=== PATIENT | female | born 1955 | race African-American/Black ===

== ENCOUNTER 2020-08-02 16:45 | Emergency (ER) | payer OTHER, SELFPAY ==
[2020-08-02 16:53] VITALS: BP 150/70; PULSE 70; RESP 20; TEMP 36.2; O2SAT 100; BMI 77.7
== END 2020-08-02 18:00 | disposition left against medical advice (07) ==
PROVIDERS: Emergency Provider Internal Medicine
DX: R31.9 Hematuria, unspecified (principal)
CPT/HCPCS: 99282; 99283

== ENCOUNTER 2021-06-23 15:42 | Emergency (ER) | payer OTHER, SELFPAY ==
--- NOTE | 2021-06-23 16:23 | ECG_ITS ---
Test Reason : CHEST PAIN Blood Pressure : / mmHG Vent. Rate : 065 BPM Atrial Rate : 065 BPM P-R Int : 158 ms QRS Dur : 078 ms QT Int : 414 ms P-R-T Axes : 048 021 048 degrees QTc Int : 430 ms Normal sinus rhythm Normal ECG When compared with ECG of 18-DEC-2019 16:27, Vent. rate has decreased BY 33 BPM T wave amplitude has increased in Lateral leads Referred By: Generic ED Physician Electronically Signed By:CYNTHIA PAYNE
== END 2021-06-23 17:45 | disposition left against medical advice (07) ==
PROVIDERS: Emergency Provider Emergency Medicine; PCP Nurse Practitioner Adult Health
DX: R07.9 Chest pain, unspecified (principal)
CPT/HCPCS: 93005; 99281; 99283

== ENCOUNTER 2022-01-31 13:58 | Emergency (ER) | payer OTHER, SELFPAY ==
--- NOTE | ~2022-01-31 | CT_ITS ---
EXAMINATION: CT HEAD W/O IV CONTRAST CT CERVICAL SPINE W/O IV CONTRAST CLINICAL INFORMATION: Head injury. Neck pain. COMPARISON: None TECHNIQUE: Head - Contiguous axial imaging of the head was performed from the skull base to the vertex without the administration of intravenous contrast, and axial images are reconstructed at 2 mm and 5 mm slice thickness. Cervical spine - A volumetric, helical CT acquisition of the cervical spine was obtained without contrast; in addition to the standard set of axial images, multiplanar reformatted images were provided in the coronal and sagittal imaging planes. This CT examination was performed using dose optimization techniques as appropriate, variously including the following: *Automated exposure control *Adjustment of mA and/or kV according to patient size (this includes techniques or standardized protocols for targeted exams where dose is matched to indication/reason for exam; i.e. extremities or head) *Use of iterative reconstruction technique DLP: 998 mGy-cm (total) FINDINGS: HEAD: The brain parenchyma has normal attenuation. No evidence of intracranial hemorrhage, major vascular territory infarction, focal mass effect or midline shift. Gambino to white matter differentiation is preserved. The ventricles have normal size and configuration. No extra-axial fluid collections. The calvarium is intact and the visualized paranasal sinuses, mastoid air cells and middle ear cavities are clear. The temporomandibular joints are unremarkable. The orbits and globes are normal. CERVICAL SPINE: The craniocervical junction is normal. The skull base and occipital condyles are intact. No acute fractures within the degenerated spine. There is lack of lordotic curvature of the spine. There is chronic osseous spurring of the anterior arch of C1 and old focus of ossification projects superior to the dens. The atlantodens space is 0.3 cm wide (i.e., slightly widened) and the posterior atlantodental space is 1.7 cm. Normally, the spinal canal is in the range of 1.7 to 2.9 cm at the C1 level. There is severe right-sided facet arthropathy at C2-C3 with 0.2 cm degenerative retrolisthesis of C2 on C3. Moderate degenerative disc disease at C3-C4 where there is loss of disc height, prominent anterior vertebral osteophyte formation and bilateral uncovertebral joint hypertrophy resulting in moderate right and minimal left neural foraminal stenosis. The C4, C5, C6 and C7 vertebra are fused and there is chronic decreased AP dimension of C5 and C6 vertebra. The anterior fusion plate and screws are intact at C4-C5. No osteolysis around the hardware. There is moderate degenerative disc disease, bilateral uncovertebral joint hypertrophy and mild bilateral neural foraminal stenosis at C7-T1. No prevertebral soft tissue swelling. The visualized lung apices are normal. Thyroid gland is normal. CT/CT cervical spine wo con IMPRESSION: * No intracranial hemorrhage or other acute intracranial pathology. * No fractures in the degenerated and surgically fused cervical spine. * The mild atlantodental space widening is very likely chronic. There are no comparison imaging exams of the cervical spine. Findings also include severe right-sided facet arthropathy at C2-C3 and mild anterolisthesis of C2 on C3. Otherwise, cervical vertebra have normal alignment.
[2022-01-31 14:08] VITALS: BP 166/86; BP 191/83; PULSE 60; PULSE 64; RESP 18; TEMP 37.1; O2SAT 100; BMI 26.0
--- NOTE | 2022-01-31 14:26 | ED.GENADULT ---
HPI - General Adult General Chief complaint: General Medical Stated complaint: DIZZINESS S/P OBJECT FELL NO HER WHILE SHOPPING Time Seen by Provider: 01/31/22 14:10 Source: patient and EMS Mode of arrival: EMS Limitations: no limitations History of Present Illness HPI narrative: 67-year-old female with a history of prior cervical fusion, anxiety/depression, HLD, HTN, DM here with complaints of head and neck pain with dizziness after a head injury which occurred at [employer]. Patient tells me that she was removing a drying racks from a high shelf [employer] and 6-7 of the drying racks fell on the top of her head. She fell days but did not lose her consciousness. Since then she reports headache, dizziness, neck pain. Patient does report limited range of motion of her neck at baseline. She does not feel like this is worsened. No nausea, vomiting, vision changes. No anticoagulation or aspirin use Related Data Home Medications Medication Instructions Recorded Confirmed clonidine HCl 0.1 mg tablet PO 08/02/20 diltiazem HCl 360 mg capsule,24 1 cap PO DAILY 08/02/20 08/02/20 hr,extended release ferrous sulfate 325 mg (65 mg 1 tab PO DAILY 08/02/20 08/02/20 iron) tablet insulin aspart U-100 100 unit/mL unit SUBCUT TID 08/02/20 (3 mL) subcutaneous pen (Novolog Flexpen U-100 Insulin aspart) insulin glargine 100 unit/mL (3 SUBCUT 08/02/20 mL) subcutaneous pen (Lantus Solostar U-100 Insulin) lamotrigine 100 mg tablet 1 tab PO DAILY 08/02/20 08/02/20 omeprazole 20 mg capsule,delayed 1 cap PO DAILY 08/02/20 08/02/20 release simvastatin 20 mg tablet 1 tab PO BEDTIME 08/02/20 08/02/20 topiramate 50 mg tablet 1 tab PO BID 08/02/20 08/02/20 Allergies Allergy/AdvReac Type Severity Reaction Status Date / Time bupropion [From WELLBUTRIN] Allergy Severe SEIZURES Verified 01/31/22 14:16 sulfamethoxazole Allergy Severe GIB Verified 01/31/22 14:16 [From BACTRIM] trimethoprim [From BACTRIM] Allergy Severe GIB Verified 01/31/22 14:16 carisoprodol [From SOMA] Allergy Intermediate HALLUCINATI Verified 01/31/22 14:16 ONS gabapentin [From NEURONTIN] Allergy Intermediate HALLUCINATI Verified 01/31/22 14:16 ONS/PARANOI D Sulfa (Sulfonamide Allergy Unknown Unknown Verified 01/31/22 14:16 Antibiotics) aspirin AdvReac Gastrointestinal Verified 01/31/22 14:16 Upset Review of Systems Review of Systems: Yes all other systems are reviewed and are negative Constitutional: Constitutional: Reports no additional constitutional complaints, Denies body ache(s), Denies chills, Denies fever(s), Reports headache(s) and Denies weakness Eyes: Eyes: Reports no additional eye complaints and Denies change in vision ENT: Reports system reviewed and no additional complaints, except as documented, Reports dizziness, Reports headache(s), Denies nasal congestion, Denies nasal discharge and Reports neck pain Cardiovascular: Cardiovascular: Reports no additional cardiovascular complaints, Denies chest pain, Denies leg edema and Denies dyspnea Respiratory: Respiratory: Reports no additional respiratory complaints, Denies cough and Denies dyspnea Gastrointestinal: Gastrointestinal: Reports no additional gastrointestinal complaints, Denies abdominal pain, Denies diarrhea, Denies nausea and Denies vomiting Genitourinary: Genitourinary: Reports no additional female genitourinary complaints and Denies urinary incontinence Musculoskeletal: Musculoskeletal: Reports no additional musculoskeletal complaints, Denies back pain, Denies arthralgias, Denies joint swelling, Reports neck pain, Denies numbness and Denies tingling Integumentary/Breasts: Skin/Breast: Reports system reviewed and no additional complaints, except as docu and Denies rash Neurologic: Reports system reviewed and no additional complaints, except as documented, Reports dizziness, Reports headache(s), Denies numbness, Denies tingling and Denies weakness [facility] Past Medical History Attestation statement: The following information was validated with the patient. Source: old records reviewed and nursing notes reviewed Medical History Anxiety Depression Diabetes mellitus, type 2 Hypercholesteremia Hypertension PTSD (post-traumatic stress disorder) Social History Social History Advance Directives: No Advance Directives Information Provided: No Physical Exam ED Vital Signs: Vital Signs - 24 hr 01/31/22 14:08 Temperature 98.7 F Pulse Rate 64 Respiratory Rate 18 Blood Pressure 191/83 H Pulse Oximetry 100 BMI result Body Mass Index 26.0 Const General: cooperative, healthy appearing, comfortable and no acute distress Orientation/consciousness: patient oriented x3 Limitations: no limitations HENMT Head: Yes normal to inspection Ears: hearing grossly normal bilaterally and TM's normal bilaterally General nose exam: Normal external nose present Face and sinus: Yes normal facial exam Mouth: Normal oral and palatal mucosa present Teeth and gingiva: dentition normal Throat: Yes posterior oropharynx normal, Yes tonsils normal and Yes uvula midline Eyes General: appearance normal, both eyes and all related structures Pupils: Equal, round and reactive pupils present Neck Other: Tenderness over the cervical mid spine with no step-offs or deformities. Limited range of motion at baseline per patient Neck: Yes normal visual inspection Chest Chest palpation & inspection: normal inspection of the chest Resp Effort & Inspection: normal respiratory effort Auscultation: clear to auscultation bilaterally Cardio Rate: regular rate Rhythm: regular rhythm Peripheral pulses: Peripheral pulses 2+ throughout GI Inspection: Yes normal to inspection Palpation (GI): Soft to palpation and nontender General: Yes no CVA tenderness Back/Spine/Pelvis Back: no CVA tenderness Thoracic/Lumbar Spine: thoracic and lumbar spine normal to inspection Skin General skin exam: no rashes or lesions noted Neuro General: patient oriented x3 and moves all extremities Cranial nerves: Yes CN's II-XII intact bilaterally, Yes Equal, round and reactive pupils present, Yes Bilaterally intact EOM present, Yes Nystagmus not present, Yes Normal facial strength present and Yes Midline tongue present Cognition (Neuro): normal cognition Motor exam (neuro): 5/5 motor strength present throughout Sensory Exam: Normal double simultaneous stimulation for sensation Extrem General: Yes normal to inspection, Yes no pedal edema and Yes no calf tenderness Course Course Course Narrative: 67-year-old female here with reports of headache, neck pain and dizziness after a head strike which occurred at [employer] just prior to arrival. Normal neurological exam. Vital signs are stable. Will check CT head and cervical spine and provide analgesia Reevaluation(s) Reevaluation #1: CT head shows no acute finding. CT cervical spine shows *? No fractures in the degenerated and surgically fused cervical spine. *? The mild atlantodental space widening is very likely chronic. There are no comparison imaging exams of the cervical spine.? Findings also include severe right-sided facet arthropathy at C2-C3 and mild anterolisthesis of C2 on C3. Otherwise, cervical vertebra have normal alignment. -the patient was given a copy of her report. She tells me her headache and neck pain is improving with Tylenol. Recommend she follow up outpatient with her primary providers. Reviewed worrisome signs and symptoms of when to return to the emergency department. Comfortable discharge home. Time: 16:15 Medical Decision Making MDM Narrative Medical decision making narrative: Fracture, contusion, strain, ich Medical Records Medical records reviewed: Yes I reviewed the patient's medical records. Lab Data Lab results reviewed: Yes I reviewed the patient's lab results. Labs: Lab Results 01/31/22 Range/Units 15:10 Urine Color YELLOW Urine Appearance CLEAR Urine pH 7.5 (5.0-8.0) Ur Specific Tyler 1.010 (1.005-1.025) Urine Protein NEG (NEG-TRACE) MG/DL Urine Glucose (UA) NEG (NEG) MG/DL Urine Ketones NEG (NEG) MG/DL Urine Blood NEG (NEG) Urine Nitrite NEG (NEG) Ur Leukocyte Esterase NEG (NEG) Imaging Data CT head/cervical spine: Attestation: I personally reviewed and interpreted this imaging study as follows: Radiologist's impression: HEAD: The brain parenchyma has normal attenuation. No evidence of intracranial hemorrhage, major vascular territory infarction, focal mass effect or midline shift. Gambion to white matter differentiation is preserved. The ventricles have normal size and configuration. No extra-axial fluid collections. The calvarium is intact and the visualized paranasal sinuses, mastoid air cells and middle ear cavities are clear. The temporomandibular joints are unremarkable. The orbits and globes are normal. CERVICAL SPINE: The craniocervical junction is normal. The skull base and occipital condyles are intact. No acute fractures within the degenerated spine. There is lack of lordotic curvature of the spine. There is chronic osseous spurring of the anterior arch of C1 and old focus of ossification projects superior to the dens. The atlantodens space is 0.3 cm wide (i.e., slightly widened) and the posterior atlantodental space is 1.7 cm. Normally, the spinal canal is in the range of 1.7 to 2.9 cm at the C1 level. There is severe right-sided facet arthropathy at C2-C3 with 0.2 cm degenerative retrolisthesis of C2 on C3. Moderate degenerative disc disease at C3-C4 where there is loss of disc height, prominent anterior vertebral osteophyte formation and bilateral uncovertebral joint hypertrophy resulting in moderate right and minimal left neural foraminal stenosis. The C4, C5, C6 and C7 vertebra are fused and there is chronic decreased AP dimension of C5 and C6 vertebra. The anterior fusion plate and screws are intact at C4-C5. No osteolysis around the hardware. There is moderate degenerative disc disease, bilateral uncovertebral joint hypertrophy and mild bilateral neural foraminal stenosis at C7-T1. No prevertebral soft tissue swelling. The visualized lung apices are normal. Thyroid gland is normal. CT/CT cervical spine wo con IMPRESSION: *? No intracranial hemorrhage or other acute intracranial pathology. *? No fractures in the degenerated and surgically fused cervical spine. *? The mild atlantodental space widening is very likely chronic. There are no comparison imaging exams of the cervical spine.? Findings also include severe right-sided facet arthropathy at C2-C3 and mild anterolisthesis of C2 on C3. Otherwise, cervical vertebra have normal alignment. ? Discharge Plan Discharge Clinical Impression: Head injury, Cervical muscle strain Patient Disposition: Home, Self-Care Instructions: Cervical Strain (DC), Head Injury (ED) Additional Instructions: You were given a copy of your CT scan resolved Take Tylenol for pain as needed Limit screen time Get plenty of rest Return for severe headache, multiple episodes of vomiting, numbness or weakness in the extremities Prescriptions: No Action clonidine HCl 0.1 mg tablet PO 0RF diltiazem HCl 360 mg capsule,extended release 24 hr 1 cap PO DAILY 0RF simvastatin 20 mg tablet 1 tab PO BEDTIME 0RF ferrous sulfate 325 mg (65 mg iron) tablet 1 tab PO DAILY 0RF omeprazole 20 mg capsule,delayed release(DR/EC) 1 cap PO DAILY 0RF lamotrigine 100 mg tablet 1 tab PO DAILY 0RF insulin aspart U-100 [Novolog Flexpen U-100 Insulin] 100 unit/mL (3 mL) insulin pen subcut TID 0RF topiramate 50 mg tablet 1 tab PO BID 0RF Lantus Solostar U-100 Insulin 100 unit/mL (3 mL) insulin pen subcut 0RF Referrals: Tisah Ac, RELIGIOUS ASSISTANT [Primary Care Provider] - 1 week (For persistent symptoms)
[2022-01-31] MEDS: Acetaminophen 325 MG TABLET 975 MG PO (15:08)
[2022-01-31 15:35] LABS: Appearance Urine CLEAR; Color Urine YELLOW; Glucose Urine UA NEG (NEG); Leukocyte Esterase Urine NEG (NEG); Nitrite Urine NEG (NEG); PH 7.5 (5.0-8.0); Urine Blood NEG (NEG); Urine Ketones NEG (NEG); Urine Protein NEG (NEG-TRACE)
== END 2022-01-31 16:22 | disposition home or self-care (01) ==
PROVIDERS: Nurse Practitioner Family; Emergency Provider Emergency Medicine Emergency Medical Services; PCP Nurse Practitioner Adult Health
DX: S16.1XXA Strain of muscle, fascia and tendon at neck level, initial encounter (principal); S09.90XA Unspecified injury of head, initial encounter; E11.9 Type 2 diabetes mellitus without complications; I10 Essential (primary) hypertension; W20.8XXA Other cause of strike by thrown, projected or falling object, initial encounter; Y93.9 Activity, unspecified; Y92.512 Supermarket, store or market as the place of occurrence of the external cause; Y99.9 Unspecified external cause status
CPT/HCPCS: 70450; 72125; 81003; 99283; 99284

== ENCOUNTER 2022-02-02 14:09 | Emergency (ER) | payer OTHER, SELFPAY ==
[2022-02-02 14:58] VITALS: BP 152/80; PULSE 60; RESP 18; TEMP 36.6; O2SAT 99; BMI 26.0
== END 2022-02-02 16:57 | disposition left against medical advice (07) ==
PROVIDERS: Emergency Provider Emergency Medicine; PCP Nurse Practitioner Adult Health
DX: M54.2 Cervicalgia (principal); M25.519 Pain in unspecified shoulder
CPT/HCPCS: 99281; 99282

== ENCOUNTER 2022-02-14 13:12 | Emergency (ER) | payer OTHER, SELFPAY ==
[2022-02-14 13:51] VITALS: BP 172/72; PULSE 64; RESP 18; TEMP 36.8; O2SAT 99; BMI 26.1
--- NOTE | 2022-02-14 14:25 | ED.HA ---
HPI - Headache General Chief Complaint: Headache Stated Complaint: headaches/neck pain Time Seen by Provider: 02/14/22 13:26 Source: patient Mode of arrival: ambulatory Limitations: no limitations History of Present Illness HPI Narrative: 67 y/o with history of anxiety/depression, HTN, HLD, dm, chronic neck pain status post cervical fusion who presents to the ER for evaluation of ongoing headache and neck pain after she had distress nurse fall on her head while she was shopping at [employer] on January 31. She was seen here for evaluation after the injury at the time, she had CT scan showing no intracranial bleed but chronic right-sided facet arthropathy at C2-C3 and mild anteriolisthesis of C2 on C3. She reports taking Tylenol for the pain with no relief. She reports the pain is in the middle of her neck and to the muscles on both sides. She feels like all the muscles were straight when the distress nurse fell onto her head on the . She is due to see a spinal specialist soon, she has appointment with her PCP on Wednesday. MD elicited complaint: headache and other (neck pain) Pertinent past history: recent trauma Onset (ago): week(s) Onset description: suddenly Location: occipital and neck Severity: severe Quality & Timing: aching Exacerbating factors: sitting/standing and other (Holding her head up) Relieving factors: nothing Context: recent head injury Associated symptoms: none Treatments prior to arrival: acetaminophen Related Data Home Medications Medication Instructions Recorded Confirmed clonidine HCl 0.1 mg tablet PO 08/02/20 diltiazem HCl 360 mg capsule,24 1 cap PO DAILY 08/02/20 08/02/20 hr,extended release ferrous sulfate 325 mg (65 mg 1 tab PO DAILY 08/02/20 08/02/20 iron) tablet insulin aspart U-100 100 unit/mL unit SUBCUT TID 08/02/20 (3 mL) subcutaneous pen (Novolog Flexpen U-100 Insulin aspart) insulin glargine 100 unit/mL (3 SUBCUT 08/02/20 mL) subcutaneous pen (Lantus Solostar U-100 Insulin) lamotrigine 100 mg tablet 1 tab PO DAILY 08/02/20 08/02/20 omeprazole 20 mg capsule,delayed 1 cap PO DAILY 08/02/20 08/02/20 release simvastatin 20 mg tablet 1 tab PO BEDTIME 08/02/20 08/02/20 topiramate 50 mg tablet 1 tab PO BID 08/02/20 08/02/20 Previous Rx's Medication Instructions Recorded cyclobenzaprine 5 mg tablet 5 mg PO TID PRN #14 tab 02/14/22 hydrocodone 5 mg-acetaminophen 325 1 tab PO Q8H PRN #6 tab 02/14/22 mg tablet Allergies Allergy/AdvReac Type Severity Reaction Status Date / Time bupropion [From WELLBUTRIN] Allergy Severe SEIZURES Verified 02/14/22 13:51 sulfamethoxazole Allergy Severe GIB Verified 02/14/22 13:51 [From BACTRIM] trimethoprim [From BACTRIM] Allergy Severe GIB Verified 02/14/22 13:51 carisoprodol [From SOMA] Allergy Intermediate HALLUCINATI Verified 02/14/22 13:51 ONS gabapentin [From NEURONTIN] Allergy Intermediate HALLUCINATI Verified 02/14/22 13:51 ONS/PARANOI D Sulfa (Sulfonamide Allergy Unknown Unknown Unverified 02/14/22 13:51 Antibiotics) aspirin AdvReac Gastrointestinal Verified 02/14/22 13:51 Upset Review of Systems Review of Systems: Constitutional: No Fever, No Chills Eyes: No vision changes Cardiovascular: No Chest Pain, No SOB Respiratory: No Cough, No Sputum Gastrointestinal: No Nausea, No Vomiting, No abdominal Pain Genitourinary: No Dysuria, No Urinary Frequency, No Hematuria Musculoskeletal: + joint pain, + Myalgias Skin: No Skin Lesions, No rash Neuro: No Weakness, No Numbness, No Dizziness, + Headache Psych: +Anxiety/Panic, No Depression Heme/Lymph: No Bruising, No Lymphadenopathy Endocrine: No Polyuria, No Polydipsia PMFSH Past Medical History Medical History Anxiety Depression Diabetes mellitus, type 2 Hypercholesteremia Hypertension PTSD (post-traumatic stress disorder) Social History Social History Advance Directives: No Advance Directives Information Provided: No Physical Exam Vital Signs: Vital Signs: Last Vital Signs Temp 98.3 F 02/14/22 13:51 Pulse 64 02/14/22 13:51 Resp 18 02/14/22 13:51 BP 172/72 H 02/14/22 13:51 Pulse Ox 99 02/14/22 13:51 BMI result Body Mass Index 26.1 Appearance: Alert. Oriented X3. No acute distress. HEENT: normal inspection, atraumatic. Neck: diffuse tenderness of the neck including all of the soft tissues bilaterally with palpable spasm, R>L. slightly limited ROM due to pain. no skin changes, erythema or warmth. no nuchal rigidity. CVS: Normal heart rate and rhythm. Pulses normal. Respiratory: No respiratory distress. Skin: Skin warm and dry. Normal skin color. Normal skin turgor. No rashes. Extremities: normal inspection x4, normal ROM. Neuro: Oriented X 3. No motor deficit. No sensory deficit. Rqual and symmetrical strength throughout. steady gait Course Course Course Narrative: 67-year-old female presents to the ER for evaluation of acute on chronic neck pain. She reports the pain has been persistent since her injury at [employer] on January 31. She had CT scans at that time showing degenerated and surgically fused spine. There was also severe right-sided facet arthropathy in the upper cervical spine and mild anteriolisthesis. She has no numbness or tingling or signs of cervical radiculopathy. She has been taking Tylenol with minimal relief. She has appointment weapons specialist coming up. She reports her head feels heavy to hold up and she would like a collar to help relieve the strain on her neck. She has palpable spasm on exam. Will provide soft collar for comfort as well as low-dose muscle relaxers. Stable for discharge home with outpatient follow-up with her PCP on Wednesday and weapons specialist in the future Discharge Plan Discharge Clinical Impression: Cervical muscle strain, Chronic neck pain Patient Disposition: Home, Self-Care Instructions: Cervical Strain (DC), Chronic Neck Pain (DC) Additional Instructions: Wear the provided collar as needed for comfort and support. Take medications as prescribed to help with pain and discomfort. Follow up with your Primary Care Doctor this week. If your pain worsens, if you develop new numbness, tingling, weakness, loss of function any other concerning symptoms 911 or come back to the ER right away for evaluation. Prescriptions: New cyclobenzaprine 5 mg tablet 5 mg PO TID PRN (Reason: muscle spasm) Qty: 14 0RF hydrocodone-acetaminophen 5-325 mg tablet 1 tab PO Q8H PRN (Reason: severe pain (scale score 7-10)) Qty: 6 0RF No Action clonidine HCl 0.1 mg tablet PO 0RF diltiazem HCl 360 mg capsule,extended release 24 hr 1 cap PO DAILY 0RF simvastatin 20 mg tablet 1 tab PO BEDTIME 0RF ferrous sulfate 325 mg (65 mg iron) tablet 1 tab PO DAILY 0RF omeprazole 20 mg capsule,delayed release(DR/EC) 1 cap PO DAILY 0RF lamotrigine 100 mg tablet 1 tab PO DAILY 0RF insulin aspart U-100 [Novolog Flexpen U-100 Insulin] 100 unit/mL (3 mL) insulin pen subcut TID 0RF topiramate 50 mg tablet 1 tab PO BID 0RF Lantus Solostar U-100 Insulin 100 unit/mL (3 mL) insulin pen subcut 0RF Referrals: Tisha Ac, COMMUNICATIONS TECHNICIAN [Primary Care Provider] - (acute on chronic neck pain s/p injury 01/31.) Interventions: ED Discharge Assessment Last Done: 02/14/22 14:54 Discharge Date/Time: 02/14/22 14:58
== END 2022-02-14 14:58 | disposition home or self-care (01) ==
PROVIDERS: Emergency Provider Emergency Medicine Emergency Medical Services; PCP Nurse Practitioner Adult Health
DX: R51.9 Headache, unspecified (principal); I10 Essential (primary) hypertension; F33.1 Major depressive disorder, recurrent, moderate; M54.2 Cervicalgia; Z79.899 Other long term (current) drug therapy
CPT/HCPCS: 99283

== ENCOUNTER 2022-06-24 00:02 | Emergency (ER) | payer OTHER, SELFPAY ==
--- NOTE | ~2022-06-24 | CT_ITS ---
EXAMINATION: CT HEAD WITHOUT CONTRAST CLINICAL INFORMATION: Ocular migraine. COMPARISON: 01/31/2022 TECHNIQUE: Contiguous axial imaging was performed from the skull base to vertex without intravenous administration of contrast. This CT examination was performed using dose optimization techniques as appropriate, variously including the following: *Automated exposure control *Adjustment of mA and/or kV according to patient size (this includes techniques or standardized protocols for targeted exams where dose is matched to indication/reason for exam; i.e. extremities or head) *Use of iterative reconstruction technique DLP: 644 mGy-cm FINDINGS: There is no evidence of acute intracranial hemorrhage or territorial infarction. No abnormal mass effect or midline shift is seen. [place] to white matter differentiation is well preserved. No extra-axial fluid collections are identified. No hydrocephalus. No significant volume loss. There is no abnormal attenuation within the brain parenchyma. No acute osseous or soft tissue abnormality. The mastoid air cells and visualized portions of the paranasal sinuses are well aerated. CT/CT head/brain wo IV con IMPRESSION: No acute intracranial pathology.
[2022-06-24 00:09] VITALS: BP 187/83; PULSE 99; RESP 21; TEMP 36.3; O2SAT 99; BMI 24.3
[2022-06-24 00:29] LABS: Basophils Percent Auto 0.3 % (0-2); Eosinophils Absolute Auto 0.2 X10*3/uL (0.0-0.4); Eosinophils Percent Auto 2.7 % (0-4); Hematocrit 33.6 % (37.0-47.0); Imm Gran Abs Auto 0.02 X10*3/uL (0.00-0.03); Imm Gran Pct Auto 0.3 % (0.0-0.4); Lymphocytes Absolute Auto 2.1 X10*3/uL (1.2-4.9); Lymphocytes Percent Auto 26.8 % (20-40); MANUAL DIFF FLAG NO; Mean Corpuscular HGB Conc 32.7 g/dl (31.0-35.0); Mean Corpuscular Volume 91.6 fL (80.0-98.0); Mean Platelet Volume 9.9 fL (9.4-12.3); Monocytes Absolute Auto 0.8 X10*3/uL (0.1-1.2); Monocytes Percent Auto 10.6 % (2-11); Neutrophils Absolute Auto 4.7 x10*3/uL (2.0-8.3); Neutrophils Percent Auto 59.3 % (45-73); Platelet Count 298 X10*3/uL (160-400); Red Blood Count 3.67 X10*6/uL (4.20-5.50); Red Cell Distribution Width 12.8 % (11.0-16.0); White Blood Count 7.8 X10*3/uL (4.8-10.8)
--- NOTE | 2022-06-24 01:20 | ED.EYEPROB ---
HPI - Eye Problem General Chief complaint: Eye Problems Stated complaint: Eye pain/No inj Time Seen by Provider: 06/24/22 01:20 Source: patient Mode of arrival: ambulatory Limitations: no limitations History of Present Illness HPI Narrative: Patient with no significant eye problems in the past since yesterday 17:00 noticed pain in the left eye with light sensitivity headache spreading to the left side of the head no nausea no vomiting no visual field deficit no other focal weakness Related Data Home Medications Medication Instructions Recorded Confirmed clonidine HCl 0.1 mg tablet PO 08/02/20 diltiazem HCl 360 mg capsule,24 1 cap PO DAILY 08/02/20 08/02/20 hr,extended release ferrous sulfate 325 mg (65 mg 1 tab PO DAILY 08/02/20 08/02/20 iron) tablet insulin aspart U-100 100 unit/mL unit subcut TID 08/02/20 (3 mL) subcutaneous pen (Novolog Flexpen U-100 Insulin aspart) insulin glargine 100 unit/mL (3 subcut 08/02/20 mL) subcutaneous pen (Lantus Solostar U-100 Insulin) lamotrigine 100 mg tablet 1 tab PO DAILY 08/02/20 08/02/20 omeprazole 20 mg capsule,delayed 1 cap PO DAILY 08/02/20 08/02/20 release simvastatin 20 mg tablet 1 tab PO BEDTIME 08/02/20 08/02/20 topiramate 50 mg tablet 1 tab PO BID 08/02/20 08/02/20 Previous Rx's Medication Instructions Recorded cyclobenzaprine 5 mg tablet 5 mg PO TID PRN muscle spasm #14 02/14/22 tabs hydrocodone 5 mg-acetaminophen 325 1 tab PO Q8H PRN severe pain 02/14/22 mg tablet (scale score 7-10) #6 tabs oidbnaapgj-rrlodqxxsmfvl-agvwnblm 1 cap PO Q6H PRN headache #20 caps 06/24/22 50 mg-300 mg-40 mg capsule (Fioricet) Allergies Allergy/AdvReac Type Severity Reaction Status Date / Time bupropion [From WELLBUTRIN] Allergy Severe SEIZURES Verified 02/14/22 13:51 sulfamethoxazole Allergy Severe GIB Verified 02/14/22 13:51 [From BACTRIM] trimethoprim [From BACTRIM] Allergy Severe GIB Verified 02/14/22 13:51 carisoprodol [From SOMA] Allergy Intermediate HALLUCINATI Verified 02/14/22 13:51 ONS gabapentin [From NEURONTIN] Allergy Intermediate HALLUCINATI Verified 02/14/22 13:51 ONS/PARANOI D Sulfa (Sulfonamide Allergy Unknown Unknown Unverified 02/14/22 13:51 Antibiotics) aspirin AdvReac Gastrointestinal Verified 02/14/22 13:51 Upset Review of Systems Review of Systems: Yes all other systems are reviewed and are negative [facility] Past Medical History Medical History Anxiety Depression Diabetes mellitus, type 2 Hypercholesteremia Hypertension PTSD (post-traumatic stress disorder) Social History Social History Advance Directives: No Advance Directives Information Provided: No Physical Exam Vital Signs: Vital Signs: Last Vital Signs Temp 97.1 F 06/24/22 01:26 Pulse 90 06/24/22 01:26 Resp 17 06/24/22 01:26 BP 151/82 H 06/24/22 01:26 Pulse Ox 97 06/24/22 01:26 O2 Del Method 06/24/22 01:26 BMI result Body Mass Index 24.3 Appearance: Alert. Oriented X3. No acute distress. Eyes: PERRLA, No Nystagmus IOP 9 left eye and 15 right eye photosensitive ENT: Pharynx normal. Oral Mucosa moist no temporal artery tenderness Neck: Normal inspection. Neck supple. CVS: Normal heart rate and rhythm. Pulses normal. Respiratory: No respiratory distress. Equal air entry bilateral, no wheezing/rales/rhonchi Abdomen: Soft and nontender. Bowel sounds are present, Skin: Skin warm and dry. Normal skin color. Normal skin turgor. Extremities: No lower extremity edema. No calf tenderness Neuro: Oriented X 3. No motor deficit. MDM - Eye Problem Lab Data Result diagrams: 06/24/22 00:20 06/24/22 00:54 Labs: Lab Results 06/24/22 06/24/22 Range/Units 00:20 00:54 WBC 7.8 (4.8-10.8) X10*3/uL RBC 3.67 L (4.20-5.50) X10*6/uL Hgb 11.0 L (12.0-16.0) g/dl Hct 33.6 L (37.0-47.0) % MCV 91.6 (80.0-98.0) fL MCH 30.0 (27.0-33.0) pg MCHC 32.7 (31.0-35.0) g/dl RDW 12.8 (11.0-16.0) % Plt Count 298 (160-400) X10*3/uL MPV 9.9 (9.4-12.3) fL Immature Gran % (Auto) 0.3 (0.0-0.4) % Neut % (Auto) 59.3 (45-73) % Lymph % (Auto) 26.8 (20-40) % [place] % (Auto) 10.6 (2-11) % Eos % (Auto) 2.7 (0-4) % Baso % (Auto) 0.3 (0-2) % Lymph # (Auto) 2.1 (1.2-4.9) X10*3/uL [place] # (Auto) 0.8 (0.1-1.2) X10*3/uL Eos # (Auto) 0.2 (0.0-0.4) X10*3/uL Baso # (Auto) 0.0 (0.0-0.2) X10*3/uL Abs Immat Gran (auto) 0.02 (0.00-0.03) X10*3/uL Absolute Neuts (auto) 4.7 (2.0-8.3) x10*3/uL Absolute Nucleated RBC 0.000 (0.0-0.012) X10*3/uL Nucleated RBC % (auto) 0.0 (0.0-0.2) /100WBC Sodium 141 (135-145) mmol/L Potassium 4.1 (3.3-5.1) mmol/L Chloride 110 H (96-108) mmol/L Carbon Dioxide 19 L (22-29) mmol/L Anion Gap 16 (12-20) BUN 32 H (9-16) mg/dL Creatinine 1.76 H (0.5-1.4) mg/dL Estim Creat Clear Calc 25.9 Estimated GFR 29 Random Glucose 115 (60-115) mg/dL Calcium 10.1 (8.4-10.2) mg/dL TSH < 0.01 L (0.32-4.0) uIU/mL Free T4 1.60 (0.71-1.85) ng/dL Discharge Plan Discharge Clinical Impression: Ocular migraine Patient Disposition: Elopement Instructions: Ocular Migraine (ED) Additional Instructions: Take Fioricet tablet every 6-8 hours headache follow with PCP Prescriptions: New xetbgejrya-dqryqbvjdjyha-lott [Fioricet] 50-300-40 mg capsule 1 cap PO Q6H PRN (Reason: headache) Qty: 20 0RF No Action clonidine HCl 0.1 mg tablet PO diltiazem HCl 360 mg capsule,extended release 24 hr 1 cap PO DAILY simvastatin 20 mg tablet 1 tab PO BEDTIME ferrous sulfate 325 mg (65 mg iron) tablet 1 tab PO DAILY omeprazole 20 mg capsule,delayed release(DR/EC) 1 cap PO DAILY lamotrigine 100 mg tablet 1 tab PO DAILY insulin aspart U-100 [Novolog Flexpen U-100 Insulin] 100 unit/mL (3 mL) insulin pen subcut TID topiramate 50 mg tablet 1 tab PO BID Lantus Solostar U-100 Insulin 100 unit/mL (3 mL) insulin pen subcut cyclobenzaprine 5 mg tablet 5 mg PO TID PRN (Reason: muscle spasm) Qty: 14 0RF hydrocodone-acetaminophen 5-325 mg tablet 1 tab PO Q8H PRN (Reason: severe pain (scale score 7-10)) Qty: 6 0RF
[2022-06-24 01:26] VITALS: BP 151/82; PULSE 90; RESP 17; TEMP 36.2; O2SAT 97
[2022-06-24 01:33] LABS: Anion Gap 16 (12-20); Blood Urea Nitrogen 32 mg/dL (9-16); Calcium 10.1 mg/dL (8.4-10.2); Carbon Dioxide 19 mmol/L (22-29); Chloride 110 mmol/L (96-108); Creatinine Clr Calc Pharmacy 25.9; Estimated Glomerular Filt Rate 29; Glucose Random 115 mg/dL (60-115); Potassium 4.1 mmol/L (3.3-5.1); Sodium 141 mmol/L (135-145)
--- NOTE | 2022-06-24 03:56 | PC.NURSE ---
pt not in room upon discharge. Notified [facility]
[2022-06-24 14:34] LABS: TSH reflex Free T4 < 0.01 uIU/mL (0.32-4.0)
== END 2022-06-24 03:50 | disposition left against medical advice (07) ==
PROVIDERS: Emergency Provider Internal Medicine; PCP Nurse Practitioner Adult Health
DX: G43.809 Other migraine, not intractable, without status migrainosus (principal); H57.12 Ocular pain, left eye; E11.9 Type 2 diabetes mellitus without complications; I10 Essential (primary) hypertension; E78.00 Pure hypercholesterolemia, unspecified; Z79.4 Long term (current) use of insulin; Z79.02 Long term (current) use of antithrombotics/antiplatelets; Z79.899 Other long term (current) drug therapy
CPT/HCPCS: 36415; 70450; 80048; 84439; 84443; 85025; 99282; 99284

== ENCOUNTER 2024-01-11 16:55 | Emergency (ER) | payer OTHER, SELFPAY ==
--- NOTE | ~2024-01-11 | CT_ITS ---
EXAMINATION: CT HEAD WITHOUT CONTRAST CLINICAL INFORMATION: Headache COMPARISON: Portions of a previous head CT 06/24/22 TECHNIQUE: Multidetector CT examination of the head is performed without contrast. This CT examination was performed using dose optimization techniques as appropriate, variously including the following: *Automated exposure control *Adjustment of mA and/or kV according to patient size (this includes techniques or standardized protocols for targeted exams where dose is matched to indication/reason for exam; i.e. extremities or head) *Use of iterative reconstruction technique DLP: 638 mGy-cm FINDINGS: Cervical instrumentation partially included on the lateral interlocking pavement installer. There is no evidence of a recent intracranial hemorrhage or extra-axial collection. The midline structures are nondisplaced. The ventricles, cisterns, and sulci are within normal limits. There is no evidence of an intra-axial mass. There are no suspicious focal areas of abnormal brain attenuation. The serrano-white interface is within normal limits. There is no evidence of acute territorial infarct. The paranasal sinuses and mastoids are within normal limits. CT/CT head/brain wo IV con IMPRESSION: 1. There is no evidence of a recent intracranial hemorrhage. 2. No acute infarct. 3. No suspicious interval change
[2024-01-11 17:06] VITALS: BP 160/79; PULSE 69; RESP 20; TEMP 37.4; O2SAT 100; BMI 28.1
--- NOTE | 2024-01-11 17:10 | ECG_ITS ---
Test Reason : PAIN Blood Pressure : / mmHG Vent. Rate : 067 BPM Atrial Rate : 067 BPM P-R Int : 246 ms QRS Dur : 078 ms QT Int : 380 ms P-R-T Axes : 041 013 047 degrees QTc Int : 401 ms Sinus rhythm with sinus arrhythmia with 1st degree A-V block Cannot rule out Anterior infarct , age undetermined Abnormal ECG When compared with ECG of 23-JUN-2021 16:35, NV interval has increased Referred By: Anthony Mejia Electronically Signed By:LAURITA LI
--- NOTE | 2024-01-11 17:10 | ED.GENADULT ---
HPI - General Adult General Chief complaint: Headache Stated complaint: mini stroke? Time Seen by Provider: 01/11/24 23:45 Source: patient Mode of arrival: ambulatory Limitations: no limitations History of Present Illness HPI narrative: Patient history of bipolar disorder on Lamictal, Topamax and Seroquel had history of grandmal seizure in 2009 when she was taking Wellbutrin which was stopped and she never had a seizure after that. Two months ago patient had episode of confusion patient was alone at that time which lasted for 5 minutes with no injury patient was in the bed. Again 2 days ago while patient using iPad notice everything got blurred and patient was confused for about 5 minutes woke up in the morning with soreness in the forehead no tongue bite no incontinence patient was alone again at this time no focal deficit patient ambulatory Related Data Home Medications ?Medication ?Instructions ?Recorded ?Confirmed clonidine HCl 0.1 mg tablet PO 08/02/20 diltiazem HCl 360 mg capsule,24 1 cap PO DAILY 08/02/20 08/02/20 hr,extended release ferrous sulfate 325 mg (65 mg 1 tab PO DAILY 08/02/20 08/02/20 iron) tablet insulin aspart U-100 100 unit/mL unit subcut TID 08/02/20 (3 mL) subcutaneous pen (Novolog FlexPen U-100 Insulin aspart) insulin glargine 100 unit/mL (3 subcut 08/02/20 mL) subcutaneous pen (Lantus Solostar U-100 Insulin) lamotrigine 100 mg tablet 1 tab PO DAILY 08/02/20 08/02/20 omeprazole 20 mg capsule,delayed 1 cap PO DAILY 08/02/20 08/02/20 release simvastatin 20 mg tablet 1 tab PO BEDTIME 08/02/20 08/02/20 topiramate 50 mg tablet 1 tab PO BID 08/02/20 08/02/20 Previous Rx's ?Medication ?Instructions ?Recorded cyclobenzaprine 5 mg tablet 5 mg PO TID PRN muscle spasm #14 02/14/22 tabs hydrocodone 5 mg-acetaminophen 325 1 tab PO Q8H PRN severe pain 02/14/22 mg tablet (scale score 7-10) #6 tabs zgzkdnirxq-arjpzniszzyll-ntfswqrd 1 cap PO Q6H PRN headache #20 caps 06/24/22 50 mg-300 mg-40 mg capsule (Fioricet) levetiracetam 500 mg tablet 500 mg PO BID #60 tabs 01/12/24 (Keppra) Allergies Allergy/AdvReac Type Severity Reaction Status Date / Time bupropion [From WELLBUTRIN] Allergy Severe SEIZURES Verified 01/11/24 17:12 sulfamethoxazole Allergy Severe GIB Verified 01/11/24 17:12 [From BACTRIM] trimethoprim [From BACTRIM] Allergy Severe GIB Verified 01/11/24 17:12 carisoprodol [From SOMA] Allergy Intermediate HALLUCINATI Verified 01/11/24 17:12 ONS gabapentin [From NEURONTIN] Allergy Intermediate HALLUCINATI Verified 01/11/24 17:12 ONS/PARANOI D Sulfa (Sulfonamide Allergy Unknown Unknown Verified 01/11/24 17:12 Antibiotics) aspirin AdvReac Gastrointestinal Verified 01/11/24 17:12 Upset Review of Systems Review of Systems: Yes all other systems are reviewed and are negative PMFSH Past Medical History Medical History PTSD (post-traumatic stress disorder) Depression Anxiety Diabetes mellitus, type 2 Hypercholesteremia Hypertension Social History Social History Advance Directives: No Advance Directives Information Provided: No Physical Exam ED Vital Signs: Vital Signs - 24 hr 01/11/24 17:06 01/12/24 00:13 Temperature 99.3 F 97.9 F Pulse Rate 69 128 H Respiratory Rate 20 16 Blood Pressure 160/79 H 159/71 H Pulse Oximetry 100 100 Oxygen Delivery Method Room Air Room Air BMI result Body Mass Index 28.1 Appearance: Alert. Oriented X3. No acute distress. Eyes: PERRLA, No Nystagmus ENT: Pharynx normal. Oral Mucosa moist no tongue bite Neck: Normal inspection. Neck supple. CVS: Normal heart rate and rhythm. Pulses normal. Respiratory: No respiratory distress. Equal air entry bilateral, no wheezing/rales/rhonchi Abdomen: Soft and nontender. Bowel sounds are present, no mass palpable, no CVA tenderness Skin: Skin warm and dry. Normal skin color. Normal skin turgor. Extremities: No lower extremity edema. No calf tenderness Neuro: Oriented X 3. No motor deficit. No sensory deficit.No cerebellar signs , cranial nerves II-XII intact Course Course Course Narrative: RME- patient reports a period of confusion 2 days ago. She reports that she felt like she was ?not there but awake. She reports that she woke up with a headache and ?a bump on my. ? Plan for syncope workup, CT scan of the brain. The patient is neurologically intact Medical Decision Making Medical Decision Making [facility] Narrative: Patient with history of seizure in 2009 secondary to Wellbutrin use likely have epilepsy disorder started again having episodes of confusion ago happened again 2 days ago likely having seizure will start patient on Keppra advised to follow up with Neurology Differential Diagnosis Differential Diagnoses: The differential diagnosis associated with the presentation includes CVA/TIA/brain tumor/metabolic encephalopathy Lab Data [facility] Lab Attestation statement: I reviewed the patient's lab results. 01/11/24 17:42 01/11/24 17:42 Labs: Lab Results 01/11/24 Range/Units 17:42 WBC 4.8 (4.8-10.8) X10*3/uL RBC 3.34 L (4.20-5.50) X10*6/uL Hgb 11.0 L (12.0-16.0) g/dl Hct 33.4 L (37.0-47.0) % MCV 100.0 H (80.0-98.0) fL MCH 32.9 (27.0-33.0) pg MCHC 32.9 (31.0-35.0) g/dl RDW 13.4 (11.0-16.0) % Plt Count 197 D (160-400) X10*3/uL MPV 10.9 (9.4-12.3) fL Immature Gran % (Auto) 0.4 (0.0-0.4) % Neut % (Auto) 53.1 (45-73) % Lymph % (Auto) 34.1 (20-40) % [place] % (Auto) 9.7 (2-11) % Eos % (Auto) 2.3 (0-4) % Baso % (Auto) 0.4 (0-2) % Lymph # (Auto) 1.6 (1.2-4.9) X10*3/uL [place] # (Auto) 0.5 (0.1-1.2) X10*3/uL Eos # (Auto) 0.1 (0.0-0.4) X10*3/uL Baso # (Auto) 0.0 (0.0-0.2) X10*3/uL Abs Immat Gran (auto) 0.02 (0.00-0.03) X10*3/uL Absolute Neuts (auto) 2.5 (2.0-8.3) x10*3/uL Absolute Nucleated RBC 0.000 (0.0-0.012) X10*3/uL Nucleated RBC % (auto) 0.0 (0.0-0.2) /100WBC PT 11.3 (11.1-13.3) SEC INR 0.9 (0.9-1.1) Sodium 142 (135-145) mmol/L Potassium 4.9 (3.3-5.1) mmol/L Chloride 112 H (96-108) mmol/L Carbon Dioxide 23 (22-29) mmol/L Anion Gap 12 (12-20) BUN 38 H (9-16) mg/dL Creatinine 1.74 H (0.5-1.4) mg/dL Estim Creat Clear Calc 29.8 Estimated GFR 29 Random Glucose 63 (60-115) mg/dL Calcium 9.8 (8.4-10.2) mg/dL Total Bilirubin 0.2 (0.0-1.0) mg/dL AST 22 (5-31) U/L ALT 15 (0-31) U/L Alkaline Phosphatase 65 (39-117) U/L Troponin I High Sens < 2.7 (<3.5-17.0) ng/L Total Protein 7.2 (6.5-8.0) g/dL Albumin 4.3 (3.5-5.0) g/dL Lipase 47 (8-78) U/L Independent Interpretation I performed an independent interpretation of an: EKG and CT Scan Interpretation: Sinus rhythm with heart rate of 67 beats per minute no acute ST T wave changes no acute ischemia Radiology Impression Discussion of test interpretation with radiology: I have reviewed the radiologist's reading. Discharge Plan Discharge Clinical Impression: Seizure disorder Patient Disposition: Home, Self-Care Instructions: New-Onset Seizure in Adults (ED) Additional Instructions: Likely you have seizure disorder Start taking Keppra 500 mg twice daily follow up with neurologist for further evaluation Prescriptions: New levetiracetam [Keppra] 500 mg tablet 500 mg PO BID Qty: 60 1RF No Action clonidine HCl 0.1 mg tablet PO diltiazem HCl 360 mg capsule,extended release 24 hr 1 cap PO DAILY simvastatin 20 mg tablet 1 tab PO BEDTIME ferrous sulfate 325 mg (65 mg iron) tablet 1 tab PO DAILY omeprazole 20 mg capsule,delayed release(DR/EC) 1 cap PO DAILY lamotrigine 100 mg tablet 1 tab PO DAILY insulin aspart U-100 [Novolog FlexPen U-100 Insulin] 100 unit/mL (3 mL) insulin pen subcut TID topiramate 50 mg tablet 1 tab PO BID Lantus Solostar U-100 Insulin 100 unit/mL (3 mL) insulin pen subcut tfoadiwhkz-adxospqqujyvp-zpqe [Fioricet] 50-300-40 mg capsule 1 cap PO Q6H PRN (Reason: headache) Qty: 20 0RF cyclobenzaprine 5 mg tablet 5 mg PO TID PRN (Reason: muscle spasm) Qty: 14 0RF hydrocodone-acetaminophen 5-325 mg tablet 1 tab PO Q8H PRN (Reason: severe pain (scale score 7-10)) Qty: 6 0RF Referrals: Lucy Santoyo MD [Physician] - 1 week Print Language: [place]i
[2024-01-11 17:51] LABS: MANUAL DIFF FLAG NO
[2024-01-11 18:07] LABS: Alanine Aminotransferase 15 U/L (0-31); Albumin Level 4.3 g/dL (3.5-5.0); Alkaline Phosphatase 65 U/L (39-117); Anion Gap 12 (12-20); Aspartate Amino Transferase 22 U/L (5-31); Bilirubin Total 0.2 mg/dL (0.0-1.0); Blood Urea Nitrogen 38 mg/dL (9-16); Calcium 9.8 mg/dL (8.4-10.2); Carbon Dioxide 23 mmol/L (22-29); Chloride 112 mmol/L (96-108); Creatinine Clr Calc Pharmacy 29.8; Estimated Glomerular Filt Rate 29; Glucose Random 63 mg/dL (60-115); Lipase 47 U/L (8-78); Potassium 4.9 mmol/L (3.3-5.1); Sodium 142 mmol/L (135-145); Total Protein 7.2 g/dL (6.5-8.0)
[2024-01-11 18:09] LABS: INTERNATIONAL NORM RATIO 0.9 (0.9-1.1); Prothrombin Time 11.3 SEC (11.1-13.3)
[2024-01-11 18:16] LABS: Troponin-I High Sensitivity < 2.7 ng/L (<3.5-17.0)
[2024-01-11 18:18] LABS: Basophils Percent Auto 0.4 % (0-2); Eosinophils Absolute Auto 0.1 X10*3/uL (0.0-0.4); Eosinophils Percent Auto 2.3 % (0-4); Hematocrit 33.4 % (37.0-47.0); Imm Gran Abs Auto 0.02 X10*3/uL (0.00-0.03); Imm Gran Pct Auto 0.4 % (0.0-0.4); Lymphocytes Absolute Auto 1.6 X10*3/uL (1.2-4.9); Lymphocytes Percent Auto 34.1 % (20-40); Mean Corpuscular HGB Conc 32.9 g/dl (31.0-35.0); Mean Corpuscular Hemoglobin 32.9 pg (27.0-33.0); Mean Platelet Volume 10.9 fL (9.4-12.3); Monocytes Absolute Auto 0.5 X10*3/uL (0.1-1.2); Monocytes Percent Auto 9.7 % (2-11); Neutrophils Absolute Auto 2.5 x10*3/uL (2.0-8.3); Neutrophils Percent Auto 53.1 % (45-73); Platelet Count 197 X10*3/uL (160-400); Red Blood Count 3.34 X10*6/uL (4.20-5.50); Red Cell Distribution Width 13.4 % (11.0-16.0); White Blood Count 4.8 X10*3/uL (4.8-10.8)
[2024-01-12 00:13] VITALS: BP 159/71; PULSE 128; RESP 16; TEMP 36.6; O2SAT 100
[2024-01-12] MEDS: levETIRAcetam 500 MG TABLET PO (00:36)
[2024-01-12 00:38] VITALS: BP 159/71; PULSE 128; RESP 16; TEMP 36.6; O2SAT 100
== END 2024-01-12 00:40 | disposition home or self-care (01) ==
PROVIDERS: Physician Assistant; Emergency Provider Internal Medicine; PCP Nurse Practitioner Adult Health
DX: G40.909 Epilepsy, unspecified, not intractable, without status epilepticus (principal); I10 Essential (primary) hypertension; E11.9 Type 2 diabetes mellitus without complications; F31.9 Bipolar disorder, unspecified; Z79.899 Other long term (current) drug therapy
CPT/HCPCS: 36415; 70450; 80053; 83690; 84484; 85025; 85610; 93005; 99283; 99284

== ENCOUNTER → 2024-01-11 17:10 | Outpatient (BNV) | payer OTHER, SELFPAY | PROVIDERS: Emergency Provider Internal Medicine; PCP Nurse Practitioner Adult Health; Visit Provider Internal Medicine | DX: I44.0 Atrioventricular block, first degree (principal) | CPT/HCPCS: 93010 ==

== ENCOUNTER 2024-02-23 15:38 | Emergency (ER) | payer OTHER, SELFPAY ==
--- NOTE | ~2024-02-23 | CT_ITS ---
EXAMINATION: CT CERVICAL SPINE WITHOUT CONTRAST CLINICAL INFORMATION: Fall. Pain. COMPARISON: Cervical spine CT January 2022 TECHNIQUE: Axial images through the cervical spine without IV contrast. Sagittal and coronal reconstructions on the technologist workstation were performed. This CT examination was performed using dose optimization techniques as appropriate, variously including the following: *Automated exposure control *Adjustment of mA and/or kV according to patient size (this includes techniques or standardized protocols for targeted exams where dose is matched to indication/reason for exam; i.e. extremities or head) *Use of iterative reconstruction technique DLP: 302 mGy-cm FINDINGS: There is straightening of the cervical spine. No acute fracture or dislocation. Well-corticated ossification at the tip of the dens similar to 2021 exam questionable for changes from old trauma. The atlantoaxial space is slightly widened measuring 4 mm. This is similar to previous exam. Degenerative changes at the C1-C2 articulation. There is anterior fusion hardware at C4-C5 which appears intact and unchanged. There is ankylosis at the C4-C5 disc space. There is ankylosis at the C5-C6 and C6-C7 disc spaces. There is degenerative spondylosis and degenerative disc disease at C2-C3 C3-C4 and C7-T1. There is bilateral multilevel facet arthritis. Prevertebral soft tissues are normal. Visualized lung apices are clear. CT/CT cervical spine wo IV con IMPRESSION: No acute fracture or dislocation. Stable postsurgical changes and degenerative changes from prior exam from 2021. Question old trauma at the C1 dens articulation similar to previous exam. Fleischner guidelines were followed.
--- NOTE | ~2024-02-23 | XR_ITS ---
EXAMINATION: XR SHOULDER, RIGHT CLINICAL INFORMATION: Pain after injury COMPARISON: None available. TECHNIQUE: Four views of the right shoulder. FINDINGS: Degenerative changes are present at the AC joint. There is a fracture through the distal clavicle which is age indeterminate. The edges appear somewhat indistinct but point tenderness clavicle is recommended for correlation with physical exam to placing judge acuity. No other fractures are seen. No dislocation Glenohumeral and acromioclavicular alignment is anatomic. No abnormal soft tissue calcifications. XR/XR shoulder RT min 2V IMPRESSION: Age-indeterminate distal clavicular fracture. Correlate with physical exam.
--- NOTE | ~2024-02-23 | CT_ITS ---
EXAMINATION: CT HEAD WITHOUT CONTRAST CLINICAL INFORMATION: Fall. Pain. COMPARISON: Previous head CT most recent December 2023 TECHNIQUE: Contiguous axial imaging was performed from the skull base to vertex without intravenous administration of contrast. This CT examination was performed using dose optimization techniques as appropriate, variously including the following: *Automated exposure control *Adjustment of mA and/or kV according to patient size (this includes techniques or standardized protocols for targeted exams where dose is matched to indication/reason for exam; i.e. extremities or head) *Use of iterative reconstruction technique DLP: 607 mGy-cm FINDINGS: There is no evidence for an extra-axial collection. There is no evidence for intra-or extra-axial hemorrhage. The ventricles and extra-axial CSF spaces are appropriate. Gambino-white matter differentiation is normal. No mass, mass effect or infarct is seen. Review of bone windows is normal. No skull fracture. Visualized paranasal sinuses, mastoid air cells and middle ears are clear. CT/CT head/brain wo IV con IMPRESSION: Normal nonenhanced head CT
[2024-02-23 15:57] VITALS: BP 125/66; PULSE 72; RESP 16; TEMP 37; O2SAT 100; BMI 28.3
--- NOTE | 2024-02-23 15:57 | ED_ITS ---
HPI - General Adult General Chief complaint: Extremity Injury, Upper Stated complaint: fell and hurt shoulder Time Seen by Provider: 02/23/24 16:19 Source: patient Mode of arrival: ambulatory Limitations: no limitations History of Present Illness ED Provider: Lupis Alonzo PA-C HPI narrative: Patient is a 69 year old assigned female at with a history of HTN, DM, anxiety, depression, and PTSD presenting to the emergency department today with right shoulder pain after a trip and fall. Patient states that she was getting something out of her car when she lost her balance and landed on her right shoulder. Patient denies any loss of consciousness, head strike, dizziness, lightheadedness, abdominal pain, nausea, vomiting, fever, chills, blurry vision, double vision, loss of vision, chest pain, difficulty breathing, shortness of breath, back pain, night sweats, pain with urination, increased urinary frequency, increased urinary urgency, blood in her urine or stool, syncope or a near syncopal episode, bowel incontinence, bladder incontinence, bowel retention, bladder retention, or any other complaints at this time. Location: right and upper extremity Severity: mild Severity scale (1-10): 3 Quality: aching and dull Pain Consistency: constant Relieving factors: none Exacerbating factors: movement Associated symptoms: denies other symptoms Treatments prior to arrival: none Related Data Home Medications ?Medication ?Instructions ?Recorded ?Confirmed clonidine HCl 0.1 mg tablet PO 08/02/20 diltiazem HCl 360 mg capsule,24 1 cap PO DAILY 08/02/20 08/02/20 hr,extended release ferrous sulfate 325 mg (65 mg 1 tab PO DAILY 08/02/20 08/02/20 iron) tablet insulin aspart U-100 100 unit/mL unit subcut TID 08/02/20 (3 mL) subcutaneous pen (Novolog FlexPen U-100 Insulin aspart) insulin glargine 100 unit/mL (3 subcut 08/02/20 mL) subcutaneous pen (Lantus Solostar U-100 Insulin) lamotrigine 100 mg tablet 1 tab PO DAILY 08/02/20 08/02/20 omeprazole 20 mg capsule,delayed 1 cap PO DAILY 08/02/20 08/02/20 release simvastatin 20 mg tablet 1 tab PO BEDTIME 08/02/20 08/02/20 topiramate 50 mg tablet 1 tab PO BID 08/02/20 08/02/20 Previous Rx's ?Medication ?Instructions ?Recorded cyclobenzaprine 5 mg tablet 5 mg PO TID PRN muscle spasm #14 02/14/22 tabs hydrocodone 5 mg-acetaminophen 325 1 tab PO Q8H PRN severe pain 02/14/22 mg tablet (scale score 7-10) #6 tabs vaakpdaagq-ufjlyxnmxyity-mtotqapu 1 cap PO Q6H PRN headache #20 caps 06/24/22 50 mg-300 mg-40 mg capsule (Fioricet) levetiracetam 500 mg tablet 500 mg PO BID #60 tabs 01/12/24 (Keppra) Allergies Allergy/AdvReac Type Severity Reaction Status Date / Time bupropion [From WELLBUTRIN] Allergy Severe SEIZURES Verified 02/23/24 16:00 sulfamethoxazole Allergy Severe GIB Verified 02/23/24 16:00 [From BACTRIM] trimethoprim [From BACTRIM] Allergy Severe GIB Verified 02/23/24 16:00 carisoprodol [From SOMA] Allergy Intermediate HALLUCINATI Verified 02/23/24 16:00 ONS gabapentin [From NEURONTIN] Allergy Intermediate HALLUCINATI Verified 02/23/24 16:00 ONS/PARANOI D Sulfa (Sulfonamide Allergy Unknown Unknown Verified 02/23/24 16:00 Antibiotics) aspirin AdvReac Gastrointestinal Verified 02/23/24 16:00 Upset Review of Systems Constitutional: Constitutional: Reports no additional constitutional complaints, Denies chills, Denies fever(s) and Denies night sweats Eyes: Eyes: Reports no additional eye complaints, Denies blurry vision, Denies change in vision, Denies diplopia, Denies eye discharge, Denies loss of vision and Denies eye pain ENT: Denies dizziness Cardiovascular: Cardiovascular: Reports no additional cardiovascular complaints, Denies chest pain, Denies lightheadedness, Denies Loss of Consciousness and Denies dyspnea Respiratory: Respiratory: Reports no additional respiratory complaints and Denies dyspnea Gastrointestinal: Gastrointestinal: Reports no additional gastrointestinal complaints, Denies abdominal pain, Denies melena, Denies hematochezia, Denies change in bowel habits and Denies change in stool character Genitourinary: Genitourinary: Denies hematuria, Denies urinary frequency, Denies dysuria, Denies urinary incontinence, Denies urinary hesitancy and Denies urinary urgency Musculoskeletal: Musculoskeletal: Reports no additional musculoskeletal complaints, Denies numbness and Denies tingling Comments: right shoulder pain Neurologic: Denies dizziness, Denies loss of vision, Denies numbness and Denies tingling Psychiatric: Psychiatric: Reports no additional psychiatric complaints Endocrine: Endocrine: Reports no additional endocrine complaints Hematologic/Lymphatic: Hematologic/Lymphatic: Reports no additional hematol ogic/lymphatic complaints Allergic/Immunologic: Allergic/Immunologic: Reports no additional allergic/immunologic complaints PMFSH Past Medical History Attestation statement: The following information was validated with the patient. Source: old records reviewed and nursing notes reviewed Medical History (Updated 02/23/24 @ 17:26 by AMANDA Schaefer) PTSD (post-traumatic stress disorder) Depression Anxiety Diabetes mellitus, type 2 Hypercholesteremia Hypertension Social History Social History Advance Directives: No Advance Directives Information Provided: No Physical Exam ED Vital Signs: Vital Signs - 24 hr 02/23/24 15:57 02/23/24 17:20 Temperature 98.6 F 98.6 F Pulse Rate 72 65 Respiratory Rate 16 16 Blood Pressure 125/66 143/75 H Pulse Oximetry 100 97 Oxygen Delivery Method Room Air Room Air BMI result Body Mass Index 28.3 Const General: cooperative, no acute distress, alert and awake Nutritional Appearance: well nourished Orientation/consciousness: patient oriented x3 Limitations: no limitations HENMT Head: Yes normal to inspection and Yes atraumatic Ears: hearing grossly normal bilaterally and external ears normal General nose exam: Normal external nose present, no nasal discharge noted and no epistaxis Face and sinus: Yes normal facial exam, No abrasion and No laceration Mouth: Normal oral and palatal mucosa present, no drooling and no muffled voice Eyes General: appearance normal, both eyes and all related structures Periorbital: periorbital findings normal Eyelids: Yes eyelids normal Conjunctivae: conjunctivae normal Pupils: Equal, round and reactive pupils present EOM: EOMs intact bilaterally Neck Neck: Yes normal visual inspection, Yes full ROM and Yes no lymphadenopathy Chest Chest palpation & inspection: normal inspection of the chest Resp Effort & Inspection: normal respiratory effort and able to speak in complete sentences GI Inspection: Yes normal to inspection Neuro General: patient oriented x3 and moves all extremities Cranial nerves: Yes Equal, round and reactive pupils present Cognition (Neuro): normal cognition Motor exam (neuro): 5/5 motor strength present throughout Sensory Exam: Normal double simultaneous stimulation for sensation Coordination: [id number]-[id number]-gemv test normal Extrem General: Yes normal to inspection, Yes full ROM and Yes capillary refill normal Psych Appearance: grossly normal Mental Status: mental status grossly normal Affect: normal affect Attitude: cooperative Thought process: Normal thought process present Thought content: Normal thought content present Insight: Good insight present (Psych) Course Course Course Narrative: This is an RME done by AMANDA Patel: Additional HPI, ROS, PE not included below will be deferred to primary provider. 69 year old female presents with complaint of pain after a trip and fall onto the right shoulder. Rates the pain a 9/10. No head strike or loss of consciousness. No chest pain, SOB, weakness, numbness, or tingling. Appearance: Alert.? Oriented X3.? No acute cardiopulmonary distress distress.? Head: Normocephalic, atraumatic, no step-offs or deformities CVS: Pulses normal.? Respiratory: No respiratory distress.? Abdomen: Soft and nontender.? Skin: ? Normal skin color. Extremities: Limited ROM of right upper extremity secondary to pain. Back: No midline tenderness, no C-spine tenderness, full range of motion, No CVA tenderness bilaterally Neuro: Oriented X 3.? No motor deficit.? No sensory deficit. Medications Administered Discontinued Medications Generic Name Dose Route Start Last Admin Trade Name Freq PRN Reason Stop Dose Admin Oxycodone HCl 5 mg 02/23/24 16:30 02/23/24 16:41 Oxycodone Hcl Immed Release 5 Mg Tablet PO 02/23/24 16:31 5 mg ONCE ONE Administration Procedures Orthopedic Splinting/Casting Injury #1: Side: right Upper Extremity Injury Location: clavicle Upper Extremity Immobilizer: sling/shoulder immobilizer Medical Decision Making Medical Decision Making MDM Narrative: Patient is a 69 year old assigned female at with a history of HTN, DM, anxiety, depression, and PTSD presenting to the emergency department today with right shoulder pain after a fall. Patient's physical exam was unremarkable. Patient's right shoulder x-ray showed a broken clavicle. Patient's head and c- spine CTs showed no acute process. 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 I explained my physical exam findings as well as all test results to the patient. I answered all questions asked by the patient. Patient's right arm was placed in a sling, without incident. Patient's PMS was intact prior to and after sling placement. I stressed the importance of the patient taking her medication as prescribed. I stressed the importance of the patient following up with her primary care provider and an orthopedic provider. I stressed the importance of the patient returning to the emergency department immediately if her symptoms were to worsen or if she were to develop any dizziness, shortness of breath, difficulty breathing, chest pain, blurry vision, loss of vision, nausea, vomiting, abdominal pain, fever, chills, back pain, or any other complaints. Patient verbalized agreement and understanding with this treatment plan and discharge. Differential Diagnosis Differential Diagnoses: The differential diagnosis associated with the presentation includes Clavicle fracture Fall Admission/Observation Consideration of admission/observation: Escalation of care including admission/observation considered Patient would have been admitted to the hospital had her work up had any findings where hospital admission was appropriate and her clinical presentation warranted hospital admission. Independent Interpretation I performed an independent interpretation of an: Plain X-Ray and CT Scan Interpretation: My interpretation is in agreement with the radiologist's impression of these imaging studies. EXAMINATION: XR SHOULDER, RIGHT CLINICAL INFORMATION: Pain after injury COMPARISON: None available. TECHNIQUE: Four views of the right shoulder. FINDINGS: Degenerative changes are present at the AC joint. There is a fracture through the distal clavicle which is age indeterminate. The edges appear somewhat indistinct but point tenderness clavicle is recommended for correlation with physical exam to justice court judge acuity. No other fractures are seen. No dislocation Glenohumeral and acromioclavicular alignment is anatomic. No abnormal soft tissue calcifications. XR/XR shoulder RT min 2V IMPRESSION: Age-indeterminate distal clavicular fracture. Correlate with physical exam. Dictated By: Cyrus Lam MD Signed By: Electronically signed by Cyrus Lam MD 02/23/24 1743 EXAMINATION: CT CERVICAL SPINE WITHOUT CONTRAST CLINICAL INFORMATION: Fall. Pain. COMPARISON: Cervical spine CT January 2022 TECHNIQUE: Axial images through the cervical spine without IV contrast. Sagittal and coronal reconstructions on the technologist workstation were performed. This CT examination was performed using dose optimization techniques as appropriate, variously including the following: *Automated exposure control *Adjustment of mA and/or kV according to patient size (this includes techniques or standardized protocols for targeted exams where dose is matched to indication/reason for exam; i.e. extremities or head) *Use of iterative reconstruction technique DLP: 302 mGy-cm FINDINGS: There is straightening of the cervical spine. No acute fracture or dislocation. Well-corticated ossification at the tip of the dens similar to 2021 exam questionable for changes from old trauma. The atlantoaxial space is slightly widened measuring 4 mm. This is similar to previous exam. Degenerative changes at the C1-C2 articulation. There is anterior fusion hardware at C4-C5 which appears intact and unchanged. There is ankylosis at the C4-C5 disc space. There is ankylosis at the C5-C6 and C6-C7 disc spaces. There is degenerative spondylosis and degenerative disc disease at C2-C3 C3-C4 and C7-T1. There is bilateral multilevel facet arthritis. Prevertebral soft tissues are normal. Visualized lung apices are clear. CT/CT cervical spine wo IV con IMPRESSION: No acute fracture or dislocation. Stable postsurgical changes and degenerative changes from prior exam from 2021. Question old trauma at the C1 dens articulation similar to previous exam. Fleischner guidelines were followed. Dictated By: Rochelle Suazo MD Signed By: Electronically signed by Rochelle Suazo MD 02/23/24 1815 EXAMINATION: CT HEAD WITHOUT CONTRAST CLINICAL INFORMATION: Fall. Pain. COMPARISON: Previous head CT most recent December 2023 TECHNIQUE: Contiguous axial imaging was performed from the skull base to vertex without intravenous administration of contrast. This CT examination was performed using dose optimization techniques as appropriate, variously including the following: *Automated exposure control *Adjustment of mA and/or kV according to patient size (this includes techniques or standardized protocols for targeted exams where dose is matched to indication/reason for exam; i.e. extremities or head) *Use of iterative reconstruction technique DLP: 607 mGy-cm FINDINGS: There is no evidence for an extra-axial collection. There is no evidence for intra-or extra-axial hemorrhage. The ventricles and extra-axial CSF spaces are appropriate. Gambino-white matter differentiation is normal. No mass, mass effect or infarct is seen. Review of bone windows is normal. No skull fracture. Visualized paranasal sinuses, mastoid air cells and middle ears are clear. CT/CT head/brain wo IV con IMPRESSION: Normal nonenhanced head CT Dictated By: Rochelle Suazo MD Signed By: Electronically signed by Rochelle Suazo MD 02/23/24 1820 Radiology Impression Discussion of test interpretation with radiology: I have reviewed the radiologist's reading. Critical Care Time Critical Care Time Critical Care Time: Yes Total Critical Care Time: 42 Attestation: I spent 42 minutes of Critical Care Time with this patient. This does not include time spent on separately reported billable procedures. Discharge Plan Discharge Clinical Impression: Broken clavicle Patient Disposition: Home, Self-Care Instructions: Clavicle Fracture (ED) Additional Instructions: Follow up with your primary care provider and an orthopedic provider. Every hour remove your sling and extend your elbow. Return to the emergency department immediately if your symptoms worsen or if you develop any dizziness, shortness of breath, difficulty breathing, chest pain, blurry vision, loss of vision, nausea, vomiting, abdominal pain, fever, chills, back pain, or any other complaints. Prescriptions: No Action clonidine HCl 0.1 mg tablet PO diltiazem HCl 360 mg capsule,extended release 24 hr 1 cap PO DAILY simvastatin 20 mg tablet 1 tab PO BEDTIME ferrous sulfate 325 mg (65 mg iron) tablet 1 tab PO DAILY omeprazole 20 mg capsule,delayed release(DR/EC) 1 cap PO DAILY lamotrigine 100 mg tablet 1 tab PO DAILY insulin aspart U-100 [Novolog FlexPen U-100 Insulin] 100 unit/mL (3 mL) insulin pen subcut TID topiramate 50 mg tablet 1 tab PO BID Lantus Solostar U-100 Insulin 100 unit/mL (3 mL) insulin pen subcut dueyifeycy-wcgcwbgmfkcnl-ibgh [Fioricet] 50-300-40 mg capsule 1 cap PO Q6H PRN (Reason: headache) Qty: 20 0RF cyclobenzaprine 5 mg tablet 5 mg PO TID PRN (Reason: muscle spasm) Qty: 14 0RF hydrocodone-acetaminophen 5-325 mg tablet 1 tab PO Q8H PRN (Reason: severe pain (scale score 7-10)) Qty: 6 0RF levetiracetam [Keppra] 500 mg tablet 500 mg PO BID Qty: 60 1RF Referrals: [facility] [place] [facility] [Provider Group] (Call to establish and follow up with an orthopedic provider. ) Tisha Ac NP [Primary Care Provider] - Print Language: Colombian
--- OUTSIDE RECORDS SUMMARY | 2024-02-23 16:16 | XMS_ITS | Continuity of Care Document ---
Author Organization [facility] ter Address [address] [place] [id number]- Care Team Providers Care Human Services Care Specialist Name Role Phone Stacy JACOBSEN, Jeevan Smith Primary Care Physician [phone] [place] [facility] [place]): [place] 09/30/[address] [address] Attending Physician: Osorio RALPH, Tisha Asencio Admitting Physician: Osorio RALPH, Tisha Asencio Referring Physician: Osorio RALPH, Tisha Asencio Allergies, Adverse Reactions, Alerts Substance Reaction Severity Status Soma too strong for me Active Neurontin schizophenic affect Active Wellbutrin seizure Active Bactrim GI bleed Active Immunizations Given and Recorded Vaccine Date Status Refusal Reason influenza virus vaccine, inactivated 1 06/18/23 Gi jony influenza virus vaccine, inactivated 09/27/16 Give n SARS-CoV-2 (COVID-19) mRNA-1273 vaccine 01/17/22 R ecorded SARS-CoV-2 (COVID-19) mRNA-1273 vaccine 07/08/21 R ecorded SARS-CoV-2 (COVID-19) mRNA-1273 vaccine 12/17/20 R ecorded SARS-CoV-2 (COVID-19) mRNA-1273 vaccine 11/19/20 R ecorded Influenza Virus Vaccine (oldterm) 2 05/28/21 Recor ded Influenza Virus Vaccine (oldterm) 07/06/20 Recorde d zoster vaccine, inactivated 05/14/20 Recorded zoster vaccine, inactivated 11/01/19 Recorded tetanus/diphtheria/pertussis, acel(Tdap) 12/28/17 Recorded tetanus/diphtheria/pertussis, acel(Tdap) 08/01/07 Recorded pneumococcal 23-valent vaccine 09/27/16 Given pneumococcal 23-valent vaccine 08/27/10 Recorded pneumococcal 23-valent vaccine 06/21/09 Recorded 1Result Comment: [facility]: 13564-141-74 2Result Comment: Pt not sure the exact date. Medications acetaminophen 325 mg oral tablet 1 TO 2 TABLETS, By Mouth, Daily at bedtime, # 60 tablet, Refills 5, Maintenance, 06/09/23 11:30:00 EDT, Route to Pharmacy Electronically, [facility], 160.5, cm, 04/21/23 13:26:00 EDT, Height, 66, kg, 08/19/22 14:08:00 EST, Dry Weight Start Date: 06/09/23 Status: Ordered Actos 15 mg oral tablet 1 tablet = 15 mg, By Mouth, Daily, # 30 tablet, 6 Refills, Maintenance, 06/18/23 14:28:00 EDT, Tablet, [facility]-, Partial fill upon patient request if the prescription is for a schedule II opioid drug., 160.5, cm, 06/18/23 14:02:... Start Date: 06/18/23 Status: Ordered ARIPiprazole 2 mg oral tablet 2 mg, 1, tablet, By Mouth, Daily, Refills 0, Maintenance, 06/29/22 13:00:00 EDT, Partial fill upon patient request if the prescription is for a schedule II opioid drug. Start Date: 06/29/22 Status: Ordered biotin 1000 mcg oral tablet 1 tablet = 1,000 mcg, By Mouth, Daily, # 90 tablet, 1 Refills, Maintenance, 06/18/23 14:28:00 EDT, Tablet, [facility]-, Partial fill upon patient request if the prescription is for a schedule II opioid drug., 160.5, cm, 06/18/23 14... Start Date: 06/18/23 Status: Ordered cloNIDine 0.1 mg oral tablet 0.1 mg, 1, tablet, By Mouth, Daily, hs, Refills 0, Maintenance, 08/18/21 14:23:00 EST, Partial fillupon patient request if the prescription is for a schedule II opioid drug. Start Date: 11/22/21 Status: Ordered Colace sodium 100 mg oral capsule 100 mg, 1, capsule, By Mouth, 2 times a day, PRN, # 60 capsule, Refills 1, Tot. Refills 1, Maintenance, for constipation, 06/18/23 14:28:00 EDT, Route to Pharmacy Electronically, [facility], Partial fill upon patient request if th... Start Date: 06/18/23 Status: Ordered Crestor 5 mg oral tablet 1 tablet = 5 mg, By Mouth, Daily, REPLACES SIMVASTATIN, # 30 tablet, 6 Refills, Maintenance, 06/18/23 14:28:00 EDT, Tablet, [facility], Partial fill upon patient request if the prescription is for a schedule II opioid drug., 160.5... Start Date: 06/18/23 Status: Ordered diclofenac 1% topical gel See Instructions, APPLY TO AFFECTED AREA(S) TWICE A DAY NEEDED PAIN, # 100 Gm, 0 Refills, Maintenance, 07/30/22 13:16:00 EDT, [facility], 14, APPLY TO AFFECTED AREA(S) TWICE A DAY NEEDED PAIN, 160, cm, 06/29/22 12:54:00 EDT, Height,... Start Date: 07/30/22 Status: Ordered dilTIAZem 360 mg/24 hours oral capsule, extended release 1 capsule = 360 mg, By Mouth, Daily, # 30 capsule, 6 Refills, Maintenance, 06/18/23 14:28:00 EDT, CR Capsule, [facility], Partial fill upon patient request if the prescription isfor a schedule II opioid drug., 160.5, cm, 06/18/23... Start Date: 06/18/23 Status: Ordered ferrous sulfate 325 mg oral tablet 1 tablet, By Mouth, Daily, # 30 tablet, 11 Refills, Maintenance, 06/18/23 14:28:00 EDT, [facility], 160.5, cm, 06/18/23 14:02:00 EDT, Height, 66, kg, 08/19/22 14:08:00 EST, Dry Weight Start Date: 06/18/23 Status: Ordered Freestyle Lancets See Instructions, # 600 each, Refills 2, Tot. Refills 2, Maintenance, use as directed for Type 2 Diabetes Mellitus, 12/22/21 14:51:00 EDT, Supply, 163.5, cm, 08/18/21 14:06:00 EST, Height Start Date: 12/22/21 Stop Date: 09/18/22 Status: Ordered Freestyle Lite Monitor See Instructions, # 1 each, Refills 0, Tot. Refills 0, Maintenance, to test blood sugar BID E11.9 ADOLFO- lifetime use as directed for Type 2 Diabetes Mellitus, 11/25/22 9:03:00 EST, Supply, 160.5, cm, 08/27/22 14:26:00 EST, Height, 66, kg, 08/19/22... Start Date: 11/25/22 Stop Date: 12/25/22 Status: Ordered Freestyle Test Strips See Instructions, # 600 each, Refills 1, Tot. Refills 1, Maintenance, check blood sugars twice a day. ICD10 (E11.9), 03/09/22 14:44:00 EDT, Supply, 163.5, cm, 02/16/22 14:40:00 EDT, Height Start Date: 03/09/22 Status: Ordered LaMICtal 100 mg oral tablet 100 mg, 1, tablet, By Mouth, Daily, # 30 tablet, Refills 0, Tot. Refills 0, Maintenance, 11/08/20 16:42:00 EST, Do Not Route, Partial fill upon patient request if the prescription is for a schedule II opioid drug. Start Date: 11/08/20 Status: Ordered Lantus Solostar Pen 100 units/mL subcutaneous solution = 16 units, Subcutaneous Injection, Daily, # 15 mL, 5 Refills, Maintenance, 06/18/23 14:28:00 EDT, Solution, [id number], Partial fill upon patient request if the prescription is for a schedule II opioid drug., 160.5, cm, 06/18/23... Start Date: 06/18/23 Status: Ordered lidocaine 4% topical film 1 patch, Topically, 4 times a day, # 6 each, 0 Refills, Acute 05/17/24 9:27:00 EDT, 05/17/23 9:27:00 EDT, Film, Partial fill upon patient request if the prescription is for a schedule II opioid drug. Start Date: 05/17/23 Stop Date: 05/17/24 Status: Ordered Multivitamin Daily, 0 Refills, Maintenance, 11/08/20 16:45:00 EST, Partial fill upon patient request if the prescription is for a schedule II opioid drug. Start Date: 11/08/20 Status: Ordered nicotine 4 mg oral transmucosal gum See Instructions, CHEW & PARK. 1 PIECE BY MOUTH EVERY 2 HOURS NEEDED FOR SMOKING CESSATION, # 220 each, 6 Refills, Maintenance, 08/03/23 14:18:00 EST, [facility]-, 160.5, cm, 06/18/23 14:02:00 EDT, Height, 66, kg, 08/19/22 14:08... Start Date: 08/03/23 Status: Ordered Nutrafol (Hair Growth Supplement) Nutrafol (Hair Growth Supplement), See Instructions, Refills 0, Maintenance, 06/29/22 13:08:00 EDT,Supply Start Date: 06/29/22 Status: Ordered omeprazole 20 mg oral enteric coated capsule 1 capsule = 20 mg, By Mouth, Daily, # 30 capsule, 6 Refills, Maintenance, 06/18/23 14:28:00 EDT, ECCapsule, [facility]-, Partial fill upon patient request if the prescription is for a schedule II opioid drug., 160.5, cm, 06/18/23... Start Date: 06/18/23 Status: Ordered Propranolol 20 mg, Refills 0, Maintenance, 08/18/21 14:23:00 EST, Partial fill upon patient request if the prescription is for a schedule II opioid drug. Start Date: 08/18/21 Status: Ordered tiZANidine 2 mg oral capsule 1 capsule = 2 mg, By Mouth, Every 8 hours, PRN as needed for muscle spasm, # 30 capsule, 0 Refills,Maintenance, 06/25/23 10:03:00 EDT, Capsule, [facility]-, Partial fill upon patient request if the prescription is for a schedule I... Start Date: 06/25/23 Stop Date: 07/05/23 Status: Ordered topiramate 50 mg oral tablet 1 tablet = 50 mg, By Mouth, Daily, # 30 tablet, 6 Refills, Maintenance, 06/18/23 14:28:00 EDT, [facility]-, Partial fill upon patient request if the prescription is for a scheduleII opioid drug., 160.5, cm, 06/18/23 14:02:00 EDT,... Start Date: 06/18/23 Status: Ordered Problem List Condition Confirmation Course Effective Dates Status Health Status Informant Ankle pain, right Confirmed Active Anxiety Confirmed Active Bipolar disorder Confirmed Active CKD (chronic kidney disease) Confirmed Active Constipation Confirmed Active GERD (gastroesophageal reflux disease) Confirmed Active Dorsal Column Stimulator 1 Confirmed Active History of colitis Confirmed Active History of alcohol abuse Confirmed Active History of ankle surgery 2 Confirmed Active History of cocaine abuse Confirmed Active History of COVID-19 Confirmed Active Hypercholesterolemia Confirmed Active HTN (hypertension) Confirmed Active Hyperthyroidism Confirmed Active Insomnia Confirmed Active Lumbar disc disease Confirmed Active Current use of insulin Confirmed Active Hair loss Confirmed Active Neck pain Confirmed Active Lumbar radiculitis Confirmed Active Ocular migraine Confirmed Active Osteopenia Confirmed Active PTSD (post-traumatic stress disorder) Confirmed Active Posttraumatic stress disorder 3 Confirmed 10/05/16 Active Recurrent major depressive episodes, moderate Confirmed Active Recurrent major depressive episodes, moderate Confirmed 08/22/13 Active History of tobacco use Confirmed Active Diabetes mellitus type 2 in obese Confirmed Active 1Dr. York 2017 [id number] 3Outside Source Comment: Overview: Per BS Social History Social History Type Response Smoking Status Former smoker, quit more than 30 days ago entered on: 11/08/20 Sex Patient Care team information Care Team Personnel Name: Praveena Jordan RN Position: [facility] AMB Nurse Member Role: Primary Care Nurse Name: Smita Cantrell RN Position: [facility] SN RN Member Role: Primary Care Nurse Name: Zain Ramos RN Position: [facility] ED RN W/OE and Tasks Member Role: Primary Care Nurse Name: Gerard Erickson RN Position: [facility] RN Member Role: Primary Care Nurse Name: Jeevan Kumar MD Position: [facility] Physician - Primary Care Member Role: PCP Address: Address: [address] [place] [id number]- Name: Amy Campos NP Position: [facility] Associate Professional Member Role: Primary Care Nurse Address: Address: [address] [place] [address] Trauma [place] [address]- [place] Name: Jone ERNST, Gita Position: [facility] RN Member Role: Primary Care Nurse Name: Selena Dias RN Position: [facility] AMB Nurse Member Role: Primary Care Nurse Name: Ryan Romero RN Position: [facility] SN RN Member Role: Primary Care Nurse Name: Florentino Torres RN Position: [facility] RN Member Role: Primary Care Nurse Name: Pretty Rosen RN Position: [facility] RN Member Role: Primary Care Nurse Name: Basilio Chase MD Position: [facility] Physician - Behavioral Health Member Role: Lifetime Consulting Physician Address: Address: [address] [place] [address]- Care Team Related Persons Name: EMEKA MACK Address: home [address] [place] [address] Name: CARMEN COELLO Address: [place] [address] Name: TRACY PALMER Address: home [address] [place] [address]
--- OUTSIDE RECORDS SUMMARY | 2024-02-23 16:16 | XMS_ITS | Continuity of Care Document ---
Author Organization [facility] Address [address] [place] [address]- Care Team Providers Care Strategic Sourcing Specialist Name Role Phone Stacy JACOBSEN, Jeevan Smith Primary Care Physician [phone] [place] [facility] [place] 10/28/23 - 11/27/23 [facility] [address] [place] [address]- Attending Physician: Admashleigh, Meño8 Admitting Physician: Admtr, Aaron Referring Physician: Admtr, Ar8 Allergies, Adverse Reactions, Alerts Substance Reaction Severity Status Soma too strong for me Active Wellbutrin seizure Active Neurontin schizophenic affect Active Bactrim GI bleed Active Immunizations Given [...] pneumococcal 23-valent vaccine 06/21/09 Recorded 1Result Comment: [facility]: [id number] 2Result Comment: Pt not sure the exact date. Medications acetaminophen 325 mg oral tablet 1 TO 2 TABLETS, By Mouth, Daily at bedtime, # 60 tablet, Refills 5, Maintenance, 11/21/23 10:19:00 EST, Route to Pharmacy Electronically, [facility]-, 160.5, cm, 10/28/23 10:10:00 EST, Height, 66, kg, 08/19/22 14:08:00 EST, Dry Weight Start Date: 11/21/23 Status: Ordered Actos 15 mg oral tablet 1 tablet = 15 mg, By Mouth, Daily, # 30 tablet, 6 Refills, Maintenance, 06/18/23 14:28:00 EDT, Tablet, [facility], Partial fill upon patient request if the prescription is for a schedule II opioid drug., 160.5, cm, 06/18/23 14:02:... Start Date: 06/18/23 Status: Ordered Aricept 5 mg oral tablet 5 mg, 1, tablet, By Mouth, Daily at bedtime, # 30 tablet, Refills 1, Tot. Refills 1, Maintenance, 10/28/23 10:28:00 EST, Route to Pharmacy Electronically, [facility]-, Partial fill upon patient request if the prescription is for a... Start Date: 10/28/23 Status: Ordered ARIPiprazole 2 mg oral tablet 2 mg, 1, tablet, By Mouth, Daily, Refills 0, Maintenance, 06/29/22 13:00:00 EDT, Partial fill upon patient request if the prescription is for a schedule II opioid drug. Start Date: 06/29/22 Status: Ordered biotin 1000 mcg oral tablet 1 tablet = 1,000 mcg, By Mouth, Daily, # 90 tablet, 1 Refills, Maintenance, 06/18/23 14:28:00 EDT, Tablet, [facility], Partial fill upon patient request if the prescription is for a schedule II opioid drug., 160.5, cm, 06/18/23 14... Start Date: 06/18/23 Status: Ordered cloNIDine 0.1 mg oral tablet 0.1 mg, 1, tablet, By Mouth, Daily, hs, Refills 0, Maintenance, 08/18/21 14:23:00 EST, Partial fillupon patient request if the prescription is for a schedule II opioid drug. Start Date: 08/18/21 Status: Ordered Colace sodium 100 mg oral capsule 100 mg, 1, capsule, By Mouth, 2 times a day, PRN, # 60 capsule, Refills 6, Tot. Refills 6, Maintenance, for constipation, 10/12/23 13:00:00 EST, Route to Pharmacy Electronically, [facility]-, Partial fill upon patient request if th... Start Date: 10/12/23 Status: Ordered Crestor 5 mg oral tablet 1 tablet = 5 mg, By Mouth, Daily, REPLACES SIMVASTATIN, # 30 tablet, 6 Refills, Maintenance, 06/18/23 14:28:00 EDT, Tablet, [facility]-, Partial fill upon patient request if the prescription is for a schedule II opioid drug., 160.5... Start Date: 06/18/23 Status: Ordered diclofenac 1% topical gel See Instructions, APPLY TO AFFECTED AREA(S) TWICE A DAY NEEDED PAIN, # 100 Gm, 0 Refills, Maintenance, 07/30/22 13:16:00 EDT, [facility]-, 14, APPLY TO AFFECTED AREA(S) TWICE A DAY NEEDED PAIN, 160, cm, 06/29/22 12:54:00 EDT, Height,... Start Date: 07/30/22 Status: Ordered dilTIAZem 360 mg/24 hours oral capsule, extended release 1 capsule = 360 mg, By Mouth, Daily, # 30 capsule, 6 Refills, Maintenance, 06/18/23 14:28:00 EDT, CR Capsule, [facility], Partial fill upon patient request if the prescription isfor a schedule II opioid drug., 160.5, cm, 06/18/23... Start Date: 06/18/23 Status: Ordered ferrous sulfate 325 mg oral tablet 1 tablet, By Mouth, Daily, # 30 tablet, 11 Refills, Maintenance, 06/18/23 14:28:00 EDT, [id number], 160.5, cm, 06/18/23 14:02:00 EDT, Height, 66, [...] EDT, Height Start Date: 03/09/22 Status: Ordered Home Blood Presure Monitor Home Blood Presure Monitor, See Instructions, # 1 each, Refills 0, Tot. Refills 0, Maintenance, Dx:Hypertension (I10) Use to check blood pressure at home., 10/05/23 11:57:00 EST, Supply Start Date: 10/05/23 Status: Ordered LaMICtal 100 mg oral tablet [...] 5 Refills, Maintenance, 06/18/23 14:28:00 EDT, Solution, [facility], Partial fill upon patient request if the [...] each, 6 Refills, Maintenance, 08/03/23 14:18:00 EST, [facility], 160.5, cm, 06/18/23 14:02:00 EDT, Height, 66, kg, 08/19/22 14:08... Start Date: 08/03/23 Status: Ordered Nutrafol (Hair Growth Supplement) Nutrafol (Hair Growth Supplement), See Instructions, Refills 0, Maintenance, 06/29/22 13:08:00 EDT,Supply Start Date: 06/29/22 Status: Ordered omeprazole 20 mg oral enteric coated capsule 1 capsule = 20 mg, By Mouth, Daily, # 30 capsule, 6 Refills, Maintenance, 06/18/23 14:28:00 EDT, ECCapsule, [facility], Partial fill upon patient request if the [...] capsule, 0 Refills,Maintenance, 06/25/23 10:03:00 EDT, Capsule, [facility]-, Partial fill upon patient request if the prescription is for a schedule I... Start Date: 06/25/23 Stop Date: 07/05/23 Status: Ordered topiramate 50 mg oral tablet 1 tablet = 50 mg, By Mouth, Daily, # 30 tablet, 6 Refills, Maintenance, 06/18/23 14:28:00 EDT, [facility]-, Partial fill upon patient request if the [...] HTN (hypertension) Confirmed Active Hyperthyroidism Confirmed Active Mild cognitive impairment 3 Confirmed Active Insomnia Confirmed Active Lumbar disc disease Confirmed Active Current use of insulin Confirmed Active Hair loss Confirmed Active Neck pain Confirmed Active Lumbar radiculitis Confirmed Active Ocular migraine Confirmed Active Osteopenia Confirmed Active PTSD (post-traumatic stress disorder) Confirmed Active Posttraumatic stress disorder 4 Confirmed 10/05/16 Active Recurrent major depressive episodes, moderate Confirmed Active Recurrent major depressive episodes, moderate Confirmed 08/22/13 Active History of tobacco use Confirmed Active Diabetes mellitus type 2 in obese Confirmed Active 1Dr. Chela 2017 [id number] [facility] 2022 4Outside Source Comment: Overview: Per BS Social History Social History Type Response Smoking Status Former smoker, quit more than 30 days ago entered on: 11/08/20 Sex Patient Care team information Care Team Personnel Name: Praveena Jordan RN Position: [facility] AMB Nurse Member Role: Primary Care Nurse Name: Smita Cantrell RN Position: [facility] SN RN Member Role: Primary Care Nurse Name: Zain Ramos RN Position: [facility] ED RN W/OE and Tasks Member Role: Primary Care Nurse Name: Gerard Erickson RN Position: [facility] RN Member Role: Primary Care Nurse Name: Jeevan Kumar MD Position: [facility] Physician - Primary Care Member Role: PCP Address: Address: [address] [place] [id number]- [place] Name: Amy Campos NP Position: [facility] Associate Professional Member Role: Primary Care Nurse Address: Address: [address] [place] [address] Trauma [place] [address]- [place] Name: Gita Becerril RN Position: [facility] RN Member Role: Primary Care Nurse Name: Selena Dias RN Position: [facility] AMB Nurse Member Role: Primary Care Nurse Name: Ryan Romero RN Position: [facility] SN RN Member Role: Primary Care Nurse Name: Florentino Torres RN Position: [facility] RN Member Role: Primary Care Nurse Name: Pretty Rosen RN Position: [facility] RN Member Role: Primary Care Nurse Name: Basilio Chase MD Position: [facility] Physician - Behavioral Health Member Role: [employer]etime Consulting Physician Address: Address: [address] [place] [address]- Care Team Related Persons Name: EMEKA MACK Address: home [address] [place] [address] Name: CARMEN COELLO Address: [place] [address] Name: TRACY PALMER Address: home [address] [place] [id number]
--- OUTSIDE RECORDS SUMMARY | 2024-02-23 16:16 | XMS_ITS | Continuity of Care Document ---
Author Organization [facility] Address [address] [place] [id number]- Care Team Providers Care Forensic Sergeant Name Role Phone Gudelia RALPH, Nirmal Primary Care Physician Encounter [facility] Date(s): 09/05/19 - 01/03/[address] [address]- [facility] Attending Physician: Ze Kathleen MD Allergies, Adverse Reactions, Alerts Substance Reaction Severity Status Soma too strong for me Active Neurontin schizophenic affect Active Wellbutrin seizure Active Bactrim GI bleed Active Immunizations Given and Recorded Vaccine Date Status Refusal Reason pneumococcal 23-valent vaccine 09/27/16 Given influenza virus vaccine, inactivated 09/27/16 Give n Medications Actos 15 mg oral tablet 1 tablet = 15 mg, By Mouth, Daily at bedtime, 0 Refills, Maintenance, 05/04/18 10:59:24 EDT Start Date: 05/04/18 Status: Ordered aspirin 162.5 mg oral capsule, extended release = 325 mg, By Mouth, Daily, 0 Refills, Maintenance, 01/30/19 9:13:54 EDT, ER Capsule Start Date: 01/30/19 Status: Ordered Cardizem CD 240 mg/24 hours oral capsule, extended release 240 mg, 1, capsule, By Mouth, Daily at bedtime, # 30 capsule, Refills 0, Maintenance, 02/04/18 18:49:33 EDT Start Date: 02/04/18 Status: Ordered Colace sodium 100 mg oral capsule 100 mg, 1, capsule, By Mouth, 2 times a day, Refills 0, Maintenance, 01/30/19 9:12:06 EDT Start Date: 01/30/19 Status: Ordered Colace sodium 100 mg oral capsule 100 mg, 1, capsule, By Mouth, 2 times a day, PRN, # 20 capsule, Refills 0, Tot. Refills 0, Maintenance, for constipation, 12/13/19 18:54:00 EDT, Route to Pharmacy Electronically, [facility]#[id number], 163.5, cm, 01/31/19 15:33:00 EDT, Height, 8... Start Date: 12/13/19 Status: Ordered Dilaudid 4 mg oral tablet = 4 mg, By Mouth, Every 3 hours, PRN Pain , Moderate, 0 Refills, Maintenance, 01/30/19 9:11:34 EDT,Tablet Start Date: 01/30/19 Status: Ordered Flonase 50 mcg/inh nasal spray Nares, Both, PRN Congestion, 0 Refills, Maintenance, 01/19/19 14:28:22 EDT Start Date: 01/19/19 Status: Ordered hydrOXYzine hydrochloride 50 mg oral tablet = 100 mg, By Mouth, 2 times a day, 0 Refills, Maintenance, 06/28/17 14:35:32 EDT Start Date: 06/28/17 Status: Ordered Insulin Lispro 4-16 units, Subcutaneous Injection, 3 times a day before meals, See Order Comments for Sliding Scale Comments., 0 Refills, Maintenance, 01/30/19 9:12:12 EDT, Injection Start Date: 01/30/19 Status: Ordered LaMICtal 100 mg oral tablet 100 mg, 1, tablet, By Mouth, Daily, Refills 0, Maintenance, 01/19/19 14:27:01 EDT Start Date: 01/19/19 Status: Ordered Lantus 100 u/ml subcutaneous solution = 40 units, Subcutaneous Infusion, Daily at bedtime, 0 Refills, Maintenance, 01/19/19 14:21:54 EDT Start Date: 01/19/19 Status: Ordered lidocaine 5% topical film 1 patch, Topically, Daily, # 30 patch, 0 Refills, Maintenance, 10/28/19 18:54:00 EST, [facility] #[id number], 1 patch Topically Daily,x7 days, 163.5, cm, 01/31/19 15:33:00 EDT, Height, 84, kg, 01/27/19 13:41:00 EDT, Dry Weight Start Date: 10/28/19 Stop Date: 11/04/19 Status: Ordered Milk of Magnesia Liquid 30 mL, By Mouth, Daily, PRN Constipation, 0 Refills, Maintenance, 01/30/19 9:12:20 EDT, Suspension Start Date: 01/30/19 Status: Ordered Mirtazapine = 45 mg, By Mouth, Daily at bedtime, 0 Refills, Maintenance, 01/19/19 14:29:04 EDT Start Date: 01/19/19 Status: Ordered Nicotine Gum 2 mg, Chew, Every hour, PRN, Nicotine Cravings, Refills 0, Maintenance, Other, 01/30/19 9:12:16 EDT Start Date: 01/30/19 Status: Ordered NovoLOG 100 units/mL injectable solution Subcutaneous Infusion, 3 times a day before meals, SLIDING SCALE, 0 Refills, Maintenance, 01/19/19 14:22:26 EDT Start Date: 01/19/19 Status: Ordered Omeprazole = 20 mg, By Mouth, PRN Indigestion, 0 Refills, Maintenance, 01/19/19 14:26:15 EDT Start Date: 01/19/19 Status: Ordered Senna 8.6 mg oral tablet 17.2 mg, 2, tablet, By Mouth, Daily at bedtime, PRN, # 100 tablet, Refills 0, Maintenance, for constipation, 01/19/19 14:27:57 EDT, Tablet Start Date: 01/19/19 Status: Ordered simvastatin 20 mg oral tablet 20 mg, 1, tablet, By Mouth, Daily at bedtime, # 30 tablet, Refills 0, Maintenance, 05/04/18 11:00:02 EDT Start Date: 05/04/18 Status: Ordered Tylenol 325 mg oral tablet 975 mg, By Mouth, Every 8 hours, Refills 0, Maintenance, 01/30/19 9:12:03 EDT Start Date: 01/30/19 Status: Ordered Vitamin B1 100 mg oral tablet 100 mg, 1, tablet, By Mouth, Daily at bedtime, Refills 0, Maintenance, 12/31/16 15:54:47 EDT Start Date: 12/31/16 Status: Ordered Problem List Condition Effective Dates Status Health Status Inform ant Alcohol abuse(Confirmed) Active Cocaine abuse(Confirmed) Active Lumbar disc disease(Confirmed) Active Lumbar radiculitis(Confirmed) Active Noninfectious colitis(Confirmed) Active Recurrent major depressive e pisodes, moderate(Confirmed) Active Social History Social History Type Response Smoking Status Current every day demond brown entered on: 05/18/16 Sex
--- OUTSIDE RECORDS SUMMARY | 2024-02-23 16:16 | XMS_ITS | Continuity of Care Document ---
Author Organization [facility] Address [address] [place] [address]- Care Team Providers Care Milk Sampler Name Role Phone Stacy JACOBSEN, Jeevan Smith Primary Care Physician [phone] Encounter [facility] Date(s): 10/19/22 - 11/18/22 [facility] [address] [place] [id number]- Allergies, Adverse Reactions, Alerts Substance Reaction Severity Status Soma too strong for me Active Neurontin schizophenic affect Active Wellbutrin seizure Active Bactrim GI bleed Active Immunizations Given and Recorded Vaccine Date Status Refusal Reason SARS-CoV-2 (COVID-19) mRNA-1273 vaccine 01/17/22 R ecorded SARS-CoV-2 (COVID-19) mRNA-1273 vaccine 07/08/21 R ecorded SARS-CoV-2 (COVID-19) mRNA-1273 vaccine 12/17/20 R ecorded SARS-CoV-2 (COVID-19) mRNA-1273 vaccine 11/19/20 R ecorded Influenza Virus Vaccine (oldterm) 1 05/28/21 Recor ded Influenza Virus Vaccine (oldterm) 07/06/20 Recorde d zoster vaccine, inactivated 05/14/20 Recorded zoster vaccine, inactivated 11/01/19 Recorded tetanus/diphtheria/pertussis, acel(Tdap) 12/28/17 Recorded tetanus/diphtheria/pertussis, acel(Tdap) 08/01/07 Recorded pneumococcal 23-valent vaccine 09/27/16 Given pneumococcal 23-valent vaccine 08/27/10 Recorded pneumococcal 23-valent vaccine 06/21/09 Recorded influenza virus vaccine, inactivated 09/27/16 Give n 1Result Comment: Pt not sure the exact date. Medications acetaminophen 325 mg oral tablet 1 TO 2 TABLETS, By Mouth, Daily at bedtime, # 60 tablet, Refills 5, Tot. Refills 5, Maintenance, 08/17/22 15:29:00 EST, Route to Pharmacy Electronically, [facility]-, 160, cm, 08/17/22 15:09:00 EST, Height, 68.5, kg, 03/16/22 6:52:... Start Date: 08/17/22 Status: Ordered Actos 15 mg oral tablet 1 tablet = 15 mg, By Mouth, Daily, # 30 tablet, 6 Refills, Maintenance, 08/17/22 15:29:00 EST, Tablet, [facility], Partial fill upon patient request if the prescription is for a schedule II opioid drug., 160, cm, 08/17/22 15:09:00... Start Date: 08/17/22 Status: Ordered ARIPiprazole 2 mg oral tablet 2 mg, 1, tablet, By Mouth, Daily, Refills 0, Maintenance, 06/29/22 13:00:00 EDT, Partial fill upon patient request if the prescription is for a schedule II opioid drug. Start Date: 06/29/22 Status: Ordered biotin 1000 mcg oral tablet 1 tablet = 1,000 mcg, By Mouth, Daily, # 90 tablet, 1 Refills, Maintenance, 10/31/22 17:38:00 EST, Tablet, [facility], Partial fill upon patient request if the prescription is for a schedule II opioid drug., 160.5, cm, 08/27/22 14... Start Date: 10/31/22 Status: Ordered cloNIDine 0.1 mg oral tablet [...] 1, Tot. Refills 1, Maintenance, for constipation, 08/17/22 15:29:00 EST, Route to Pharmacy Electronically, [facility], Partial fill upon patient request if th... Start Date: 08/17/22 Status: Ordered Crestor 5 mg oral tablet 1 tablet = 5 mg, By Mouth, Daily, REPLACES SIMVASTATIN, # 30 tablet, 6 Refills, Maintenance, 08/17/22 15:29:00 EST, Tablet, [facility], Partial fill upon patient request if the prescription is for a schedule II opioid drug., 160,... Start Date: 08/17/22 Status: Ordered diclofenac 1% topical gel See Instructions, APPLY TO AFFECTED AREA(S) TWICE A DAY NEEDED PAIN, # 100 Gm, 0 Refills, Maintenance, 07/30/22 13:16:00 EDT, [facility], 14, APPLY TO AFFECTED AREA(S) TWICE A DAY NEEDED PAIN, 160, cm, 06/29/22 12:54:00 EDT, Height,... Start Date: 07/30/22 Status: Ordered dilTIAZem 360 mg/24 hours oral capsule, extended release 1 capsule = 360 mg, By Mouth, Daily, # 30 capsule, 6 Refills, Maintenance, 08/17/22 15:29:00 EST, CR Capsule, [facility], Partial fill upon patient request if the prescription isfor a schedule II opioid drug., 160, cm, 08/17/22 1... Start Date: 08/17/22 Status: Ordered Estrace Vaginal Cream 0.1 mg/g = 1 Gm, Vaginally, Every Wednesday and Wednesday, # 42.5 Gm, 6 Refills, Maintenance, 08/19/22 14:20:00 EST, [facility], Partial fill upon patient request if the prescription is for a schedule II opioid drug., 160.5, cm, 08/19/22 14:08:... Start Date: 08/19/22 Status: Ordered ferrous sulfate 325 mg oral tablet 1 tablet, By Mouth, Daily, # 30 tablet, 11 Refills, Maintenance, 10/29/22 11:37:00 EST, [facility], 160.5, cm, 08/27/22 14:26:00 EST, Height, 66, kg, 08/19/22 14:08:00 EST, Dry Weight Start Date: 10/29/22 Status: Ordered Freestyle Lancets See Instructions, # 600 each, Refills 2, Tot. Refills 2, Maintenance, use as directed for Type 2 Diabetes Mellitus, 12/22/21 14:51:00 EDT, Supply, 163.5, cm, 08/18/21 14:06:00 EST, Height Start Date: 12/22/21 Stop Date: 09/18/22 Status: Ordered Freestyle Test Strips See Instructions, [...] Daily, # 15 mL, 5 Refills, Maintenance, 08/17/22 15:29:00 EST, Solution, [facility]-, Partial fill upon patient request if the prescription is for a schedule II opioid drug., 160, cm, 08/17/22 15... Start Date: 08/17/22 Status: Ordered methimazole 10 mg oral tablet 10 mg, 1, tablet, By Mouth, Daily, # 90 tablet, Refills 3, Tot. Refills 3, Maintenance, 08/18/22 8:29:00 EST, Route to Pharmacy Electronically, [facility]-, Partial fill upon patient request if the prescription is for a schedule II... Start Date: 08/18/22 Status: Ordered Multivitamin Daily, 0 Refills, Maintenance, 11/08/20 16:45:00 EST, Partial fill upon patient request if the prescription is for a schedule II opioid drug. Start Date: 11/08/20 Status: Ordered nicotine 4 mg oral transmucosal gum See Instructions, CHEW & PARK. 1 PIECE BY MOUTH EVERY 2 HOURS NEEDED FOR SMOKING CESSATION, # 220 each, 0 Refills, Maintenance, 10/21/22 13:37:00 EST, [facility]-, 160.5, cm, 08/27/22 14:26:00 EST, Height, 66, kg, 08/19/22 14:08... Start Date: 10/21/22 Status: Ordered Nutrafol (Hair Growth Supplement) Nutrafol (Hair Growth Supplement), See Instructions, Refills 0, Maintenance, 06/29/22 13:08:00 EDT,Supply Start Date: 06/29/22 Status: Ordered omeprazole 20 mg oral enteric coated capsule 1 capsule = 20 mg, By Mouth, Daily, # 30 capsule, 6 Refills, Maintenance, 08/17/22 15:29:00 EST, ECCapsule, [facility], Partial fill upon patient request if the prescription is for a schedule II opioid drug., 160, cm, 08/17/22 15... Start Date: 08/17/22 Status: Ordered Propranolol 20 mg, Refills 0, Maintenance, 08/18/21 14:23:00 EST, Partial fill upon patient request if the prescription is for a schedule II opioid drug. Start Date: 08/18/21 Status: Ordered topiramate 50 mg oral tablet 1 tablet = 50 mg, By Mouth, Daily, # 30 tablet, 6 Refills, Maintenance, 08/17/22 15:29:00 EST, [facility], Partial fill upon patient request if the prescription is for a scheduleII opioid drug., 160, cm, 08/17/22 15:09:00 EST, He... Start Date: 08/17/22 Status: Ordered Problem List Condition Confirmation Course Effective Dates Status Health Status Informant Ankle pain, right Confirmed Active Anxiety Confirmed Active Bipolar disorder Confirmed Active CKD (chronic kidney disease) Confirmed Active Constipation Confirmed Active History of colitis Confirmed Active History of alcohol abuse Confirmed Active History of ankle surgery 1 Confirmed Active History of cocaine abuse Confirmed Active Hypercholesterolemia Confirmed Active HTN (hypertension) Confirmed Active Hyperthyroidism Confirmed Active Insomnia Confirmed Active Lumbar disc disease Confirmed Active Current use of insulin Confirmed Active Hair loss Confirmed Active Neck pain Confirmed Active Lumbar radiculitis Confirmed Active Ocular migraine Confirmed Active Osteopenia Confirmed Active PTSD (post-traumatic stress disorder) Confirmed Active Recurrent major depressive episodes, moderate Confirmed Active History of tobacco use Confirmed Active Diabetes mellitus type 2 in obese Confirmed Active 20189 Social History Social History Type Response Smoking Status Former smoker, quit more than 30 days ago entered on: 11/08/20 Sex Patient Care team information Care Team Personnel Name: Praveena Jordan RN Position: [facility] PCO RN Member Role: Primary Care Nurse Name: Smita Cantrell RN Position: [facility] SN RN Member Role: Primary Care Nurse Name: Zain Ramos RN Position: [facility] ED RN W/OE and Tasks Member Role: Primary Care Nurse Name: Gerard Erickson RN Position: [facility] RN Member Role: Primary Care Nurse Name: Jeevan Kumar MD Position: [facility] Primary Care Physician Member Role: PCP Address: Address: [address] [place] [id number]- [place] Name: Amy Campos NP Position: [facility] Associate Professional Member Role: Primary Care Nurse Address: Address: [address] [place] [address] Trauma and [place] [address]- [place] Name: Gita Becerril RN Position: [facility] RN Member Role: Primary Care Nurse Name: Selena Dias RN Position: [facility] PCO RN Member Role: Primary Care Nurse Name: Ryan Romero RN Position: [facility] SN RN Member Role: Primary Care Nurse Name: Pretty Rosen RN Position: [facility] RN Member Role: Primary Care Nurse Name: Basilio Chase MD Position: [facility] Psychiatry MD Member Role: [employer] Consulting Physician Address: Address: [address] [place] [id number]- [place] Care Team Related Persons Name: EMEKA MACK Address: home [address] [place] [address] Name: CARMEN COELLO Address: [place] [address] Name: TRACY PALMER Address: home [address] [place] [address]
--- OUTSIDE RECORDS SUMMARY | 2024-02-23 16:16 | XMS_ITS | Continuity of Care Document ---
Author Organization [facility] Address [address] [place] [address]- Care Team Providers Care Brush Sander Name Role Phone Jeevan Kumar MD Primary Care Physician Encounter [facility] Date(s): 05/01/22 - 06/21/22 [facility] Adult [address] [place] [address]- Attending Physician: Tisha Ac NP Referring Physician: Jeevan Kumar MD Allergies, Adverse Reactions, Alerts Substance Reaction [...] tablet, Refills 5, Tot. Refills 5, Maintenance, 02/16/22 15:13:00 EDT, Route to Pharmacy Electronically, [facility]-, 163.5, cm, 02/16/22 14:40:00 EDT, Height Start Date: 02/16/22 Status: Ordered Actos 15 mg oral tablet 1 tablet = 15 mg, By Mouth, Daily, # 30 tablet, 6 Refills, Maintenance, 02/16/22 15:13:00 EDT, Tablet, [facility], Partial fill upon patient request if the prescription is for a schedule II opioid drug., 163.5, cm, 02/16/22 14:40:... Start Date: 02/16/22 Status: Ordered biotin 1000 mcg oral tablet 1 tablet = 1,000 mcg, By Mouth, Daily, # 90 tablet, 1 Refills, Maintenance, 06/04/22 15:16:00 EDT, Tablet, [facility], Partial fill upon patient request if the prescription is for a schedule II opioid drug., 160, cm, 06/04/22 15:0... Start Date: 06/04/22 Status: Ordered biotin 5000 mcg oral capsule = 600 mg, 2 tabs by mouth daily, 0 Refills, Maintenance, 03/12/22 10:15:00 EDT, Partial fill upon patient request if the prescription is for a schedule II opioid drug. Start Date: 03/12/22 Status: Ordered cloNIDine 0.1 mg oral tablet 0.1 mg, 1, tablet, By Mouth, Daily, hs, Refills 0, Maintenance, 08/18/21 14:23:00 EST, Partial fillupon patient request if the prescription is for a schedule II opioid drug. Start Date: 08/18/21 Status: Ordered dilTIAZem 360 mg/24 hours oral capsule, extended release 1 capsule = 360 mg, By Mouth, Daily, # 30 capsule, 6 Refills, Maintenance, 02/16/22 15:13:00 EDT, CR Capsule, [facility], Partial fill upon patient request if the prescription isfor a schedule II opioid drug., 163.5, cm, 02/16/22... Start Date: 02/16/22 Status: Ordered Freestyle Lancets See Instructions, # [...] EDT, Height Start Date: 03/09/22 Status: Ordered Hailey-joe 8.6 mg oral tablet 2 tablet, By Mouth, Daily at bedtime, PRN NEEDED FOR CONSTIPATION, # 30 tablet, 0 [facility]ills[facility], cm, 05/05/22 11:37:00 EDT, Height, 68.5, kg, 03/16/22 6:52:00 EDT, Dry Weight Start Date: 05/11/22 Status: Ordered LaMICtal 100 mg oral tablet [...] Daily, # 15 mL, 5 Refills, Maintenance, 02/16/22 15:13:00 EDT, Solution, [facility]-, Partial fill upon patient request if the prescription is for a schedule II opioid drug., 163.5, cm, 02/16/22... Start Date: 02/16/22 Status: Ordered methimazole 10 mg oral tablet 30 mg, 3, tablet, By Mouth, 2 times a day, # 540 tablet, Refills 3, Tot. Refills 3, Maintenance, 05/22/22 16:17:00 EDT, Route to Pharmacy Electronically, [facility], Partial fillupon patient request if the prescription is for a s... Start Date: 05/22/22 Status: Ordered MiraLax oral powder for reconstitution = 17 Gm, By Mouth, Daily, dissolve in water before taking, # 527 Gm, 1 Refills, Maintenance, 06/04/22 15:15:00 EDT, REC Powder, [facility]-, Partial fill upon patient request if the prescription is for a schedule II opioid drug., 1... Start Date: 06/04/22 Status: Ordered Multivitamin Daily, 0 Refills, Maintenance, 11/08/20 16:45:00 EST, Partial fill upon patient request if the prescription is for a schedule II opioid drug. Start Date: 11/08/20 Status: Ordered nicotine 4 mg oral transmucosal gum See Instructions, CHEW 1 PIECE EVERY 2 HOURS NEEDED FOR SMOKING CESSATION, # 40 each, 0 Refills,Maintenance, 05/26/22 11:16:00 EDT, [facility], 160, cm, 05/19/22 13:49:00 EDT, Height,68.5, kg, 03/16/22 6:52:00 EDT, Dry Weight Start Date: 05/26/22 Status: Ordered omeprazole 20 mg oral enteric coated capsule 1 capsule = 20 mg, By Mouth, Daily, # 30 capsule, 6 Refills, Maintenance, 02/16/22 15:13:00 EDT, ECCapsule, [facility], Partial fill upon patient request if the prescription is for a schedule II opioid drug., 163.5, cm, 02/16/22... Start Date: 02/16/22 Status: Ordered Propranolol 20 mg, Refills 0, Maintenance, 08/18/21 14:23:00 EST, Partial fill upon patient request if the prescription is for a schedule II opioid drug. Start Date: 08/18/21 Status: Ordered simvastatin 20 mg oral tablet 20 mg, 1, tablet, By Mouth, Daily at bedtime, # 30 tablet, Refills 6, Tot. Refills 6, Maintenance, 02/16/22 15:13:00 EDT, Route to Pharmacy Electronically, [facility], Partial fill upon patient request if the prescription is for a... Start Date: 02/16/22 Status: Ordered topiramate 50 mg oral tablet 1 tablet = 50 mg, By Mouth, Daily, # 30 tablet, 6 Refills, Maintenance, 08/18/21 14:36:00 EST, [facility], Partial fill upon patient request if the prescription is for a scheduleII opioid drug., 163.5, cm, 08/18/21 14:06:00 EST,... Start Date: 08/18/21 Status: Ordered Problem List Condition Effective Dates Status Health Status Inform ant Anxiety(Confirmed) Active Bipolar disorder(Confirmed) Active CKD (chronic kidney disease)(Confirmed) Active Constipation(Confirmed) Active History of colitis(Confirmed) Active History of alcohol abuse(Confirmed) Active History of ankle surgery(Confirmed) 1 Active History of cocaine abuse(Confirmed) Active Hypercholesterolemia(Confirmed) Active HTN (hypertension)(Confirmed) Active Hyperthyroidism(Confirmed) Active Insomnia(Confirmed) Active Lumbar disc disease(Confirmed) Active Current use of insulin(Confirmed) Active Hair loss(Confirmed) Active Neck pain(Confirmed) Active Lumbar radiculitis(Confirmed) Active Osteopenia(Confirmed) Active PTSD (post-traumatic stress disorder)(Confirmed) Active Recurrent major depressive e pisodes, moderate(Confirmed) Active History of tobacco use(Confirmed) Active Diabetes mellitus type 2 in obese(Confirmed) Active [address] Social History Social History Type Response Smoking Status Former smoker, quit more than 30 days ago entered on: 11/08/20 Sex Care Team Personnel Name: Jeevan Kumar MD Address: [address] [place] [address] [place] [address]
--- OUTSIDE RECORDS SUMMARY | 2024-02-23 16:16 | XMS_ITS | Continuity of Care Document ---
Author Organization [facility] Address [address] [place] [address]- Care Team Providers Care Dental Ceramist Assistant Name Role Phone Stacy JACOBSEN, Jeevan Smith Primary Care Physician [phone] Encounter [facility] Date(s): 06/22/22 - 07/22/22 [facility] [address] [place] [address]- Allergies, Adverse Reactions, Alerts Substance Reaction Severity [...] 02/16/22 15:13:00 EDT, Route to Pharmacy Electronically, [facility]-, 163.5, cm, 02/16/22 14:40:00 EDT, Height Start Date: 02/16/22 Status: Ordered Actos 15 mg oral tablet 1 tablet = 15 mg, By Mouth, Daily, # 30 tablet, 6 Refills, Maintenance, 02/16/22 15:13:00 EDT, Tablet, [facility]-, Partial fill upon patient request if the prescription is for a schedule II opioid drug., 163.5, cm, 02/16/22 14:40:... Start Date: 02/16/22 Status: Ordered ARIPiprazole 2 mg oral tablet 2 mg, 1, tablet, By Mouth, Daily, Refills 0, Maintenance, 06/29/22 13:00:00 EDT, Partial fill upon patient request if the prescription is for a schedule II opioid drug. Start Date: 06/29/22 Status: Ordered biotin 1000 mcg oral tablet 1 tablet = 1,000 mcg, By Mouth, Daily, # 90 tablet, 1 Refills, Maintenance, 06/04/22 15:16:00 EDT, Tablet, [facility]-, Partial fill upon patient request if [...] 1, Tot. Refills 1, Maintenance, for constipation, 06/29/22 13:14:00 EDT, Route to Pharmacy Electronically, [facility], Partial fill upon patient request if th... Start Date: 06/29/22 Status: Ordered Crestor 5 mg oral tablet 1 tablet = 5 mg, By Mouth, Daily, REPLACES SIMVASTATIN, # 30 tablet, 6 Refills, Maintenance, 07/03/22 11:36:00 EDT, Tablet, [facility], Partial fill upon patient request if the prescription is for a schedule II opioid drug., 160,... Start Date: 07/03/22 Status: Ordered dilTIAZem 360 mg/24 hours oral capsule, extended release 1 capsule = 360 mg, By Mouth, Daily, # 30 capsule, 6 Refills, Maintenance, 02/16/22 15:13:00 EDT, CR Capsule, [facility], Partial fill upon patient request if [...] FOR CONSTIPATION, # 30 tablet, 0 Refills, [facility], 160, cm, 05/05/22 11:37:00 EDT, Height, 68.5, [...] 5 Refills, Maintenance, 02/16/22 15:13:00 EDT, Solution, [facility]-, Partial fill upon patient request if the prescription is for a schedule II opioid drug., 163.5, cm, 02/16/22... Start Date: 02/16/22 Status: Ordered methimazole 10 mg oral tablet 30 mg, 3, tablet, By Mouth, 2 times a day, # 540 tablet, Refills 3, Tot. Refills 3, Maintenance, 05/22/22 16:17:00 EDT, Route to Pharmacy Electronically, [facility]-, Partial fillupon patient request if the prescription is for a s... Start Date: 05/22/22 Status: Ordered Multivitamin Daily, 0 Refills, Maintenance, 11/08/20 16:45:00 EST, Partial fill upon patient request if the prescription is for a schedule II opioid drug. Start Date: 11/08/20 Status: Ordered nicotine 4 mg oral transmucosal gum See Instructions, CHEW 1 PIECE EVERY 2 HOURS NEEDED FOR SMOKING CESSATION, # 220 each, 0 Refills, Maintenance, 06/25/22 11:32:00 EDT, [facility], 160, cm, 06/04/22 15:02:00 EDT, Height, 68.5, kg, 03/16/22 6:52:00 EDT, Dry Weight Start Date: 06/25/22 Status: Ordered Nutrafol (Hair Growth Supplement) Nutrafol (Hair Growth Supplement), See Instructions, Refills 0, Maintenance, 06/29/22 13:08:00 EDT,Supply Start Date: 06/29/22 Status: Ordered omeprazole 20 mg oral enteric coated capsule 1 capsule = 20 mg, By Mouth, Daily, # 30 capsule, 6 Refills, Maintenance, 02/16/22 15:13:00 EDT, ECCapsule, [facility]-, Partial fill upon patient request if [...] tablet, 6 Refills, Maintenance, 08/18/21 14:36:00 EST, [facility], Partial fill upon patient request if the prescription is for a scheduleII opioid drug., 163.5, cm, 08/18/21 14:06:00 EST,... Start Date: 08/18/21 Status: Ordered Problem List Condition Confirmation Course Effective Dates Status Health Status Informant Anxiety Confirmed Active Bipolar disorder Confirmed Active [...] mellitus type 2 in obese Confirmed Active 79437 Social History Social History Type Response Smoking Status Former smoker, quit more than 30 days ago entered on: 11/08/20 Sex Patient Care team information Personnel Name: Jeevan Kumar MD Address: Address: [address] [place] [id number]
--- OUTSIDE RECORDS SUMMARY | 2024-02-23 16:17 | XMS_ITS | Continuity of Care Document ---
Author Organization [facility] [place] Saad Address [address] [place] [address]- Care Team Providers Care Manager Flight Operations Name Role Phone Jeevan Kumar MD Primary Care Physician En[place] [facility] [place](s): 02/06/21 - 02/13/21 [facility] [place] Adult [address] [place] [address]- Attending Physician: Tisha Ac NP Referring Physician: Jeevan Kumar MD Allergies, Adverse Reactions, Alerts Substance Reaction Severity Status Soma too strong for me Active Neurontin schizophenic affect Active Wellbutrin seizure Active Bactrim GI bleed Active Immunizations Given and Recorded Vaccine Date Status Refusal Reason Influenza Virus Vaccine (oldterm) 07/06/20 Recorde d pneumococcal 23-valent vaccine 09/27/16 Given influenza virus vaccine, inactivated 09/27/16 Give n Medications Actos 15 mg oral tablet 1 tablet = 15 mg, By Mouth, Daily, # 30 tablet, 6 Refills, Maintenance, 02/06/21 13:47:00 EDT, Tablet, [facility]-, Partial fill upon patient request if the prescription is for a schedule II opioid drug., 163.5, cm, 02/06/21 13:17:... Start Date: 02/06/21 Status: Ordered dilTIAZem 360 mg/24 hours oral capsule, extended release 1 capsule = 360 mg, By Mouth, Daily, # 30 capsule, 6 Refills, Maintenance, 02/06/21 13:47:00 EDT, CR Capsule, [facility]-, Partial fill upon patient request if the prescription isfor a schedule II opioid drug., 163.5, cm, 02/06/21... Start Date: 02/06/21 Status: Ordered ferrous sulfate 325 mg oral enteric coated tablet 325 mg, 1, tablet, By Mouth, Daily, # 30 tablet, Refills 6, Tot. Refills 6, Maintenance, 02/06/21 13:47:00 EDT, Route to Pharmacy Electronically, [facility], Partial fill upon patient request if the prescription is for a schedule... Start Date: 02/06/21 Status: Ordered Flonase 50 mcg/inh nasal spray 1 sprays, Nares, Both, Daily, PRN Congestion, # 16 Gm, 6 Refills, Maintenance, 02/06/21 13:48:00 EDT, Nasal [place], [facility], Partial fill upon patient request if the prescription is for a schedule II opioid drug., 1 sprays Nares... Start Date: 02/06/21 Status: Ordered Freestyle Lancets See Instructions, # 600 each, Refills 2, Tot. Refills 2, Maintenance, use as directed for Type 2 Diabetes Mellitus, 02/06/21 13:50:00 EDT, Supply, 163.5, cm, 02/06/21 13:17:00 EDT, Height, 89.9, kg, 12/13/19 18:25:00 EDT, Dry Weight Start Date: 02/06/21 Stop Date: 11/03/21 Status: Ordered LaMICtal 100 mg oral tablet 100 mg, 1, tablet, By Mouth, Daily, # 30 tablet, Refills 0, Tot. Refills 0, Maintenance, 11/08/20 16:42:00 EST, Do Not Route, Partial fill upon patient request if the prescription is for a schedule II opioid drug. Start Date: 11/08/20 Status: Ordered Lantus Solostar Pen 100 units/mL subcutaneous solution = 20 units, Subcutaneous Injection, Daily, # 15 mL, 5 Refills, Maintenance, 02/06/21 13:47:00 EDT, Solution, [facility], Partial fill upon patient request if the prescription is for a schedule II opioid drug., 163.5, cm, 02/06/21... Start Date: 02/06/21 Status: Ordered Multivitamin Daily, 0 Refills, Maintenance, 11/08/20 16:45:00 EST, Partial fill upon patient request if the prescription is for a schedule II opioid drug. Start Date: 11/08/20 Status: Ordered nicotine 4 mg oral transmucosal gum 1 each = 4 mg, Chew, Every 2 hours, PRN as needed for smoking cessation, # 160 each, 1 Refills, Acute 02/06/22 0:00:00 EDT, 02/06/21 13:49:00 EDT, Gum, [facility], Partial fill upon patient request if the prescription is for a ramses... Start Date: 02/06/21 Stop Date: 02/06/22 Status: Ordered omeprazole 20 mg oral enteric coated capsule 1 capsule = 20 mg, By Mouth, Daily, # 30 capsule, 6 Refills, Maintenance, 02/06/21 13:47:00 EDT, ECCapsule, [facility], Partial fill upon patient request if the prescription is for a schedule II opioid drug., 163.5, cm, 02/06/21... Start Date: 02/06/21 Status: Ordered Senna 8.6 mg oral tablet 17.2 mg, 2, tablet, By Mouth, Daily at bedtime, PRN, # 100 tablet, Refills 1, Tot. Refills 1, Maintenance, for constipation, 02/06/21 13:47:00 EDT, Route to Pharmacy Electronically, [facility]-[id number] Tablet, Partial fill upon patient req... Start Date: 02/06/21 Status: Ordered simvastatin 20 mg oral tablet 20 mg, 1, tablet, By Mouth, Daily at bedtime, # 30 tablet, Refills 6, Tot. Refills 6, Maintenance, 02/06/21 13:47:00 EDT, Route to Pharmacy Electronically, [facility], Partial fill upon patient request if the prescription is for a... Start Date: 02/06/21 Status: Ordered tiZANidine 4 mg oral capsule 1 capsule = 4 mg, By Mouth, 3 times a day, # 42 capsule, 0 Refills, Maintenance, 02/06/21 13:47:00 EDT, [facility]-[id number], Partial fill upon patient request if the prescription is for aschedule II opioid drug., 163.5, cm, 02/06/21 13:17... Start Date: 02/06/21 Stop Date: 02/20/21 Status: Ordered topiramate 50 mg oral tablet 1 tablet = 50 mg, By Mouth, Daily, # 30 tablet, 6 Refills, Maintenance, 02/06/21 13:47:00 EDT, [facility]-, Partial fill upon patient request if the prescription is for a scheduleII opioid drug., 163.5, cm, 02/06/21 13:17:00 EDT,... Start Date: 02/06/21 Status: Ordered Problem List Condition Effective Dates Status Health Status Inform ant Anxiety(Confirmed) Active Bipolar disorder(Confirmed) Active BMI 27.0-27.9,adult(Confirmed) Active CKD (chronic kidney disease)(Confirmed) Active History of colitis(Confirmed) Active History of alcohol abuse(Confirmed) Active History of ankle surgery(Confirmed) 1 Active History of cocaine abuse(Confirmed) Active Hypercholesterolemia(Confirmed) Active HTN (hypertension)(Confirmed) Active Insomnia(Confirmed) Active Lumbar disc disease(Confirmed) Active Current use of insulin(Confirmed) Active Lumbar radiculitis(Confirmed) Active PTSD (post-traumatic stress disorder)(Confirmed) Active Recurrent major depressive e pisodes, moderate(Confirmed) Active History of tobacco use(Confirmed) Active Diabetes mellitus type 2 in obese(Confirmed) Active 50345 Vital Signs Most recent to oldest [Reference Range]: 1 2 3 Height 163.5 cm (02/06/21 2:10 PM) 163.5 cm (02/06/21 2:05 PM) 163.5 cm (02/06/21 1:17 PM) Weight 73.4 kg (02/06/21 1:17 PM) Oxygen Saturation [94-100 %] 98 % (02/06/21 1:17 PM) Pulse Rate [55-90 bpm] 74 bpm (02/06/21 1:17 PM) Body Mass Index [18.5-24.99] 27.46 *H* (02/06/21 1:17 PM) Blood Pressure [90-138/55-84 mm Hg] 130/80mm Hg (02/06/21 2:10 PM) 141/80mm Hg *H* (02/06/21 2:05 PM) 144/82mm Hg *H* (02/06/21 1:17 PM) Blood pressure sites Arm, left (02/06/21 1:17 PM) Social History Social History Type Response Smoking Status Former smoker, quit more than 30 days ago entered on: 11/08/20 Sex
--- OUTSIDE RECORDS SUMMARY | 2024-02-23 16:17 | XMS_ITS | Continuity of Care Document ---
Author Organization [facility] Address [address] [place] [address]- Care Team Providers Care Technical Inspector Name Role Phone Osorio SENIOR TEST ANALYST, Tisha Asencio Primary Care Physician [phone] Encounter [facility] Date(s): 02/19/22 - 03/21/22 [facility] [address] [place] [address]- Allergies, Adverse Reactions, Alerts Substance Reaction Severity [...] 02/16/22 15:13:00 EDT, Route to Pharmacy Electronically, [facility]-, 163.5, cm, 02/16/22 14:40:00 EDT, Height Start Date: 02/16/22 Status: Ordered acetaminophen 500 mg oral tablet 2 tablet = 1,000 mg, By Mouth, 3 times a day, PRN for pain, for 30 days, # 180 tablet, 0 Refills, Acute 04/15/22 5:59:00 EDT, 03/16/22 5:59:00 EDT, Tablet, [facility], Partial fill upon patient request if the prescription is for a ramses... Start Date: 03/16/22 Stop Date: 04/15/22 Status: Ordered Actos 15 mg oral tablet 1 tablet = 15 mg, By Mouth, Daily, # 30 tablet, 6 Refills, Maintenance, 02/16/22 15:13:00 EDT, Tablet, [facility]-, Partial fill upon patient request if the prescription is for a schedule II opioid drug., 163.5, cm, 02/16/22 14:40:... Start Date: 02/16/22 Status: Ordered aspirin 325 mg oral delayed release tablet 325 mg, 1, tablet, By Mouth, Daily, # 30 tablet, Refills 0, Tot. Refills 0, Maintenance, 03/16/22 6:00:00 EDT, Route to Pharmacy Electronically, [facility], Partial fill upon patientrequest if the prescription is for a schedule II op... Start Date: 03/16/22 Stop Date: 04/15/22 Status: Ordered biotin 5000 mcg oral capsule [...] Refills, Maintenance, 02/16/22 15:13:00 EDT, CR Capsule, [facility]-, Partial fill upon patient request if [...] tablet, By Mouth, Daily at bedtime, PRN NEEDED, CONSTPATION., # 30 tablet, 0 Refills, Maintenance, 02/16/22 15:13:00 EDT, [facility], 163.5, cm, 02/16/22 14:40:00 EDT, Height Start Date: 02/16/22 Status: Ordered LaMICtal 100 mg oral tablet [...] 5 Refills, Maintenance, 02/16/22 15:13:00 EDT, Solution, [facility]-, Partial fill upon patient request if the prescription is for a schedule II opioid drug., 163.5, cm, 02/16/22... Start Date: 02/16/22 Status: Ordered Multivitamin Daily, 0 Refills, Maintenance, 11/08/20 16:45:00 EST, Partial fill upon patient request if the prescription is for a schedule II opioid drug. Start Date: 11/08/20 Status: Ordered omeprazole 20 mg oral enteric coated capsule 1 capsule = 20 mg, By Mouth, Daily, # 30 capsule, 6 Refills, Maintenance, 02/16/22 15:13:00 EDT, ECCapsule, [facility], Partial fill upon patient request if the prescription is for a schedule II opioid drug., 163.5, cm, 02/16/22... Start Date: 02/16/22 Status: Ordered ondansetron 4 mg oral tablet 1 tablet = 4 mg, By Mouth, Every 12 hours, for 6 days, # 12 tablet, 0 Refills, Acute 03/22/22 6:00:00 EDT, 03/16/22 6:00:00 EDT, Tablet, [facility] [address], Partial fill upon patient requestif the prescription is for a schedule II opioid adeline... Start Date: 03/16/22 Stop Date: 03/22/22 Status: Ordered Propranolol 20 mg, Refills 0, Maintenance, 08/18/21 14:23:00 EST, Partial fill upon patient request if the prescription is for a schedule II opioid drug. Start Date: 08/18/21 Status: Ordered simvastatin 20 mg oral tablet 20 mg, 1, tablet, By Mouth, Daily at bedtime, # 30 tablet, Refills 6, Tot. Refills 6, Maintenance, 02/16/22 15:13:00 EDT, Route to Pharmacy Electronically, [facility], Partial fill upon patient request if the prescription is for a... Start Date: 02/16/22 Status: Ordered topiramate 50 mg oral tablet 1 tablet = 50 mg, By Mouth, Daily, # 30 tablet, 6 Refills, Maintenance, 08/18/21 14:36:00 EST, [facility]-, Partial fill upon patient request if [...] disease(Confirmed) Active Current use of insulin(Confirmed) Active Neck pain(Confirmed) Active Lumbar radiculitis(Confirmed) Active Osteopenia(Confirmed) Active PTSD (post-traumatic stress disorder)(Confirmed) Active Recurrent major depressive e pisodes, moderate(Confirmed) Active History of tobacco use(Confirmed) Active Diabetes mellitus type 2 in obese(Confirmed) Active 88773 Social History Social History Type Response Smoking Status Former smoker, quit more than 30 days ago entered on: 11/08/20 Sex
--- OUTSIDE RECORDS SUMMARY | 2024-02-23 16:17 | XMS_ITS | Continuity of Care Document ---
Author Organization [facility] Saad lt Address [address] [place] [address]- Care Team Providers Care Health Promotion Manager Name Role Phone Stacy JACOBSEN, Jeevan Smith Primary Care Physician [phone] Encounter [facility] Date(s): 01/16/21 - 02/15/21 [facility] Adult [address] [place] [address]- Allergies, Adverse Reactions, Alerts Substance Reaction Severity [...] 6 Refills, Maintenance, 02/06/21 13:47:00 EDT, Tablet, [facility]-, Partial fill upon patient request if the prescription is for a schedule II opioid drug., 163.5, cm, 02/06/21 13:17:... Start Date: 02/06/21 Status: Ordered dilTIAZem 360 mg/24 hours oral capsule, extended release 1 capsule = 360 mg, By Mouth, Daily, # 30 capsule, 6 Refills, Maintenance, 02/06/21 13:47:00 EDT, CR Capsule, [facility]-, Partial fill upon patient request if the prescription isfor a schedule II opioid drug., 163.5, cm, 02/06/21... Start Date: 02/06/21 Status: Ordered ferrous sulfate 325 mg oral enteric coated tablet 325 mg, 1, tablet, By Mouth, Daily, # 30 tablet, Refills 6, Tot. Refills 6, Maintenance, 02/06/21 13:47:00 EDT, Route to Pharmacy Electronically, [facility], Partial fill upon patient request if the prescription is for a schedule... Start Date: 02/06/21 Status: Ordered Flonase 50 mcg/inh nasal spray 1 sprays, Nares, Both, Daily, PRN Congestion, # 16 Gm, 6 Refills, Maintenance, 02/06/21 13:48:00 EDT, Nasal [place], [facility], Partial fill upon patient request if [...] 5 Refills, Maintenance, 02/06/21 13:47:00 EDT, Solution, [facility], Partial fill upon patient request if [...] 02/06/22 0:00:00 EDT, 02/06/21 13:49:00 EDT, Gum, [facility]-, Partial fill upon patient request if the prescription is for a ramses... Start Date: 02/06/21 Stop Date: 02/06/22 Status: Ordered omeprazole 20 mg oral enteric coated capsule 1 capsule = 20 mg, By Mouth, Daily, # 30 capsule, 6 Refills, Maintenance, 02/06/21 13:47:00 EDT, ECCapsule, [facility], Partial fill upon patient request if the prescription is for a schedule II opioid drug., 163.5, cm, 02/06/21... Start Date: 02/06/21 Status: Ordered Senna 8.6 mg oral tablet 17.2 mg, 2, tablet, By Mouth, Daily at bedtime, PRN, # 100 tablet, Refills 1, Tot. Refills 1, Maintenance, for constipation, 02/06/21 13:47:00 EDT, Route to Pharmacy Electronically, [facility]-[id number] Tablet, Partial fill upon patient req... Start Date: 02/06/21 Status: Ordered simvastatin 20 mg oral tablet 20 mg, 1, tablet, By Mouth, Daily at bedtime, # 30 tablet, Refills 6, Tot. Refills 6, Maintenance, 02/06/21 13:47:00 EDT, Route to Pharmacy Electronically, [facility], Partial fill upon patient request if the prescription is for a... Start Date: 02/06/21 Status: Ordered tiZANidine 4 mg oral capsule 1 capsule = 4 mg, By Mouth, 3 times a day, # 42 capsule, 0 Refills, Maintenance, 02/06/21 13:47:00 EDT, [facility], Partial fill upon patient request if the prescription is for aschedule II opioid drug., 163.5, cm, 02/06/21 13:17... Start Date: 02/06/21 Stop Date: 02/20/21 Status: Ordered topiramate 50 mg oral tablet 1 tablet = 50 mg, By Mouth, Daily, # 30 tablet, 6 Refills, Maintenance, 02/06/21 13:47:00 EDT, [facility]-, Partial fill upon patient request if [...] Diabetes mellitus type 2 in obese(Confirmed) Active 98752 Social History Social History Type Response Smoking Status Former smoker, quit more than 30 days ago entered on: 11/08/20 Sex
--- OUTSIDE RECORDS SUMMARY | 2024-02-23 16:17 | XMS_ITS | Continuity of Care Document ---
Author Organization [facility] Ty Saad lt Address [address] [place] [address]- Care Team Providers Care Games Dealer Name Role Phone Stacy JACOBSEN, Jeevan Smith Primary Care Physician [phone] Encounter [facility] Date(s): 02/02/22 - 03/04/22 [facility] Adult [address] [place] [address]- Allergies, Adverse Reactions, Alerts Substance Reaction Severity [...] 02/16/22 15:13:00 EDT, Route to Pharmacy Electronically, [facility]-, 163.5, cm, 02/16/22 14:40:00 EDT, Height Start Date: 02/16/22 Status: Ordered Actos 15 mg oral tablet 1 tablet = 15 mg, By Mouth, Daily, # 30 tablet, 6 Refills, Maintenance, 02/16/22 15:13:00 EDT, Tablet, [facility], Partial fill upon patient request if the prescription is for a schedule II opioid drug., 163.5, cm, 02/16/22 14:40:... Start Date: 02/16/22 Status: Ordered cloNIDine 0.1 mg oral tablet 0.1 mg, 1, tablet, By Mouth, 2 times a day, Refills 0, Maintenance, 08/18/21 14:23:00 EST, Partial fill upon patient request if the prescription is for a schedule II opioid drug. Start Date: 08/18/21 Status: Ordered diclofenac 3% topical gel 1 application, Topically, 2 times a day, # 100 Gm, 0 Refills, Maintenance, 02/19/22 14:33:00 EDT, Gel, [facility], Partial fill upon patient request if the prescription is for a schedule II opioid drug., 1 application Topically 2... Start Date: 02/19/22 Status: Ordered dilTIAZem 360 mg/24 hours oral capsule, extended release 1 capsule = 360 mg, By Mouth, Daily, # 30 capsule, 6 Refills, Maintenance, 02/16/22 15:13:00 EDT, CR Capsule, [facility], Partial fill upon patient request if the prescription isfor a schedule II opioid drug., 163.5, cm, 02/16/22... Start Date: 02/16/22 Status: Ordered ferrous sulfate 325 mg oral enteric coated tablet 325 mg, 1, tablet, By Mouth, Daily, # 30 tablet, Refills 6, Tot. Refills 6, Maintenance, 02/16/22 15:13:00 EDT, Route to Pharmacy Electronically, [facility], Partial fill upon patient request if the prescription is for a schedule... Start Date: 02/16/22 Status: Ordered Flonase 50 mcg/inh nasal spray 1 sprays, Nares, Both, Daily, PRN Congestion, # 16 Gm, 6 Refills, Maintenance, 08/18/21 14:36:00 EST, Nasal [place], [facility], Partial fill upon patient request if the prescription is for a schedule II opioid drug., 1 sprays Nares... Start Date: 08/18/21 Status: Ordered Freestyle Lancets See Instructions, # 600 each, Refills 2, Tot. Refills 2, Maintenance, use as directed for Type 2 Diabetes Mellitus, 12/22/21 14:51:00 EDT, Supply, 163.5, cm, 08/18/21 14:06:00 EST, Height Start Date: 12/22/21 Stop Date: 09/18/22 Status: Ordered Hailey-joe 8.6 mg oral tablet 2 tablet, By Mouth, Daily at bedtime, PRN NEEDED, CONSTPATION., # 30 tablet, 0 Refills, Maintenance, 02/16/22 15:13:00 EDT, [facility], 163.5, cm, 02/16/22 14:40:00 EDT, Height Start [...] 5 Refills, Maintenance, 02/16/22 15:13:00 EDT, Solution, [facility], Partial fill upon patient request if the prescription is for a schedule II opioid drug., 163.5, cm, 02/16/22... Start Date: 02/16/22 Status: Ordered Multivitamin Daily, 0 Refills, Maintenance, 11/08/20 16:45:00 EST, Partial fill upon patient request if the prescription is for a schedule II opioid drug. Start Date: 11/08/20 Status: Ordered nicotine 4 mg oral transmucosal gum See Instructions, CHEW AND .PARK 1 PIECE DIRECTED EVERY 2 HOURS NEEDED FOR CRAVINGS, # 200 each, 0 Refills, Maintenance, 02/16/22 15:13:00 EDT, [facility]-, 163.5, cm, 02/16/22 14:40:00 EDT, Height Start Date: 02/16/22 Status: Ordered omeprazole 20 mg oral enteric coated capsule 1 capsule = 20 mg, By Mouth, Daily, # 30 capsule, 6 Refills, Maintenance, 02/16/22 15:13:00 EDT, ECCapsule, [facility]-, Partial fill upon patient request if the prescription is for a schedule II opioid drug., 163.5, cm, 02/16/22... Start Date: 02/16/22 Status: Ordered Propranolol Refills 0, Maintenance, 08/18/21 14:23:00 EST, Partial fill upon patient request if the prescription is for a schedule II opioid drug. Start Date: 08/18/21 Status: Ordered simvastatin 20 mg oral tablet 20 mg, 1, tablet, By Mouth, Daily at bedtime, # 30 tablet, Refills 6, Tot. Refills 6, Maintenance, 02/16/22 15:13:00 EDT, Route to Pharmacy Electronically, [facility], Partial fill upon patient request if the prescription is for a... Start Date: 02/16/22 Status: Ordered tiZANidine 4 mg oral capsule 1 capsule = 4 mg, By Mouth, 3 times a day, # 42 capsule, 0 Refills, Maintenance, 02/06/21 13:47:00 EDT, [facility], Partial fill upon patient request if the prescription is for aschedule II opioid drug., 163.5, cm, 02/06/21 13:17... Start Date: 02/06/21 Stop Date: 02/20/21 Status: Ordered topiramate 50 mg oral tablet 1 tablet = 50 mg, By Mouth, Daily, # 30 tablet, 6 Refills, Maintenance, 08/18/21 14:36:00 EST, [facility]-, Partial fill upon patient request [...] Diabetes mellitus type 2 in obese(Confirmed) Active 32475 Social History Social History Type Response Smoking Status Former smoker, quit more than 30 days ago entered on: 11/08/20 Sex
--- OUTSIDE RECORDS SUMMARY | 2024-02-23 16:17 | XMS_ITS | Continuity of Care Document ---
Author Organization [facility] Roscoe Crawford Saad lt Address [address] [place] [address]- Care Team Providers Care Health And Wellness Manager Name Role Phone Jeevan Kumar MD Primary Care Physician [facility]counter [facility] Date(s): 06/08/23 - 07/08/23 [facility] Roscoe Crawford Adult [address] [place] [address]- Allergies, Adverse Reactions, Alerts Substance Reaction Severity [...] pneumococcal 23-valent vaccine 06/21/09 Recorded 1Result Comment: [facility]: [id number] 2Result Comment: Pt not sure the exact date. Medications acetaminophen 325 mg oral tablet 1 TO 2 TABLETS, By Mouth, Daily at bedtime, # 60 tablet, Refills 5, Maintenance, 06/09/23 11:30:00 EDT, Route to Pharmacy Electronically, [facility]-, 160.5, cm, 04/21/23 13:26:00 EDT, Height, 66, kg, 08/19/22 14:08:00 EST, Dry Weight Start Date: 06/09/23 Status: Ordered Actos 15 mg oral tablet 1 tablet = 15 mg, By Mouth, Daily, # 30 tablet, 6 Refills, Maintenance, 06/18/23 14:28:00 EDT, Tablet, [facility]-, Partial fill upon patient request if [...] 1 Refills, Maintenance, 06/18/23 14:28:00 EDT, Tablet, [facility]-, Partial fill upon patient request if [...] 06/18/23 14:28:00 EDT, Route to Pharmacy Electronically, [facility], Partial fill upon patient request if th... Start Date: 06/18/23 Status: Ordered Crestor 5 mg oral tablet 1 tablet = 5 mg, By Mouth, Daily, REPLACES SIMVASTATIN, # 30 tablet, 6 Refills, Maintenance, 06/18/23 14:28:00 EDT, Tablet, [facility], Partial fill upon patient request if the prescription is for a schedule II opioid drug., 160.5... Start Date: 06/18/23 Status: Ordered diclofenac 1% topical gel See Instructions, APPLY TO AFFECTED AREA(S) TWICE A DAY NEEDED PAIN, # 100 Gm, 0 Refills, Maintenance, 07/30/22 13:16:00 EDT, [facility] [place], 14, APPLY TO AFFECTED AREA(S) TWICE A DAY NEEDED PAIN, 160, cm, 06/29/22 12:54:00 EDT, Height,... Start Date: 07/30/22 Status: Ordered dilTIAZem 360 mg/24 hours oral capsule, extended release 1 capsule = 360 mg, By Mouth, Daily, # 30 capsule, 6 Refills, Maintenance, 06/18/23 14:28:00 EDT, CR Capsule, [facility], Partial fill upon patient request if the prescription isfor a schedule II opioid drug., 160.5, cm, 06/18/23... Start Date: 06/18/23 Status: Ordered ferrous sulfate 325 mg oral tablet 1 tablet, By Mouth, Daily, # 30 tablet, 11 Refills, Maintenance, 06/18/23 14:28:00 EDT, [facility], 160.5, cm, 06/18/23 14:02:00 EDT, Height, 66, [...] 5 Refills, Maintenance, 06/18/23 14:28:00 EDT, Solution, [facility]-, Partial fill upon patient request if [...] CESSATION, # 220 each, 0 Refills, Maintenance, 06/08/23 17:18:00 EDT, [facility]-, 160.5, cm, 04/21/23 13:26:00 EDT, Height, 66, kg, 08/19/22 14:08... Start Date: 06/08/23 Status: Ordered Nutrafol (Hair Growth Supplement) Nutrafol (Hair Growth Supplement), See Instructions, Refills 0, Maintenance, 06/29/22 13:08:00 EDT,Supply Start Date: 06/29/22 Status: Ordered omeprazole 20 mg oral enteric coated capsule 1 capsule = 20 mg, By Mouth, Daily, # 30 capsule, 6 Refills, Maintenance, 06/18/23 14:28:00 EDT, [place], [facility], Partial fill upon patient request if [...] capsule, 0 Refills,Maintenance, 06/25/23 10:03:00 EDT, Capsule, [facility], Partial fill upon patient request if the prescription is for a schedule I... Start Date: 06/25/23 Stop Date: 07/05/23 Status: Ordered topiramate 50 mg oral tablet 1 tablet = 50 mg, By Mouth, Daily, # 30 tablet, 6 Refills, Maintenance, 06/18/23 14:28:00 EDT, [facility], Partial fill upon patient request if the prescription is for a scheduleII opioid drug., 160.5, cm, 06/18/23 14:02:00 EDT,... Start Date: 06/18/23 Status: Ordered Problem List Condition Confirmation Course Effective Dates Status Health Status Informant Ankle pain, right Confirmed Active Anxiety Confirmed Active Bipolar disorder Confirmed Active CKD (chronic kidney disease) Confirmed Active Constipation Confirmed Active GERD (gastroesophageal reflux disease) Confirmed Active History of colitis Confirmed Active [...] mellitus type 2 in obese Confirmed Active 13225 Social History Social History Type Response Smoking Status Former smoker, quit more than 30 days ago entered on: 11/08/20 Sex Patient Care team information Care Team Personnel Name: Praveena Jordan RN Position: [facility] AMB Nurse Member Role: Primary Care Nurse Name: Smita Cantrell RN Position: [facility] SN RN Member Role: Primary Care Nurse Name: Zain Ramos RN Position: [facility] ED RN W/OE and Tasks Member Role: Primary Care Nurse Name: Gerard Erickson RN Position: [facility] RN Member Role: Primary Care Nurse Name: Jeevan Kumar MD Position: [facility] Physician - Primary Care Member Role: PCP Address: Address: [address] [place] [id number]- Name: Amy Campos NP Position: [facility] Associate Professional Member Role: Primary Care Nurse Address: Address: [address] [place] [address] Trauma [place] [address]- Name: Gita Becerril RN Position: [facility] RN Member Role: Primary Care Nurse Name: Selena Dias RN Position: [facility] AMB Nurse Member Role: Primary Care Nurse Name: Ryan Romero RN Position: [facility] SN RN Member Role: Primary Care Nurse Name: Florentino Torres RN Position: [facility] RN Member Role: Primary Care Nurse Name: Pretty Rosen RN Position: [facility] RN Member Role: Primary Care Nurse Name: Basilio Chase MD Position: [facility] Physician - Behavioral Health Member Role: Lifetime Consulting Physician Address: Address: [address] [place] [id number]- Care Team Related Persons Name: EMEKA MACK Address: home [address] [place] [address] Name: CARMEN COELLO Address: [place] [address] Name: TRACY PALMER Address: home [address] [place] [address]
--- OUTSIDE RECORDS SUMMARY | 2024-02-23 16:17 | XMS_ITS | Continuity of Care Document ---
Author Organization [facility] Saad Address [address] [place] [address]- Care Team Providers Care Professor Of Mathematics Name Role Phone Stacy JACOBSEN, Jeevan Smith Primary Care Physician [phone] Encounter [facility] Date(s): 08/27/22 - 09/26/[address] [facility] Adult [address] [place] [address]- Allergies, Adverse Reactions, Alerts Substance Reaction Severity [...] 08/17/22 15:29:00 EST, Route to Pharmacy Electronically, [facility]-, 160, cm, 08/17/22 15:09:00 EST, Height, 68.5, kg, 03/16/22 6:52:... Start Date: 08/17/22 Status: Ordered Actos 15 mg oral tablet 1 tablet = 15 mg, By Mouth, Daily, # 30 tablet, 6 Refills, Maintenance, 08/17/22 15:29:00 EST, Tablet, [facility]-, Partial fill upon patient request [...] Daily, # 90 tablet, 1 Refills, Maintenance, 08/17/22 15:29:00 EST, Tablet, [facility]-, Partial fill upon patient request if the prescription is for a schedule II opioid drug., 160, cm, 08/17/22 15:0... Start Date: 08/17/22 Status: Ordered biotin 5000 mcg oral capsule [...] 08/17/22 15:29:00 EST, Route to Pharmacy Electronically, [facility], Partial fill upon patient request if th... Start Date: 08/17/22 Status: Ordered Crestor 5 mg oral tablet 1 tablet = 5 mg, By Mouth, Daily, REPLACES SIMVASTATIN, # 30 tablet, 6 Refills, Maintenance, 08/17/22 15:29:00 EST, Tablet, [facility], Partial fill upon patient request if the prescription is for a schedule II opioid drug., 160,... Start Date: 08/17/22 Status: Ordered diclofenac 1% topical gel See Instructions, APPLY TO AFFECTED AREA(S) TWICE A DAY NEEDED PAIN, # 100 Gm, 0 Refills, Maintenance, 07/30/22 13:16:00 EDT, [facility], 14, APPLY TO AFFECTED AREA(S) TWICE A DAY NEEDED PAIN, 160, cm, 06/29/22 12:54:00 EDT, Height,... Start Date: 07/30/22 Status: Ordered dilTIAZem 360 mg/24 hours oral capsule, extended release 1 capsule = 360 mg, By Mouth, Daily, # 30 capsule, 6 Refills, Maintenance, 08/17/22 15:29:00 EST, CR Capsule, [facility], Partial fill upon patient request if the prescription isfor a schedule II opioid drug., 160, cm, 08/17/22 1... Start Date: 08/17/22 Status: Ordered Estrace Vaginal Cream 0.1 mg/g = 1 Gm, Vaginally, Every Wednesday and Wednesday, # 42.5 Gm, 6 Refills, Maintenance, 08/19/22 14:20:00 EST, [facility], Partial fill upon patient request if the prescription is for a schedule II opioid drug., 160.5, cm, 08/19/22 14:08:... Start Date: 08/19/22 Status: Ordered Freestyle Lancets See Instructions, # [...] 5 Refills, Maintenance, 08/17/22 15:29:00 EST, Solution, [facility]-, Partial fill upon patient request if the prescription is for a schedule II opioid drug., 160, cm, 08/17/22 15... Start Date: 08/17/22 Status: Ordered methimazole 10 mg oral tablet 10 mg, 1, tablet, By Mouth, Daily, # 90 tablet, Refills 3, Tot. Refills 3, Maintenance, 08/18/22 8:29:00 EST, Route to Pharmacy Electronically, [facility]-, Partial fill upon patient request [...] CESSATION, # 220 each, 0 Refills, Maintenance, 09/23/22 9:50:00 EST, [facility]-, 160.5, cm, 08/27/22 14:26:00 EST, Height, 66, kg, 08/19/22 14:08:... Start Date: 09/23/22 Status: Ordered Nutrafol (Hair Growth Supplement) Nutrafol (Hair Growth Supplement), See Instructions, Refills 0, Maintenance, 06/29/22 13:08:00 EDT,Supply Start Date: 06/29/22 Status: Ordered omeprazole 20 mg oral enteric coated capsule 1 capsule = 20 mg, By Mouth, Daily, # 30 capsule, 6 Refills, Maintenance, 08/17/22 15:29:00 EST, ECCabdifatahule, [facility], Partial fill upon patient request [...] tablet, 6 Refills, Maintenance, 08/17/22 15:29:00 EST, [facility], Partial fill upon patient request [...] mellitus type 2 in obese Confirmed Active 82652 Social History Social History Type Response Smoking Status Former smoker, quit more than 30 days ago entered on: 11/08/20 Sex Patient Care team information Care Team Personnel Name: Praveena Jordan RN Position: [facility] PCO RN Member Role: Primary Care Nurse Name: Smita Cantrell RN Position: [facility] SN RN Member Role: Primary Care Nurse Name: Zain Ramos RN Position: [facility] ED RN W/OE and Tasks Member Role: Primary Care Nurse Name: Gerard Erickson RN Position: [facility] RN Member Role: Primary Care Nurse Name: Jeevan Kumar MD Position: [facility] Primary Care Physician Member Role: PCP Address: Address: [address] [place] [id number]- [place] Name: Amy Campos NP Position: [facility] Associate Professional Member Role: Primary Care Nurse Address: Address: [address] [place] [address] Trauma [place] [address]- [place] Name: Gita Becerril RN Position: [facility] RN Member Role: Primary Care Nurse Name: Selena Dias RN Position: [facility] PCO RN Member Role: Primary Care Nurse Name: Ryan Romero RN Position: [facility] RN Member Role: Primary Care Nurse Name: Florentino Torres RN Position: [facility] RN Member Role: Primary Care Nurse Name: Pretty Rosen RN Position: [facility] RN Member Role: Primary Care Nurse Name: Basilio Chase MD Position: [facility] Psychiatry MD Member Role: Lifetime Consulting Physician Address: Address: [address] [place] [id number]- Care Team Related Persons Name: EMEKA MACK Address: [address] [place] [address] Name: CARMEN COELLO Address: [place] [address] Name: TRACY PALMER Address: home [address] [place] [address]
--- OUTSIDE RECORDS SUMMARY | 2024-02-23 16:17 | XMS_ITS | Continuity of Care Document ---
Author Organization [facility] Address [address] [place] [address]- Care Team Providers Care Deposition Operator Name Role Phone Jeevan Kumar MD Primary Care Physician [facility]counter [facility] Date(s): 05/22/22 - 06/21/22 [facility] [address] [place] [address]- Allergies, Adverse Reactions, Alerts Substance Reaction Severity [...] 15:13:00 EDT, Route to Pharmacy Electronically, [facility]-, 163.5, cm, 02/16/22 14:40:00 EDT, Height Start Date: 02/16/22 Status: Ordered Actos 15 mg oral tablet 1 tablet = 15 mg, By Mouth, Daily, # 30 tablet, 6 Refills, Maintenance, 02/16/22 15:13:00 EDT, Tablet, [facility], Partial fill upon patient request if the prescription is for a schedule II opioid drug., 163.5, cm, 02/16/22 14:40:... Start Date: 02/16/22 Status: Ordered biotin 1000 mcg oral tablet 1 tablet = 1,000 mcg, By Mouth, Daily, # 90 tablet, 1 Refills, Maintenance, 06/04/22 15:16:00 EDT, Tablet, [facility], Partial fill upon patient request if the [...] Maintenance, 02/16/22 15:13:00 EDT, CR Capsule, [facility], Partial fill upon patient request if the [...] FOR CONSTIPATION, # 30 tablet, 0 Refills, [facility]-, 160, cm, 05/05/22 11:37:00 EDT, Height, 68.5, [...] 5 Refills, Maintenance, 02/16/22 15:13:00 EDT, Solution, [facility]-, Partial fill upon patient request if the prescription is for a schedule II opioid drug., 163.5, cm, 02/16/22... Start Date: 02/16/22 Status: Ordered methimazole 10 mg oral tablet 30 mg, 3, tablet, By Mouth, 2 times a day, # 540 tablet, Refills 3, Tot. Refills 3, Maintenance, 05/22/22 16:17:00 EDT, Route to Pharmacy Electronically, [facility], Partial fillupon patient request if the prescription is for a s... Start Date: 05/22/22 Status: Ordered MiraLax oral powder for reconstitution = 17 Gm, By Mouth, Daily, dissolve in water before taking, # 527 Gm, 1 Refills, Maintenance, 06/04/22 15:15:00 EDT, REC Powder, [facility], Partial fill upon patient request if the [...] 40 each, 0 Refills,Maintenance, 05/26/22 11:16:00 EDT, [facility], 160, cm, 05/19/22 13:49:00 EDT, Height,68.5, kg, 03/16/22 6:52:00 EDT, Dry Weight Start Date: 05/26/22 Status: Ordered omeprazole 20 mg oral enteric coated capsule 1 capsule = 20 mg, By Mouth, Daily, # 30 capsule, 6 Refills, Maintenance, 02/16/22 15:13:00 EDT, ECCapsule, [facility], Partial fill upon patient request if the [...] 15:13:00 EDT, Route to Pharmacy Electronically, [facility]-, Partial fill upon patient request if the prescription is for a... Start Date: 02/16/22 Status: Ordered topiramate 50 mg oral tablet 1 tablet = 50 mg, By Mouth, Daily, # 30 tablet, 6 Refills, Maintenance, 08/18/21 14:36:00 EST, [facility]-, Partial fill upon patient request if the [...] Diabetes mellitus type 2 in obese(Confirmed) Active 78411 Social History Social History Type Response Smoking Status Former smoker, quit more than 30 days ago entered on: 11/08/20 Sex Care Team Personnel Name: Jeevan Kumar MD Address: [address] [place] [id number]
--- OUTSIDE RECORDS SUMMARY | 2024-02-23 16:17 | XMS_ITS | Continuity of Care Document ---
Author Organization [facility] Address [address] [place] [id number]- Care Team Providers Care Atv Mechanic Name Role Phone Jeevan Kumar MD Primary Care Physician [place] [facility] [place]03[place]22 - 05/13/[address] [address]- Discharge Disposition: A-D/C Home Attending Physician: Jeevan Kumar MD Admitting Physician: Jeevan Kumar MD Referring Physician: Padilla Bill Allergies, Adverse Reactions, Alerts Substance Reaction Severity [...] 02/16/22 15:13:00 EDT, Route to Pharmacy Electronically, [facility]-, 163.5, cm, 02/16/22 14:40:00 EDT, Height Start Date: 02/16/22 Status: Ordered Actos 15 mg oral tablet 1 tablet = 15 mg, By Mouth, Daily, # 30 tablet, 6 Refills, Maintenance, 02/16/22 15:13:00 EDT, Tablet, [facility], Partial fill upon patient request if the prescription is for a schedule II opioid drug., 163.5, cm, 02/16/22 14:40:... Start Date: 02/16/22 Status: Ordered biotin 5000 mcg oral capsule [...] Refills, Maintenance, 02/16/22 15:13:00 EDT, CR Capsule, [facility], Partial fill upon patient request [...] FOR CONSTIPATION, # 30 tablet, 0 Refills, [facility]-, 160, cm, 05/05/22 11:37:00 EDT, Height, [...] 5 Refills, Maintenance, 02/16/22 15:13:00 EDT, Solution, [facility]-, Partial fill upon patient request if the prescription is for a schedule II opioid drug., 163.5, cm, 02/16/22... Start Date: 02/16/22 Status: Ordered methimazole 10 mg oral tablet 20 mg, 2, tablet, By Mouth, 2 times a day, # 60 tablet, Refills 0, Tot. Refills 0, Maintenance, 05/07/22 16:22:00 EDT, Do Not Route, Partial fill upon patient request if the prescription is for a schedule II opioid drug. Start Date: 05/07/22 Status: Ordered Multivitamin Daily, 0 Refills, Maintenance, 11/08/20 16:45:00 EST, Partial fill upon patient request if the prescription is for a schedule II opioid drug. Start Date: 11/08/20 Status: Ordered nicotine 4 mg oral transmucosal gum See Instructions, CHEW 1 PIECE EVERY 2 HOURS NEEDED FOR SMOKING CESSATION, # 40 each, 0 Refills,[facility]-, 160, cm, 03/16/22 6:52:00 EDT, Height, 68.5, kg, 03/16/22 6:52:00 EDT, Dry Weight Start Date: 04/27/22 Status: Ordered omeprazole 20 mg oral enteric coated capsule 1 capsule = 20 mg, By Mouth, Daily, # 30 capsule, 6 Refills, Maintenance, 02/16/22 15:13:00 EDT, ECCapsule, [facility], Partial fill upon patient request [...] 02/16/22 15:13:00 EDT, Route to Pharmacy Electronically, [facility], Partial fill upon patient request if the prescription is for a... Start Date: 02/16/22 Status: Ordered topiramate 50 mg oral tablet 1 tablet = 50 mg, By Mouth, Daily, # 30 tablet, 6 Refills, Maintenance, 08/18/21 14:36:00 EST, [facility], Partial fill upon patient request [...] Diabetes mellitus type 2 in obese(Confirmed) Active 54315 Social History Social History Type Response Smoking Status Former smoker, quit more than 30 days ago entered on: 11/08/20 Sex
--- OUTSIDE RECORDS SUMMARY | 2024-02-23 16:17 | XMS_ITS | Continuity of Care Document ---
Author Organization [facility] Ty Saad lt Address [address] [place] [address]- Care Team Providers Care Canteen Operator Name Role Phone Stacy JACOBSEN, Jeevan Smith Primary Care Physician En[place] [facility] [place] Date(s): 04/21/23 - 04/28/23 [facility] Adult [address] [place] [address]- Encounter Diagnosis Thigh pain, musculoskeletal(Discharge Diagnosis) - 04/21/23 Attending Physician: Teofilo Llamas Eusebio Allergies, Adverse Reactions, Alerts Substance Reaction Severity [...] tablet, Refills 5, Tot. Refills 5, Maintenance, 12/14/22 14:45:00 EDT, Route to Pharmacy Electronically, [facility]-, 160.5, cm, 12/14/22 14:21:00 EDT, Height, 66, kg, 08/19/22 14:08... Start Date: 12/14/22 Status: Ordered Actos 15 mg oral tablet 1 tablet = 15 mg, By Mouth, Daily, # 30 tablet, 6 Refills, Maintenance, 12/14/22 14:45:00 EDT, Tablet, [facility], Partial fill upon patient request if the prescription is for a schedule II opioid drug., 160.5, cm, 12/14/22 14:21:... Start Date: 12/14/22 Status: Ordered ARIPiprazole 2 mg oral tablet 2 mg, 1, tablet, By Mouth, Daily, Refills 0, Maintenance, 06/29/22 13:00:00 EDT, Partial fill upon patient request if the prescription is for a schedule II opioid drug. Start Date: 06/29/22 Status: Ordered biotin 1000 mcg oral tablet 1 tablet = 1,000 mcg, By Mouth, Daily, # 90 tablet, 1 Refills, Maintenance, 10/31/22 17:38:00 EST, Tablet, [facility], Partial fill upon patient request if the prescription is for a schedule II opioid drug., 160.5, cm, 08/27/22 14... Start Date: 10/31/22 Status: Ordered Biotin 1000MCG TABS Biotin 1000MCG TABS, 1, tablet, By Mouth, Daily, # 90 tablet, 0 Refills, Maintenance, 03/10/23 7:43:00 EDT, 160.5, cm, 12/14/22 14:21:00 EDT, Height, 66, kg, 08/19/22 14:08:00 EST, Dry Weight Start Date: 03/10/23 Status: Ordered cloNIDine 0.1 mg oral tablet [...] 1, Tot. Refills 1, Maintenance, for constipation, 12/14/22 14:45:00 EDT, Route to Pharmacy Electronically, [facility], Partial fill upon patient request if th... Start Date: 12/14/22 Status: Ordered Crestor 5 mg oral tablet 1 tablet = 5 mg, By Mouth, Daily, REPLACES SIMVASTATIN, # 30 tablet, 6 Refills, Maintenance, 12/14/22 14:45:00 EDT, Tablet, [facility], Partial fill upon patient request if the prescription is for a schedule II opioid drug., 160.5... Start Date: 12/14/22 Status: Ordered diclofenac 1% topical gel See Instructions, APPLY TO AFFECTED AREA(S) TWICE A DAY NEEDED PAIN, # 100 Gm, 0 Refills, Maintenance, 07/30/22 13:16:00 EDT, [facility], 14, APPLY TO AFFECTED AREA(S) TWICE A DAY NEEDED PAIN, 160, cm, 06/29/22 12:54:00 EDT, Height,... Start Date: 07/30/22 Status: Ordered dilTIAZem 360 mg/24 hours oral capsule, extended release 1 capsule = 360 mg, By Mouth, Daily, # 30 capsule, 6 Refills, Maintenance, 12/14/22 14:45:00 EDT, CR Capsule, [facility], Partial fill upon patient request if the prescription isfor a schedule II opioid drug., 160.5, cm, 12/14/22... Start Date: 12/14/22 Status: Ordered Estrace Vaginal Cream 0.1 mg/g = 1 Gm, Vaginally, Every Wednesday and Wednesday, # 42.5 Gm, 6 Refills, Maintenance, 08/19/22 14:20:00 EST, [facility]-, Partial fill upon patient request if the prescription is for a schedule II opioid drug., 160.5, cm, 08/19/22 14:08:... Start Date: 08/19/22 Status: Ordered ferrous sulfate 325 mg oral tablet 1 tablet, By Mouth, Daily, # 30 tablet, 11 Refills, Maintenance, 12/14/22 14:45:00 EDT, [facility]-, 160.5, cm, 12/14/22 14:21:00 EDT, Height, 66, kg, 08/19/22 14:08:00 EST, Dry Weight Start Date: 12/14/22 Status: Ordered Freestyle Lancets See Instructions, # [...] Daily, # 15 mL, 5 Refills, Maintenance, 12/14/22 14:45:00 EDT, Solution, [facility], Partial fill upon patient request if the prescription is for a schedule II opioid drug., 160.5, cm, 12/14/22... Start Date: 12/14/22 Status: Ordered lidocaine 4% topical film 1 patch, Topically, 4 times a day, # 6 each, 0 Refills, Acute 05/22/23 13:57:00 EDT, 04/21/23 13:57:00 EDT, Film, [facility], Partial fill upon patient request if the prescription is for a schedule II opioid drug., 1 patch Topical... Start Date: 04/21/23 Stop Date: 05/22/23 Status: Ordered Multivitamin Daily, 0 Refills, Maintenance, 11/08/20 16:45:00 EST, Partial fill upon patient request if the prescription is for a schedule II opioid drug. Start Date: 11/08/20 Status: Ordered nicotine 4 mg oral transmucosal gum See Instructions, CHEW & PARK. 1 PIECE BY MOUTH EVERY 2 HOURS NEEDED FOR SMOKING CESSATION, # 220 each, 0 Refills, Maintenance, 03/31/23 12:48:00 EDT, [facility], 160.5, cm, 12/14/22 14:21:00 EDT, Height, 66, kg, 08/19/22 14:08:00 EST,... Start Date: 03/31/23 Status: Ordered Nutrafol (Hair Growth Supplement) Nutrafol (Hair Growth Supplement), See Instructions, Refills 0, Maintenance, 06/29/22 13:08:00 EDT,Supply Start Date: 06/29/22 Status: Ordered omeprazole 20 mg oral enteric coated capsule 1 capsule = 20 mg, By Mouth, Daily, # 30 capsule, 6 Refills, Maintenance, 12/14/22 14:45:00 EDT, ECCapsule, [facility], Partial fill upon patient request if the prescription is for a schedule II opioid drug., 160.5, cm, 12/14/22... Start Date: 12/14/22 Status: Ordered Propranolol 20 mg, Refills 0, Maintenance, 08/18/21 14:23:00 EST, Partial fill upon patient request if the prescription is for a schedule II opioid drug. Start Date: 08/18/21 Status: Ordered Stool Softener 100MG CAPS Stool Softener 100MG CAPS, 1, capsule, By Mouth, 2 times a day, PRN, # 60 capsule, 0 Refills, Maintenance, 04/14/23 14:49:00 EDT, 160.5, cm, 12/14/22 14:21:00 EDT, Height, 66, kg, 08/19/22 14:08:00 EST, Dry Weight Start Date: 04/14/23 Status: Ordered topiramate 50 mg oral tablet 1 tablet = 50 mg, By Mouth, Daily, # 30 tablet, 6 Refills, Maintenance, 12/14/22 14:45:00 EDT, [facility]-, Partial fill upon patient request if the prescription is for a scheduleII opioid drug., 160.5, cm, 12/14/22 14:21:00 EDT,... Start Date: 12/14/22 Status: Ordered Problem List Condition Confirmation Course [...] mellitus type 2 in obese Confirmed Active 18476 Diagnosis Diagnosis Type Effective Dates Health Status Clinical Service Informant Thigh pain, musculoskeletal Discharge Diagnosis 04/21/23 Vital Signs Most recent to oldest [Reference Range]: 1 Height 160.5 cm (04/21/23 1:26 PM) Weight 66 kg (04/21/23 1:26 PM) Oxygen Saturation [94-100 %] 100 % (04/21/23 1:26 PM) Pulse Rate [55-90 bpm] 55 bpm (04/21/23 1:26 PM) Body Mass Index [18.5-24.99 kg/m2] 25.62 kg/m2 *H* (04/21/23 1:26 PM) Blood Pressure [90-138/55-84 mm Hg] 132/ 76mm Hg (04/21/23 1:26 PM) Temperature [96.8-100.4 DegF] 97.4 DegF (04/21/23 1:26 PM) Mode of Delivery (Oxygen) Room air (04/21/23 1:26 PM) Blood pressure sites Arm, right (04/21/23 1:26 PM) Temperature Route Temporal (04/21/23 1: PM) Weight Obtained Via Standing scale (04/21/23 1:26 PM) Social History Social History Type Response Smoking Status Former smoker, quit more than 30 days ago entered on: 11/08/20 Sex Patient Care team information Care Team Personnel Name: Praveena Jordan RN Position: [facility] AMB Nurse Member Role: Primary Care Nurse Name: Smita Cantrell RN Position: [facility] SN RN Member Role: Primary Care Nurse Name: Zain Ramos RN Position: [facility] ED RN W/OE and Tasks Member Role: Primary Care Nurse Name: Gerard Erickson RN Position: [facility] RN Member Role: Primary Care Nurse Name: Jeevan Kumar MD Position: [facility] Physician - Primary Care Member Role: PCP Address: Address: [address] [place] [id number]- Name: Amy Campos NP Position: [facility] Associate Professional Member Role: Primary Care Nurse Address: Address: [address] [place] [address] Trauma and [place] [address]- [place] Name: Gita Becerril RN Position: [facility] RN Member Role: Primary Care Nurse Name: Selena Dias RN Position: [facility] AMB Nurse Member Role: Primary Care Nurse Name: Ryan Romero RN Position: [facility] SN RN Member Role: Primary Care Nurse Name: Florentino Torres RN Position: [facility] RN Member Role: Primary Care Nurse Name: Pretty Rosen RN Position: [facility] RN Member Role: Primary Care Nurse Name: Basilio Chase MD Position: [facility] Physician - Behavioral Health Member Role: Lifetime Consulting Physician Address: Address: [address] [place] [phone]- Care Team Related Persons Name: EMEKA MACK Address: [address] [place] [address] Name: CARMEN CO[place]LLO Address: [place] [address] Name: TRACY PALMER Address: home [address] [place] [address]
--- OUTSIDE RECORDS SUMMARY | 2024-02-23 16:17 | XMS_ITS | Continuity of Care Document ---
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 Medications acetaminophen 325 mg oral tablet 1 TO 2 TABLETS, By Mouth, Daily at bedtime, # 60 tablet, Refills 5, Tot. Refills 5, Maintenance, 01/24/24 14:34:00 EDT, Route to Pharmacy Electronically, [facility]-, 160.5, cm, 01/24/24 14:15:00 EDT, Height, 66, kg, 08/19/22 14:08... Start Date: 01/24/24 Status: Ordered biotin 1000 mcg oral tablet 1 tablet = 1,000 mcg, By Mouth, Daily, # 90 tablet, 1 Refills, Maintenance, 01/24/24 14:34:00 EDT, Tablet, [facility]-, Partial fill upon patient request if the prescription is for a schedule II opioid drug., 160.5, cm, 01/24/24 14... Start Date: 01/24/24 Status: Ordered cloNIDine 0.1 mg oral tablet [...] 6, Tot. Refills 6, Maintenance, for constipation, 01/24/24 14:36:00 EDT, Route to Pharmacy Electronically, [facility], Partial fill upon patient request if th... Start Date: 01/24/24 Status: Ordered Crestor 5 mg oral tablet 1 tablet = 5 mg, By Mouth, Daily, REPLACES SIMVASTATIN, # 30 tablet, 6 Refills, Maintenance, 01/24/24 14:36:00 EDT, Tablet, [facility], Partial fill upon patient request if the prescription is for a schedule II opioid drug., 160.5... Start Date: 01/24/24 Status: Ordered dilTIAZem 360 mg/24 hours oral capsule, extended release 1 capsule = 360 mg, By Mouth, Daily, # 30 capsule, 6 Refills, Maintenance, 01/24/24 14:34:00 EDT, CR Capsule, [facility], Partial fill upon patient request if the prescription isfor a schedule II opioid drug., 160.5, cm, 01/24/24... Start Date: 01/24/24 Status: Ordered donepezil 5 mg oral tablet 1, tablet, By Mouth, Daily at bedtime, # 30 tablet, Refills 5, Tot. Refills 5, Maintenance, 01/24/24 14:34:00 EDT, Route to Pharmacy Electronically, [facility], 160.5, cm, 01/24/24 14:15:00 EDT, Height, 66, kg, 08/19/22 14:08:00 E... Start Date: 01/24/24 Status: Ordered ferrous sulfate 325 mg oral tablet 1 tablet, By Mouth, Daily, # 30 tablet, 11 Refills, Maintenance, 01/24/24 14:34:00 EDT, [facility], 160.5, cm, 01/24/24 14:15:00 EDT, Height, 66, kg, 08/19/22 14:08:00 EST, Dry Weight Start Date: 01/24/24 Status: Ordered Freestyle Lancets See Instructions, # [...] EDT, Height Start Date: 03/09/22 Status: Ordered Golytely - oral powder for reconstitution 240 mL, By Mouth, Every 10 minutes, until 4 liters are consumed or the rectal effluent is clear, # 4,000 mL, 0 Refills, Maintenance, 02/15/24 12:20:00 EDT, REC Powder, [facility]-, Partial fill upon patient request if the prescript... Start Date: 02/15/24 Status: Ordered Home Blood Presure Monitor Home [...] Daily, # 15 mL, 5 Refills, Maintenance, 01/24/24 14:34:00 EDT, Solution, [facility], Partial fill upon patient request if the prescription is for a schedule II opioid drug., 160.5, cm, 01/24/24... Start Date: 01/24/24 Status: Ordered levETIRAcetam 500 mg oral tablet 1 tablet = 500 mg, By Mouth, 2 times a day, 0 Refills, Maintenance, 01/19/24 9:57:00 EDT, Partial fill upon patient request if the prescription is for a schedule II opioid drug. Start Date: 01/19/24 Status: Ordered Multivitamin Daily, 0 Refills, Maintenance, 11/08/20 16:45:00 EST, Partial fill upon patient request if the prescription is for a schedule II opioid drug. Start Date: 11/08/20 Status: Ordered nicotine 4 mg oral transmucosal gum See Instructions, CHEW & PARK. 1 PIECE BY MOUTH EVERY 2 HOURS NEEDED FOR SMOKING CESSATION, # 220 each, 6 Refills, Maintenance, 01/24/24 14:36:00 EDT, [facility]-, 160.5, cm, 01/24/24 14:15:00 EDT, Height, 66, kg, 08/19/22 14:08... Start Date: 01/24/24 Status: Ordered Nutrafol (Hair Growth Supplement) Nutrafol (Hair Growth Supplement), See Instructions, Refills 0, Maintenance, 06/29/22 13:08:00 EDT,Supply Start Date: 06/29/22 Status: Ordered omeprazole 20 mg oral enteric coated capsule 1 capsule = 20 mg, By Mouth, Daily, # 30 capsule, 5 Refills, Maintenance, 01/24/24 14:36:00 EDT, ECCapsule, [facility], Partial fill upon patient request if the prescription is for a schedule II opioid drug., 160.5, cm, 01/24/24... Start Date: 01/24/24 Status: Ordered pioglitazone 15 mg oral tablet 1 tablet, By Mouth, Daily, # 30 tablet, 2 Refills, Maintenance, 01/24/24 14:36:00 EDT, [facility], 160.5, cm, 01/24/24 14:15:00 EDT, Height, 66, kg, 08/19/22 14:08:00 EST, Dry Weight Start Date: 01/24/24 Status: Ordered Propranolol 20 mg, Refills 0, Maintenance, 08/18/21 14:23:00 EST, Partial fill upon patient request if the prescription is for a schedule II opioid drug. Start Date: 08/18/21 Status: Ordered SEROquel 25 mg oral tablet 25 mg, 1, tablet, By Mouth, 3 times a day, Refills 0, Maintenance, 01/19/24 9:58:00 EDT, Partial fill upon patient request if the prescription is for a schedule II opioid drug. Start Date: 01/19/24 Status: Ordered topiramate 50 mg oral tablet 1 tablet = 50 mg, By Mouth, Daily, # 30 tablet, 6 Refills, Maintenance, 06/18/23 14:28:00 EDT, [facility], Partial fill upon patient request if [...] Ocular migraine Confirmed Active Osteopenia Confirmed Active Left shoulder pain Confirmed Active PTSD (post-traumatic stress disorder) Confirmed Active Posttraumatic stress disorder 4 Confirmed 10/05/16 Active Recurrent major depressive episodes, moderate Confirmed 08/22/13 Active Seizure disorder Confirmed Active History of tobacco use Confirmed Active Diabetes mellitus type 2 in obese Confirmed Active 1Dr. Chela 2017 [id number] [facility] 2022 4Outside Source Comment: Overview: Per BS Vital Signs Most recent to oldest [Reference Range]: 1 2 3 Height 160 cm (02/22/24 2:05 PM) Weight 73 kg (02/22/24 2:05 PM) Oxygen Saturation [94-100 %] 97 % (02/22/24 4:10 PM) 99 % (02/22/24 4:07 PM) 100 % (02/22/24 4:03 PM) Pulse Rate [55-90 bpm] 61 bpm (02/22/24 4:03 PM) 54 bpm *L* (02/22/24 2:05 PM) Body Mass Index [18.5-24.99 kg/m2] 28.52 kg/m2 *H* (02/22/24 2:05 PM) Blood Pressure [90-138/55-84 mm Hg] 130/61mm Hg (02/22/24 4:10 PM) 139/66mm Hg *H* (02/22/24 4:07 PM) 119/71mm Hg (02/22/24 4:03 PM) Respiratory Rate [16-30 br/min] 20 br/min (02/22/24 4:10 PM) 18 br/min (02/22/24 4:07 PM) 18 br/min (02/22/24 4:03 PM) Temperature [96.8-100.4 DegF] 96.8 DegF (02/22/24 2:05 PM) Mode of Delivery (Oxygen) Room air (02/22/24 4:10 PM) Room air (02/22/24 4:07 PM) Room air (02/22/24 4:03 PM) Blood pressure sites Arm, right (02/22/24 2:05 PM) Temperature Route Temporal (02/22/24 2:05 PM) Dry Weight 73 kg (02/22/24 2:05 PM) Social History Social History Type Response Smoking Status Former smoker, quit more than 30 days ago entered on: 11/08/20 Sex Note * Kaleb Lozano RN: PERFORM Event Display: Discharge/Transfer Note Hospital Authored Date: [id number] Nursing Discharge Note Entered On: 02/22/2024 15:59 EDT Performed On: 02/22/2024 15:59 EDT by Kaleb Lozano RN Nursing Discharge Note 2 Discharge Time : 02/22/2024 16:30 EDT Kaleb Lozano RN - 02/22/2024 16:42 EDT Discharge Level of Care at Discharge : Home/Nursing Home/Foster Care Patient Left Unit Via : Wheelchair Patient Accompanied Off Unit with : Significant other DC Instructions Provided & Signed by Pt : Yes Patient Understands D/C Instructions : Yes Patient Instructions Discharge Signed : Yes Did Pt have Specialty Bed or Wound Vac : No Kaleb Lozano RN - 02/22/2024 15:59 EDT * Kaleb Lozano RN: PERFORM Event Display: Patient Education/Instruction Authored Date: Surgery Adult Discharge Instructions [address] [address] Name: MINOR RUSH : 1955?? Visit: 02/22/2024 13:09?? Current Date: 02/22/2024 15:59 ?? Account: [id number]?? Surgery Discharge Instructions We would like to thank you for allowing us to assist you with your healthcare needs. The following includes patient education materials and information regarding your injury/illness. Our entire staffstrives to provide an excellent experience for our patients and their families. PLEASE ENSURE YOU FOLLOW-UP PER THE INSTRUCTIONS BELOW! ?? YOUR OPINION IS IMPORTANT TO US! Please complete the survey you may receive by mail or email. Your feedback will be used to make improvements to the healthcare experiences of our patients and their families. Surveys are administered by [employer] ?? If further treatment with your primary care physician or another doctor is recommended, it is important for you to keep the appointment. Call your primary care physician or return to the Emergency Department immediately if your condition worsens, fails to improve, or new symptoms develop. If you need to find a doctor, you can call [facility] for a referral at [phone] or toll free at [phone] or log in to [email or web address].. ?? [facility], in keeping with [facility] guidance, no longer requires face masks for staff, patientsor visitors in most situations. Similiar to time spent indoors at other locations, there is the chance that you were exposed to repiratory viruses during your time with us (such as flu or COVID-19). If you develop symptoms concerning for a viral respiratory infection, please seek testing (and treatment if indicated) from your medical provider or home test kit. ?? You can view and manage your care through the patient portal or by using a health care richie of your choosing. [employer] is a website that allows you to securely view your medical information including your hospital discharge summary, office visit summaries, medications and follow-up visits. You can also request appointments, renew medications, and request access to your medical information using a health care richie of your choosing, or just ask a question. You are entitled to know the individuals who participated in your treatment. This information is available within your medical record and will be provided upon your request. You can enroll at [email or web address] or register d uring your next office visit. You have been discharged from [facility], Patient Care Unit: ENDO??. If you have any questions regarding these instructions after you leave, please call us and we will be happy to assist you. [facility] Your Care Team Attending Physician Scott Lugo MD?? Discharging Providers Scott Lugo MD Reason for Admission COLON SCREEN Primary Care Provider Jeevan Kumar MD? Advance Directive Health Care Proxy on File Yes - Health Care Proxy What to do next Instructions From Your Doctor We completed your colonoscopy today We noted the following findings:_?? We will let you know the results??_?Follow up with your primary care physician. ?? It is very important that you follow these instructions: ???You may have a mild sore throat or hoarseness after the procedure. This is because of the tube and the anesthetic.?You may feel nauseated today. This sometimes happens because of the medications that are used. This should get better within a few hours. If your nausea continues for more than 24 hours contact your doctor's office. .?Do not drive any motor vehicle or operate dangerous equipment. Weakness and lack of coordinationare the result of the medications that were administered during the procedure.?Do not conduct important business or sign any legal documents on the day of the procedure, sinceyou may feel drowsy from the medications that were administered today.?If you have redness or swelling at sites where medications were given, place a warm wet washcloth over the affected area for twenty minutes. If the symptoms persist for over two days please contact your doctor's office.?Call your doctor's office if you develop fever greater than 101 degrees or chills during the next 48 hours.?Please call for any issues or questions that may arise. Our office phone number is [phone] ?? Orders?? Daystay Protocol, ??02/22/24 13:14:00 EDT?? Scheduled Follow-Up Appointments Wednesday 12:45 PM EDT ?? With: Samuel Adkins MD Where: [place] [address]- Status: Pending You Need to Schedule the Following Appointments Follow Up with??Follow up with your PCP Follow Up with??Jeevan Kumar When:??In 0 days Discharge Medications MINOR RUSH :1955 Visit Date:02/22/2024 Medications: Please continue your medications until treatment is completed or stopped by your provider. You may resume your daily prescription medications. Discuss any questions related to medications with your provider. What How Much When Instructions Next Dose Unchanged Acetaminophen (acetaminophen 325 mg oral tablet) 1 TO 2 TABLETS Oral Daily at Bedtime Unchanged Biotin (biotin 1000 mcg oral tablet) 1 tab(s) Oral Daily Unchanged Clonidine (cloNIDine 0.1 mg oral tablet) 1 tab(s) Oral Daily hs ?? Unchanged Diltiazem (dilTIAZem 360 mg/ 24 hours oral capsule, extended release) 1 capsule Oral Daily Unchanged Docusate (Colace sodium 100 mg oral capsule) 1 capsule Oral Twice a day as needed for for constipation Unchanged Donepezil (donepezil 5 mg oral tablet) 1 tab(s) Oral Daily at Bedtime Unchanged Durable Medical Equipment (Freestyle Lancets) See instructions Duration: 90 Days use as directed for Type 2 Diabetes Mellitus ?? Unchanged Durable Medical Equipment (Freestyle Lite Monitor) See instructions Duration: 30 Days to test blood sugar BID E11.9 ADOLFO- lifetime ?? use as directed for Type 2 Diabetes Mellitus ?? Unchanged Durable Medical Equipment (Freestyle Test Strips) See instructions check blood sugars twice a day. ICD10 (E11.9) ?? Unchanged Durable Medical Equipment (Home Blood Presure Monitor) See instructions Dx: Hypertension (I10) Use to check blood pressure at home. ?? Unchanged Ferrous Sulfate (ferrous sulfate 325 mg oral tablet) 1 tab(s) Oral Daily Unchanged Insulin Glargine (Lantus Solostar Pen 100 units/ mL subcutaneous solution) 16 unit(s) Subcutaneous Injection Daily Unchanged Lamotrigine (LaMICtal 100 mg oral tablet) 1 tab(s) Oral Daily Unchanged levETIRAcetam (levETIRAcetam 500 mg oral tablet) 1 tab(s) Oral Twice a day Unchanged Miscellaneous Rx (Nutrafol (Hair Growth Supplement)) See instructions Unchanged Multivitamin Daily Unchanged Nicotine (nicotine 4 mg oral transmucosal gum) See instructions CHEW & PARK. 1 PIECE BY MOUTH EVERY 2 HOURS NEEDED FOR SMOKING CESSATION ?? Unchanged Omeprazole (omeprazole 20 mg oral enteric coated capsule) 1 capsule Oral Daily Unchanged PEG Electrolyte Solution (Golytely - oral powder for reconstitution) 240 Milliliter Oral Every 10 minutes until 4 liters are consumed or the rectal effluent is clear ?? Unchanged Pioglitazone (pioglitazone 15 mg oral tablet) 1 tab(s) Oral Daily Unchanged Propranolol 20 Milligram Unchanged Quetiapine (SEROquel 25 mg oral tablet) 1 tab(s) Oral 3 times a day Unchanged Rosuvastatin (Crestor 5 mg oral tablet) 1 tab(s) Oral Daily REPLACES SIMVASTATIN ?? Unchanged Topiramate (topiramate 50 mg oral tablet) 1 tab(s) Oral Daily Allergies (NKA means No Known Allergies) Bactrim??(GI bleed) Neurontin??(schizophenic affect) Soma??(too strong for me) Wellbutrin??(seizure) Education Materials Below is the list of Educational Leaflet Providered with your Discharge Instructions. [employer] Patient Education - Surgery Medical Daystay Surgical Overnight Discharge Instructions?? [employer] Patient Education - Diverticulosis Discharge Instructions?? [employer] Patient Education - Colon Polypectomy Discharge Instructions?? Valuables and Belongings I fully understand and agree that [facility] accepts no responsibility for all my personal property including clothing, toilet articles, radios, jewelry, dentures, hearing aids, rings, money, or any other property that is in my possession or is brought to me after admission. I understand certain valuables may be placed in a hospital safe for a short period of time. I understand that the hospital is not liable for loss or damage due to accident, fire, or other natural occurrence while said property is in the safe. I accept full responsibility for any personal property that I keep with me, and will not hold the hospital responsible in case of loss or disappearance. I acknowledge that i have been encouraged to send valuables and belongings home. ?? Date for Pt to Sign Valuables/Belongings: 02/22/24 14:05:00 ?? Other Discharge Information ? Case Management Discharge Plan?? Discharge Plan?? Discharge Level of Care at Discharge: Home/Nursing Home/Foster Care ?? Pulmonary Rehab Status?? Pulmonary Rehab Discharge Status?? Respiratory Rate: 19 br/min ? Common Emergency Awareness Tips IS IT A STROKE? Act FAST and Check for these signs: FACE Does the face look uneven? ARM Does one arm drift down? SPEECH Does their speech sound strange? TIME Call at any sign of stroke ?? Heart Attack Signs Chest discomfort: Most heart attacks involve discomfort in the center of the chest and lasts more than a few minutes, or goes away and comes back. It can feel like uncomfortable pressure, squeezing, fullness or pain. Discomfort in upper body: Symptoms can include pain or discomfort in one or both arms, back, neck, jaw or stomach. Shortness of breath: With or without discomfort. Other signs: Breaking out in a cold sweat, nausea, or lightheaded. Remember, MINUTES DO MATTER. If you experience any of these heart attack warning signs, call to get immediate medical attention! ?? Smoking can increase your chances of developing chronic health problems and can cause harmful effects to other family members in your house. If you smoke, you are strongly encouraged to quit. Please call [facility] at [phone] or [phone]) or log in to [email or web address] for referrals to smoking cessation programs. ?? The National Suicide Prevention Hotline is available 19/04 if you or someone you know needs to find a reason to keep living. By calling 1-770-839-[place] (0984) you'll be connected to a skilled, trained counselor at a crisis center in your area. SURGERY DISCHARGE INSTRUCTIONS SIGNATURE PAGE [place] Location:[facility] Registration Date and Time:02/22/2024 13:09 EDT Primary Care Physician: Jeevan Kumar MD, Attending Physician: Brittney JACOBSEN, Scott Perez, MINOR ZIMMER, have received the above patient education materials/instructions and have verbalized understanding. If ambulance or transport services are being used I further acknowledge being given a choice of service. ?? If you need to contact me, please call me at this number: . Patient/Senior Staff Consultant Name: Patient/Senior Staff Consultant Signature: Relationship to Patient: Witness Name/Signature: Date: * Kaleb Lozano RN: PERFORM, SIGN, VERIFY Event Display: Patient Education Handout Authored Date: * Kaleb Lozano RN: PERFORM Event Display: Patient Education Leaflets Authored Date: [id number] Surgery Medical Daystay Surgical Overnight Discharge Instructions ?? 295 Medical Daystay/Surgical Overnight Discharge Instructions ? Since your coordination and judgment may be altered by medication and/or anesthesia, a responsible adult must drive you home from the hospital. ? If you have received medication for pain or sedation while under our care, you should not drive, operate machinery, drink alcohol, or sign any legal documents for 24 hours.?? You should have someone with you at home tonight. ? Remain at home the day of discharge.?? You may be up and about unless otherwise instructed by your physician. ? You may resume your daily prescription medication schedule.?? Any depressant medication should be avoided for 24 hours unless otherwise instructed by your surgeon or anesthesiologist. ? Call your physician for a follow-up appointment.? If you experience unusual or severe pain not relied by your pain medication, excessive bleedingor drainage, persistent nausea and vomiting, excessive swelling or redness, foul odor from incisionsite or fever over 100.6F, you need to call your physician. ? A follow-up phone call by a nurse will be made the day after your procedure.?? If you have stayed with us over night, you will not be receiving a follow-up phone call. ? Nausea and vomiting are a common side effect of prescription pain medication.?? We recommend that pills are not taken on an empty stomach.?? While taking any prescription pain medication you should not drive or drink alcohol. ? * Blake ERNST, Kaleb Wolf: PERFORM Event Display: Patient Education Leaflets Authored Date: [id number] Diverticulosis Discharge Instructions ?? 680 Diverticulosis Discharge Instructions ??You must carefully read the Consumer Information Use and Disclaimer below in order to understand and correctly use this information?About this topicDiverticulosis is a problem of the large bowel or colon. The wall of the bowel becomes weak and pushes outward. They form balloon-like pouches called diverticula or tics. When you have hard stool, you strain to have a bowel movement. This raises the pressure in the bowel and causes pouches or bulges to form. Most often, they do not cause a problem. If they become infected, you have diverticulitis. If you have both bleeding and infection, it is diverticular disease.??What care is needed at home? Ask your doctor what you need to do when you go home. Make sure??you ask questions if you do not understand what the doctor says. ??? Eat more whole grains, vegetables, and fruits. ??? Do not wait to have a bowel movement. Go as soon as you have the??urge. ??? Drink 8 to 10 glasses of water each day. Talk to your doctor if you are??drinking less fluids due to a health problem. ??? Be active. Walk,garden, or do something active for 30 minutes or more on most days of the week. ??What follow-up care is needed?Your doctor may ask you to make visits to the office to check on your progress. Be sure to keep these visits.??What drugs may be needed?Most often with diverticulosis you will not need to take any drugs.??Will physical activity be limited?When you are in pain, you may need to rest in bed. To ease the pain, use a heat compress on your belly. This should last only for a few days.??What changes to diet are needed?Talk to your doctor about any changes you need to make to your diet.? You do not need to avoid seeds, nuts, corn, or other similar foods. ??? You will need to eat food rich in fiber and drink more water. o Eat 5 or more servings of fresh fruits and vegetables every day. o Eat 6 or more servings of whole-wheat grain breads and??cereals. ??? Try toget 25 to 30 grams of fiber every day. Read the labels to??learn how much fiber is in foods. ??? Donot drink coffee, tea, or beer, wine, and mixed drinks (alcohol). ??What problems could happen?You may develop diverticulitis, which may cause:? Pockets or pouches in your bowel may be infected or filled with pus. ??? Hole or tear in your bowel ??? Part of your bowel to become narrow ??? You to need surgery ??What can be done to prevent this health problem?The best way to keep from having diverticulosis is to keep your bowel movements soft and normal. To keep more pouches from forming:? Talk with your doctor about adding an [id number] (OTC) fiber??product to keep your stools soft. ??? Limithow much pain drugs you take. Overuse of some pain drugs can??cause hard stools; talk with your doctor. ??? When do I need to call the doctor? Signs of infection. These include a fever of 100.4??F (38??C) or higher,??chills. ??? Mild pain or cramping in the lower part of the belly ??? A feelingof bloating in the belly ??? Belly pain that gets worse ??? Blood in your stool ??? Upset stomach or throwing up ??? Stools get too loose or too hard ??? Long-term hard stools ??Teach Back: Helping You UnderstandThe Teach Back Method helps you understand the information we are giving you. After you talk with the staff, tell them in your own words what you learned. This helps to make sure the staff has described each thing clearly. It also helps to explain things that mayhave been confusing. Before going home, make sure you are able to do these:? I can tell you abo ut my condition. ??? I can tell you what changes I need to make with my diet or drugs. ??? I can tell you what I will do if I have pain or cramping in my lower belly??or I have more belly pain. ??Where can I learn more???FamilyDoctor.orghttp://familydoctor.org/familydoctor/en/diseases-conditio ns/div erticular-disease.htmlNHShttps://www.nhs.uk/conditions/ziuasygrxniz-vlzvttc-tew- diverticulitis/LastReviewed Bisw1321-98-25Cpceuedx Information Use and Disclaimer:This generalized information is a limited summary of diagnosis, treatment, and/or medication information. It is not meant to be comprehensive and should be used as a tool to help the user understand and/or assess potential diagnostic and treatment options. It does NOT include all information about conditions, treatments, medications, side effects, or risks that may apply to a specific patient. It is not intended to be medical adviceor a substitute for the medical advice, diagnosis, or treatment of a health care provider based on the health care provider's examination and assessment of a patient???s specific and unique circumstances. Patients must speak with a health care provider for complete information about their health, medical questions, and treatment options, including any risks or benefits regarding use of medications. This information does not endorse any treatments or medications as safe, effective, or approved for treating a specific patient. [employer]. and its affiliates disclaim any warranty or liabilityrelating to this information or the use thereof. The use of this information is governed by the Terms of Use, available at??https://www.FiPath.com/en/know/qqmwlldv-uwoqmwxuwsywj-vqvatDohv Updat ed 11/19/21? * Blake ERNST, Kaleb Wolf: PERFORM Event Display: Patient Education Leaflets Authored Date: [id number] Colon Polypectomy Discharge Instructions ? Colon Polypectomy Discharge Instructions ??You must carefully read the Consumer Information Use and Disclaimer below in order to understand and correctly use this information??About this topicThe colon is also called the large intestine. It is a long, hollow tube at the end of your digestive tract. It absorbs water from solid waste and changes it from liquid to a solid bowel movement.??A colon polyp is a growth of extra tissue that is not normally in your colon. Colon polyps do not often cause any signs. Most colon polyps are not cancer, but some polyps may turn into cancer. The doctor takes the polyps out during a procedure called a colonoscopy and sends them to the lab for a check to make sure there is no cancer.??You may have a colon polyp or multiple polyps removed. The doctor will send them to the lab to see what type they are. If a polyp is very large, it may need to be removed by surgery.??What care is needed at home? Ask your doctor what you need to do when you go home. Make sure??you ask questions if you do not understand what the doctor says. ??? Do not drive for 24 hours after a colonoscopy. ??? Take your drugs as ordered by your doctor. ??? Go back to your normaldiet unless your doctor has told you to make? some changes in your diet. ??? Rest ??What follow-up care is needed? Your doctor may ask you to make visits to the office to check on your??progress. Be sure to keep these visits. ??? Your doctor may suggest you get tested regularly. People with colon??polyps need to have a colonoscopy regularly to check for the growth??of new polyps. ??? Some polyps may not be removed, and more surgery may be needed. ??? The results of the polyp testing will be given to you at one of these??visits. ??What drugs may be needed?The doctor may order drugs to: ??? Prevent hard stools ??? Help with pain ??? Reduce your risk of colon polyps or colon cancer ??Will physical activity be limited?You may feel sleepy after the colonoscopy. Try to get some rest.??What can be done to prevent this health problem? Have regular colonoscopies.? Eat foods high in fiber. ??? Eat foods low in fat. ??? Limit your intake of beer, wine, and mixed drinks (alcohol). ??? Ask your doctor or dietitian for a diet that is right for you. Include??calcium in your diet. Good sources of calcium include milk, cheese,??and yogurt. ??When do I need to call the doctor? Signs of infection. These include a fever of 100.4??F (38??C) or higher,??chills, and anal itching or pain. ??? Bleeding from rectum that gets worse? Belly becomes swollen and sore ??? Upset stomach and throwing up continues after you return home ??? Not being able to move your bowels ??? Weight loss without trying ??? Blood in your stool ??Teach Back: Helping You UnderstandThe Teach Back Method helps you understand the information we are giving you. After you talk with the staff, tell them in your own words what you learned. This helps to make sure the staff has described each thing clearly. It also helps to explain things that mayhave been confusing. Before going home, make sure you can do these:? I can tell you about my co ndition. ??? I can tell you what changes I need to make with my diet. ??? I can tell you what I will do if my stomach is swollen, I have belly pain,??or there is blood in my stool. ??Where can I learn more?BetterHealthhttps://www.betterhealth.luis.gov.au/health/ConditionsAndTreatme nts/colonoscopyNHSh ttps://www.nhs.uk/conditions/bowel-polyps/UpToDatehttps://www.[employer]Streams/derick nts/bdbwd-upchpl-cfgudt-the-basics??Last Reviewed Qlfu5018-24-94Wpeopujs Information Use and Disclaimer:This generalized information is a limited summary of diagnosis, treatment, and/or medication information. It is notmeant to be comprehensive and should be used as a tool to help the user understand and/or assess potential diagnostic and treatment options. It does NOT include all information about conditions, treatments, medications, side effects, or risks that may apply to a specific patient. It is not intendedto be medical advice or a substitute for the medical advice, diagnosis, or treatment of a health care provider based on the health care provider's examination and assessment of a patient???s specificand unique circumstances. Patients must speak with a health care provider for complete information about their health, medical questions, and treatment options, including any risks or benefits regarding use of medications. This information does not endorse any treatments or medications as safe, effective, or approved for treating a specific patient. [employer]. and its affiliates disclaim any warranty or liability relating to this information or the use thereof. The use of this information is governed by the Terms of Use, available at??https://www.FiPath.NetStreams/en/know/clinical-effectiveness- termsLast Updated 11/19/21? Patient Care team information Care Team Personnel Name: Praveena Jordan RN Position: [facility] AMB Nurse Member Role: Primary Care Nurse Name: Smita Cantrell RN Position: [facility] SN RN Member Role: Primary Care Nurse Name: Zain Ramos RN Position: [facility] ED RN W/OE and Tasks Member Role: Primary Care Nurse Name: Gerard Erickson RN Position: [facility] RN Member Role: Primary Care Nurse Name: Jeevan Kumar MD Position: [facility] Physician - Primary Care Member Role: PCP Address: Address: [address] [place] [id number]- Name: Amy Campos NP Position: [facility] Associate Professional Member Role: Primary Care Nurse Address: Address: [address] [place] [address] Trauma and [place] [address]- [place] Name: Gita Becerril RN Position: [facility] RN Member Role: Primary Care Nurse Name: Selena Dias RN Position: [facility] AMB Nurse Member Role: Primary Care Nurse Name: Ryan Romero RN Position: [facility] SN RN Member Role: Primary Care Nurse Name: Florentino Torres RN Position: [facility] RN Member Role: Primary Care Nurse Name: Pretty Rosen RN Position: [facility] RN Member Role: Primary Care Nurse Name: Basilio Chase MD Position: [facility] Physician - Behavioral Health Member Role: Lifetime Consulting Physician Address: Address: [address] [place] [address]- Care Team Related Persons Name: EMEKA MACK Address: home [address] [place] [address] Name: CARMEN COELLO Address: [place] [address] Name: TRACY PALMRE Address: home [address] [place] [id number]
--- OUTSIDE RECORDS SUMMARY | 2024-02-23 16:17 | XMS_ITS | Continuity of Care Document ---
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 Start Date: 08/17/22 Status: Ordered Actos 15 mg oral tablet 1 tablet = 15 mg, By Mouth, Daily, # 30 tablet, 6 Refills, Maintenance, 08/17/22 15:29:00 EST, Tablet, [facility], Partial fill upon patient request if the [...] 1 Refills, Maintenance, 10/31/22 17:38:00 EST, Tablet, [facility], Partial fill upon patient request if the [...] 08/17/22 15:29:00 EST, Route to Pharmacy Electronically, [facility], Partial fill upon patient request if th... Start Date: 08/17/22 Status: Ordered Crestor 5 mg oral tablet 1 tablet = 5 mg, By Mouth, Daily, REPLACES SIMVASTATIN, # 30 tablet, 6 Refills, Maintenance, 08/17/22 15:29:00 EST, Tablet, [facility], Partial fill upon patient request if the prescription is for a schedule II opioid drug., 160,... Start Date: 08/17/22 Status: Ordered diclofenac 1% topical gel See Instructions, APPLY TO AFFECTED AREA(S) TWICE A DAY NEEDED PAIN, # 100 Gm, 0 Refills, Maintenance, 07/30/22 13:16:00 EDT, [facility], 14, APPLY TO AFFECTED AREA(S) TWICE A DAY NEEDED PAIN, 160, cm, 06/29/22 12:54:00 EDT, Height,... Start Date: 07/30/22 Status: Ordered dilTIAZem 360 mg/24 hours oral capsule, extended release 1 capsule = 360 mg, By Mouth, Daily, # 30 capsule, 6 Refills, Maintenance, 08/17/22 15:29:00 EST, CR Capsule, [facility], Partial fill upon patient request if the prescription isfor a schedule II opioid drug., 160, cm, 08/17/22 1... Start Date: 08/17/22 Status: Ordered Estrace Vaginal Cream 0.1 mg/g = 1 Gm, Vaginally, Every Wednesday and Wednesday, # 42.5 Gm, 6 Refills, Maintenance, 08/19/22 14:20:00 EST, [facility], Partial fill upon patient request if the prescription is for a schedule II opioid drug., 160.5, cm, 08/19/22 14:08:... Start Date: 08/19/22 Status: Ordered ferrous sulfate 325 mg oral tablet 1 tablet, By Mouth, Daily, # 30 tablet, 11 Refills, Maintenance, 10/29/22 11:37:00 EST, [facility]-, 160.5, cm, 08/27/22 14:26:00 EST, Height, 66, [...] 5 Refills, Maintenance, 08/17/22 15:29:00 EST, Solution, [facility], Partial fill upon patient request if the prescription is for a schedule II opioid drug., 160, cm, 08/17/22 15... Start Date: 08/17/22 Status: Ordered methimazole 10 mg oral tablet 10 mg, 1, tablet, By Mouth, Daily, # 90 tablet, Refills 3, Tot. Refills 3, Maintenance, 08/18/22 8:29:00 EST, Route to Pharmacy Electronically, [facility], Partial fill upon patient request if the [...] each, 0 Refills, Maintenance, 10/21/22 13:37:00 EST, [facility], 160.5, cm, 08/27/22 14:26:00 EST, Height, 66, kg, 08/19/22 14:08... Start Date: 10/21/22 Status: Ordered Nutrafol (Hair Growth Supplement) Nutrafol (Hair Growth Supplement), See Instructions, Refills 0, Maintenance, 06/29/22 13:08:00 EDT,Supply Start Date: 06/29/22 Status: Ordered omeprazole 20 mg oral enteric coated capsule 1 capsule = 20 mg, By Mouth, Daily, # 30 capsule, 6 Refills, Maintenance, 08/17/22 15:29:00 EST, Omega, [facility], Partial fill upon patient request if the [...] tablet, 6 Refills, Maintenance, 08/17/22 15:29:00 EST, [facility], Partial fill upon patient request if the [...] mellitus type 2 in obese Confirmed Active 07509 Social History Social History Type Response Smoking Status Former smoker, quit more than 30 days ago entered on: 11/08/20 Sex Patient Care team information Care Team Personnel Name: Praveena Jordan RN Position: [facility] PCO RN Member Role: Primary Care Nurse Name: Smita Cantrell RN Position: [facility] SN RN Member Role: Primary Care Nurse Name: Zain Ramos RN Position: [facility] ED RN W/OE and Tasks Member Role: Primary Care Nurse Name: Gerard Erickson RN Position: [facility] RN Member Role: Primary Care Nurse Name: Jeevan Kumar MD Position: [facility] Primary Care Physician Member Role: PCP Address: Address: [address] [place] [phone]- [place] Name: Amy Campos NP Position: [facility] Associate Professional Member Role: Primary Care Nurse Address: Address: [address] [place] [address] Trauma [place] [address]- [place] Name: Gita Becerril RN Position: [facility] RN Member Role: Primary Care Nurse Name: Selena Dias RN Position: [facility] PCO RN Member Role: Primary Care Nurse Name: Ryan Romero RN Position: [facility] SN RN Member Role: Primary Care Nurse Name: Florentino Torres RN Position: [facility] RN Member Role: Primary Care Nurse Name: Pretty Rosen RN Position: [facility] RN Member Role: Primary Care Nurse Name: Basilio Chase MD Position: [facility] Psychiatry MD Member Role: [employer] Consulting Physician Address: Address: [address] [place] [address]- [place] Care Team Related Persons Name: EMEKA MACK Address: home [address] [place] [address] Name: CARMEN COELLO Address: [place] [address] Name: TRACY PALMER Address: home [address] [place] [address]
--- OUTSIDE RECORDS SUMMARY | 2024-02-23 16:17 | XMS_ITS | Continuity of Care Document ---
Author Organization [facility] Saad lt Address [address] [place] [address]- Care Team Providers Care Sales Representative Consultant Name Role Phone Stacy JACOBSEN, Jeevan Smith Primary Care Physician [phone] Encounter [facility] Date(s): 06/24/22 - 07/24/22 [facility] Adult [address] [place] [address]- Allergies, Adverse Reactions, Alerts Substance Reaction Severity [...] 02/16/22 15:13:00 EDT, Route to Pharmacy Electronically, [facility]-, 163.5, cm, 02/16/22 14:40:00 EDT, Height Start Date: 02/16/22 Status: Ordered Actos 15 mg oral tablet 1 tablet = 15 mg, By Mouth, Daily, # 30 tablet, 6 Refills, Maintenance, 02/16/22 15:13:00 EDT, Tablet, [facility]-, Partial fill upon patient request if [...] 1 Refills, Maintenance, 06/04/22 15:16:00 EDT, Tablet, [facility]-, Partial fill upon patient request if [...] 06/29/22 13:14:00 EDT, Route to Pharmacy Electronically, [facility]-, Partial fill upon patient request if th... Start Date: 06/29/22 Status: Ordered Crestor 5 mg oral tablet 1 tablet = 5 mg, By Mouth, Daily, REPLACES SIMVASTATIN, # 30 tablet, 6 Refills, Maintenance, 07/03/22 11:36:00 EDT, Tablet, [facility]-, Partial fill upon patient request if the prescription is for a schedule II opioid drug., 160,... Start Date: 07/03/22 Status: Ordered dilTIAZem 360 mg/24 hours oral capsule, extended release 1 capsule = 360 mg, By Mouth, Daily, # 30 capsule, 6 Refills, Maintenance, 02/16/22 15:13:00 EDT, CR Capsule, [facility], Partial fill upon patient request if [...] FOR CONSTIPATION, # 30 tablet, 0 Refills, [facility], 160, cm, 05/05/22 11:37:00 EDT, Height, 68.5, [...] 5 Refills, Maintenance, 02/16/22 15:13:00 EDT, Solution, [facility]-, Partial fill upon patient request if the prescription is for a schedule II opioid drug., 163.5, cm, 02/16/22... Start Date: 02/16/22 Status: Ordered methimazole 10 mg oral tablet 30 mg, 3, tablet, By Mouth, 2 times a day, # 540 tablet, Refills 3, Tot. Refills 3, Maintenance, 05/22/22 16:17:00 EDT, Route to Pharmacy Electronically, [facility]-, Partial fillupon patient request if the [...] each, 0 Refills, Maintenance, 06/25/22 11:32:00 EDT, [facility] [place], 160, cm, 06/04/22 15:02:00 EDT, Height, 68.5, [...] 6 Refills, Maintenance, 02/16/22 15:13:00 EDT, ECCapsule, [facility]-, Partial fill upon patient request if [...] tablet, 6 Refills, Maintenance, 08/18/21 14:36:00 EST, [facility], Partial fill upon patient request if [...] mellitus type 2 in obese Confirmed Active 31741 Social History Social History Type Response Smoking Status Former smoker, quit more than 30 days ago entered on: 11/08/20 Sex Patient Care team information Personnel Name: Jeevan Kumar MD Address: Address: [address] [place] [id number]
--- OUTSIDE RECORDS SUMMARY | 2024-02-23 16:17 | XMS_ITS | Continuity of Care Document ---
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 Start Date: 02/06/21 Status: Ordered dilTIAZem 360 mg/24 hours oral capsule, extended release 1 capsule = 360 mg, By Mouth, Daily, # 30 capsule, 6 Refills, Maintenance, 02/06/21 13:47:00 EDT, CR Capsule, [facility]-, Partial fill upon patient request if the prescription isfor a schedule II opioid drug., 163.5, cm, 02/06/21... Start Date: 02/06/21 Status: Ordered ferrous sulfate 325 mg oral enteric coated tablet 325 mg, 1, tablet, By Mouth, Daily, # 30 tablet, Refills 6, Tot. Refills 6, Maintenance, 02/06/21 13:47:00 EDT, Route to Pharmacy Electronically, [facility], Partial fill upon patient request if the prescription is for a schedule... Start Date: 02/06/21 Status: Ordered Flonase 50 mcg/inh nasal spray 1 sprays, Nares, Both, Daily, PRN Congestion, # 16 Gm, 6 Refills, Maintenance, 02/06/21 13:48:00 EDT, Nasal [place], [facility], Partial fill upon patient request [...] 5 Refills, Maintenance, 02/06/21 13:47:00 EDT, Solution, [facility], Partial fill upon patient request [...] BY MOUTH EVERY 2 HOURS NEEDED FOR WITHDRAWAL SYMPTOMS. MAX 12/ DAY., # 220 each, 0 Refills, [facility] , 163.5, cm, 02/07/21 8:19:00 EDT, Height, 89.9, kg, 12/13/19 18:25:00 EDT, Dry Weight Start Date: 06/09/21 Status: Ordered omeprazole 20 mg oral enteric coated capsule 1 capsule = 20 mg, By Mouth, Daily, # 30 capsule, 6 Refills, Maintenance, 02/06/21 13:47:00 EDT, ECCapsule, [facility], Partial fill upon patient request if the prescription is for a schedule II opioid drug., 163.5, cm, 02/06/21... Start Date: 02/06/21 Status: Ordered Senna 8.6 mg oral tablet 2, tablet, By Mouth, Daily at bedtime, PRN, CONSTPATION., # 60 tablet, Refills 2, Tot. Refills 0, Acute, NEEDED, 05/08/21 11:35:00 EDT, Route to Pharmacy Electronically, [facility], 163.5, cm, 02/07/21 8:19:00 EDT, Height, 89.9, kg, ... Start Date: 05/08/21 Status: Ordered simvastatin 20 mg oral tablet 20 mg, 1, tablet, By Mouth, Daily at bedtime, # 30 tablet, Refills 6, Tot. Refills 6, Maintenance, 02/06/21 13:47:00 EDT, Route to Pharmacy Electronically, [facility], Partial fill upon patient request if the prescription is for a... Start Date: 02/06/21 Status: Ordered tiZANidine 4 mg oral capsule 1 capsule = 4 mg, By Mouth, 3 times a day, # 42 capsule, 0 Refills, Maintenance, 02/06/21 13:47:00 EDT, [facility]-, Partial fill upon patient request if the prescription is for aschedule II opioid drug., 163.5, cm, 02/06/21 13:17... Start Date: 02/06/21 Stop Date: 02/20/21 Status: Ordered topiramate 50 mg oral tablet 1 tablet = 50 mg, By Mouth, Daily, # 30 tablet, 6 Refills, Maintenance, 02/06/21 13:47:00 EDT, [facility], Partial fill upon patient request if the prescription is for a scheduleII opioid drug., 163.5, cm, 02/06/21 13:17:00 EDT,... Start Date: 02/06/21 Status: Ordered Tylenol 325 mg oral capsule See Instructions, 1-2 capsule By Mouth qhs, # 100 each, 1 Refills, Maintenance, 07/23/21 12:19:00 EDT, [facility], Partial fill upon patient request if the prescription is for a schedule II opioid drug., 163.5, cm, 02/07/21 8:19:... Start Date: 07/23/21 Status: Ordered Problem List Condition Effective Dates [...] use of insulin(Confirmed) Active Lumbar radiculitis(Confirmed) Active Osteopenia(Confirmed) Active PTSD (post-traumatic stress disorder)(Confirmed) Active Recurrent major depressive e pisodes, moderate(Confirmed) Active History of tobacco use(Confirmed) Active Diabetes mellitus type 2 in obese(Confirmed) Active 49930 Social History Social History Type Response Smoking Status Former smoker, quit more than 30 days ago entered on: 11/08/20 Sex
--- OUTSIDE RECORDS SUMMARY | 2024-02-23 16:17 | XMS_ITS | Continuity of Care Document ---
Author Organization [facility] n's [facility] Address [address], 4t [place] [address]- Care Team Providers Care Ab Initio Etl Developer Name Role Phone Stacy JACOBSEN, Jeevan Smith Primary Care Physician En[place] [facility] [place](s): 06/30/22 - 08/21/22 [facility] [address], 4th [place] [address]- Attending Physician: Aclira Sharma MD Admitting Physician: Alcira Sharma MD Referring Physician: Jeevan Kumar MD Allergies, Adverse [...] 08/17/22 15:29:00 EST, Route to Pharmacy Electronically, [facility]-, 160, cm, 08/17/22 15:09:00 EST, Height, 68.5, kg, 03/16/22 6:52:... Start Date: 08/17/22 Status: Ordered Actos 15 mg oral tablet 1 tablet = 15 mg, By Mouth, Daily, # 30 tablet, 6 Refills, Maintenance, 08/17/22 15:29:00 EST, Tablet, [facility], Partial fill upon [...] 1 Refills, Maintenance, 08/17/22 15:29:00 EST, Tablet, [facility], Partial fill upon [...] 08/17/22 15:29:00 EST, Route to Pharmacy Electronically, [facility], Partial fill upon patient request if th... Start Date: 08/17/22 Status: Ordered Crestor 5 mg oral tablet 1 tablet = 5 mg, By Mouth, Daily, REPLACES SIMVASTATIN, # 30 tablet, 6 Refills, Maintenance, 08/17/22 15:29:00 EST, Tablet, [facility], Partial fill upon patient request if the prescription is for a schedule II opioid drug., 160,... Start Date: 08/17/22 Status: Ordered diclofenac 1% topical gel See Instructions, APPLY TO AFFECTED AREA(S) TWICE A DAY NEEDED PAIN, # 100 Gm, 0 Refills, Maintenance, 07/30/22 13:16:00 EDT, [facility], 14, APPLY TO AFFECTED AREA(S) TWICE A DAY NEEDED PAIN, 160, cm, 06/29/22 12:54:00 EDT, Height,... Start Date: 07/30/22 Status: Ordered dilTIAZem 360 mg/24 hours oral capsule, extended release 1 capsule = 360 mg, By Mouth, Daily, # 30 capsule, 6 Refills, Maintenance, 08/17/22 15:29:00 EST, CR Capsule, [facility], Partial fill upon patient request if the prescription isfor a schedule II opioid drug., 160, cm, 08/17/22 1... Start Date: 08/17/22 Status: Ordered Estrace Vaginal Cream 0.1 mg/g = 1 Gm, Vaginally, Every Wednesday and Wednesday, # 42.5 Gm, 6 Refills, Maintenance, 08/19/22 14:20:00 EST, [facility], Partial fill upon [...] 5 Refills, Maintenance, 08/17/22 15:29:00 EST, Solution, [facility]-, Partial fill upon patient request if the prescription is for a schedule II opioid drug., 160, cm, 08/17/22 15... Start Date: 08/17/22 Status: Ordered methimazole 10 mg oral tablet 10 mg, 1, tablet, By Mouth, Daily, # 90 tablet, Refills 3, Tot. Refills 3, Maintenance, 08/18/22 8:29:00 EST, Route to Pharmacy Electronically, [facility]-, Partial fill upon [...] CESSATION, # 220 each, 0 Refills, Maintenance, 07/30/22 13:17:00 EDT, [facility], 160, cm, 06/29/2212:54:00 EDT, Height, 68.5, kg, 03/16/22 6:52:00 EDT, D... Start Date: 07/30/22 Status: Ordered Nutrafol (Hair Growth Supplement) Nutrafol (Hair Growth Supplement), See Instructions, Refills 0, Maintenance, 06/29/22 13:08:00 EDT,Supply Start Date: 06/29/22 Status: Ordered omeprazole 20 mg oral enteric coated capsule 1 capsule = 20 mg, By Mouth, Daily, # 30 capsule, 6 Refills, Maintenance, 08/17/22 15:29:00 ESTOmega, [facility]-, Partial fill upon [...] tablet, 6 Refills, Maintenance, 08/17/22 15:29:00 EST, [facility]-, Partial fill upon [...] mellitus type 2 in obese Confirmed Active 89993 Social History Social History Type Response Smoking Status Former smoker, quit more than 30 days ago entered on: 11/08/20 Sex Patient Care team information Care Team Personnel Name: Praveena Jordan RN Position: [facility] PCO RN Member Role: Primary Care Nurse Name: Smita Cantrell RN Position: [facility] RN Member Role: Primary Care Nurse Name: Zain Ramos RN Position: [facility] ED RN W/OE and Tasks Member Role: Primary Care Nurse Name: Gerard Erickson RN Position: [facility] RN Member Role: Primary Care Nurse Name: Jeevan Kumar MD Position: [facility] Primary Care Physician Member Role: PCP Address: Address: [address] [place] [id number]- [place] Name: Pallavi Watkins RN Position: [facility] RN Member Role: Primary Care Nurse Name: Amy Campos NP Position: [facility] Associate Professional Member Role: Primary Care Nurse Address: Address: [address] [place] [address] Trauma and [place] [address]- [place] Name: Gita Becerril RN Position: [facility] RN Member Role: Primary Care Nurse Name: Selena Dias RN Position: [facility] PCO RN Member Role: Primary Care Nurse Name: Ryan Romero RN Position: [facility] SN RN Member Role: Primary Care Nurse Name: Florentino Torres RN Position: [facility] RN Member Role: Primary Care Nurse Name: Pretty Rosen RN Position: [facility] RN Member Role: Primary Care Nurse Name: Basilio Chase MD Position: [facility] Psychiatry MD Member Role: Lifetime Consulting Physician Address: Address: [address] [place] [id number]- [place] Care Team Related Persons Name: EMEKA MACK Address: home [address] [place] [address] Name: CARMEN COELLO Address: [place] [address] Name: TRACY PALMER Address: home [address] [place] [address]"
--- OUTSIDE RECORDS SUMMARY | 2024-02-23 16:17 | XMS_ITS | Continuity of Care Document ---
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 [place] Date(s): 02/15/24 - 02/22/24 [facility] [address] [place] [address]- Attending Physician: Miguel A JACOBSEN, Carlos Alberto Bailey Allergies, Adverse Reactions, Alerts Substance Reaction Severity [...] pneumococcal 23-valent vaccine 06/21/09 Recorded 1Result Comment: [facility]: [id number] 2Result Comment: Pt not sure the exact date. Medications acetaminophen 325 mg oral tablet 1 TO 2 TABLETS, By Mouth, Daily at bedtime, # 60 tablet, Refills 5, Tot. Refills 5, Maintenance, 01/24/24 14:34:00 EDT, Route to Pharmacy Electronically, [facility], 160.5, cm, 01/24/24 14:15:00 EDT, Height, 66, kg, 08/19/22 14:08... Start Date: 01/24/24 Status: Ordered biotin 1000 mcg oral tablet 1 tablet = 1,000 mcg, By Mouth, Daily, # 90 tablet, 1 Refills, Maintenance, 01/24/24 14:34:00 EDT, Tablet, [facility], Partial fill [...] 01/24/24 14:36:00 EDT, Route to Pharmacy Electronically, [facility], Partial fill upon patient request if th... Start Date: 01/24/24 Status: Ordered Crestor 5 mg oral tablet 1 tablet = 5 mg, By Mouth, Daily, REPLACES SIMVASTATIN, # 30 tablet, 6 Refills, Maintenance, 01/24/24 14:36:00 EDT, Tablet, [facility], Partial fill upon patient request if the prescription is for a schedule II opioid drug., 160.5... Start Date: 01/24/24 Status: Ordered dilTIAZem 360 mg/24 hours oral capsule, extended release 1 capsule = 360 mg, By Mouth, Daily, # 30 capsule, 6 Refills, Maintenance, 01/24/24 14:34:00 EDT, CR Capsule, [facility]-, Partial fill upon patient request if the prescription isfor a schedule II opioid drug., 160.5, cm, 01/24/24... Start Date: 01/24/24 Status: Ordered donepezil 5 mg oral tablet 1, tablet, By Mouth, Daily at bedtime, # 30 tablet, Refills 5, Tot. Refills 5, Maintenance, 01/24/24 14:34:00 EDT, Route to Pharmacy Electronically, [facility], 160.5, cm, 01/24/24 14:15:00 EDT, Height, 66, kg, 08/19/22 14:08:00 E... Start Date: 01/24/24 Status: Ordered ferrous sulfate 325 mg oral tablet 1 tablet, By Mouth, Daily, # 30 tablet, 11 Refills, Maintenance, 01/24/24 14:34:00 EDT, [facility], 160.5, cm, 01/24/24 14:15:00 EDT, Height, 66, [...] Refills, Maintenance, 02/15/24 12:20:00 EDT, REC Powder, [facility]-, Partial fill upon [...] 5 Refills, Maintenance, 01/24/24 14:34:00 EDT, Solution, [facility]-, Partial fill [...] each, 6 Refills, Maintenance, 01/24/24 14:36:00 EDT, [facility]-, 160.5, cm, 01/24/24 14:15:00 EDT, Height, 66, kg, 08/19/22 14:08... Start Date: 01/24/24 Status: Ordered Nutrafol (Hair Growth Supplement) Nutrafol (Hair Growth Supplement), See Instructions, Refills 0, Maintenance, 06/29/22 13:08:00 EDT,Supply Start Date: 06/29/22 Status: Ordered omeprazole 20 mg oral enteric coated capsule 1 capsule = 20 mg, By Mouth, Daily, # 30 capsule, 5 Refills, Maintenance, 01/24/24 14:36:00 EDT, ECCapsule, [facility], Partial fill upon patient request if the prescription is for a schedule II opioid drug., 160.5, cm, 01/24/24... Start Date: 01/24/24 Status: Ordered pioglitazone 15 mg oral tablet 1 tablet, By Mouth, Daily, # 30 tablet, 2 Refills, Maintenance, 01/24/24 14:36:00 EDT, [facility], 160.5, cm, 01/24/24 14:15:00 EDT, Height, 66, [...] tablet, 6 Refills, Maintenance, 06/18/23 14:28:00 EDT, [facility], Partial fill upon patient request [...] mellitus type 2 in obese Confirmed Active [facility] [place] 2017 [address] [facility] 2022 [employer] Source Comment: Overview: Per BS Vital Signs Most recent to oldest [Reference Range]: 1 Height 160.5 cm (02/15/24 12:06 PM) Weight 78.1 kg (02/15/24 12:06 PM) Oxygen Saturation [94-100 %] 98 % (02/15/24 12:06 PM) Pulse Rate [55-90 bpm] 70 bpm (02/15/24 12:06 PM) Body Mass Index [18.5-24.99 kg/m2] 30.32 kg/m2 *>HHI* (02/15/24 12:06 PM) Blood Pressure [90-138/55-84 mm Hg] 118/ 60mm Hg (02/15/24 12:06 PM) Respiratory Rate [16-30 br/min] 18 br/mi n (02/15/24 12:06 PM) Mode of Delivery (Oxygen) Room air (02/15/24 12:06 PM) Blood pressure sites Arm, left (02/15/24 12:06 PM) Weight Obtained Via Standing scale (02/15/24 12:06 PM) Social History Social History Type Response Smoking Status Former smoker, quit more than 30 days ago entered on: 11/08/20 Sex Patient Care team information Care Team Personnel Name: Praveena Jordan RN Position: [facility] AMB Nurse Member Role: Primary Care Nurse Name: Smita Cantrell RN Position: [facility] SN RN Member Role: Primary Care Nurse Name: Zain Ramos RN Position: [facility] ED RN W/OE and Tasks Member Role: Primary Care Nurse Name: Gerard Erickson RN Position: [facility] RN Member Role: Primary Care Nurse Name: Jeevan Kumar MD Position: [facility] Physician - Primary Care Member Role: PCP Address: Address: [address] [place] [address]- Name: Amy Campos NP Position: [facility] Associate Professional Member Role: Primary Care Nurse Address: Address: [address] [place] [address] Trauma and [place] [address]- Name: Gita Becerril RN Position: [facility] RN Member Role: Primary Care Nurse Name: Selena Dias RN Position: [facility] AMB Nurse Member Role: Primary Care Nurse Name: Ryan Romero RN Position: [facility] SN RN Member Role: Primary Care Nurse Name: Florentino Torres RN Position: [facility] RN Member Role: Primary Care Nurse Name: Pretty Rosen RN Position: [facility] RN Member Role: Primary Care Nurse Name: Basilio Chase MD Position: [facility] Physician - Behavioral Health Member Role: Lifetime Consulting Physician Address: Address: [address] [place] [address]- Care Team Related Persons Name: EMEKA MACK Address: home [address] [place] [address] Name: CARMEN COELLO Address: [place] [address] Name: TRACY PALMER Address: home [address] [place] [address]
--- OUTSIDE RECORDS SUMMARY | 2024-02-23 16:17 | XMS_ITS | Continuity of Care Document ---
Author Organization [facility] Address [address] [place] [address]- Care Team Providers Care Butt Welder Name Role Phone Jeevan Kumar MD Primary Care Physician [phone] Encounter [facility] Date(s): 02/12/21 - 03/14/[address] [address] Attending Physician: Admtr, Aaron Admitting Physician: Admtr, [id number] Referring Physician: Admtr, [id number] Allergies, Adverse Reactions, [...] 6 Refills, Maintenance, 02/06/21 13:47:00 EDT, Tablet, [facility]-, Partial fill upon patient request if the prescription is for a schedule II opioid drug., 163.5, cm, 02/06/21 13:17:... Start Date: 02/06/21 Status: Ordered dilTIAZem 360 mg/24 hours oral capsule, extended release 1 capsule = 360 mg, By Mouth, Daily, # 30 capsule, 6 Refills, Maintenance, 02/06/21 13:47:00 EDT, [facility] fill upon patient request if the prescription isfor a schedule II opioid drug., 163.5, cm, 02/06/21... Start Date: 02/06/21 Status: Ordered ferrous sulfate 325 mg oral enteric coated tablet 325 mg, 1, tablet, By Mouth, Daily, # 30 tablet, Refills 6, Tot. Refills 6, Maintenance, 02/06/21 13:47:00 EDT, Route to Pharmacy Electronically, [facility], Partial fill upon patient request if the prescription is for a schedule... Start Date: 02/06/21 Status: Ordered Flonase 50 mcg/inh nasal spray 1 sprays, Nares, Both, Daily, PRN Congestion, # 16 Gm, 6 Refills, Maintenance, 02/06/21 13:48:00 EDT, Nasal [place], [facility], Partial fill upon patient request [...] 5 Refills, Maintenance, 02/06/21 13:47:00 EDT, Solution, [facility], Partial fill upon patient request [...] 02/06/22 0:00:00 EDT, 02/06/21 13:49:00 EDT, Gum, [facility], Partial fill upon patient request if the prescription is for a ramses... Start Date: 02/06/21 Stop Date: 02/06/22 Status: Ordered omeprazole 20 mg oral enteric coated capsule 1 capsule = 20 mg, By Mouth, Daily, # 30 capsule, 6 Refills, Maintenance, 02/06/21 13:47:00 EDT, ECCapsule, [facility], Partial fill upon patient request if the prescription is for a schedule II opioid drug., 163.5, cm, 02/06/21... Start Date: 02/06/21 Status: Ordered Senna 8.6 mg oral tablet 17.2 mg, 2, tablet, By Mouth, Daily at bedtime, PRN, # 100 tablet, Refills 1, Tot. Refills 1, Maintenance, for constipation, 02/06/21 13:47:00 EDT, Route to Pharmacy Electronically, [id number] Tablet, Partial fill upon patient req... Start Date: 02/06/21 Status: Ordered simvastatin 20 mg oral tablet 20 mg, 1, tablet, By Mouth, Daily at bedtime, # 30 tablet, Refills 6, Tot. Refills 6, Maintenance, 02/06/21 13:47:00 EDT, Route to Pharmacy Electronically, [facility], Partial fill upon patient request if the prescription is for a... Start Date: 02/06/21 Status: Ordered tiZANidine 4 mg oral capsule 1 capsule = 4 mg, By Mouth, 3 times a day, # 42 capsule, 0 Refills, Maintenance, 02/06/21 13:47:00 EDT, [facility], Partial fill upon patient request if the prescription is for aschedule II opioid drug., 163.5, cm, 02/06/21 13:17... Start Date: 02/06/21 Stop Date: 02/20/21 Status: Ordered topiramate 50 mg oral tablet 1 tablet = 50 mg, By Mouth, Daily, # 30 tablet, 6 Refills, Maintenance, 02/06/21 13:47:00 EDT, [facility], Partial fill upon patient request if [...] Diabetes mellitus type 2 in obese(Confirmed) Active 38230 Social History Social History Type Response Smoking Status Former smoker, quit more than 30 days ago entered on: 11/08/20 Sex
--- OUTSIDE RECORDS SUMMARY | 2024-02-23 16:17 | XMS_ITS | Continuity of Care Document ---
Author Organization [facility] Address [address] [place] [address]- Care Team Providers Care Division Chair Name Role Phone Stacy JACOBSEN, Jeevan Smith Primary Care Physician [phone] Encounter [facility] Date(s): 10/21/22 - 11/20/22 [facility] Matthewsley Adult [address] [place] [address]- Allergies, Adverse Reactions, Alerts Substance Reaction Severity [...] 08/17/22 15:29:00 EST, Route to Pharmacy Electronically, [facility]-, 160, cm, 08/17/22 15:09:00 EST, Height, 68.5, kg, 03/16/22 6:52:... Start Date: 08/17/22 Status: Ordered Actos 15 mg oral tablet 1 tablet = 15 mg, By Mouth, Daily, # 30 tablet, 6 Refills, Maintenance, 08/17/22 15:29:00 EST, Tablet, [facility]-, Partial fill upon patient [...] 1 Refills, Maintenance, 10/31/22 17:38:00 EST, Tablet, [facility]-, Partial fill upon patient [...] 08/17/22 15:29:00 EST, Route to Pharmacy Electronically, [facility], Partial fill upon patient request if th... Start Date: 08/17/22 Status: Ordered Crestor 5 mg oral tablet 1 tablet = 5 mg, By Mouth, Daily, REPLACES SIMVASTATIN, # 30 tablet, 6 Refills, Maintenance, 08/17/22 15:29:00 EST, Tablet, [facility], Partial fill upon patient request if the prescription is for a schedule II opioid drug., 160,... Start Date: 08/17/22 Status: Ordered diclofenac 1% topical gel See Instructions, APPLY TO AFFECTED AREA(S) TWICE A DAY NEEDED PAIN, # 100 Gm, 0 Refills, Maintenance, 07/30/22 13:16:00 EDT, [facility], 14, APPLY TO AFFECTED AREA(S) TWICE A DAY NEEDED PAIN, 160, cm, 06/29/22 12:54:00 EDT, Height,... Start Date: 07/30/22 Status: Ordered dilTIAZem 360 mg/24 hours oral capsule, extended release 1 capsule = 360 mg, By Mouth, Daily, # 30 capsule, 6 Refills, Maintenance, 08/17/22 15:29:00 EST, CR Capsule, [facility], Partial fill upon patient request if the prescription isfor a schedule II opioid drug., 160, cm, 08/17/22 1... Start Date: 08/17/22 Status: Ordered Estrace Vaginal Cream 0.1 mg/g = 1 Gm, Vaginally, Every Wednesday and Wednesday, # 42.5 Gm, 6 Refills, Maintenance, 08/19/22 14:20:00 EST, [facility], Partial fill upon patient request if the prescription is for a schedule II opioid drug., 160.5, cm, 08/19/22 14:08:... Start Date: 08/19/22 Status: Ordered ferrous sulfate 325 mg oral tablet 1 tablet, By Mouth, Daily, # 30 tablet, 11 Refills, Maintenance, 10/29/22 11:37:00 EST, [facility], 160.5, cm, 08/27/22 14:26:00 EST, Height, 66, [...] 5 Refills, Maintenance, 08/17/22 15:29:00 EST, Solution, [facility]-, Partial fill upon patient request if the prescription is for a schedule II opioid drug., 160, cm, 08/17/22 15... Start Date: 08/17/22 Status: Ordered methimazole 10 mg oral tablet 10 mg, 1, tablet, By Mouth, Daily, # 90 tablet, Refills 3, Tot. Refills 3, Maintenance, 08/18/22 8:29:00 EST, Route to Pharmacy Electronically, [facility]-, Partial fill upon patient [...] each, 0 Refills, Maintenance, 10/21/22 13:37:00 EST, [facility]-, 160.5, cm, 08/27/22 14:26:00 EST, Height, 66, kg, 08/19/22 14:08... Start Date: 10/21/22 Status: Ordered Nutrafol (Hair Growth Supplement) Nutrafol (Hair Growth Supplement), See Instructions, Refills 0, Maintenance, 06/29/22 13:08:00 EDT,Supply Start Date: 06/29/22 Status: Ordered omeprazole 20 mg oral enteric coated capsule 1 capsule = 20 mg, By Mouth, Daily, # 30 capsule, 6 Refills, Maintenance, 08/17/22 15:29:00 EST, ECCapsule, [facility], Partial fill upon patient [...] tablet, 6 Refills, Maintenance, 08/17/22 15:29:00 EST, [facility], Partial fill upon patient [...] mellitus type 2 in obese Confirmed Active 93287 Social History Social History Type Response Smoking Status Former smoker, quit more than 30 days ago entered on: 11/08/20 Sex Patient Care team information Care Team Personnel Name: Praveena Jordan RN Position: [facility] PCO RN Member Role: Primary Care Nurse Name: Smita Cantrell RN Position: [facility] SN RN Member Role: Primary Care Nurse Name: Zain Ramos RN Position: [facility] ED RN W/OE and Tasks Member Role: Primary Care Nurse Name: Gerard Erickson RN Position: [facility] RN Member Role: Primary Care Nurse Name: Jeevan Kumar MD Position: [facility] Primary Care Physician Member Role: PCP Address: Address: [address] [place] [id number]- [place] Name: Amy Campos NP Position: [facility] Associate Professional Member Role: Primary Care Nurse Address: Address: [address] [place] [address] Trauma [place] [address]- [place] Name: Gita Becerril RN Position: [facility] RN Member Role: Primary Care Nurse Name: Selena Dias RN Position: [facility] PCO RN Member Role: Primary Care Nurse Name: Ryan Romero RN Position: [facility] SN RN Member Role: Primary Care Nurse Name: Pretty Rosen RN Position: [facility] RN Member Role: Primary Care Nurse Name: Basilio Chase MD Position: [facility] Psychiatry MD Member Role: Lifetime Consulting Physician Address: Address: [address] [place] [phone]- [place] Care Team Related Persons Name: EMEKA MACK Address: [address] [place] [address] Name: CARMEN CO[place]LLO Address: [place] [address] Name: TRACY PALMER Address: home [address] [place] [address]
--- OUTSIDE RECORDS SUMMARY | 2024-02-23 16:17 | XMS_ITS | Continuity of Care Document ---
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 Role Phone Jeevan Kumar MD Primary Care Physician Encounter [facility] Date(s): 02/11/22 - 02/18/22 [facility] Adult [address] [place] [address]- Encounter Diagnosis HTN (hypertension)(Discharge Diagnosis) - 02/11/22 Attending Physician: Jeevan Kumar MD Referring Physician: Blossom San MD Allergies, Adverse Reactions, Alerts Substance Reaction [...] 02/16/22 15:13:00 EDT, Route to Pharmacy Electronically, [facility]-, 163.5, cm, 02/16/22 14:40:00 EDT, Height Start Date: 02/16/22 Status: Ordered Actos 15 mg oral tablet 1 tablet = 15 mg, By Mouth, Daily, # 30 tablet, 6 Refills, Maintenance, 02/16/22 15:13:00 EDT, Tablet, [facility], Partial fill upon patient [...] Refills, Maintenance, 02/16/22 15:13:00 EDT, CR Capsule, [facility], Partial fill upon patient request if the prescription isfor a schedule II opioid drug., 163.5, cm, 02/16/22... Start Date: 02/16/22 Status: Ordered ferrous sulfate 325 mg oral enteric coated tablet 325 mg, 1, tablet, By Mouth, Daily, # 30 tablet, Refills 6, Tot. Refills 6, Maintenance, 02/16/22 15:13:00 EDT, Route to Pharmacy Electronically, [facility], Partial fill upon patient request if the prescription is for a schedule... Start Date: 02/16/22 Status: Ordered Flonase 50 mcg/inh nasal spray 1 sprays, Nares, Both, Daily, PRN Congestion, # 16 Gm, 6 Refills, Maintenance, 08/18/21 14:36:00 EST, Nasal [place], [facility]-, Partial fill upon patient request if the [...] tablet, 0 Refills, Maintenance, 02/16/22 15:13:00 EDT, [facility], 163.5, cm, 02/16/22 14:40:00 EDT, Height Start [...] 5 Refills, Maintenance, 02/16/22 15:13:00 EDT, Solution, [facility], Partial fill upon patient request if the prescription is for a schedule II opioid drug., 163.5, cm, 02/16/22... Start Date: 02/16/22 Status: Ordered lidocaine 4% topical film 1 patch, Topically, 2 times a day, PRN Pain , Moderate, # 6 patch, 1 Refills, Acute 03/02/22 0:00:00 EDT, 02/16/22 15:24:00 EDT, Film, [facility]-, Partial fill upon patient request if the prescription is for a schedule II opioid d... Start Date: 02/16/22 Stop Date: 03/02/22 Status: Ordered Multivitamin Daily, 0 Refills, Maintenance, 11/08/20 16:45:00 EST, Partial fill upon patient request if the prescription is for a schedule II opioid drug. Start Date: 11/08/20 Status: Ordered nicotine 4 mg oral transmucosal gum See Instructions, CHEW AND .PARK 1 PIECE DIRECTED EVERY 2 HOURS NEEDED FOR CRAVINGS, # 200 each, 0 Refills, Maintenance, 02/16/22 15:13:00 EDT, [facility], 163.5, cm, 02/16/22 14:40:00 EDT, Height Start Date: 02/16/22 Status: Ordered omeprazole 20 mg oral enteric coated capsule 1 capsule = 20 mg, By Mouth, Daily, # 30 capsule, 6 Refills, Maintenance, 02/16/22 15:13:00 EDT, ECCapsule, [facility], Partial fill upon patient [...] 02/16/22 15:13:00 EDT, Route to Pharmacy Electronically, [facility], Partial fill upon patient request if the prescription is for a... Start Date: 02/16/22 Status: Ordered tiZANidine 4 mg oral capsule 1 capsule = 4 mg, By Mouth, 3 times a day, # 42 capsule, 0 Refills, Maintenance, 02/06/21 13:47:00 EDT, [facility], Partial fill upon patient request if the prescription is for aschedule II opioid drug., 163.5, cm, 02/06/21 13:17... Start Date: 02/06/21 Stop Date: 02/20/21 Status: Ordered topiramate 50 mg oral tablet 1 tablet = 50 mg, By Mouth, Daily, # 30 tablet, 6 Refills, Maintenance[facility] [...] Diabetes mellitus type 2 in obese(Confirmed) Active 64028 Diagnosis Diagnosis Type Effective Dates Health Status Cl inical Service Informant HTN (hypertension) Discharge Diagnosis 02/11/22 Vital Signs Most recent to oldest [Reference Range]: 1 Height 163.5 cm (02/11/22 2:46 PM) Weight 67.8 kg (02/11/22 2:46 PM) Oxygen Saturation [94-100 %] 99 % (02/11/22 2:46 PM) Pulse Rate [55-90 bpm] 60 bpm (02/11/22 2:46 PM) Body Mass Index [18.5-24.99] 25.36 *H* (02/11/22 2:46 PM) Blood Pressure [90-138/55-84 mm Hg] 160/ 71mm Hg *H* (02/11/22 2:46 PM) Mode of Delivery (Oxygen) Room air (02/11/22 2:46 PM) Blood pressure sites Arm, left (02/11/22 2:46 PM) Weight Obtained Via Standing scale (02/11/22 2:46 PM) Social History Social History Type Response Smoking Status Former smoker, quit more than 30 days ago entered on: 11/08/20 Sex
--- OUTSIDE RECORDS SUMMARY | 2024-02-23 16:17 | XMS_ITS | Continuity of Care Document ---
Author Organization [facility] Ty Saad lt Address [address] [place] [address]- Care Team Providers Care Weighter Name Role Phone Stacy JACOBSEN, Jeevan Smith Primary Care Physician Encounter [facility] Date(s): 01/14/24 - 02/13/24 [facility] Adult [address] [place] [address]- Allergies, Adverse Reactions, Alerts Substance Reaction Severity [...] 06/21/09 Recorded 1Result Comment: [facility]: [id number] 2Result Comment: Pt not sure the exact date. Medications acetaminophen 325 mg oral tablet 1 TO 2 TABLETS, By Mouth, Daily at bedtime, # 60 tablet, Refills 5, Tot. Refills 5, Maintenance, 01/24/24 14:34:00 EDT, Route to Pharmacy Electronically, [facility]-, 160.5, cm, 01/24/24 14:15:00 EDT, Height, 66, kg, 08/19/22 14:08... Start Date: 01/24/24 Status: Ordered biotin 1000 mcg oral tablet 1 tablet = 1,000 mcg, By Mouth, Daily, # 90 tablet, 1 Refills, Maintenance, 01/24/24 14:34:00 EDT, Tablet, [facility], Partial fill upon patient request if [...] 01/24/24 14:36:00 EDT, Route to Pharmacy Electronically, [facility], Partial fill upon patient request if th... Start Date: 01/24/24 Status: Ordered Crestor 5 mg oral tablet 1 tablet = 5 mg, By Mouth, Daily, REPLACES SIMVASTATIN, # 30 tablet, 6 Refills, Maintenance, 01/24/24 14:36:00 EDT, Tablet, [facility], Partial fill upon patient request if the prescription is for a schedule II opioid drug., 160.5... Start Date: 01/24/24 Status: Ordered dilTIAZem 360 mg/24 hours oral capsule, extended release 1 capsule = 360 mg, By Mouth, Daily, # 30 capsule, 6 Refills, Maintenance, 01/24/24 14:34:00 EDT, CR Capsule, [facility]-, Partial fill upon patient request if the prescription isfor a schedule II opioid drug., 160.5, cm, 01/24/24... Start Date: 01/24/24 Status: Ordered donepezil 5 mg oral tablet 1, tablet, By Mouth, Daily at bedtime, # 30 tablet, Refills 5, Tot. Refills 5, Maintenance, 01/24/24 14:34:00 EDT, Route to Pharmacy Electronically, [facility]-, 160.5, cm, 01/24/24 14:15:00 EDT, Height, 66, kg, 08/19/22 14:08:00 E... Start Date: 01/24/24 Status: Ordered ferrous sulfate 325 mg oral tablet 1 tablet, By Mouth, Daily, # 30 tablet, 11 Refills, Maintenance, 01/24/24 14:34:00 EDT, [facility], 160.5, cm, 01/24/24 14:15:00 EDT, Height, [...] 5 Refills, Maintenance, 01/24/24 14:34:00 EDT, Solution, [facility]-, Partial fill upon patient request if [...] each, 6 Refills, Maintenance, 01/24/24 14:36:00 EDT, [facility], 160.5, cm, 01/24/24 14:15:00 EDT, Height, 66, kg, 08/19/22 14:08... Start Date: 01/24/24 Status: Ordered Nutrafol (Hair Growth Supplement) Nutrafol (Hair Growth Supplement), See Instructions, Refills 0, Maintenance, 06/29/22 13:08:00 EDT,Supply Start Date: 06/29/22 Status: Ordered omeprazole 20 mg oral enteric coated capsule 1 capsule = 20 mg, By Mouth, Daily, # 30 capsule, 5 Refills, Maintenance, 01/24/24 14:36:00 EDT, ECCapsule, [facility], Partial fill upon patient request if the prescription is for a schedule II opioid drug., 160.5, cm, 01/24/24... Start Date: 01/24/24 Status: Ordered pioglitazone 15 mg oral tablet 1 tablet, By Mouth, Daily, # 30 tablet, 2 Refills, Maintenance, 01/24/24 14:36:00 EDT, [facility], 160.5, cm, 01/24/24 14:15:00 EDT, Height, [...] tablet, 6 Refills, Maintenance, 06/18/23 14:28:00 EDT, [facility], Partial fill upon patient request if [...] in obese Confirmed Active 1Dr. York 2017 18855 [facility] 2022 4Outside Source Comment: Overview: Per BS Social History Social History Type Response Smoking Status Former smoker, quit more than 30 days ago entered on: 11/08/20 Sex Patient Care team information Care Team Personnel Name: Praveena Jordan RN Position: [facility] AMB Nurse Member Role: Primary Care Nurse Name: Smita Cantrell RN Position: [facility] SN RN Member Role: Primary Care Nurse Name: Zain Ramos RN Position: [facility] ED RN W/OE and Tasks Member Role: Primary Care Nurse Name: Gerard Erickson RN Position: [facility] RN Member Role: Primary Care Nurse Name: Jeevan Kumar MD Position: [facility] Physician - Primary Care Member Role: PCP Address: Address: [address] [place] [address]- [place] Name: Amy Campos NP Position: [facility] Associate Professional Member Role: Primary Care Nurse Address: Address: [address] [place] [address] Trauma and [place] [address]- Name: Gita Becerril RN Position: [facility] RN Member Role: Primary Care Nurse Name: Selena Dias RN Position: [facility] AMB Nurse Member Role: Primary Care Nurse Name: Ryan Romero RN Position: [facility] SN RN Member Role: Primary Care Nurse Name: Florentino Torres RN Position: [facility] RN Member Role: Primary Care Nurse Name: Pretty Rosen RN Position: [facility] RN Member Role: Primary Care Nurse Name: Basilio Chase MD Position: [facility] Physician - Behavioral Health Member Role: Lifetime Consulting Physician Address: Address: [address] [place] [address]- Care Team Related Persons Name: EMEKA MACK Address: home [address] [place] [id number] Name: CARMEN CO[place]LLO Address: [place] [address] Name: TRACY PALMER Address: home [address] [place] [address]
--- OUTSIDE RECORDS SUMMARY | 2024-02-23 16:17 | XMS_ITS | Continuity of Care Document ---
Author Organization [facility] Ty Saad lt Address [address] [place] [address]- Care Team Providers Care Validation Software Facilitator Name Role Phone Stacy JACOBSEN, Jeevan Smith Primary Care Physician Encounter [facility] Date(s): 11/21/23 - 12/21/23 [facility] Adult [address] [place] [address]- Allergies, Adverse Reactions, Alerts Substance Reaction Severity [...] pneumococcal 23-valent vaccine 06/21/09 Recorded 1Result Comment: [facility]: [id number] 2Result Comment: Pt not sure the exact date. Medications acetaminophen 325 mg oral tablet 1 TO 2 TABLETS, By Mouth, Daily at bedtime, # 60 tablet, Refills 5, Maintenance, 11/21/23 10:19:00 EST, Route to Pharmacy Electronically, [facility], 160.5, cm, 10/28/23 10:10:00 EST, Height, 66, kg, 08/19/22 14:08:00 EST, Dry Weight Start Date: 11/21/23 Status: Ordered Actos 15 mg oral tablet 1 tablet = 15 mg, By Mouth, Daily, # 30 tablet, 6 Refills, Maintenance, 06/18/23 14:28:00 EDT, Tablet, [facility], Partial fill upon patient request [...] Maintenance, 06/18/23 14:28:00 EDT, Tablet, [facility], Partial fill upon patient request if the prescription is for a schedule II opioid drug., 160.5, cm, 06/18/23 14... Start Date: 06/18/23 Status: Ordered Biotin 1000MCG TABS Biotin 1000MCG TABS, 1, tablet, By Mouth, Daily, # 90 tablet, 0 Refills, Maintenance, 12/13/23 7:40:00 EDT, 160.5, cm, 10/28/23 10:10:00 EST, Height, 66, kg, 08/19/22 14:08:00 EST, Dry Weight Start Date: 12/13/23 Status: Ordered cloNIDine 0.1 mg oral tablet [...] 10/12/23 13:00:00 EST, Route to Pharmacy Electronically, [facility]-, Partial fill upon patient request if th... Start Date: 10/12/23 Status: Ordered Crestor 5 mg oral tablet 1 tablet = 5 mg, By Mouth, Daily, REPLACES SIMVASTATIN, # 30 tablet, 6 Refills, Maintenance, 06/18/23 14:28:00 EDT, Tablet, [facility], Partial fill upon patient request if the prescription is for a schedule II opioid drug., 160.5... Start Date: 06/18/23 Status: Ordered diclofenac 1% topical gel See Instructions, APPLY TO AFFECTED AREA(S) TWICE A DAY NEEDED PAIN, # 100 Gm, 0 Refills, Maintenance, 07/30/22 13:16:00 EDT, [facility], 14, APPLY TO AFFECTED AREA(S) TWICE A DAY NEEDED PAIN, 160, cm, 06/29/22 12:54:00 EDT, Height,... Start Date: 07/30/22 Status: Ordered dilTIAZem 360 mg/24 hours oral capsule, extended release 1 capsule = 360 mg, By Mouth, Daily, # 30 capsule, 6 Refills, Maintenance, 06/18/23 14:28:00 EDT, CR Capsule, [facility], Partial fill upon patient request if the prescription isfor a schedule II opioid drug., 160.5, cm, 06/18/23... Start Date: 06/18/23 Status: Ordered donepezil 5 mg oral tablet 1, tablet, By Mouth, Daily at bedtime, # 30 tablet, Refills 5, Maintenance, 12/20/23 16:41:00 EDT, Route to Pharmacy Electronically, [facility]-, 160.5, cm, 10/28/23 10:10:00 EST, Height, 66, kg, 08/19/22 14:08:00 EST, Dry Weight Start Date: 12/20/23 Status: Ordered ferrous sulfate 325 mg oral tablet 1 tablet, By Mouth, Daily, # 30 tablet, 11 Refills, Maintenance, 06/18/23 14:28:00 EDT, [facility]-, 160.5, cm, 06/18/23 14:02:00 EDT, Height, 66, [...] Maintenance, 06/18/23 14:28:00 EDT, Solution, [facility]-, Partial fill upon patient request [...] Refills, Maintenance, 08/03/23 14:18:00 EST, [facility]-, 160.5, cm, 06/18/23 14:02:00 EDT, Height, 66, kg, 08/19/22 14:08... Start Date: 08/03/23 Status: Ordered Nutrafol (Hair Growth Supplement) Nutrafol (Hair Growth Supplement), See Instructions, Refills 0, Maintenance, 06/29/22 13:08:00 EDT,Supply Start Date: 06/29/22 Status: Ordered omeprazole 20 mg oral enteric coated capsule 1 capsule = 20 mg, By Mouth, Daily, # 30 capsule, 6 Refills, Maintenance, 06/18/23 14:28:00 EDT, ECCapsule, [facility]-, Partial fill upon patient request [...] Refills,Maintenance, 06/25/23 10:03:00 EDT, Capsule, [facility]-, Partial fill upon patient request if the prescription is for a schedule I... Start Date: 06/25/23 Stop Date: 07/05/23 Status: Ordered topiramate 50 mg oral tablet 1 tablet = 50 mg, By Mouth, Daily, # 30 tablet, 6 Refills, Maintenance, 06/18/23 14:28:00 EDT, [facility]-, Partial fill upon patient request [...] in obese Confirmed Active 1Dr. Chela 2017 [id number] [facility] 2022 4Outside Source Comment: Overview: Per BS Social History Social History Type Response Smoking Status Former smoker, quit more than 30 days ago entered on: 11/08/20 Sex Patient Care team information Care Team Personnel Name: Praveena Jordan RN Position: [facility] AMB Nurse Member Role: Primary Care Nurse Name: Smita Cantrell RN Position: [facility] SN RN Member Role: Primary Care Nurse Name: Zain Ramos RN Position: [facility] ED RN W/OE and Tasks Member Role: Primary Care Nurse Name: Gerard Erickson RN Position: [facility] RN Member Role: Primary Care Nurse Name: Jeevan Kumar MD Position: [facility] Physician - Primary Care Member Role: PCP Address: Address: [address] [place] [phone]- [place] Name: Amy Campos NP Position: [facility] Associate Professional Member Role: Primary Care Nurse Address: Address: [address] [place] [address] Trauma [place] [address]- [place] Name: Gita Becerril RN Position: [facility] RN Member Role: Primary Care Nurse Name: Selena Dias RN Position: [facility] AMB Nurse Member Role: Primary Care Nurse Name: Ryan Romero RN Position: [facility] SN RN Member Role: Primary Care Nurse Name: Florentino Torres RN Position: [facility] RN Member Role: Primary Care Nurse Name: Pretty Rosen RN Position: [facility] RN Member Role: Primary Care Nurse Name: Basilio Chase MD Position: [facility] Physician - Behavioral Health Member Role: Lifetime Consulting Physician Address: Address: [address] [place] [address] [place] [address]- [place] Care Team Related Persons Name: EMEKA MACK Address: home [address] [place] [address] Name: CARMEN COELLO Address: [place] [address] Name: TRACY PALMER Address: home [address] [place] [address]
--- OUTSIDE RECORDS SUMMARY | 2024-02-23 16:17 | XMS_ITS | Continuity of Care Document ---
Author Organization [facility] Address [address], [address] [place] [address]- Care Team Providers Care Senior Benefits Analyst Name Role Phone Stacy JACOBSEN, Jeevan Smith Primary Care Physician [place] [facility] [place]s): 08/19/22 - 11/01/22 [facility] [address], [address] [place] [address]- Attending Physician: Alcira Sharma MD Referring Physician: Jeevan [...] tetanus/diphtheria/pertussis, acel(Tdap) 08/01/07 Recorded pneumococcal 23-valent vaccine 1/1/17 Given pneumococcal 23-valent vaccine 08/27/10 Recorded pneumococcal 23-valent vaccine 06/21/09 Recorded influenza virus vaccine, inactivated 09/27/16 Give n 1Result Comment: Pt not sure the exact date. Medications acetaminophen 325 mg oral tablet 1 TO 2 TABLETS, By Mouth, Daily at bedtime, # 60 tablet, Refills 5, Tot. Refills 5, Maintenance, 08/17/22 15:29:00 EST, Route to Pharmacy Electronically, [facility]-, 160, cm, 08/17/22 15:09:00 EST, Height, 68.5, kg, 03/16/22 6:52:... Start Date: 08/17/22 Status: Ordered Actos 15 mg oral tablet 1 tablet = 15 mg, By Mouth, Daily, # 30 tablet, 6 Refills, Maintenance, 08/17/22 15:29:00 EST, Tablet, [facility]-, Partial fill upon patient request if [...] 1 Refills, Maintenance, 10/31/22 17:38:00 EST, Tablet, [facility], Partial fill upon patient request if [...] 08/17/22 15:29:00 EST, Route to Pharmacy Electronically, [facility], Partial fill upon patient request if th... Start Date: 08/17/22 Status: Ordered Crestor 5 mg oral tablet 1 tablet = 5 mg, By Mouth, Daily, REPLACES SIMVASTATIN, # 30 tablet, 6 Refills, Maintenance, 08/17/22 15:29:00 EST, Tablet, [facility], Partial fill upon patient request if the prescription is for a schedule II opioid drug., 160,... Start Date: 08/17/22 Status: Ordered diclofenac 1% topical gel See Instructions, APPLY TO AFFECTED AREA(S) TWICE A DAY NEEDED PAIN, # 100 Gm, 0 Refills, Maintenance, 07/30/22 13:16:00 EDT, [facility], 14, APPLY TO AFFECTED AREA(S) TWICE A DAY NEEDED PAIN, 160, cm, 06/29/22 12:54:00 EDT, Height,... Start Date: 07/30/22 Status: Ordered dilTIAZem 360 mg/24 hours oral capsule, extended release 1 capsule = 360 mg, By Mouth, Daily, # 30 capsule, 6 Refills, Maintenance, 08/17/22 15:29:00 EST, CR Capsule, [facility], Partial fill upon patient request if the prescription isfor a schedule II opioid drug., 160, cm, 08/17/22 1... Start Date: 08/17/22 Status: Ordered Estrace Vaginal Cream 0.1 mg/g = 1 Gm, Vaginally, Every Wednesday and Wednesday, # 42.5 Gm, 6 Refills, Maintenance, 08/19/22 14:20:00 EST, [facility], Partial fill upon patient request if the prescription is for a schedule II opioid drug., 160.5, cm, 08/19/22 14:08:... Start Date: 08/19/22 Status: Ordered ferrous sulfate 325 mg oral tablet 1 tablet, By Mouth, Daily, # 30 tablet, 11 Refills, Maintenance, 10/29/22 11:37:00 EST, [facility]-, 160.5, cm, 08/27/22 14:26:00 EST, Height, 66, [...] 5 Refills, Maintenance, 08/17/22 15:29:00 EST, Solution, [facility], Partial fill upon patient request if the prescription is for a schedule II opioid drug., 160, cm, 08/17/22 15... Start Date: 08/17/22 Status: Ordered methimazole 10 mg oral tablet 10 mg, 1, tablet, By Mouth, Daily, # 90 tablet, Refills 3, Tot. Refills 3, Maintenance, 08/18/22 8:29:00 EST, Route to Pharmacy Electronically, [facility], Partial fill upon patient request if [...] each, 0 Refills, Maintenance, 10/21/22 13:37:00 EST, [facility]-, 160.5, cm, 08/27/22 14:26:00 EST, Height, 66, kg, 08/19/22 14:08... 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 18245 Social History Social History Type Response Smoking Status Former smoker, quit more than 30 days ago entered on: 11/08/20 Sex Patient Care team information Care Team Personnel Name: Praveena Jordan RN Position: [facility] PCO RN Member Role: Primary Care Nurse Name: Smita Cantrell RN Position: [facility] SN RN Member Role: Primary Care Nurse Name: Zain Ramos RN Position: [facility] ED RN W/OE and Tasks Member Role: Primary Care Nurse Name: Gerard Erickson RN Position: [facility] RN Member Role: Primary Care Nurse Name: Jeevan Kumar MD Position: [facility] Primary Care Physician Member Role: PCP Address: Address: [address] [place] [phone]- [place] Name: Amy Campos NP Position: [facility] Associate Professional Member Role: Primary Care Nurse Address: Address: [address] [place] [address] Trauma [place] [address]- [place] Name: Gita Becerril RN Position: [facility] RN Member Role: Primary Care Nurse Name: Selena Dias RN Position: [facility] PCO RN Member Role: Primary Care Nurse Name: Ryan Romero RN Position: [facility] SN RN Member Role: Primary Care Nurse Name: Florentino Torres RN Position: [facility] RN Member Role: Primary Care Nurse Name: Pretty Rosen RN Position: [facility] RN Member Role: Primary Care Nurse Name: Basilio Chase MD Position: [facility] Psychiatry MD Member Role: Lifetime Consulting Physician Address: Address: [address] [place] [phone]- [place] Care Team Related Persons Name: EMEKA MACK Address: home [address] [place] [phone] Name: CARMEN COELLO Address: [place] [address] Name: ESTELA TRACY Address: home [address] [place] [address]
--- OUTSIDE RECORDS SUMMARY | 2024-02-23 16:18 | XMS_ITS | Continuity of Care Document ---
Author Organization [facility] Ty Saad lt Address [address] [place] [address]- Care Team Providers Care Etl Developer Name Role Phone Stacy JACOBSEN, Jeevan Smith Primary Care Physician [facility] Date(s): 05/19/23 - 06/18/23 [facility] Adult [address] [place] [address]- Allergies, Adverse Reactions, Alerts Substance Reaction Severity [...] pneumococcal 23-valent vaccine 06/21/09 Recorded 1Result Comment: [facility]: [id number] 2Result Comment: Pt not sure the exact date. Medications acetaminophen 325 mg oral tablet 1 TO 2 TABLETS, By Mouth, Daily at bedtime, # 60 tablet, Refills 5, Maintenance, 06/09/23 11:30:00 EDT, Route to Pharmacy Electronically, [facility] [place], 160.5, cm, 04/21/23 13:26:00 EDT, Height, 66, kg, 08/19/22 14:08:00 EST, Dry Weight Start Date: 06/09/23 Status: Ordered Actos 15 mg oral tablet 1 tablet = 15 mg, By Mouth, Daily, # 30 tablet, 6 Refills, Maintenance, 06/18/23 14:28:00 EDT, Tablet, [facility]-, Partial fill upon patient request [...] 1 Refills, Maintenance, 06/18/23 14:28:00 EDT, Tablet, [facility]-, Partial fill upon patient request [...] 06/18/23 14:28:00 EDT, Route to Pharmacy Electronically, [facility], Partial fill upon patient request if th... Start Date: 06/18/23 Status: Ordered Crestor 5 mg oral tablet 1 tablet = 5 mg, By Mouth, Daily, REPLACES SIMVASTATIN, # 30 tablet, 6 Refills, Maintenance, 06/18/23 14:28:00 EDT, Tablet, [facility], Partial fill upon patient request [...] Refills, Maintenance, 06/18/23 14:28:00 EDT, CR Capsule, [facility], Partial fill upon patient request if the prescription isfor a schedule II opioid drug., 160.5, cm, 06/18/23... Start Date: 06/18/23 Status: Ordered ferrous sulfate 325 mg oral tablet 1 tablet, By Mouth, Daily, # 30 tablet, 11 Refills, Maintenance, 06/18/23 14:28:00 EDT, [facility], 160.5, cm, 06/18/23 14:02:00 EDT, [...] 5 Refills, Maintenance, 06/18/23 14:28:00 EDT, Solution, [id number], Partial fill upon patient request if the [...] each, 0 Refills, Maintenance, 06/08/23 17:18:00 EDT, [facility]-, 160.5, cm, 04/21/23 13:26:00 EDT, Height, 66, kg, 08/19/22 14:08... Start Date: 06/08/23 Status: Ordered Nutrafol (Hair Growth Supplement) Nutrafol (Hair Growth Supplement), See Instructions, Refills 0, Maintenance, 06/29/22 13:08:00 EDT,Supply Start Date: 06/29/22 Status: Ordered omeprazole 20 mg oral enteric coated capsule 1 capsule = 20 mg, By Mouth, Daily, # 30 capsule, 6 Refills, Maintenance, 06/18/23 14:28:00 EDT, ECCapsule, [facility], Partial fill upon patient request [...] tablet, 6 Refills, Maintenance, 06/18/23 14:28:00 EDT, [facility], Partial fill upon patient request [...] mellitus type 2 in obese Confirmed Active [id number] Social History Social History Type Response Smoking Status Former smoker, quit more than 30 days ago entered on: 11/08/20 Sex Patient Care team information Care Team Personnel Name: Praveena Jordan RN Position: [facility] AMB Nurse Member Role: Primary Care Nurse Name: Smita Cantrell RN Position: [facility] SN RN Member Role: Primary Care Nurse Name: Zain Ramos RN Position: [facility] ED RN W/OE and Tasks Member Role: Primary Care Nurse Name: Gerard Erickson RN Position: [facility] RN Member Role: Primary Care Nurse Name: Jeevan Kumar MD Position: [facility] Physician - Primary Care Member Role: PCP Address: Address: [address] [place] [id number]- [place] Name: Amy Campos NP Position: [facility] Associate Professional Member Role: Primary Care Nurse Address: Address: [address] [place] [address] Trauma [place] [address]- [place] Name: Gita Becerril RN Position: [facility] RN Member Role: Primary Care Nurse Name: Selena Dias RN Position: [facility] AMB Nurse Member Role: Primary Care Nurse Name: Ryan Romero RN Position: [facility] SN RN Member Role: Primary Care Nurse Name: Florentino Torres RN Position: [facility] RN Member Role: Primary Care Nurse Name: Pretty Rosen RN Position: [facility] RN Member Role: Primary Care Nurse Name: Basilio Chase MD Position: [facility] Physician - Behavioral Health Member Role: Lifetime Consulting Physician Address: Address: [address] [place] [address]- [place] Care Team Related Persons Name: EMEKA MACK Address: home [address] [place] [id number] Name: CARMEN COELLO Address: [place] [address] Name: TRACY PALMER Address: home [address] [place] [address]
--- OUTSIDE RECORDS SUMMARY | 2024-02-23 16:18 | XMS_ITS | Continuity of Care Document ---
Author Organization [facility] Address [address] [place] [address]- Care Team Providers Care Whiskey Filterer Name Role Phone Nirmal Galeas NP Primary Care Physician [phone] Encounter [facility] Date(s): 09/05/19 - 01/03/[address] [address]- [facility] Attending Physician: Ze Kathleen MD Referring Physician: Ze Kathleen MD Allergies, Adverse Reactions, [...] 12/13/19 18:54:00 EDT, Route to Pharmacy Electronically, [facility][id number], 163.5, cm, 01/31/19 15:33:00 EDT, Height, 8... [...] patch, 0 Refills, Maintenance, 10/28/19 18:54:00 EST, [facility] #[id number], 1 patch Topically Daily,x7 days, 163.5, cm, [...]
--- OUTSIDE RECORDS SUMMARY | 2024-02-23 16:18 | XMS_ITS | Continuity of Care Document ---
Author Organization [facility] Roscoe Crawford Saad lt Address [address] [place] [address]- Care Team Providers Care Barn Manager Name Role Phone Jeevan Kumar MD Primary Care Physician [phone] Encounter [facility] Date(s): 06/25/23 - 07/25/23 [facility] Adult [address] [place] [address]- Allergies, Adverse Reactions, Alerts Substance Reaction Severity [...] pneumococcal 23-valent vaccine 06/21/09 Recorded 1Result Comment: [facility]: [id number] 2Result Comment: Pt not sure the exact date. Medications acetaminophen 325 mg oral tablet 1 TO 2 TABLETS, By Mouth, Daily at bedtime, # 60 tablet, Refills 5, Maintenance, 06/09/23 11:30:00 EDT, Route to Pharmacy Electronically, [facility]-, 160.5, cm, 04/21/23 13:26:00 EDT, Height, 66, kg, 08/19/22 14:08:00 EST, Dry Weight Start Date: 06/09/23 Status: Ordered Actos 15 mg oral tablet 1 tablet = 15 mg, By Mouth, Daily, # 30 tablet, 6 Refills, Maintenance, 06/18/23 14:28:00 EDT, Tablet, [facility]-, Partial fill upon patient request if [...] 1 Refills, Maintenance, 06/18/23 14:28:00 EDT, Tablet, [facility]-, Partial fill upon patient request if [...] 06/18/23 14:28:00 EDT, Route to Pharmacy Electronically, [facility], Partial fill upon patient request if th... Start Date: 06/18/23 Status: Ordered Crestor 5 mg oral tablet 1 tablet = 5 mg, By Mouth, Daily, REPLACES SIMVASTATIN, # 30 tablet, 6 Refills, Maintenance, 06/18/23 14:28:00 EDT, Tablet, [facility], Partial fill upon patient request if [...] Refills, Maintenance, 06/18/23 14:28:00 EDT, CR Capsule, [facility], Partial fill upon patient request if the prescription isfor a schedule II opioid drug., 160.5, cm, 06/18/23... Start Date: 06/18/23 Status: Ordered ferrous sulfate 325 mg oral tablet 1 tablet, By Mouth, Daily, # 30 tablet, 11 Refills, Maintenance, 06/18/23 14:28:00 EDT, [facility], 160.5, cm, 06/18/23 14:02:00 EDT, Height, [...] 5 Refills, Maintenance, 06/18/23 14:28:00 EDT, Solution, [facility]-, Partial fill upon patient request if [...] CESSATION, # 220 each, 0 Refills, Maintenance, 07/14/23 12:55:00 EDT, [facility], 160.5, cm, 06/18/23 14:02:00 EDT, Height, 66, kg, 08/19/22 14:08:00 EST,... Start Date: 07/14/23 Status: Ordered Nutrafol (Hair Growth Supplement) Nutrafol (Hair Growth Supplement), See Instructions, Refills 0, Maintenance, 06/29/22 13:08:00 EDT,Supply Start Date: 06/29/22 Status: Ordered omeprazole 20 mg oral enteric coated capsule 1 capsule = 20 mg, By Mouth, Daily, # 30 capsule, 6 Refills, Maintenance, 06/18/23 14:28:00 EDT, ECCapsule, [facility], Partial fill upon patient request if [...] capsule, 0 Refills,Maintenance, 06/25/23 10:03:00 EDT, Capsule, [facility], Partial fill upon patient request if the prescription is for a schedule I... Start Date: 06/25/23 Stop Date: 07/05/23 Status: Ordered topiramate 50 mg oral tablet 1 tablet = 50 mg, By Mouth, Daily, # 30 tablet, 6 Refills, Maintenance, 06/18/23 14:28:00 EDT, [facility], Partial fill upon patient request if [...] mellitus type 2 in obese Confirmed Active [id number] Social History Social History Type Response Smoking Status Former smoker, quit more than 30 days ago entered on: 11/08/20 Sex Patient Care team information Care Team Personnel Name: Praveena Jordan RN Position: [facility] AMB Nurse Member Role: Primary Care Nurse Name: Smita Cantrell RN Position: [facility] SN RN Member Role: Primary Care Nurse Name: Zain Ramos RN Position: [facility] ED RN W/OE and Tasks Member Role: Primary Care Nurse Name: Gerard Erickson RN Position: [facility] RN Member Role: Primary Care Nurse Name: Jeevan Kumar MD Position: [facility] Physician - Primary Care Member Role: PCP Address: Address: [address] [place] [address]- Name: Amy Campos NP Position: [facility] Associate Professional Member Role: Primary Care Nurse Address: Address: [address] [place] [address] Trauma and [place] [address]- Name: Gita Becerril RN Position: [facility] RN Member Role: Primary Care Nurse Name: Selena Dias RN Position: [facility] AMB Nurse Member Role: Primary Care Nurse Name: Ryan Romero RN Position: [facility] SN RN Member Role: Primary Care Nurse Name: Florentino Torres RN Position: [facility] RN Member Role: Primary Care Nurse Name: Pretty Rosen RN Position: [facility] RN Member Role: Primary Care Nurse Name: Basilio Chase MD Position: [facility] Physician - Behavioral Health Member Role: Lifetime Consulting Physician Address: Address: [address] [place] [address]- Care Team Related Persons Name: EMEKA MACK Address: home [address] [place] [address] Name: CARMEN COELLO Address: [place] [address] Name: TRACY PALMER Address: home [address] [place] [address]
--- OUTSIDE RECORDS SUMMARY | 2024-02-23 16:18 | XMS_ITS | Continuity of Care Document ---
Author Organization [facility] ter Address [address] [place] [address]- Care Team Providers Care Sustainability Manager Name Role Phone Vidhi Lindsay Primary Care Physician [phone] Encounter [facility] Date(s): 09/07/19 - 09/07/[address] [address]- [facility] Attending Physician: Ze Kathleen MD Allergies, Adverse [...] 9:12:06 EDT Start Date: 01/30/19 Status: Ordered Dilaudid 4 mg oral tablet [...] 14:21:54 EDT Start Date: 01/19/19 Status: Ordered Milk of Magnesia Liquid 30 [...]
--- OUTSIDE RECORDS SUMMARY | 2024-02-23 16:18 | XMS_ITS | Continuity of Care Document ---
Author Organization [facility] Address [address] [place] [address]- Care Team Providers Care Convenience Store Clerk Name Role Phone Stacy JACOBSEN, Jeevan Smith Primary Care Physician Encounter [facility] [place] Date(s): 09/23/22 - 10/23/22 [facility] [address] [place] [address]- Allergies, Adverse Reactions, Alerts Substance Reaction Severity [...] 08/17/22 15:29:00 EST, Route to Pharmacy Electronically, [facility]-, 160, cm, 08/17/22 15:09:00 EST, Height, 68.5, kg, 03/16/22 6:52:... Start Date: 08/17/22 Status: Ordered Actos 15 mg oral tablet 1 tablet = 15 mg, By Mouth, Daily, # 30 tablet, 6 Refills, Maintenance, 08/17/22 15:29:00 EST, Tablet, [facility], Partial fill upon patient [...] 1 Refills, Maintenance, 08/17/22 15:29:00 EST, Tablet, [facility], Partial fill upon patient [...] 08/17/22 15:29:00 EST, Route to Pharmacy Electronically, [facility], Partial fill upon patient request if th... Start Date: 08/17/22 Status: Ordered Crestor 5 mg oral tablet 1 tablet = 5 mg, By Mouth, Daily, REPLACES SIMVASTATIN, # 30 tablet, 6 Refills, Maintenance, 08/17/22 15:29:00 EST, Tablet, [facility], Partial fill upon patient request if the prescription is for a schedule II opioid drug., 160,... Start Date: 08/17/22 Status: Ordered diclofenac 1% topical gel See Instructions, APPLY TO AFFECTED AREA(S) TWICE A DAY NEEDED PAIN, # 100 Gm, 0 Refills, Maintenance, 07/30/22 13:16:00 EDT, [facility], 14, APPLY TO AFFECTED AREA(S) TWICE A DAY NEEDED PAIN, 160, cm, 06/29/22 12:54:00 EDT, Height,... Start Date: 07/30/22 Status: Ordered dilTIAZem 360 mg/24 hours oral capsule, extended release 1 capsule = 360 mg, By Mouth, Daily, # 30 capsule, 6 Refills, Maintenance, 08/17/22 15:29:00 EST, CR Capsule, [facility], Partial fill upon patient request if the prescription isfor a schedule II opioid drug., 160, cm, 08/17/22 1... Start Date: 08/17/22 Status: Ordered Estrace Vaginal Cream 0.1 mg/g = 1 Gm, Vaginally, Every Wednesday and Wednesday, # 42.5 Gm, 6 Refills, Maintenance, 08/19/22 14:20:00 EST, [facility], Partial fill upon patient request if the prescription is for a schedule II opioid drug., 160.5, cm, 08/19/22 14:08:... Start Date: 08/19/22 Status: Ordered ferrous sulfate 325 mg oral tablet 1 tablet, By Mouth, Daily, # 30 tablet, 0 Refills, Maintenance, 09/30/22 11:52:00 EST, [facility]-, 160.5, cm, 08/27/22 14:26:00 EST, Height, 66, kg, 08/19/22 14:08:00 EST, Dry Weight Start Date: 09/30/22 Status: Ordered Freestyle Lancets See Instructions, # [...] 5 Refills, Maintenance, 08/17/22 15:29:00 EST, Solution, [facility]-, Partial fill upon patient request if the prescription is for a schedule II opioid drug., 160, cm, 08/17/22 15... Start Date: 08/17/22 Status: Ordered methimazole 10 mg oral tablet 10 mg, 1, tablet, By Mouth, Daily, # 90 tablet, Refills 3, Tot. Refills 3, Maintenance, 08/18/22 8:29:00 EST, Route to Pharmacy Electronically, [facility], Partial fill upon patient [...] each, 0 Refills, Maintenance, 10/21/22 13:37:00 EST, [facility], 160.5, cm, 08/27/22 14:26:00 EST, Height, 66, kg, 08/19/22 14:08... Start Date: 10/21/22 Status: Ordered Nutrafol (Hair Growth Supplement) Nutrafol (Hair Growth Supplement), See Instructions, Refills 0, Maintenance, 06/29/22 13:08:00 EDT,Supply Start Date: 06/29/22 Status: Ordered omeprazole 20 mg oral enteric coated capsule 1 capsule = 20 mg, By Mouth, Daily, # 30 capsule, 6 Refills, Maintenance, 08/17/22 15:29:00 EST, Omega, [facility], Partial fill upon patient [...] tablet, 6 Refills, Maintenance, 08/17/22 15:29:00 EST, [facility], Partial fill upon patient [...] mellitus type 2 in obese Confirmed Active [id number] Social History Social History Type Response Smoking Status Former smoker, quit more than 30 days ago entered on: 11/08/20 Sex Patient Care team information Care Team Personnel Name: Praveena Jordan RN Position: [facility] PCO RN Member Role: Primary Care Nurse Name: Smita Cantrell RN Position: [facility] SN RN Member Role: Primary Care Nurse Name: Zain Ramos RN Position: [facility] ED RN W/OE and Tasks Member Role: Primary Care Nurse Name: Gerard Erickson RN Position: [facility] RN Member Role: Primary Care Nurse Name: Jeevan Kumar MD Position: [facility] Primary Care Physician Member Role: PCP Address: Address: [address] [place] [address]- Name: Amy Campos NP Position: [facility] Associate Professional Member Role: Primary Care Nurse Address: Address: [address] [place] [address] Trauma [place] [address]- Name: Gita Becerril RN Position: [facility] RN Member Role: Primary Care Nurse Name: Selena Dias RN Position: [facility] PCO RN Member Role: Primary Care Nurse Name: Ryan Romero RN Position: [facility] SN RN Member Role: Primary Care Nurse Name: Florentino Torres RN Position: [facility] RN Member Role: Primary Care Nurse Name: Pretty Rosen RN Position: [facility] RN Member Role: Primary Care Nurse Name: Basilio Chase MD Position: [facility] Psychiatry MD Member Role: Lifetime Consulting Physician Address: Address: [address] [place] [address]- Care Team Related Persons Name: EMEKA MACK Address: [address] [place] [address] Name: CARMEN COELLO Address: [place] [address] Name: TRACY PALMER Address: home [address] [place] [address]
--- OUTSIDE RECORDS SUMMARY | 2024-02-23 16:18 | XMS_ITS | Continuity of Care Document ---
Author Organization [facility] Saad lt Address [address] [place] [address]- Care Team Providers Care Cotton Chopper Name Role Phone Jeevan Kumar MD Primary Care Physician Encounter [facility] Date(s): 12/14/22 - 12/21/22 [facility] Adult [address] [place] [address]- Attending Physician: Tisha Ac NP Referring Physician: [...] 12/14/22 14:45:00 EDT, Route to Pharmacy Electronically, [facility]-, 160.5, cm, 12/14/22 14:21:00 EDT, Height, 66, kg, 08/19/22 14:08... Start Date: 12/14/22 Status: Ordered Actos 15 mg oral tablet 1 tablet = 15 mg, By Mouth, Daily, # 30 tablet, 6 Refills, Maintenance, 12/14/22 14:45:00 EDT, Tablet, [facility], Partial fill upon patient [...] 1 Refills, Maintenance, 10/31/22 17:38:00 EST, Tablet, [facility], Partial fill upon patient [...] 12/14/22 14:45:00 EDT, Route to Pharmacy Electronically, [facility], Partial fill upon patient request if th... Start Date: 12/14/22 Status: Ordered Crestor 5 mg oral tablet 1 tablet = 5 mg, By Mouth, Daily, REPLACES SIMVASTATIN, # 30 tablet, 6 Refills, Maintenance, 12/14/22 14:45:00 EDT, Tablet, [facility], Partial fill upon patient [...] Refills, Maintenance, 12/14/22 14:45:00 EDT, CR Capsule, [facility], Partial fill upon patient request if the prescription isfor a schedule II opioid drug., 160.5, cm, 12/14/22... Start Date: 12/14/22 Status: Ordered Estrace Vaginal Cream 0.1 mg/g = 1 Gm, Vaginally, Every Wednesday and Wednesday, # 42.5 Gm, 6 Refills, Maintenance, 08/19/22 14:20:00 EST, [facility], Partial fill upon patient request if the prescription is for a schedule II opioid drug., 160.5, cm, 08/19/22 14:08:... Start Date: 08/19/22 Status: Ordered ferrous sulfate 325 mg oral tablet 1 tablet, By Mouth, Daily, # 30 tablet, 11 Refills, Maintenance, 12/14/22 14:45:00 EDT, [facility]-, 160.5, cm, 12/14/22 14:21:00 EDT, [...] 5 Refills, Maintenance, 12/14/22 14:45:00 EDT, Solution, [facility], Partial fill upon patient request if the prescription is for a schedule II opioid drug., 160.5, cm, 12/14/22... Start Date: 12/14/22 Status: Ordered Multivitamin Daily, 0 Refills, Maintenance, 11/08/20 16:45:00 EST, Partial fill upon patient request if the prescription is for a schedule II opioid drug. Start Date: 11/08/20 Status: Ordered nicotine 4 mg oral transmucosal gum See Instructions, CHEW & PARK. 1 PIECE BY MOUTH EVERY 2 HOURS NEEDED FOR SMOKING CESSATION, # 220 each, 0 Refills, Maintenance, 12/14/22 14:45:00 EDT, [facility]-, 160.5, cm, 12/14/22 14:21:00 EDT, Height, 66, kg, 08/19/22 14:08... Start Date: 12/14/22 Status: Ordered Nutrafol (Hair Growth Supplement) Nutrafol (Hair Growth Supplement), See Instructions, Refills 0, Maintenance, 06/29/22 13:08:00 EDT,Supply Start Date: 06/29/22 Status: Ordered omeprazole 20 mg oral enteric coated capsule 1 capsule = 20 mg, By Mouth, Daily, # 30 capsule, 6 Refills, Maintenance, 12/14/22 14:45:00 EDT, Omega, [facility], Partial fill upon patient [...] tablet, 6 Refills, Maintenance, 12/14/22 14:45:00 EDT, [facility], Partial fill upon patient [...] mellitus type 2 in obese Confirmed Active 35395 Vital Signs Most recent to oldest [Reference Range]: 1 Height 160.5 cm (12/14/22 2:21 PM) Weight 67.8 kg (12/14/22 2:21 PM) Oxygen Saturation [94-100 %] 98 % (12/14/22 2:21 PM) Pulse Rate [55-90 bpm] 52 bpm *L* (12/14/22 2:21 PM) Body Mass Index [18.5-24.99 kg/m2] 26.32 kg/m2 *H* (12/14/22 2:21 PM) Blood Pressure [90-138/55-84 mm Hg] 124/ 66mm Hg (12/14/22 2:21 PM) Respiratory Rate [16-30 br/min] 16 br/mi n (12/14/22 2:21 PM) Mode of Delivery (Oxygen) Room air (12/14/22 2:21 PM) Blood pressure sites Arm, left (12/14/22 2:21 PM) Weight Obtained Via Standing scale (12/14/22 2:21 PM) Social History Social History Type Response Smoking Status Former smoker, quit more than 30 days ago entered on: 11/08/20 Sex Note * Cyndy Davis: SIGN, VERIFY, PERFORM Event Display: Patient Education/Instruction Authored Date: [facility] *MITA Mendoza Clinical Summary Name MINOR RUSH Age 67 Years 1955 PCP Stacy JACOBSEN, Jeevan Smith PCP Visit Date 12/14/2022 14:18:00 Additional Instructions: Scheduled Appointments?? Future Appointments ?*[facility] ?[address]??[place],??[place],??[address] ?Phone:??--?Fax:??-- ?Appt. Date:??02/24/2023?4:30 PM ?Scheduled Provider:??Hany JACOBSEN, Bisi Follow-Up Instructions ?? 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 Discuss any questions related to medications with your provider. Medications to Continue Taking That Have Changed These medications were not printed or sent to your pharmacy - Miscellaneous Rx (Nutrafol (Hair Growth Supplement)) Next Dose: Medications to Continue with No Changes [facility]-, [address], [place] [id number], [phone] Acetaminophen (acetaminophen 325 mg oral tablet) 1 TO 2 TABLETS Oral Daily at Bedtime. Refills: 5. Next Dose: Diltiazem (dilTIAZem 360 mg/24 hours oral capsule, extended release) 1 capsule Oral Daily. Refills:6. Next Dose: Docusate (Colace sodium 100 mg oral capsule) 1 capsule Oral twice a day as needed for constipation.Refills: 1. Next Dose: Ferrous Sulfate (ferrous sulfate 325 mg oral tablet) 1 tab(s) Oral Daily. Refills: 11. Next Dose: Insulin Glargine (Lantus Solostar Pen 100 units/mL subcutaneous solution) 16 unit(s) Subcutaneous Injection Daily. Refills: 5. Next Dose: Nicotine (nicotine 4 mg oral transmucosal gum) CHEW & PARK. 1 PIECE BY MOUTH EVERY 2 HOURS NEEDED FOR SMOKING CESSATION. Refills: 0. Next Dose: Omeprazole (omeprazole 20 mg oral enteric coated capsule) 1 capsule Oral Daily. Refills: 6. Next Dose: Pioglitazone (Actos 15 mg oral tablet) 1 tab(s) Oral Daily. Refills: 6. Next Dose: Rosuvastatin (Crestor 5 mg oral tablet) 1 tab(s) Oral Daily. REPLACES SIMVASTATIN. Refills: 6. Next Dose: Topiramate (topiramate 50 mg oral tablet) 1 tab(s) Oral Daily. Refills: 6. Next Dose: These medications were not printed or sent to your pharmacy Aripiprazole (ARIPiprazole 2 mg oral tablet) 1 tab(s) Oral Daily. Next Dose: Biotin (biotin 1000 mcg oral tablet) 1 tab(s) Oral Daily. Refills: 1. Next Dose: Clonidine (cloNIDine 0.1 mg oral tablet) 1 tab(s) Oral Daily. hs. Next Dose: Diclofenac Topical (diclofenac 1% topical gel) APPLY TO AFFECTED AREA(S) TWICE A DAY NEEDED PAIN. Refills: 0. Next Dose: Durable Medical Equipment (Freestyle Lancets) use as directed for Type 2 Diabetes Mellitus. Refills: 2. Next Dose: Durable Medical Equipment (Freestyle Lite Monitor) to test blood sugar BID E11.9 ADOLFO- lifetime use as directed for Type 2 Diabetes Mellitus. Refills: 0. Next Dose: Durable Medical Equipment (Freestyle Test Strips) check blood sugars twice a day. ICD10 (E11.9). Refills: 1. Next Dose: Estradiol Topical (Estrace Vaginal Cream 0.1 mg/g) 1 gram Vaginally every Wednesday and Wednesday. Refills: 6. Next Dose: Lamotrigine (LaMICtal 100 mg oral tablet) 1 tab(s) Oral Daily. Refills: 0. Next Dose: Multivitamin Daily. Next Dose: Propranolol 20 Milligram. Next Dose: Allergy Info:?? Bactrim; Wellbutrin; Neurontin; Soma Medications Given This Visit Future Orders ?Comprehensive Metabolic Panel? Order Date:12/14/22?- Complete on or after?12/14/22 ?HDL Cholesterol? Order Date:12/14/22?- Complete on or after?12/14/22 ?CBC w/ Differential? Order Date:12/14/22?- Complete on or after?12/14/22 ?Microalbumin Urine? Order Date:12/14/22?- Complete on or after?12/14/22 ?Direct LDL? Order Date:12/14/22?- Complete on or after?12/14/22 ?Hemoglobin A1C (Monitoring)? Order Date:12/14/22?- Complete on or after?12/14/22 ?Cholesterol Total? Order Date:12/14/22?- Complete on or after?12/14/22 Vital Signs Height 160.5 cm Weight 67.8 kg BMI 26.32 kg/m2 Blood Pressure 124 mm Hg/66 mm Hg Temperature Pulse Rate 52 bpm Respiratory Rate 16 br/min 02 Sat Mode of Delivery 98 %/Room air You can now view a summary of your hospital visit from the comfort of your home through a free online portal called [employer]. [employer] is a website that allows you to securely view your medical information including discharge summary, medications and follow-up visits. ??You can alsosend a secure electronic message to your doctor???s office to request appointments, renew medications or just ask a question. You can enroll at [email or web address] or register during your next office visit. Disclaimer:?? The information provided is of a general nature and is intended to be used in conjunction with the recommendations and advice of your health care practitioner. ??Every effort has been made to ensure that the information provided is accurate and complete at the time it is provided to you however, as your needs change, or, as new ??information becomes available, different or additional instructions may be required. If you have questions, please consult with your primary care provider or pharmacist, as appropriate. ??This information is not intended to serve as substitution for assessment and evaluation by a qualified health care provider. If you do not have a primary care provider, you may find a [facility] provider by calling [facility] Link at [phone]. For information about the plan of care including goals and instructions for your diagnosis, please see the patient education orders section of this document. Patient Education Materials?? The content of this educational material or handout may have been modified, supplemented, or adapted from its original content and format to support your individualized medical care. Patient Care team information Care Team Personnel Name: Praveena Jordan RN Position: [facility] PCO RN Member Role: Primary Care Nurse Name: Smita Cantrell RN Position: [facility] SN RN Member Role: Primary Care Nurse Name: Zain Ramos RN Position: [facility] ED RN W/OE and Tasks Member Role: Primary Care Nurse Name: Gerard Erickson RN Position: [facility] RN Member Role: Primary Care Nurse Name: Jeevan Kumar MD Position: [facility] Primary Care Physician Member Role: PCP Address: Address: [address] [place] [id number]- Name: Amy Campos NP Position: [facility] Associate Professional Member Role: Primary Care Nurse Address: Address: [address] [place] [address] Trauma and [place] [address]- Name: Gita Becerril RN Position: [facility] RN Member Role: Primary Care Nurse Name: Selena Dias RN Position: [facility] PCO RN Member Role: Primary Care Nurse Name: Ryan Romero RN Position: [facility] SN RN Member Role: Primary Care Nurse Name: Florentino Torres RN Position: [facility] RN Member Role: Primary Care Nurse Name: Pretty Rosen RN Position: [facility] RN Member Role: Primary Care Nurse Name: Basilio Chase MD Position: [facility] Psychiatry MD Member Role: Lifetime Consulting Physician Address: Address: [address] [place] [address]- Care Team Related Persons Name: MARTINA EMEKA Address: home [address] [place] [address] Name: CARMEN COELLO Address: [place] [address] Name: TRACY PALMER Address: home [address] [place] [id number]
--- OUTSIDE RECORDS SUMMARY | 2024-02-23 16:18 | XMS_ITS | Continuity of Care Document ---
Author Organization [facility] Address [address] [place] [address]- Care Team Providers Care Tourist Escort Name Role Phone Stacy JACOBSEN, Jeevan Smith Primary Care Physician Encounter [facility] Date(s): 10/21/23 - 11/20/23 [facility] [address] [place] [address]- Attending Physician: Aaron Flores Admitting Physician: AdmAaron sotelo Referring Physician: AdmtrAaron Allergies, Adverse Reactions, Alerts Substance Reaction Severity [...] 23-valent vaccine 06/21/09 Recorded 1Result Comment: [facility]: [id number] 2Result Comment: Pt not sure the exact date. Medications acetaminophen 325 mg oral tablet 1 TO 2 TABLETS, By Mouth, Daily at bedtime, # 60 tablet, Refills 5, Maintenance, 06/09/23 11:30:00 EDT, Route to Pharmacy Electronically, [facility], 160.5, cm, 04/21/23 13:26:00 EDT, Height, 66, kg, 08/19/22 14:08:00 EST, Dry Weight Start Date: 06/09/23 Status: Ordered Actos 15 mg oral tablet 1 tablet = 15 mg, By Mouth, Daily, # 30 tablet, 6 Refills, Maintenance, 06/18/23 14:28:00 EDT, Tablet, [facility], Partial fill upon patient request if the prescription is for a schedule II opioid drug., 160.5, cm, 06/18/23 14:02:... Start Date: 06/18/23 Status: Ordered Aricept 5 mg oral tablet 5 mg, 1, tablet, By Mouth, Daily at bedtime, # 30 tablet, Refills 1, Tot. Refills 1, Maintenance, 10/28/23 10:28:00 EST, Route to Pharmacy Electronically, [facility]-, Partial fill upon [...] 1 Refills, Maintenance, 06/18/23 14:28:00 EDT, Tablet, [facility], Partial [...] 10/12/23 13:00:00 EST, Route to Pharmacy Electronically, [facility]-, Partial fill upon patient request if th... Start Date: 10/12/23 Status: Ordered Crestor 5 mg oral tablet 1 tablet = 5 mg, By Mouth, Daily, REPLACES SIMVASTATIN, # 30 tablet, 6 Refills, Maintenance, 06/18/23 14:28:00 EDT, Tablet, [facility], Partial fill upon patient request if the prescription is for a schedule II opioid drug., 160.5... Start Date: 06/18/23 Status: Ordered diclofenac 1% topical gel See Instructions, APPLY TO AFFECTED AREA(S) TWICE A DAY NEEDED PAIN, # 100 Gm, 0 Refills, Maintenance, 07/30/22 13:16:00 EDT, [facility]-, 14, APPLY TO AFFECTED AREA(S) TWICE A DAY NEEDED PAIN, 160, cm, 06/29/22 12:54:00 EDT, Height,... Start Date: 07/30/22 Status: Ordered dilTIAZem 360 mg/24 hours oral capsule, extended release 1 capsule = 360 mg, By Mouth, Daily, # 30 capsule, 6 Refills, Maintenance, 06/18/23 14:28:00 EDT, CR Capsule, [facility], Partial fill upon patient request if the prescription isfor a schedule II opioid drug., 160.5, cm, 06/18/23... Start Date: 06/18/23 Status: Ordered ferrous sulfate 325 mg oral tablet 1 tablet, By Mouth, Daily, # 30 tablet, 11 Refills, Maintenance, 06/18/23 14:28:00 EDT, [id number], 160.5, cm, 06/18/23 14:02:00 EDT, Height, 66, [...] 5 Refills, Maintenance, 06/18/23 14:28:00 EDT, Solution, [facility], Partial [...] each, 6 Refills, Maintenance, 08/03/23 14:18:00 EST, [facility], 160.5, cm, 06/18/23 14:02:00 EDT, Height, 66, kg, 08/19/22 14:08... Start Date: 08/03/23 Status: Ordered Nutrafol (Hair Growth Supplement) Nutrafol (Hair Growth Supplement), See Instructions, Refills 0, Maintenance, 06/29/22 13:08:00 EDT,Supply Start Date: 06/29/22 Status: Ordered omeprazole 20 mg oral enteric coated capsule 1 capsule = 20 mg, By Mouth, Daily, # 30 capsule, 6 Refills, Maintenance, 06/18/23 14:28:00 EDT, ECCapsule, [facility], Partial [...] capsule, 0 Refills,Maintenance, 06/25/23 10:03:00 EDT, Capsule, [facility]-, Partial fill upon patient request if the prescription is for a schedule I... Start Date: 06/25/23 Stop Date: 07/05/23 Status: Ordered topiramate 50 mg oral tablet 1 tablet = 50 mg, By Mouth, Daily, # 30 tablet, 6 Refills, Maintenance, 06/18/23 14:28:00 EDT, [facility]-, Partial fill [...] in obese Confirmed Active 1Dr. Chela 2017 [address] [facility] 2022 4Outside Source Comment: Overview: Per BS Social History Social History Type Response Smoking Status Former smoker, quit more than 30 days ago entered on: 11/08/20 Sex Patient Care team information Care Team Personnel Name: Praveena Jordan RN Position: [facility] AMB Nurse Member Role: Primary Care Nurse Name: Smita Cantrell RN Position: [facility] SN RN Member Role: Primary Care Nurse Name: Zain Ramos RN Position: [facility] ED RN W/OE and Tasks Member Role: Primary Care Nurse Name: Gerard Erickson RN Position: [facility] RN Member Role: Primary Care Nurse Name: Jeevan Kumar MD Position: [facility] Physician - Primary Care Member Role: PCP Address: Address: [address] [place] [address]- [place] Name: Amy Campos NP Position: [facility] Associate Professional Member Role: Primary Care Nurse Address: Address: [address] [place] [address] Trauma [place] [address]- [place] Name: Gita Becerril RN Position: [facility] RN Member Role: Primary Care Nurse Name: Selena Dias RN Position: [facility] AMB Nurse Member Role: Primary Care Nurse Name: Ryan Romero RN Position: [facility] SN RN Member Role: Primary Care Nurse Name: Florentino Torres RN Position: [facility] RN Member Role: Primary Care Nurse Name: Pretty Rosen RN Position: [facility] RN Member Role: Primary Care Nurse Name: Basilio Chase MD Position: [facility] Physician - Behavioral Health Member Role: Lifetime Consulting Physician Address: Address: [address] [place] [address]- Care Team Related Persons Name: EMEKA MACK Address: home [address] [place] [address] Name: CARMEN COELLO Address: [place] [address] Name: TRACY PALMER Address: home [address] [place] [address]
--- OUTSIDE RECORDS SUMMARY | 2024-02-23 16:18 | XMS_ITS | Continuity of Care Document ---
Author Organization [facility] Saad lt Address [address] [place] [address]- Care Team Providers Care Farm Mortgage Agent Name Role Phone Stacy JACOBSEN, Jeevan Smith Primary Care Physician Encounter [facility] Date(s): 06/30/22 - 07/30/22 [facility] Adult [address] [place] [address]- Allergies, Adverse Reactions, Alerts Substance Reaction Severity [...] 02/16/22 15:13:00 EDT, Route to Pharmacy Electronically, [facility]-, 163.5, cm, 02/16/22 14:40:00 EDT, Height Start Date: 02/16/22 Status: Ordered Actos 15 mg oral tablet 1 tablet = 15 mg, By Mouth, Daily, # 30 tablet, 6 Refills, Maintenance, 02/16/22 15:13:00 EDT, Tablet, [facility]-, Partial fill upon patient request [...] 1 Refills, Maintenance, 06/04/22 15:16:00 EDT, Tablet, [facility]-, Partial fill upon patient request if the prescription is for a schedule II opioid drug., 160, cm, 06/04/22 15:0... Start Date: 06/04/22 Status: Ordered Biotin 1000MCG TABS Biotin 1000MCG TABS, 1, tablet, By Mouth, Daily, # 90 tablet, 0 Refills, Maintenance, 07/30/22 13:16:00 EDT, 160, cm, 06/29/22 12:54:00 EDT, Height, 68.5, kg, 03/16/22 6:52:00 EDT, Dry Weight Start Date: 07/30/22 Status: Ordered biotin 5000 mcg oral capsule [...] 06/29/22 13:14:00 EDT, Route to Pharmacy Electronically, [facility]-, Partial fill upon patient request if th... Start Date: 06/29/22 Status: Ordered Crestor 5 mg oral tablet 1 tablet = 5 mg, By Mouth, Daily, REPLACES SIMVASTATIN, # 30 tablet, 6 Refills, Maintenance, 07/03/22 11:36:00 EDT, Tablet, [facility], Partial fill upon patient request if the prescription is for a schedule II opioid drug., 160,... Start Date: 07/03/22 Status: Ordered diclofenac 1% topical gel See Instructions, APPLY TO AFFECTED AREA(S) TWICE A DAY NEEDED PAIN, # 100 Gm, 0 Refills, Maintenance, 07/30/22 13:16:00 EDT, [facility]-, 14, APPLY TO AFFECTED AREA(S) TWICE A DAY NEEDED PAIN, 160, cm, 06/29/22 12:54:00 EDT, Height,... Start Date: 07/30/22 Status: Ordered dilTIAZem 360 mg/24 hours oral capsule, extended release 1 capsule = 360 mg, By Mouth, Daily, # 30 capsule, 6 Refills, Maintenance, 02/16/22 15:13:00 EDT, CR Capsule, [facility], Partial fill upon patient request [...] FOR CONSTIPATION, # 30 tablet, 0 Refills, Maintenance, 07/30/22 13:16:00 EDT, [facility]-, 160, cm, 06/29/22 12:54:00 EDT, Height, 68.5,kg, 03/16/22 6:52:00 EDT, Dry Weight Start Date: 07/30/22 Status: Ordered LaMICtal 100 mg oral tablet [...] 5 Refills, Maintenance, 02/16/22 15:13:00 EDT, Solution, [facility]-, Partial fill upon patient request if the prescription is for a schedule II opioid drug., 163.5, cm, 02/16/22... Start Date: 02/16/22 Status: Ordered methimazole 10 mg oral tablet 30 mg, 3, tablet, By Mouth, 2 times a day, # 540 tablet, Refills 3, Tot. Refills 3, Maintenance, 05/22/22 16:17:00 EDT, Route to Pharmacy Electronically, [facility]-, Partial fillupon patient request if [...] each, 0 Refills, Maintenance, 07/30/22 13:17:00 EDT, [facility], 160, cm, 06/29/2212:54:00 EDT, Height, 68.5, kg, 03/16/22 6:52:00 EDT, D... Start Date: 07/30/22 Status: Ordered Nutrafol (Hair Growth Supplement) Nutrafol (Hair Growth Supplement), See Instructions, Refills 0, Maintenance, 06/29/22 13:08:00 EDT,Supply Start Date: 06/29/22 Status: Ordered omeprazole 20 mg oral enteric coated capsule 1 capsule = 20 mg, By Mouth, Daily, # 30 capsule, 6 Refills, Maintenance, 02/16/22 15:13:00 EDT, ECCapsule, [facility], Partial fill upon patient request [...] tablet, 6 Refills, Maintenance, 08/18/21 14:36:00 EST, [facility], Partial fill upon patient request [...] mellitus type 2 in obese Confirmed Active 52759 Social History Social History Type Response Smoking Status Former smoker, quit more than 30 days ago entered on: 11/08/20 Sex Patient Care team information Personnel Name: Jeevan Kumar MD Address: Address: [address] [place] [address]- [place]
--- OUTSIDE RECORDS SUMMARY | 2024-02-23 16:18 | XMS_ITS | Continuity of Care Document ---
Author Organization [facility] Saad lt Address [address] [place] [address]- Care Team Providers Care Transit Operator Name Role Phone Stacy JACOBSEN, Jeevan Smith Primary Care Physician [phone] Encounter [facility] Date(s): 12/29/23 - 01/28/24 [facility] Adult [address] [place] [address]- Allergies, Adverse Reactions, Alerts Substance Reaction Severity [...] pneumococcal 23-valent vaccine 06/21/09 Recorded 1Result Comment: [facility]: [id number] 2Result Comment: Pt not sure the exact date. Medications acetaminophen 325 mg oral tablet 1 TO 2 TABLETS, By Mouth, Daily at bedtime, # 60 tablet, Refills 5, Tot. Refills 5, Maintenance, 01/24/24 14:34:00 EDT, Route to Pharmacy Electronically, [facility]-, 160.5, cm, 01/24/24 14:15:00 EDT, Height, 66, kg, 08/19/22 14:08... Start Date: 01/24/24 Status: Ordered biotin 1000 mcg oral tablet 1 tablet = 1,000 mcg, By Mouth, Daily, # 90 tablet, 1 Refills, Maintenance, 01/24/24 14:34:00 EDT, Tablet, [facility], Partial fill upon patient [...] 01/24/24 14:36:00 EDT, Route to Pharmacy Electronically, [facility], Partial fill upon patient request if th... Start Date: 01/24/24 Status: Ordered Crestor 5 mg oral tablet 1 tablet = 5 mg, By Mouth, Daily, REPLACES SIMVASTATIN, # 30 tablet, 6 Refills, Maintenance, 01/24/24 14:36:00 EDT, Tablet, [facility], Partial fill upon patient request if the prescription is for a schedule II opioid drug., 160.5... Start Date: 01/24/24 Status: Ordered dilTIAZem 360 mg/24 hours oral capsule, extended release 1 capsule = 360 mg, By Mouth, Daily, # 30 capsule, 6 Refills, Maintenance, 01/24/24 14:34:00 EDT, CR Capsule, [facility]-, Partial fill upon patient request if the prescription isfor a schedule II opioid drug., 160.5, cm, 01/24/24... Start Date: 01/24/24 Status: Ordered donepezil 5 mg oral tablet 1, tablet, By Mouth, Daily at bedtime, # 30 tablet, Refills 5, Tot. Refills 5, Maintenance, 01/24/24 14:34:00 EDT, Route to Pharmacy Electronically, [facility]-, 160.5, cm, 01/24/24 14:15:00 EDT, Height, 66, kg, 08/19/22 14:08:00 E... Start Date: 01/24/24 Status: Ordered ferrous sulfate 325 mg oral tablet 1 tablet, By Mouth, Daily, # 30 tablet, 11 Refills, Maintenance, 01/24/24 14:34:00 EDT, [facility], 160.5, cm, 01/24/24 14:15:00 EDT, Height, 66, [...] 5 Refills, Maintenance, 01/24/24 14:34:00 EDT, Solution, [facility]-, Partial fill upon patient [...] each, 6 Refills, Maintenance, 01/24/24 14:36:00 EDT, [facility], 160.5, cm, 01/24/24 14:15:00 EDT, Height, 66, kg, 08/19/22 14:08... Start Date: 01/24/24 Status: Ordered Nutrafol (Hair Growth Supplement) Nutrafol (Hair Growth Supplement), See Instructions, Refills 0, Maintenance, 06/29/22 13:08:00 EDT,Supply Start Date: 06/29/22 Status: Ordered omeprazole 20 mg oral enteric coated capsule 1 capsule = 20 mg, By Mouth, Daily, # 30 capsule, 5 Refills, Maintenance, 01/24/24 14:36:00 EDT, ECCapsule, [facility], Partial fill upon patient request if the prescription is for a schedule II opioid drug., 160.5, cm, 01/24/24... Start Date: 01/24/24 Status: Ordered pioglitazone 15 mg oral tablet 1 tablet, By Mouth, Daily, # 30 tablet, 2 Refills, Maintenance, 01/24/24 14:36:00 EDT, [facility], 160.5, cm, 01/24/24 14:15:00 EDT, Height, 66, [...] tablet, 6 Refills, Maintenance, 06/18/23 14:28:00 EDT, [facility], Partial fill upon patient [...] in obese Confirmed Active 1Dr. York 2017 11014 [facility] 2022 4Outside Source Comment: Overview: Per BS Social History Social History Type Response Smoking Status Former smoker, quit more than 30 days ago entered on: 11/08/20 Sex Patient Care team information Care Team Personnel Name: Praveena Jordan RN Position: [facility] AMB Nurse Member Role: Primary Care Nurse Name: Smita Cantrell RN Position: [facility] SN RN Member Role: Primary Care Nurse Name: Zain Ramos RN Position: [facility] ED RN W/OE and Tasks Member Role: Primary Care Nurse Name: Gerard Erickson RN Position: [facility] RN Member Role: Primary Care Nurse Name: Jeevan Kumar MD Position: [facility] Physician - Primary Care Member Role: PCP Address: Address: [address] [place] [id number]- [place] Name: Amy Campos NP Position: [facility] Associate Professional Member Role: Primary Care Nurse Address: Address: [address] [place] [address] Trauma and [place] [address]- Name: Gita Becerril RN Position: [facility] RN Member Role: Primary Care Nurse Name: Selena Dias RN Position: [facility] AMB Nurse Member Role: Primary Care Nurse Name: Ryan Romero RN Position: [facility] SN RN Member Role: Primary Care Nurse Name: Florentino Torres RN Position: [facility] RN Member Role: Primary Care Nurse Name: Pretty Rosen RN Position: [facility] RN Member Role: Primary Care Nurse Name: Basilio Chase MD Position: [facility] Physician - Behavioral Health Member Role: Lifetime Consulting Physician Address: Address: [address] [place] [address]- Care Team Related Persons Name: EMEKA MACK Address: home [address] [place] [id number] Name: CARMEN COELLO Address: [place] [address] Name: TRACY PALMER Address: home [address] [place] [address]
--- OUTSIDE RECORDS SUMMARY | 2024-02-23 16:18 | XMS_ITS | Continuity of Care Document ---
Author Organization [facility] Roscoe Crawford Sada lt Address [address] [place] [address]- Care Team Providers Care Mold Designer Name Role Phone Jeevan Kumar MD Primary Care Physician [facility]counter [facility] Date(s): 06/01/23 - 07/01/23 [facility] Adult [address] [place] [address]- Allergies, Adverse Reactions, Alerts Substance Reaction Severity [...] pneumococcal 23-valent vaccine 06/21/09 Recorded 1Result Comment: [facility]: [id number] 2Result Comment: Pt not sure the exact date. Medications acetaminophen 325 mg oral tablet 1 TO 2 TABLETS, By Mouth, Daily at bedtime, # 60 tablet, Refills 5, Maintenance, 06/09/23 11:30:00 EDT, Route to Pharmacy Electronically, [facility]-, 160.5, cm, 04/21/23 13:26:00 EDT, Height, 66, kg, 08/19/22 14:08:00 EST, Dry Weight Start Date: 06/09/23 Status: Ordered Actos 15 mg oral tablet 1 tablet = 15 mg, By Mouth, Daily, # 30 tablet, 6 Refills, Maintenance, 06/18/23 14:28:00 EDT, Tablet, [facility]-, Partial fill upon patient request if [...] 1 Refills, Maintenance, 06/18/23 14:28:00 EDT, Tablet, [facility]-, Partial fill upon patient request if [...] 06/18/23 14:28:00 EDT, Route to Pharmacy Electronically, [facility], Partial fill upon patient request if th... Start Date: 06/18/23 Status: Ordered Crestor 5 mg oral tablet 1 tablet = 5 mg, By Mouth, Daily, REPLACES SIMVASTATIN, # 30 tablet, 6 Refills, Maintenance, 06/18/23 14:28:00 EDT, Tablet, [facility], Partial fill upon patient request if the prescription is for a schedule II opioid drug., 160.5... Start Date: 06/18/23 Status: Ordered diclofenac 1% topical gel See Instructions, APPLY TO AFFECTED AREA(S) TWICE A DAY NEEDED PAIN, # 100 Gm, 0 Refills, Maintenance, 07/30/22 13:16:00 EDT, [facility], 14, APPLY TO AFFECTED AREA(S) TWICE A DAY NEEDED PAIN, 160, cm, 06/29/22 12:54:00 EDT, Height,... Start Date: 07/30/22 Status: Ordered dilTIAZem 360 mg/24 hours oral capsule, extended release 1 capsule = 360 mg, By Mouth, Daily, # 30 capsule, 6 Refills, Maintenance, 06/18/23 14:28:00 EDT, CR Capsule, [facility], Partial fill upon patient request if the prescription isfor a schedule II opioid drug., 160.5, cm, 06/18/23... Start Date: 06/18/23 Status: Ordered ferrous sulfate 325 mg oral tablet 1 tablet, By Mouth, Daily, # 30 tablet, 11 Refills, Maintenance, 06/18/23 14:28:00 EDT, [facility], 160.5, cm, 06/18/23 14:02:00 EDT, Height, [...] 5 Refills, Maintenance, 06/18/23 14:28:00 EDT, Solution, [id number], Partial fill upon patient request if the [...] each, 0 Refills, Maintenance, 06/08/23 17:18:00 EDT, [facility]-, 160.5, cm, 04/21/23 13:26:00 EDT, Height, 66, kg, 08/19/22 14:08... Start Date: 06/08/23 Status: Ordered Nutrafol (Hair Growth Supplement) Nutrafol (Hair Growth Supplement), See Instructions, Refills 0, Maintenance, 06/29/22 13:08:00 EDT,Supply Start Date: 06/29/22 Status: Ordered omeprazole 20 mg oral enteric coated capsule 1 capsule = 20 mg, By Mouth, Daily, # 30 capsule, 6 Refills, Maintenance, 06/18/23 14:28:00 EDT, ECCabdifatahule, [facility], Partial fill upon patient request if [...] capsule, 0 Refills,Maintenance, 06/25/23 10:03:00 EDT, Capsule, [facility], Partial fill upon patient request if the prescription is for a schedule I... Start Date: 06/25/23 Stop Date: 07/05/23 Status: Ordered topiramate 50 mg oral tablet 1 tablet = 50 mg, By Mouth, Daily, # 30 tablet, 6 Refills, Maintenance, 06/18/23 14:28:00 EDT, [facility], Partial fill upon patient request if [...] mellitus type 2 in obese Confirmed Active 85761 Social History Social History Type Response Smoking Status Former smoker, quit more than 30 days ago entered on: 11/08/20 Sex Patient Care team information Care Team Personnel Name: Praveena Jordan RN Position: [facility] AMB Nurse Member Role: Primary Care Nurse Name: Smita Cantrell RN Position: [facility] SN RN Member Role: Primary Care Nurse Name: Zain Ramos RN Position: [facility] ED RN W/OE and Tasks Member Role: Primary Care Nurse Name: Gerard Erickson RN Position: [facility] RN Member Role: Primary Care Nurse Name: Jeevan Kumar MD Position: [facility] Physician - Primary Care Member Role: PCP Address: Address: [address] [place] [address]- Name: Amy Campos NP Position: [facility] Associate Professional Member Role: Primary Care Nurse Address: Address: [address] [place] [address] Trauma [place] [address]- Name: Gita Becerril RN Position: [facility] RN Member Role: Primary Care Nurse Name: Selena Dias RN Position: [facility] AMB Nurse Member Role: Primary Care Nurse Name: Ryan Romero RN Position: [facility] SN RN Member Role: Primary Care Nurse Name: Florentino Torres RN Position: [facility] RN Member Role: Primary Care Nurse Name: Pretty Rosen RN Position: [facility] RN Member Role: Primary Care Nurse Name: Basilio Chase MD Position: [facility] Physician - Behavioral Health Member Role: Lifetime Consulting Physician Address: Address: [address] [place] [address]- Care Team Related Persons Name: EMEKA MACK Address: home [address] [place] [address] Name: CARMEN COELLO Address: [place] [address] Name: TRACY PALMER Address: home [address] [place] [address]
--- OUTSIDE RECORDS SUMMARY | 2024-02-23 16:18 | XMS_ITS | Continuity of Care Document ---
Author Organization [facility] Saad lt Address [address] [place] [address]- Care Team Providers Care Remote Advisor Name Role Phone Stacy JACOBSEN, Jeevan Smith Primary Care Physician Encounter [facility] Date(s): 06/12/21 - 07/12/21 [facility] Adult [address] [place] [address]- Allergies, Adverse Reactions, Alerts Substance Reaction Severity [...] 6 Refills, Maintenance, 02/06/21 13:47:00 EDT, Tablet, [facility]-, Partial fill upon patient request if the prescription is for a schedule II opioid drug., 163.5, cm, 02/06/21 13:17:... Start Date: 02/06/21 Status: Ordered dilTIAZem 360 mg/24 hours oral capsule, extended release 1 capsule = 360 mg, By Mouth, Daily, # 30 capsule, 6 Refills, Maintenance, 02/06/21 13:47:00 EDT, CR Capsule, [facility]-, Partial fill upon patient request if the prescription isfor a schedule II opioid drug., 163.5, cm, 02/06/21... Start Date: 02/06/21 Status: Ordered ferrous sulfate 325 mg oral enteric coated tablet 325 mg, 1, tablet, By Mouth, Daily, # 30 tablet, Refills 6, Tot. Refills 6, Maintenance, 02/06/21 13:47:00 EDT, Route to Pharmacy Electronically, [facility], Partial fill upon patient request if the prescription is for a schedule... Start Date: 02/06/21 Status: Ordered Flonase 50 mcg/inh nasal spray 1 sprays, Nares, Both, Daily, PRN Congestion, # 16 Gm, 6 Refills, Maintenance, 02/06/21 13:48:00 EDT, Nasal [place], [facility], Partial fill upon patient [...] 5 Refills, Maintenance, 02/06/21 13:47:00 EDT, Solution, [facility], Partial fill upon patient [...] 12/ DAY., # 220 each, 0 Refills, [facility] , 163.5, cm, 02/07/21 8:19:00 EDT, Height, 89.9, kg, 12/13/19 18:25:00 EDT, Dry Weight Start Date: 06/09/21 Status: Ordered omeprazole 20 mg oral enteric coated capsule 1 capsule = 20 mg, By Mouth, Daily, # 30 capsule, 6 Refills, Maintenance, 02/06/21 13:47:00 EDT, ECCapsule, [facility], Partial fill upon patient request if the prescription is for a schedule II opioid drug., 163.5, cm, 02/06/21... Start Date: 02/06/21 Status: Ordered Senna 8.6 mg oral tablet 2, tablet, By Mouth, Daily at bedtime, PRN, CONSTPATION., # 60 tablet, Refills 2, Tot. Refills 0, Acute, NEEDED, 05/08/21 11:35:00 EDT, Route to Pharmacy Electronically, [facility], 163.5, cm, 02/07/21 8:19:00 EDT, Height, 89.9, kg, ... Start Date: 05/08/21 Status: Ordered simvastatin 20 mg oral tablet 20 mg, 1, tablet, By Mouth, Daily at bedtime, # 30 tablet, Refills 6, Tot. Refills 6, Maintenance, 02/06/21 13:47:00 EDT, Route to Pharmacy Electronically, [facility], Partial fill upon patient request if the prescription is for a... Start Date: 02/06/21 Status: Ordered tiZANidine 4 mg oral capsule 1 capsule = 4 mg, By Mouth, 3 times a day, # 42 capsule, 0 Refills, Maintenance, 02/06/21 13:47:00 EDT, [facility]-, Partial fill upon patient request if the prescription is for aschedule II opioid drug., 163.5, cm, 02/06/21 13:17... Start Date: 02/06/21 Stop Date: 02/20/21 Status: Ordered topiramate 50 mg oral tablet 1 tablet = 50 mg, By Mouth, Daily, # 30 tablet, 6 Refills, Maintenance, 02/06/21 13:47:00 EDT, [facility], Partial [...] Diabetes mellitus type 2 in obese(Confirmed) Active 73[address] Social History Social History Type Response Smoking Status Former smoker, quit more than 30 days ago entered on: 11/08/20 Sex
--- OUTSIDE RECORDS SUMMARY | 2024-02-23 16:18 | XMS_ITS | Continuity of Care Document ---
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 Name Role Phone Stacy JACOBSEN, Jeevan Smith Primary Care Physician Encounter [facility] Date(s): 02/02/22 - 03/04/22 [facility] Adult [address] [place] [address]- Allergies, Adverse Reactions, Alerts Substance Reaction Severity [...] 02/16/22 15:13:00 EDT, Route to Pharmacy Electronically, [facility]-, 163.5, cm, 02/16/22 14:40:00 EDT, Height Start Date: 02/16/22 Status: Ordered Actos 15 mg oral tablet 1 tablet = 15 mg, By Mouth, Daily, # 30 tablet, 6 Refills, Maintenance, 02/16/22 15:13:00 EDT, Tablet, [facility], Partial fill [...] 0 Refills, Maintenance, 02/19/22 14:33:00 EDT, Gel, [facility], Partial fill upon patient request if the prescription is for a schedule II opioid drug., 1 application Topically 2... Start Date: 02/19/22 Status: Ordered dilTIAZem 360 mg/24 hours oral capsule, extended release 1 capsule = 360 mg, By Mouth, Daily, # 30 capsule, 6 Refills, Maintenance, 02/16/22 15:13:00 EDT, CR Capsule, [facility], Partial fill upon patient request if the prescription isfor a schedule II opioid drug., 163.5, cm, 02/16/22... Start Date: 02/16/22 Status: Ordered ferrous sulfate 325 mg oral enteric coated tablet 325 mg, 1, tablet, By Mouth, Daily, # 30 tablet, Refills 6, Tot. Refills 6, Maintenance, 02/16/22 15:13:00 EDT, Route to Pharmacy Electronically, [facility], Partial fill upon patient request if the prescription is for a schedule... Start Date: 02/16/22 Status: Ordered Flonase 50 mcg/inh nasal spray 1 sprays, Nares, Both, Daily, PRN Congestion, # 16 Gm, 6 Refills, Maintenance, 08/18/21 14:36:00 EST, Nasal [place], [facility], Partial fill upon patient [...] tablet, 0 Refills, Maintenance, 02/16/22 15:13:00 EDT, [facility], 163.5, cm, 02/16/22 14:40:00 EDT, Height [...] 5 Refills, Maintenance, 02/16/22 15:13:00 EDT, Solution, [facility], Partial fill upon patient [...] each, 0 Refills, Maintenance, 02/16/22 15:13:00 EDT, [facility]-, 163.5, cm, 02/16/22 14:40:00 EDT, Height Start Date: 02/16/22 Status: Ordered omeprazole 20 mg oral enteric coated capsule 1 capsule = 20 mg, By Mouth, Daily, # 30 capsule, 6 Refills, Maintenance, 02/16/22 15:13:00 EDT, ECCapsule, [facility]-, Partial fill upon patient [...] 02/16/22 15:13:00 EDT, Route to Pharmacy Electronically, [facility], Partial fill upon patient request if the prescription is for a... Start Date: 02/16/22 Status: Ordered tiZANidine 4 mg oral capsule 1 capsule = 4 mg, By Mouth, 3 times a day, # 42 capsule, 0 Refills, Maintenance, 02/06/21 13:47:00 EDT, [facility], Partial fill upon patient request if the prescription is for aschedule II opioid drug., 163.5, cm, 02/06/21 13:17... Start Date: 02/06/21 Stop Date: 02/20/21 Status: Ordered topiramate 50 mg oral tablet 1 tablet = 50 mg, By Mouth, Daily, # 30 tablet, 6 Refills, Maintenance, 08/18/21 14:36:00 EST, [facility]-, Partial fill upon patient [...] Diabetes mellitus type 2 in obese(Confirmed) Active 525[address] Social History Social History Type Response Smoking Status Former smoker, quit more than 30 days ago entered on: 11/08/20 Sex
--- OUTSIDE RECORDS SUMMARY | 2024-02-23 16:18 | XMS_ITS | Continuity of Care Document ---
Author Organization [facility] Address [address] [place] [address]- Care Team Providers Care Employment And Claims Aide Name Role Phone Jeevan Kumar MD Primary Care Physician [facility]counter [facility] Date(s): 05/06/23 - 06/05/23 [facility] [address] [place] [address]- Allergies, Adverse Reactions, Alerts Substance Reaction Severity [...] 12/14/22 14:45:00 EDT, Tablet, [facility]-, Partial fill upon [...] 12/14/22 14:45:00 EDT, Route to Pharmacy Electronically, [facility], Partial fill upon patient request [...] Gm, 0 Refills, Maintenance, 07/30/22 13:16:00 EDT, [facility], 14, APPLY TO [...] Maintenance, 08/19/22 14:20:00 EST, [facility], Partial fill upon patient request if the prescription is for a schedule II opioid drug., 160.5, cm, 08/19/22 14:08:... Start Date: 08/19/22 Status: Ordered ferrous sulfate 325 mg oral tablet 1 tablet, By Mouth, Daily, # 30 tablet, 11 Refills, Maintenance, 12/14/22 14:45:00 EDT, [id number], 160.5, cm, 12/14/22 14:21:00 EDT, Height, 66, [...] 12/14/22 14:45:00 EDT, Solution, [facility]-, Partial fill upon [...] CESSATION, # 220 each, 0 Refills, Maintenance, 05/19/23 16:57:00 EDT, [facility], 160.5, cm, 04/21/23 13:26:00 EDT, Height, 66, kg, 08/19/22 14:08... Start Date: 05/19/23 Status: Ordered Nutrafol (Hair Growth Supplement) Nutrafol [...] mellitus type 2 in obese Confirmed Active 68092 Social History Social History Type Response Smoking Status Former smoker, quit more than 30 days ago entered on: 11/08/20 Sex Patient Care team information Care Team Personnel Name: Praveena Jordan RN Position: [facility] Nurse Member Role: Primary Care Nurse Name: Smita Cantrell RN Position: [facility] RN [...] Primary Care Member Role: PCP Address: Address: [address] [place] [address]- [place] Name: Amy Campos NP Position: [facility] Associate Professional Member Role: Primary Care Nurse Address: Address: [address] [place] [address] Trauma and [place] [address]- [place] Name: Gita Becerril RN Position: [facility] [...] Member Role: Lifetime Consulting Physician Address: Address: [address] [facility] [place] [address]- [place] Care Team Related Persons Name: EMEKA MACK Address: home [address] [place] [address] Name: CARMEN COELLO Address: [place] [address] Name: TRACY PALMER Address: home [address] [place] [address]
--- OUTSIDE RECORDS SUMMARY | 2024-02-23 16:18 | XMS_ITS | Continuity of Care Document ---
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 Start Date: 08/17/22 Status: Ordered Actos 15 mg oral tablet 1 tablet = 15 mg, By Mouth, Daily, # 30 tablet, 6 Refills, Maintenance, 08/17/22 15:29:00 EST, Tablet, [facility]-, Partial fill upon patient request if [...] 1 Refills, Maintenance, 10/31/22 17:38:00 EST, Tablet, [facility], Partial fill upon patient request if [...] 08/17/22 15:29:00 EST, Route to Pharmacy Electronically, [facility], Partial fill upon patient request if th... Start Date: 08/17/22 Status: Ordered Crestor 5 mg oral tablet 1 tablet = 5 mg, By Mouth, Daily, REPLACES SIMVASTATIN, # 30 tablet, 6 Refills, Maintenance, 08/17/22 15:29:00 EST, Tablet, [facility], Partial fill upon patient request if the prescription is for a schedule II opioid drug., 160,... Start Date: 08/17/22 Status: Ordered diclofenac 1% topical gel See Instructions, APPLY TO AFFECTED AREA(S) TWICE A DAY NEEDED PAIN, # 100 Gm, 0 Refills, Maintenance, 07/30/22 13:16:00 EDT, [facility], 14, APPLY TO AFFECTED AREA(S) TWICE A DAY NEEDED PAIN, 160, cm, 06/29/22 12:54:00 EDT, Height,... Start Date: 07/30/22 Status: Ordered dilTIAZem 360 mg/24 hours oral capsule, extended release 1 capsule = 360 mg, By Mouth, Daily, # 30 capsule, 6 Refills, Maintenance, 08/17/22 15:29:00 EST, CR Capsule, [facility], Partial fill upon patient request if the prescription isfor a schedule II opioid drug., 160, cm, 08/17/22 1... Start Date: 08/17/22 Status: Ordered Estrace Vaginal Cream 0.1 mg/g = 1 Gm, Vaginally, Every Wednesday and Wednesday, # 42.5 Gm, 6 Refills, Maintenance, 08/19/22 14:20:00 EST, [facility], Partial fill upon patient request if the prescription is for a schedule II opioid drug., 160.5, cm, 08/19/22 14:08:... Start Date: 08/19/22 Status: Ordered ferrous sulfate 325 mg oral tablet 1 tablet, By Mouth, Daily, # 30 tablet, 11 Refills, Maintenance, 10/29/22 11:37:00 EST, [facility], 160.5, cm, 08/27/22 14:26:00 EST, Height, [...] 5 Refills, Maintenance, 08/17/22 15:29:00 EST, Solution, [facility]-, Partial fill upon patient request if the prescription is for a schedule II opioid drug., 160, cm, 08/17/22 15... Start Date: 08/17/22 Status: Ordered methimazole 10 mg oral tablet 10 mg, 1, tablet, By Mouth, Daily, # 90 tablet, Refills 3, Tot. Refills 3, Maintenance, 08/18/22 8:29:00 EST, Route to Pharmacy Electronically, [facility], Partial fill upon patient request if [...] each, 0 Refills, Maintenance, 10/21/22 13:37:00 EST, [facility], 160.5, cm, 08/27/22 14:26:00 EST, Height, 66, kg, 08/19/22 14:08... Start Date: 10/21/22 Status: Ordered Nutrafol (Hair Growth Supplement) Nutrafol (Hair Growth Supplement), See Instructions, Refills 0, Maintenance, 06/29/22 13:08:00 EDT,Supply Start Date: 06/29/22 Status: Ordered omeprazole 20 mg oral enteric coated capsule 1 capsule = 20 mg, By Mouth, Daily, # 30 capsule, 6 Refills, Maintenance, 08/17/22 15:29:00 EST, ECCapsule, [facility], Partial fill upon patient request if [...] PRN, # 60 capsule, 0 Refills, Maintenance, 12/02/22 9:33:00 EST, 160.5, cm, 08/27/22 14:26:00 EST, Height, 66, kg, 08/19/22 14:08:00 EST, Dry Weight Start Date: 12/02/22 Status: Ordered topiramate 50 mg oral tablet 1 tablet = 50 mg, By Mouth, Daily, # 30 tablet, 6 Refills, Maintenance, 08/17/22 15:29:00 EST, [facility]-, Partial fill upon patient request if [...] mellitus type 2 in obese Confirmed Active 94709 Social History Social History Type Response Smoking Status Former smoker, quit more than 30 days ago entered on: 11/08/20 Sex Patient Care team information Care Team Personnel Name: Praveena Jordan RN Position: [facility] PCO RN Member Role: Primary Care Nurse Name: Smita Cantrell RN Position: [facility] SN RN Member Role: Primary Care Nurse Name: Zain Ramos RN Position: [facility] ED RN W/OE and Tasks Member Role: Primary Care Nurse Name: Gerard Erickson RN Position: [facility] RN Member Role: Primary Care Nurse Name: Jeevan Kumar MD Position: [facility] Primary Care Physician Member Role: PCP Address: Address: [address] [place] [phone]- [place] Name: Amy Campos NP Position: [facility] Associate Professional Member Role: Primary Care Nurse Address: Address: [address] [place] [address] Trauma [place] [address]- [place] Name: Gita Becerril RN Position: [facility] RN Member Role: Primary Care Nurse Name: Selena iDas RN Position: [facility] PCO RN Member Role: Primary Care Nurse Name: Ryan Romero RN Position: [facility] SN RN Member Role: Primary Care Nurse Name: Florentino Torres RN Position: [facility] RN Member Role: Primary Care Nurse Name: Pretty Rosen RN Position: [facility] RN Member Role: Primary Care Nurse Name: Basilio Chase MD Position: [facility] Psychiatry MD Member Role: Lifetime Consulting Physician Address: Address: [address] [place] [id number] Care Team Related Persons Name: EMEKA MACK Address: home [address] [place] [address] Name: CARMEN CO[place]LLO Address: [place] [address] Name: TRACY PALMER Address: home [address] [place] [address]
--- OUTSIDE RECORDS SUMMARY | 2024-02-23 16:18 | XMS_ITS | Continuity of Care Document ---
Author Organization [facility] Ty Saad lt Address [address] [place] [address]- Care Team Providers Care Managed Care Provider Name Role Phone Jeevan Kumar MD Primary Care Physician [phone] Encounter [facility] [place] Date(s): 02/04/22 - 02/11/22 [facility] Adult [address] [place] [address]- Attending Physician: Bear Leon MD Allergies, Adverse Reactions, Alerts Substance Reaction Severity Status Soma too strong for me Active Wellbutrin seizure Active Neurontin schizophenic affect Active Bactrim GI bleed Active Immunizations Given and Recorded Vaccine Date Status Refusal Reason SARS-CoV-2 (COVID-19) mRNA-1273 vaccine 07/08/21 R ecorded [...] at bedtime, # 60 tablet, Refills 5, Route to Pharmacy Electronically, [facility]-, 163.5, cm, 08/18/21 14:06:00 EST, Height, 89.9, kg, 12/13/19 18:25:00 EDT, Dry Weight Start Date: 10/29/21 Status: Ordered Actos 15 mg oral tablet 1 tablet = 15 mg, By Mouth, Daily, # 30 tablet, 6 Refills, Maintenance, 08/18/21 14:36:00 EST, Tablet, [facility], Partial fill upon patient request if the prescription is for a schedule II opioid drug., 163.5, cm, 08/18/21 14:06:... Start Date: 08/18/21 Status: Ordered cloNIDine 0.1 mg oral tablet [...] Daily, # 30 capsule, 6 Refills, Maintenance, 08/18/21 14:36:00 EST, CR Capsule, [facility], Partial fill upon patient request if the prescription isfor a schedule II opioid drug., 163.5, cm, 08/18/21... Start Date: 08/18/21 Status: Ordered ferrous sulfate 325 mg oral enteric coated tablet 325 mg, 1, tablet, By Mouth, Daily, # 30 tablet, Refills 6, Tot. Refills 6, Maintenance, 08/18/21 14:36:00 EST, Route to Pharmacy Electronically, [facility], Partial fill upon patient request if the prescription is for a schedule... Start Date: 08/18/21 Status: Ordered Flonase 50 mcg/inh nasal spray 1 sprays, Nares, Both, Daily, PRN Congestion, # 16 Gm, 6 Refills, Maintenance, 08/18/21 14:36:00 EST, Nasal [place], [facility], Partial fill upon [...] NEEDED, CONSTPATION., # 30 tablet, 0 Refills, [facility], 163.5, cm, 08/18/21 14:06:00 EST, Height Start Date: 02/03/22 Status: Ordered LaMICtal 100 mg oral tablet [...] Daily, # 15 mL, 5 Refills, Maintenance, 08/18/21 14:36:00 EST, Solution, [facility], Partial fill upon patient request if the prescription is for a schedule II opioid drug., 163.5, cm, 08/18/21... Start Date: 08/18/21 Status: Ordered Multivitamin Daily, 0 Refills, Maintenance, 11/08/20 16:45:00 EST, Partial fill upon patient request if the prescription is for a schedule II opioid drug. Start Date: 11/08/20 Status: Ordered nicotine 4 mg oral transmucosal gum See Instructions, CHEW AND .PARK 1 PIECE DIRECTED EVERY 2 HOURS NEEDED FOR CRAVINGS, # 200 each, 0 Refills, [facility]-, 163.5, cm, 08/18/21 14:06:00 EST, Height Start Date: 01/21/22 Status: Ordered omeprazole 20 mg oral enteric coated capsule 1 capsule = 20 mg, By Mouth, Daily, # 30 capsule, 6 Refills, Maintenance, 08/18/21 14:36:00 EST, ECCapsule, [facility], Partial fill upon patient request if the prescription is for a schedule II opioid drug., 163.5, cm, 08/18/21... Start Date: 08/18/21 Status: Ordered Propranolol Refills 0, Maintenance, 08/18/21 14:23:00 EST, Partial fill upon patient request if the prescription is for a schedule II opioid drug. Start Date: 08/18/21 Status: Ordered simvastatin 20 mg oral tablet 20 mg, 1, tablet, By Mouth, Daily at bedtime, # 30 tablet, Refills 6, Tot. Refills 6, Maintenance, 08/18/21 14:36:00 EST, Route to Pharmacy Electronically, [facility], Partial fill upon patient request if the prescription is for a... Start Date: 08/18/21 Status: Ordered tiZANidine 4 mg oral capsule 1 capsule = 4 mg, By Mouth, 3 times a day, # 42 capsule, 0 Refills, Maintenance, 02/06/21 13:47:00 EDT, [facility], Partial fill upon patient request if the prescription is for aschedule II opioid drug., 163.5, cm, 02/06/21 13:17... Start Date: 02/06/21 Stop Date: 02/20/21 Status: Ordered topiramate 50 mg oral tablet 1 tablet = 50 mg, By Mouth, Daily, # 30 tablet, 6 Refills, Maintenance, 08/18/21 14:36:00 EST, [facility], Partial fill upon [...] Diabetes mellitus type 2 in obese(Confirmed) Active 47042 Vital Signs Most recent to oldest [Reference Range]: 1 Height 163.5 cm (02/04/22 10:39 AM) Weight 66.4 kg (02/04/22 10:39 AM) Oxygen Saturation [94-100 %] 99 % (02/04/22 10:39 AM) Pulse Rate [55-90 bpm] 63 bpm (02/04/22 10:39 AM) Body Mass Index [18.5-24.99] 24.84 (02/04/22 10:39 AM) Blood Pressure [90-138/55-84 mm Hg] 126/ 68mm Hg (02/04/22 10:39 AM) Temperature [96.8-100.4 DegF] 98.7 DegF (02/04/22 10:39 AM) Mode of Delivery (Oxygen) Room air (02/04/22 10:39 AM) Blood pressure sites Arm, right (02/04/22 10:39 AM) Temperature Route Oral (02/04/22 10:39 AM) Weight Obtained Via Standing scale (02/04/22 10:39 AM) Social History Social History Type Response Smoking Status Former smoker, quit more than 30 days ago entered on: 11/08/20 Sex
--- OUTSIDE RECORDS SUMMARY | 2024-02-23 16:18 | XMS_ITS | Continuity of Care Document ---
Author Organization [facility] Ty Saad lt Address [address] [place] [address]- Care Team Providers Care Bakery Products Checker Name Role Phone Stacy JACOBSEN, Jeevan Smith Primary Care Physician Encounter [facility] Date(s): 06/18/23 - 06/25/23 [facility] Adult [address] [place] [address]- Encounter Diagnosis Current use of insulin(Discharge Diagnosis) - 06/18/23 CKD (chronic kidney disease)(Discharge Diagnosis) - 06/18/23 Bipolar disorder(Discharge Diagnosis) - 06/18/23 Recurrent major depressive episodes, moderate(Discharge Diagnosis) - 06/18/23 PTSD (post-traumatic stress disorder)(Discharge Diagnosis) - 06/18/23 Insomnia(Discharge Diagnosis) - 06/18/23 History of cocaine abuse(Discharge Diagnosis) - 06/18/23 History of alcohol abuse(Discharge Diagnosis) - 06/18/23 GERD (gastroesophageal reflux disease)(Discharge Diagnosis) - 06/18/23 HTN (hypertension)(Discharge Diagnosis) - 06/18/23 History of tobacco use(Discharge Diagnosis) - 06/18/23 Attending Physician: Tisha Ac NP Referring Physician: [...] pneumococcal 23-valent vaccine 06/21/09 Recorded 1Result Comment: [facility]: [id number] 2Result Comment: Pt not sure the exact date. Medications acetaminophen 325 mg oral tablet 1 TO 2 TABLETS, By Mouth, Daily at bedtime, # 60 tablet, Refills 5, Maintenance, 06/09/23 11:30:00 EDT, Route to Pharmacy Electronically, [facility]-, 160.5, cm, 04/21/23 13:26:00 EDT, Height, 66, kg, 08/19/22 14:08:00 EST, Dry Weight Start Date: 06/09/23 Status: Ordered Actos 15 mg oral tablet 1 tablet = 15 mg, By Mouth, Daily, # 30 tablet, 6 Refills, Maintenance, 06/18/23 14:28:00 EDT, Tablet, [facility]-, Partial fill upon patient request if [...] 1 Refills, Maintenance, 06/18/23 14:28:00 EDT, Tablet, [facility], Partial fill upon patient request if [...] 06/18/23 14:28:00 EDT, Route to Pharmacy Electronically, [facility], Partial fill upon patient request if th... Start Date: 06/18/23 Status: Ordered Crestor 5 mg oral tablet 1 tablet = 5 mg, By Mouth, Daily, REPLACES SIMVASTATIN, # 30 tablet, 6 Refills, Maintenance, 06/18/23 14:28:00 EDT, Tablet, [facility], Partial fill upon patient request if the prescription is for a schedule II opioid drug., 160.5... Start Date: 06/18/23 Status: Ordered diclofenac 1% topical gel See Instructions, APPLY TO AFFECTED AREA(S) TWICE A DAY NEEDED PAIN, # 100 Gm, 0 Refills, Maintenance, 07/30/22 13:16:00 EDT, [facility]-, 14, APPLY TO AFFECTED AREA(S) TWICE A DAY NEEDED PAIN, 160, cm, 06/29/22 12:54:00 EDT, Height,... Start Date: 07/30/22 Status: Ordered dilTIAZem 360 mg/24 hours oral capsule, extended release 1 capsule = 360 mg, By Mouth, Daily, # 30 capsule, 6 Refills, Maintenance, 06/18/23 14:28:00 EDT, CR Capsule, [facility], Partial fill upon patient request if the prescription isfor a schedule II opioid drug., 160.5, cm, 06/18/23... Start Date: 06/18/23 Status: Ordered ferrous sulfate 325 mg oral tablet 1 tablet, By Mouth, Daily, # 30 tablet, 11 Refills, Maintenance, 06/18/23 14:28:00 EDT, [facility], 160.5, cm, 06/18/23 14:02:00 EDT, Height, [...] 5 Refills, Maintenance, 06/18/23 14:28:00 EDT, Solution, [facility], Partial fill upon patient request if [...] each, 0 Refills, Maintenance, 06/08/23 17:18:00 EDT, [facility], 160.5, cm, 04/21/23 13:26:00 EDT, Height, 66, kg, 08/19/22 14:08... Start Date: 06/08/23 Status: Ordered Nutrafol (Hair Growth Supplement) Nutrafol (Hair Growth Supplement), See Instructions, Refills 0, Maintenance, 06/29/22 13:08:00 EDT,Supply Start Date: 06/29/22 Status: Ordered omeprazole 20 mg oral enteric coated capsule 1 capsule = 20 mg, By Mouth, Daily, # 30 capsule, 6 Refills, Maintenance, 06/18/23 14:28:00 EDT, ECCapsule, [facility], Partial fill upon patient request if [...] capsule, 0 Refills,Maintenance, 06/25/23 10:03:00 EDT, Capsule, [facility]-, Partial fill upon patient request if the prescription is for a schedule I... Start Date: 06/25/23 Stop Date: 07/05/23 Status: Ordered topiramate 50 mg oral tablet 1 tablet = 50 mg, By Mouth, Daily, # 30 tablet, 6 Refills, Maintenance, 06/18/23 14:28:00 EDT, [facility]-, Partial fill upon patient request if [...] mellitus type 2 in obese Confirmed Active [id number] Diagnosis Diagnosis Type Effective Dates Health Status Clinical Service Informant Current use of insulin Discharge Diagnosis 06/18/23 CKD (chronic kidney disease) Discharge Diagnosis 06/18/23 Bipolar disorder Discharge Diagnosis 06/18/23 Recurrent major depressive episodes, moderate Discharge Diagnosis 06/18/23 PTSD (post-traumatic stress disorder) Discharge Diagnosis 06/18/23 Insomnia Discharge Diagnosis 06/18/23 History of cocaine abuse Discharge Diagnosis 06/18/23 History of alcohol abuse Discharge Diagnosis 06/18/23 GERD (gastroesophageal reflux disease) Discharge Diagnosis 06/18/23 HTN (hypertension) Discharge Diagnosis 06/18/23 History of tobacco use Discharge Diagnosis 06/18/23 Vital Signs Most recent to oldest [Reference Range]: 1 Height 160.5 cm (06/18/23 2:02 PM) Weight 69.3 kg (06/18/23 2:02 PM) Oxygen Saturation [94-100 %] 99 % (06/18/23 2:02 PM) Pulse Rate [55-90 bpm] 60 bpm (06/18/23 2:02 PM) Body Mass Index [18.5-24.99 kg/m2] 26.9 kg/m2 *H* (06/18/23 2:02 PM) Blood Pressure [90-138/55-84 mm Hg] 118/ 78mm Hg (06/18/23 2:02 PM) Respiratory Rate [16-30 br/min] 20 br/mi n (06/18/23 2:02 PM) Temperature [96.8-100.4 DegF] 98.1 DegF (06/18/23 2:02 PM) Mode of Delivery (Oxygen) Room air (06/18/23 2:02 PM) Blood pressure sites Arm, left (06/18/23 2:02 PM) Temperature Route Oral (06/18/23 2:02 PM) Weight Obtained Via Standing scale (06/18/23 2:02 PM) Social History Social History Type Response Smoking Status Former smoker, quit more than 30 days ago entered on: 11/08/20 Sex Patient Care team information Care Team Personnel Name: Praveena Jordan RN Position: [facility] AMB Nurse Member Role: Primary Care Nurse Name: Smita Cantrell RN Position: [facility] RN Member Role: Primary Care Nurse Name: Zain Ramos RN Position: [facility] ED RN W/OE and Tasks Member Role: Primary Care Nurse Name: Gerard Erickson RN Position: [facility] RN Member Role: Primary Care Nurse Name: Jeevan Kumar MD Position: [facility] Physician - Primary Care Member Role: PCP Address: Address: [address] [place] [address]- Name: Amy Campos NP Position: [facility] Associate Professional Member Role: Primary Care Nurse Address: Address: [address] [place] [address] Trauma and [place] [address]- Name: Gita Becerril RN Position: [facility] RN Member Role: Primary Care Nurse Name: Selena Dias RN Position: [facility] AMB Nurse Member Role: Primary Care Nurse Name: Ryan Romero RN Position: [facility] SN RN Member Role: Primary Care Nurse Name: Florentino Torres RN Position: [facility] RN Member Role: Primary Care Nurse Name: Pretty Rosen RN Position: [facility] RN Member Role: Primary Care Nurse Name: Bsailio Chase MD Position: [facility] Physician - Behavioral Health Member Role: Lifetime Consulting Physician Address: Address: [address] [place] [address] [place] [address]- Care Team Related Persons Name: EMEKA MACK Address: home [address] [place] [address] Name: CARMEN COELLO Address: [place] [address] Name: TRACY PALMER Address: home [address] [place] [address]
--- OUTSIDE RECORDS SUMMARY | 2024-02-23 16:18 | XMS_ITS | Continuity of Care Document ---
Author Organization [facility] [place] Saad lt Address [address] [place] [address]- Care Team Providers Care Hammer Adjuster Name Role Phone Jeevan Kumar MD Primary Care Physician [place] [facility] [place] - 10/01/22 [facility] [place] Adult [address] [place] [address]- Attending Physician: Jeevan Kumar MD Allergies, Adverse Reactions, [...] 1 Refills, Maintenance, 08/17/22 15:29:00 EST, Tablet, [facility] [...] Gm, 0 Refills, Maintenance, 07/30/22 13:16:00 EDT, [facility], 14, APPLY TO AFFECTED AREA(S) TWICE [...] tablet, 0 Refills, Maintenance, 09/30/22 11:52:00 EST, [facility]-, 160.5, cm, 08/27/22 14:26:00 EST, Height, [...] each, 0 Refills, Maintenance, 09/23/22 9:50:00 EST, [facility], 160.5, cm, 08/27/22 14:26:00 [...] 6 Refills, Maintenance, 08/17/22 15:29:00 EST, [facility], Partial fill upon patient [...] mellitus type 2 in obese Confirmed Active [id number] Vital Signs Most recent to oldest [Reference Range]: 1 2 Oxygen Saturation [94-100 %] 97 % (09/24/22 1:48 PM) Pulse Rate [55-90 bpm] 54 bpm *L* (09/24/22 1:48 PM) Blood Pressure [90-138/55-84 mm Hg] 150/ 75mm Hg *H* (09/24/22 2:00 PM) 147/76mm Hg *H* (09/24/22 1:48 PM) Temperature [96.8-100.4 DegF] 98.4 DegF (09/24/22 1:48 PM) Mode of Delivery (Oxygen) Room air (09/24/22 1:48 PM) Blood pressure sites Arm, left (09/24/22 2:00 PM) Arm, left (09/24/22 1:48 PM) Temperature Route Oral (09/24/22 1:48 PM) Social History Social History Type Response Smoking Status Former smoker, quit more than 30 days ago entered on: 11/08/20 Sex Patient Care team information Care Team Personnel Name: Praveena Jordan RN Position: [facility] PCO RN Member Role: Primary Care Nurse Name: Smita Cantrell RN Position: [facility] SN RN Member Role: Primary Care Nurse Name: Zain Ramos RN Position: [facility] ED RN W/OE and Tasks Member Role: Primary Care Nurse Name: Gerard Erickson RN Position: S RN Member Role: Primary Care Nurse Name: Jeevan Kumar MD Position: [facility] Primary Care Physician Member Role: PCP Address: Address: [address] [place] [address]- [place] Name: Amy Campos NP Position: [facility] Associate Professional Member Role: Primary Care Nurse Address: Address: [address] [place] [address] Trauma and [place] [address]- [place] Name: Gita Becerril RN Position: [facility] RN Member Role: Primary Care Nurse Name: Selena Dias RN Position: [facility] PCO RN Member Role: Primary Care Nurse Name: Ryan Romero RN Position: [facility] RN Member Role: Primary Care Nurse Name: Florentino Torres RN Position: [facility] RN Member Role: Primary Care Nurse Name: Pretty Rosen RN Position: [facility] RN Member Role: Primary Care Nurse Name: Basilio Chase MD Position: [facility] Psychiatry MD Member Role: Lifetime Consulting Physician Address: Address: [address] [place] [address]- [place] Care Team Related Persons Name: EMEKA MACK Address: home [address] [place] [address] Name: CARMEN COELLO Address: [place] [address] Name: TRACY PALMER Address: home [address] [place] [address]
--- OUTSIDE RECORDS SUMMARY | 2024-02-23 16:18 | XMS_ITS | Continuity of Care Document ---
Author Organization [facility] Kristopher n's [facility] Address [address], [address] [place] [address]- Care Team Providers Care Oxygen Therapy Technician Name Role Phone Stacy JACOBSEN, Jeevan Smith Primary Care Physician [phone] Encounter [facility] Date(s): 08/19/22 - 09/18/22 [facility] [address], [address] [place] [address]- Attending Physician: Admashleigh, Aaron Admitting Physician: AdmtrAaron Referring Physician: Admtr, Ar8 Allergies, Adverse Reactions, [...] 08/17/22 15:29:00 EST, Route to Pharmacy Electronically, [facility]-, 160, cm, 08/17/22 15:09:00 EST, Height, 68.5, kg, 03/16/22 6:52:... Start Date: 08/17/22 Status: Ordered Actos 15 mg oral tablet 1 tablet = 15 mg, By Mouth, Daily, # 30 tablet, 6 Refills, Maintenance, 08/17/22 15:29:00 EST, Tablet, [facility], Partial fill upon patient [...] 1 Refills, Maintenance, 08/17/22 15:29:00 EST, Tablet, [facility], Partial fill upon patient [...] 08/17/22 15:29:00 EST, Route to Pharmacy Electronically, [facility], Partial fill upon patient request if th... Start Date: 08/17/22 Status: Ordered Crestor 5 mg oral tablet 1 tablet = 5 mg, By Mouth, Daily, REPLACES SIMVASTATIN, # 30 tablet, 6 Refills, Maintenance, 08/17/22 15:29:00 EST, Tablet, [facility], Partial fill upon patient request if the prescription is for a schedule II opioid drug., 160,... Start Date: 08/17/22 Status: Ordered diclofenac 1% topical gel See Instructions, APPLY TO AFFECTED AREA(S) TWICE A DAY NEEDED PAIN, # 100 Gm, 0 Refills, Maintenance, 07/30/22 13:16:00 EDT, [facility], 14, APPLY TO AFFECTED AREA(S) TWICE A DAY NEEDED PAIN, 160, cm, 06/29/22 12:54:00 EDT, Height,... Start Date: 07/30/22 Status: Ordered dilTIAZem 360 mg/24 hours oral capsule, extended release 1 capsule = 360 mg, By Mouth, Daily, # 30 capsule, 6 Refills, Maintenance, 08/17/22 15:29:00 EST, CR Capsule, [facility], Partial fill upon patient request if the prescription isfor a schedule II opioid drug., 160, cm, 08/17/22 1... Start Date: 08/17/22 Status: Ordered Estrace Vaginal Cream 0.1 mg/g = 1 Gm, Vaginally, Every Wednesday and Wednesday, # 42.5 Gm, 6 Refills, Maintenance, 08/19/22 14:20:00 EST, [facility], Partial fill upon patient [...] 5 Refills, Maintenance, 08/17/22 15:29:00 EST, Solution, [facility]-, Partial fill upon patient request if the prescription is for a schedule II opioid drug., 160, cm, 08/17/22 15... Start Date: 08/17/22 Status: Ordered methimazole 10 mg oral tablet 10 mg, 1, tablet, By Mouth, Daily, # 90 tablet, Refills 3, Tot. Refills 3, Maintenance, 08/18/22 8:29:00 EST, Route to Pharmacy Electronically, [facility]-, Partial fill upon patient [...] each, 0 Refills, Maintenance, 07/30/22 13:17:00 EDT, [facility], 160, cm, 06/29/2212:54:00 EDT, Height, [...] 6 Refills, Maintenance, 08/17/22 15:29:00 EST, Omega, [facility]-, Partial fill upon patient [...] tablet, 6 Refills, Maintenance, 08/17/22 15:29:00 EST, [facility]-, Partial fill upon patient [...] mellitus type 2 in obese Confirmed Active 96528 Social History Social History Type Response Smoking Status Former smoker, quit more than 30 days ago entered on: 11/08/20 Sex Patient Care team information Care Team Personnel Name: Praveena Jordan RN Position: [facility] PCO RN Member Role: Primary Care Nurse Name: Smita Cantrell RN Position: [facility] SN RN Member Role: Primary Care Nurse Name: Zain Ramos RN Position: [facility] ED RN W/OE and Tasks Member Role: Primary Care Nurse Name: Gerard Erickson RN Position: [facility] RN Member Role: Primary Care Nurse Name: Jeevan Kumar MD Position: [facility] Primary Care Physician Member Role: PCP Address: Address: [address] [place] [address]- [place] Name: Amy Campos NP Position: [facility] Associate Professional Member Role: Primary Care Nurse Address: Address: [address] [place] [address] Trauma and [place] [address]- [place] Name: Gita Becerril RN Position: [facility] RN Member Role: Primary Care Nurse Name: Selena Dias RN Position: [facility] PCO RN Member Role: Primary Care Nurse Name: Ryan Romero RN Position: [facility] SN RN Member Role: Primary Care Nurse Name: Florentino Torres RN Position: [facility] RN Member Role: Primary Care Nurse Name: Pretty Rosen RN Position: [facility] RN Member Role: Primary Care Nurse Name: Basilio Chase MD Position: [facility] Psychiatry MD Member Role: Lifetime Consulting Physician Address: Address: [address] [place] [address]- [place] Care Team Related Persons Name: EMEKA MACK Address: home [address] [place] [address] Name: CARMEN COELLO Address: [place] [address] Name: TRACY PALMER Address: home [address] [place] [address]
--- OUTSIDE RECORDS SUMMARY | 2024-02-23 16:18 | XMS_ITS | Continuity of Care Document ---
Author Organization [facility] Ty Saad Address [address] [place] [address]- Care Team Providers Care Humidifier Attendant Name Role Phone Jeevan Kumar MD Primary Care Physician Encounter [facility] Date(s): 12/16/20 - 12/23/20 [facility] [place] Adult [address] [place] [address]- Encounter Diagnosis Pain of right hip(Discharge Diagnosis) - 12/16/20 Attending Physician: Not on Staff, Attending MD Referring Physician: Jeevan Kumar MD Allergies, [...] mg, By Mouth, Daily, # 30 tablet, 0 Refills, Maintenance, 11/08/20 16:41:00 EST, Tablet, Partial fill upon patient request if the prescription is for a schedule II opioid drug. Start Date: 11/08/20 Status: Ordered cloNIDine 0.1 mg oral tablet 0.1 mg, 1, tablet, By Mouth, Daily at bedtime, # 30 tablet, Refills 0, Tot. Refills 0, Maintenance,11/08/20 16:43:00 EST, Do Not Route, Partial fill upon patient request if the prescription is for aschedule II opioid drug. Start Date: 11/08/20 Status: Ordered dilTIAZem 360 mg/24 hours oral capsule, extended release 1 capsule = 360 mg, By Mouth, Daily, # 30 capsule, 0 Refills, Maintenance, 11/08/20 16:40:00 EST, CR Capsule, Partial fill upon patient request if the prescription is for a schedule II opioid drug. Start Date: 11/08/20 Status: Ordered ferrous sulfate 325 mg oral enteric coated tablet 325 mg, 1, tablet, By Mouth, Daily, # 30 tablet, Refills 0, Tot. Refills 0, Maintenance, 12/04/20 15:09:00 EST, Route to Pharmacy Electronically, [facility]-, Partial fill upon patient request if the prescription is for a schedule... Start Date: 12/04/20 Status: Ordered Flonase 50 mcg/inh nasal spray Nares, Both, PRN Congestion, 0 Refills, Maintenance, 01/19/19 14:28:22 EDT Start Date: 01/19/19 Status: Ordered Insulin Lispro 4-16 units, Subcutaneous [...] Solostar Pen 100 units/mL subcutaneous solution = 15 units, Subcutaneous Injection, Daily, # 10 mL, 0 Refills, Maintenance, 12/06/20 11:33:00 EST, Solution, [facility]-, Partial fill upon patient request if the prescription is for a schedule II opioid drug., 163.5, cm, 11/08/20... Start Date: 12/06/20 Status: Ordered Multivitamin Daily, 0 Refills, Maintenance, 11/08/20 16:45:00 EST, Partial fill upon patient request if the prescription is for a schedule II opioid drug. Start Date: 11/08/20 Status: Ordered Nicotine Gum 2 mg, Chew, Every hour, PRN, Nicotine Cravings, Refills 0, Maintenance, Other, 01/30/19 9:12:16 EDT Start Date: 01/30/19 Status: Ordered omeprazole 20 mg oral enteric coated capsule 1 capsule = 20 mg, By Mouth, Daily, # 30 capsule, 0 Refills, Maintenance, 11/08/20 16:44:00 EST, ECCapsule, Partial fill upon patient request if the prescription is for a schedule II opioid drug. Start Date: 11/08/20 Status: Ordered Senna 8.6 mg oral tablet 17.2 mg, 2, tablet, By Mouth, Daily at bedtime, PRN, # 100 tablet, Refills 0, Tot. Refills 0, Maintenance, for constipation, 12/04/20 15:09:00 EST, Route to Pharmacy Electronically, [id number] Tablet, Partial fill upon patient req... Start Date: 12/04/20 Status: Ordered simvastatin 20 mg oral tablet 20 mg, 1, tablet, By Mouth, Daily at bedtime, # 30 tablet, Refills 0, Tot. Refills 0, Maintenance, 11/08/20 16:42:00 EST, Do Not Route, Partial fill upon patient request if the prescription is for a schedule II opioid drug. Start Date: 11/08/20 Status: Ordered tiZANidine 4 mg oral capsule 1 capsule = 4 mg, By Mouth, 3 times a day, # 21 capsule, 0 Refills, Maintenance, 12/16/20 14:50:00 EDT, [facility]-, Partial fill upon patient request if the prescription is for aschedule II opioid drug., 163.5, cm, 12/16/20 14:16... Start Date: 12/16/20 Stop Date: 12/23/20 Status: Ordered topiramate 50 mg oral tablet 1 tablet = 50 mg, By Mouth, Daily, # 30 tablet, 0 Refills, Maintenance, 11/08/20 16:43:00 EST, Partial fill upon patient request if the prescription is for a schedule II opioid drug. Start Date: 11/08/20 Status: Ordered Problem List Condition Effective Dates Status Health Status Inform ant Anxiety(Confirmed) Active Bipolar disorder(Confirmed) Active BMI 30.0-30.9,adult(Confirmed) Active CKD (chronic kidney disease)(Confirmed) Active History of colitis(Confirmed) Active History of alcohol abuse(Confirmed) Active History of ankle surgery(Confirmed) 1 Active History of cocaine abuse(Confirmed) Active Hypercholesterolemia(Confirmed) Active HTN (hypertension)(Confirmed) Active Insomnia(Confirmed) Active Lumbar disc disease(Confirmed) Active Lumbar radiculitis(Confirmed) Active PTSD (post-traumatic stress disorder)(Confirmed) Active Recurrent major depressive e pisodes, moderate(Confirmed) Active History of tobacco use(Confirmed) Active Diabetes mellitus type 2 in obese(Confirmed) Active 35294 Diagnosis Diagnosis Type Effective Dates Health Status Cl inical Service Informant Pain of right hip Discharge Diagnosis 12/16/20 Vital Signs Most recent to oldest [Reference Range]: 1 Height 163.5 cm (12/16/20 2:16 PM) Social History Social History Type Response Smoking Status Former smoker, quit more than 30 days ago entered on: 11/08/20 Sex
--- OUTSIDE RECORDS SUMMARY | 2024-02-23 16:18 | XMS_ITS | Continuity of Care Document ---
Author Organization [facility] Ty Saad lt Address [address] [place] [address]- Care Team Providers Care Warehouse Operator Name Role Phone Jeevan Kumar MD Primary Care Physician Encounter [facility] Date(s): 05/05/22 - 05/12/22 [facility] [place] Adult [address] [place] [address]- Attending Physician: Osorio RALPH, Tisha Asencio Referring Physician: Jeevan Kumar MD Allergies, Adverse [...] 02/16/22 15:13:00 EDT, Route to Pharmacy Electronically, [facility]-, 163.5, cm, 02/16/22 14:40:00 EDT, Height Start Date: 02/16/22 Status: Ordered Actos 15 mg oral tablet 1 tablet = 15 mg, By Mouth, Daily, # 30 tablet, 6 Refills, Maintenance, 02/16/22 15:13:00 EDT, Tablet, [facility]-, Partial fill upon [...] Refills, Maintenance, 02/16/22 15:13:00 EDT, CR Capsule, [facility], Partial fill [...] FOR CONSTIPATION, # 30 tablet, 0 Refills, [facility]-, 160, cm, 05/05/22 11:37:00 EDT, Height, [...] 5 Refills, Maintenance, 02/16/22 15:13:00 EDT, Solution, [facility]-, Partial fill upon patient request if the prescription is for a schedule II opioid drug., 163.5, cm, 02/16/22... Start Date: 02/16/22 Status: Ordered methimazole 10 mg oral tablet 10 mg, 1, tablet, By Mouth, Every 8 hours, # 60 tablet, Refills 0, Tot. Refills [...] FOR SMOKING CESSATION, # 40 each, 0 Refills,[facility]-, 160, cm, 03/16/22 6:52:00 EDT, Height, 68.5, kg, 03/16/22 6:52:00 EDT, Dry Weight Start Date: 04/27/22 Status: Ordered omeprazole 20 mg oral enteric coated capsule 1 capsule = 20 mg, By Mouth, Daily, # 30 capsule, 6 Refills, Maintenance, 02/16/22 15:13:00 EDT, ECCapsule, [facility], Partial fill upon [...] 02/16/22 15:13:00 EDT, Route to Pharmacy Electronically, [facility], Partial fill upon patient request if the prescription is for a... Start Date: 02/16/22 Status: Ordered topiramate 50 mg oral tablet 1 tablet = 50 mg, By Mouth, Daily, # 30 tablet, 6 Refills, Maintenance, 08/18/21 14:36:00 EST, [facility], Partial fill upon [...] Diabetes mellitus type 2 in obese(Confirmed) Active 26980 Vital Signs Most recent to oldest [Reference Range]: 1 Height 160 cm (05/05/22 11:37 AM) Weight 62.4 kg (05/05/22 11:37 AM) Oxygen Saturation [94-100 %] 99 % (05/05/22 11:37 AM) Pulse Rate [55-90 bpm] 80 bpm (05/05/22 11:37 AM) Body Mass Index [18.5-24.99] 24.38 (05/05/22 11:37 AM) Blood Pressure [90-138/55-84 mm Hg] 120/ 64mm Hg (05/05/22 11:37 AM) Respiratory Rate [16-30 br/min] 22 br/mi n (05/05/22 11:37 AM) Mode of Delivery (Oxygen) Room air (05/05/22 11:37 AM) Blood pressure sites Arm, left (05/05/22 11:37 AM) Weight Obtained Via Standing scale (05/05/22 11:37 AM) Social History Social History Type Response Smoking Status Former smoker, quit more than 30 days ago entered on: 11/08/20 Sex
--- OUTSIDE RECORDS SUMMARY | 2024-02-23 16:18 | XMS_ITS | Continuity of Care Document ---
Author Organization [facility] Ty Saad lt Address [address] [place] [address]- Care Team Providers Care Weed Cutter Name Role Phone Stacy JACOBSEN, Jeevan Smith Primary Care Physician Encounter [facility] Date(s): 03/31/23 - 04/30/23 [facility] Adult [address] [place] [address]- Allergies, Adverse Reactions, Alerts Substance Reaction Severity [...] 12/14/22 14:45:00 EDT, Route to Pharmacy Electronically, [facility]-, 160.5, cm, 12/14/22 14:21:00 EDT, Height, 66, kg, 08/19/22 14:08... Start Date: 12/14/22 Status: Ordered Actos 15 mg oral tablet 1 tablet = 15 mg, By Mouth, Daily, # 30 tablet, 6 Refills, Maintenance, 12/14/22 14:45:00 EDT, Tablet, [facility]-, Partial fill upon patient request [...] 1 Refills, Maintenance, 10/31/22 17:38:00 EST, Tablet, [facility], Partial fill upon patient request [...] 12/14/22 14:45:00 EDT, Route to Pharmacy Electronically, [facility], Partial fill upon patient request if th... Start Date: 12/14/22 Status: Ordered Crestor 5 mg oral tablet 1 tablet = 5 mg, By Mouth, Daily, REPLACES SIMVASTATIN, # 30 tablet, 6 Refills, Maintenance, 12/14/22 14:45:00 EDT, Tablet, [facility], Partial fill upon patient request if the prescription is for a schedule II opioid drug., 160.5... Start Date: 12/14/22 Status: Ordered diclofenac 1% topical gel See Instructions, APPLY TO AFFECTED AREA(S) TWICE A DAY NEEDED PAIN, # 100 Gm, 0 Refills, Maintenance, 07/30/22 13:16:00 EDT, [facility], 14, APPLY TO AFFECTED AREA(S) TWICE A DAY NEEDED PAIN, 160, cm, 06/29/22 12:54:00 EDT, Height,... Start Date: 07/30/22 Status: Ordered dilTIAZem 360 mg/24 hours oral capsule, extended release 1 capsule = 360 mg, By Mouth, Daily, # 30 capsule, 6 Refills, Maintenance, 12/14/22 14:45:00 EDT, CR Capsule, [facility], Partial fill upon patient request if the prescription isfor a schedule II opioid drug., 160.5, cm, 12/14/22... Start Date: 12/14/22 Status: Ordered Estrace Vaginal Cream 0.1 mg/g = 1 Gm, Vaginally, Every Wednesday and Wednesday, # 42.5 Gm, 6 Refills, Maintenance, 08/19/22 14:20:00 EST, [facility], Partial fill upon patient request if the prescription is for a schedule II opioid drug., 160.5, cm, 08/19/22 14:08:... Start Date: 08/19/22 Status: Ordered ferrous sulfate 325 mg oral tablet 1 tablet, By Mouth, Daily, # 30 tablet, 11 Refills, Maintenance, 12/14/22 14:45:00 EDT, [facility]-, 160.5, cm, 12/14/22 14:21:00 EDT, [...] 5 Refills, Maintenance, 12/14/22 14:45:00 EDT, Solution, [facility], Partial fill upon patient request if the prescription is for a schedule II opioid drug., 160.5, cm, 12/14/22... Start Date: 12/14/22 Status: Ordered lidocaine 4% topical film 1 patch, Topically, 4 times a day, # 6 each, 0 Refills, Acute 05/22/23 13:57:00 EDT, 04/21/23 13:57:00 EDT, Film, [facility], Partial fill upon patient request [...] each, 0 Refills, Maintenance, 03/31/23 12:48:00 EDT, [facility], 160.5, cm, 12/14/22 14:21:00 EDT, Height, 66, kg, 08/19/22 14:08:00 EST,... Start Date: 03/31/23 Status: Ordered Nutrafol (Hair Growth Supplement) Nutrafol (Hair Growth Supplement), See Instructions, Refills 0, Maintenance, 06/29/22 13:08:00 EDT,Supply Start Date: 06/29/22 Status: Ordered omeprazole 20 mg oral enteric coated capsule 1 capsule = 20 mg, By Mouth, Daily, # 30 capsule, 6 Refills, Maintenance, 12/14/22 14:45:00 EDT, ECCapsule, [facility], Partial fill upon patient request [...] tablet, 6 Refills, Maintenance, 12/14/22 14:45:00 EDT, [facility], Partial fill upon patient request if [...] mellitus type 2 in obese Confirmed Active 92401 Social History Social History Type Response Smoking Status Former smoker, quit more than 30 days ago entered on: 11/08/20 Sex Patient Care team information Care Team Personnel Name: Praveena Jodran RN Position: [facility] AMB Nurse Member Role: Primary Care Nurse Name: Smita Cantrell RN Position: [facility] RN Member Role: Primary Care Nurse Name: Zain Ramos RN Position: [facility] ED RN W/OE and Tasks Member Role: Primary Care Nurse Name: Gerard Erickson RN Position: [facility] RN Member Role: Primary Care Nurse Name: Jeevan Kumar MD Position: [facility] Physician - Primary Care Member Role: PCP Address: Address: [address] [place] [address]- [place] Name: Amy Campos NP Position: [facility] Associate Professional Member Role: Primary Care Nurse Address: Address: [address] [place] [address] Trauma [place] [address]- [place] Name: Gita Becerril RN Position: [facility] RN Member Role: Primary Care Nurse Name: Selena Dias RN Position: [facility] AMB Nurse Member Role: Primary Care Nurse Name: Ryan Romero RN Position: [facility] SN RN Member Role: Primary Care Nurse Name: Florentino Torres RN Position: [facility] RN Member Role: Primary Care Nurse Name: Pretty Rosen RN Position: [facility] RN Member Role: Primary Care Nurse Name: Basilio Chase MD Position: [facility] Physician - Behavioral Health Member Role: Lifetime Consulting Physician Address: Address: [address] [place] [address]- [place] Care Team Related Persons Name: EMEKA MACK Address: home [address] [place] [address] Name: CARMEN COELLO Address: [place] [address] Name: TRACY PALMER Address: home [address] [place] [address]
--- OUTSIDE RECORDS SUMMARY | 2024-02-23 16:18 | XMS_ITS | Continuity of Care Document ---
Author Organization [facility] Address [address] [place] [address]- Care Team Providers Care Manager Product Marketing Name Role Phone Stacy JACOBSEN, Jeevan Smith Primary Care Physician Encounter [facility] Date(s): 06/24/22 - 07/24/22 [facility] [address] [place] [address]- Allergies, Adverse Reactions, Alerts Substance Reaction Severity [...] Refills, Maintenance, 06/04/22 15:16:00 EDT, Tablet, [facility]-, Partial fill upon [...] 06/29/22 13:14:00 EDT, Route to Pharmacy Electronically, [facility]-, Partial fill upon patient request if th... Start Date: 06/29/22 Status: Ordered Crestor 5 mg oral tablet 1 tablet = 5 mg, By Mouth, Daily, REPLACES SIMVASTATIN, # 30 tablet, 6 Refills, Maintenance, 07/03/22 11:36:00 EDT, Tablet, [facility]-, Partial fill upon patient request if the prescription is for a schedule II opioid drug., 160,... Start Date: 07/03/22 Status: Ordered dilTIAZem 360 mg/24 hours oral capsule, extended release 1 capsule = 360 mg, By Mouth, Daily, # 30 capsule, 6 Refills, Maintenance, 02/16/22 15:13:00 EDT, CR Capsule, [facility], Partial fill upon patient request [...] FOR CONSTIPATION, # 30 tablet, 0 Refills, [facility], 160, cm, 05/05/22 11:37:00 EDT, Height, 68.5, [...] 16:17:00 EDT, Route to Pharmacy Electronically, [facility]-, Partial fillupon patient request if the [...] each, 0 Refills, Maintenance, 06/25/22 11:32:00 EDT, [facility], 160, cm, 06/04/22 15:02:00 EDT, Height, 68.5, [...] Refills, Maintenance, 02/16/22 15:13:00 EDT, ECCapsule, [facility]-, Partial fill upon patient request [...] 6 Refills, Maintenance, 08/18/21 14:36:00 EST, [facility], Partial fill upon patient request [...] mellitus type 2 in obese Confirmed Active 89177 Social History Social History Type Response Smoking Status Former smoker, quit more than 30 days ago entered on: 11/08/20 Sex Patient Care team information Personnel Name: Stacy JACOBSEN, Jeevan Smith Address: Address: [address] [place] [id number]
--- OUTSIDE RECORDS SUMMARY | 2024-02-23 16:18 | XMS_ITS | Continuity of Care Document ---
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 Name Role Phone Osorio RALPH, Tisha Asencio Primary Care Physician [place] [facility] [place] - 04/12/[address] [address] Attending Physician: Admtr, [id number] Admitting Physician: Admtr, [id number] Referring Physician: Admtr, [...] 02/16/22 15:13:00 EDT, Route to Pharmacy Electronically, [facility]-, 163.5, cm, 02/16/22 14:40:00 EDT, Height Start Date: 02/16/22 Status: Ordered acetaminophen 500 mg oral tablet 2 tablet = 1,000 mg, By Mouth, 3 times a day, PRN for pain, for 30 days, # 180 tablet, 0 Refills, Acute 04/15/22 5:59:00 EDT, 03/16/22 5:59:00 EDT, Tablet, [facility], Partial fill upon patient request if the prescription is for a ramses... Start Date: 03/16/22 Stop Date: 04/15/22 Status: Ordered Actos 15 mg oral tablet 1 tablet = 15 mg, By Mouth, Daily, # 30 tablet, 6 Refills, Maintenance, 02/16/22 15:13:00 EDT, Tablet, [facility]-, Partial fill upon patient request if the prescription is for a schedule II opioid drug., 163.5, cm, 02/16/22 14:40:... Start Date: 02/16/22 Status: Ordered aspirin 325 mg oral delayed release tablet 325 mg, 1, tablet, By Mouth, Daily, # 30 tablet, Refills 0, Tot. Refills 0, Maintenance, 03/16/22 6:00:00 EDT, Route to Pharmacy Electronically, [facility], Partial fill upon patientrequest if the [...] Refills, Maintenance, 02/16/22 15:13:00 EDT, CR Capsule, [facility]-, Partial fill upon patient request [...] FOR CONSTIPATION, # 30 tablet, 0 Refills, [facility]-, 160, cm, 03/16/22 6:52:00 EDT, Height, 68.5, kg, 03/16/22 6:52:00 EDT, Dry Weight Start Date: 03/23/22 Status: Ordered LaMICtal 100 mg oral tablet [...] 5 Refills, Maintenance, 02/16/22 15:13:00 EDT, Solution, [facility]-, Partial fill upon patient request [...] PRN as needed for smoking cessation, # 40 each, 0 Refills, Acute 04/09/23 9:52:00 EDT, 04/09/22 10:15:00 EDT, Gum, [facility], Partial fill upon patient request if the prescription is for a sche... Start Date: 04/09/22 Stop Date: 04/09/23 Status: Ordered omeprazole 20 mg oral enteric coated capsule 1 capsule = 20 mg, By Mouth, Daily, # 30 capsule, 6 Refills, Maintenance, 02/16/22 15:13:00 EDT, ECCapsule, [facility], Partial fill upon patient request [...] 02/16/22 15:13:00 EDT, Route to Pharmacy Electronically, [facility], Partial fill upon patient request if the prescription is for a... Start Date: 02/16/22 Status: Ordered topiramate 50 mg oral tablet 1 tablet = 50 mg, By Mouth, Daily, # 30 tablet, 6 Refills, Maintenance, 08/18/21 14:36:00 EST, [facility], Partial fill upon patient request if the [...] Diabetes mellitus type 2 in obese(Confirmed) Active 70589 Social History Social History Type Response Smoking Status Former smoker, quit more than 30 days ago entered on: 11/08/20 Sex
--- OUTSIDE RECORDS SUMMARY | 2024-02-23 16:19 | XMS_ITS | Continuity of Care Document ---
Author Organization [facility] Ty Saad lt Address [address] [place] [address]- Care Team Providers Care Dental Assistant Teacher Name Role Phone Stacy JACOBSEN, Jeevan Smith Primary Care Physician [phone] Encounter [facility] [place] Date(s): 11/13/21 - 12/13/21 [facility] Adult [address] [place] [address]- Allergies, Adverse Reactions, Alerts Substance Reaction Severity [...] tablet, Refills 5, Route to Pharmacy Electronically, [facility]-, 163.5, cm, 08/18/21 14:06:00 EST, Height, 89.9, kg, 12/13/19 18:25:00 EDT, Dry Weight Start Date: 10/29/21 Status: Ordered Actos 15 mg oral tablet 1 tablet = 15 mg, By Mouth, Daily, # 30 tablet, 6 Refills, Maintenance, 08/18/21 14:36:00 EST, Tablet, [facility], Partial fill upon patient request if [...] Refills, Maintenance, 08/18/21 14:36:00 EST, CR Capsule, [facility], Partial fill upon patient request if the prescription isfor a schedule II opioid drug., 163.5, cm, 08/18/21... Start Date: 08/18/21 Status: Ordered ferrous sulfate 325 mg oral enteric coated tablet 325 mg, 1, tablet, By Mouth, Daily, # 30 tablet, Refills 6, Tot. Refills 6, Maintenance, 08/18/21 14:36:00 EST, Route to Pharmacy Electronically, [facility], Partial fill upon patient request if the prescription is for a schedule... Start Date: 08/18/21 Status: Ordered Flonase 50 mcg/inh nasal spray 1 sprays, Nares, Both, Daily, PRN Congestion, # 16 Gm, 6 Refills, Maintenance, 08/18/21 14:36:00 EST, Nasal [place], [facility], Partial fill upon patient request if [...] Date: 02/06/21 Stop Date: 11/03/21 Status: Ordered Hailey-joe 8.6 mg oral tablet 1 tablet, By Mouth, Daily at bedtime, PRN NEEDED FOR CONSTIPATION, # 30 tablet, 0 Refills, [facility] 163.5, cm, 08/18/21 14:06:00 EST, Height, 89.9, kg, 12/13/19 18:25:00 EDT, Dry Weight Start Date: 11/26/21 Status: Ordered LaMICtal 100 mg oral tablet [...] 5 Refills, Maintenance, 08/18/21 14:36:00 EST, Solution, [facility]-, Partial fill upon patient request if [...] FOR CRAVINGS, # 200 each, 0 Refills, [facility]-, 163.5, cm, 08/18/21 14:06:00 EST, Height, 89.9, kg, 12/13/19 18:25:00 EDT, Dry Weight Start Date: 11/13/21 Status: Ordered omeprazole 20 mg oral enteric coated capsule 1 capsule = 20 mg, By Mouth, Daily, # 30 capsule, 6 Refills, Maintenance, 08/18/21 14:36:00 EST, ECCapsule, [facility], Partial fill upon patient request if [...] 08/18/21 14:36:00 EST, Route to Pharmacy Electronically, [facility], Partial fill upon patient request if the prescription is for a... Start Date: 08/18/21 Status: Ordered tiZANidine 4 mg oral capsule 1 capsule = 4 mg, By Mouth, 3 times a day, # 42 capsule, 0 Refills, Maintenance, 02/06/21 13:47:00 EDT, [facility], Partial fill upon patient request if the prescription is for aschedule II opioid drug., 163.5, cm, 02/06/21 13:17... Start Date: 02/06/21 Stop Date: 02/20/21 Status: Ordered topiramate 50 mg oral tablet 1 tablet = 50 mg, By Mouth, Daily, # 30 tablet, 6 Refills, Maintenance, 08/18/21 14:36:00 EST, [facility], Partial fill upon patient request if [...] Diabetes mellitus type 2 in obese(Confirmed) Active 35932 Social History Social History Type Response Smoking Status Former smoker, quit more than 30 days ago entered on: 11/08/20 Sex
--- OUTSIDE RECORDS SUMMARY | 2024-02-23 16:19 | XMS_ITS | Continuity of Care Document ---
Author Organization [facility] Ty Saad Address [address] [place] [address]- Care Team Providers Care Public Relations Senior Associate Name Role Phone Stacy JACOBSEN, Jeevan Smith Primary Care Physician [place] [facility] [place] 01[place]25[place]21 [facility] Adult [address] [place] [address]- Allergies, Adverse Reactions, Alerts Substance Reaction Severity [...] 12/04/20 15:09:00 EST, Route to Pharmacy Electronically, [facility]-, Partial fill upon patient request if the prescription is for a schedule... Start Date: 12/04/20 Status: Ordered Flonase 50 mcg/inh nasal spray Nares, Both, PRN Congestion, 0 Refills, Maintenance, 01/19/19 14:28:22 EDT Start Date: 01/19/19 Status: Ordered LaMICtal 100 mg oral tablet 100 mg, 1, tablet, By Mouth, Daily, # 30 tablet, Refills 0, Tot. Refills 0, Maintenance, 11/08/20 16:42:00 EST, Do Not Route, Partial fill upon patient request if the prescription is for a schedule II opioid drug. Start Date: 11/08/20 Status: Ordered Lantus Solostar Pen 100 units/mL subcutaneous solution = 20 units, Subcutaneous Injection, Daily, # 10 mL, 1 Refills, Maintenance, 12/26/20 12:20:00 EDT, Solution, [facility]-, Partial fill upon patient request if the prescription is for a schedule II opioid drug., 163.5, cm, 12/16/20... Start Date: 12/26/20 Status: Ordered Multivitamin Daily, 0 Refills, Maintenance, [...] 0, Tot. Refills 0, Maintenance, for constipation, 01/17/21 14:13:00 EDT, Route to Pharmacy Electronically, [id number], Partial fill upon patient req... Start Date: 01/17/21 Status: Ordered simvastatin 20 mg oral tablet [...] day, # 42 capsule, 0 Refills, Maintenance, 01/02/21 11:00:00 EDT, [facility]-, Partial fill upon patient request if the prescription is for aschedule II opioid drug., 163.5, cm, 12/16/20 14:16... Start Date: 01/02/21 Stop Date: 01/16/21 Status: Ordered topiramate 50 mg oral tablet [...] Diabetes mellitus type 2 in obese(Confirmed) Active 74790 Social History Social History Type Response Smoking Status Former smoker, quit more than 30 days ago entered on: 11/08/20 Sex
--- OUTSIDE RECORDS SUMMARY | 2024-02-23 16:19 | XMS_ITS | Continuity of Care Document ---
Author Organization [facility] Address [address] [place] [address]- Care Team Providers Care Shaker Out Name Role Phone Stacy JACOBSEN, Jeevan Smith Primary Care Physician [phone] En[place] [facility] [place] Date(s): 10/01/23 - 10/31/23 [facility] [address] [place] [address]- Allergies, Adverse Reactions, Alerts Substance Reaction Severity [...] pneumococcal 23-valent vaccine 06/21/09 Recorded 1Result Comment: [facility]: [id number] 2Result Comment: Pt not sure the exact date. Medications acetaminophen 325 mg oral tablet 1 TO 2 TABLETS, By Mouth, Daily at bedtime, # 60 tablet, Refills 5, Maintenance, 06/09/23 11:30:00 EDT, Route to Pharmacy Electronically, [facility], 160.5, cm, 04/21/23 13:26:00 EDT, Height, 66, kg, 08/19/22 14:08:00 EST, Dry Weight Start Date: 06/09/23 Status: Ordered Actos 15 mg oral tablet 1 tablet = 15 mg, By Mouth, Daily, # 30 tablet, 6 Refills, Maintenance, 06/18/23 14:28:00 EDT, Tablet, [facility], Partial fill upon patient request if the prescription is for a schedule II opioid drug., 160.5, cm, 06/18/23 14:02:... Start Date: 06/18/23 Status: Ordered Aricept 5 mg oral tablet 5 mg, 1, tablet, By Mouth, Daily at bedtime, # 30 tablet, Refills 1, Tot. Refills 1, Maintenance, 10/28/23 10:28:00 EST, [facility] [...] 1 Refills, Maintenance, 06/18/23 14:28:00 EDT, Tablet, [facility], Partial [...] 10/12/23 13:00:00 EST, Route to Pharmacy Electronically, [facility]-, Partial fill upon patient request if th... Start Date: 10/12/23 Status: Ordered Crestor 5 mg oral tablet 1 tablet = 5 mg, By Mouth, Daily, REPLACES SIMVASTATIN, # 30 tablet, 6 Refills, Maintenance, 06/18/23 14:28:00 EDT, Tablet, [facility], Partial fill upon patient request if the prescription is for a schedule II opioid drug., 160.5... Start Date: 06/18/23 Status: Ordered diclofenac 1% topical gel See Instructions, APPLY TO AFFECTED AREA(S) TWICE A DAY NEEDED PAIN, # 100 Gm, 0 Refills, Maintenance, 07/30/22 13:16:00 EDT, [facility], 14, APPLY TO AFFECTED AREA(S) TWICE A DAY NEEDED PAIN, 160, cm, 06/29/22 12:54:00 EDT, Height,... Start Date: 07/30/22 Status: Ordered dilTIAZem 360 mg/24 hours oral capsule, extended release 1 capsule = 360 mg, By Mouth, Daily, # 30 capsule, 6 Refills, Maintenance, 06/18/23 14:28:00 EDT, CR Capsule, [facility], Partial fill upon patient request if the prescription isfor a schedule II opioid drug., 160.5, cm, 06/18/23... Start Date: 06/18/23 Status: Ordered ferrous sulfate 325 mg oral tablet 1 tablet, By Mouth, Daily, # 30 tablet, 11 Refills, Maintenance, 06/18/23 14:28:00 EDT, [facility], 160.5, cm, 06/18/23 14:02:00 EDT, Height, 66, [...] 5 Refills, Maintenance, 06/18/23 14:28:00 EDT, Solution, [facility]-, Partial [...] each, 6 Refills, Maintenance, 08/03/23 14:18:00 EST, [facility], 160.5, cm, 06/18/23 14:02:00 EDT, Height, 66, kg, 08/19/22 14:08... Start Date: 08/03/23 Status: Ordered Nutrafol (Hair Growth Supplement) Nutrafol (Hair Growth Supplement), See Instructions, Refills 0, Maintenance, 06/29/22 13:08:00 EDT,Supply Start Date: 06/29/22 Status: Ordered omeprazole 20 mg oral enteric coated capsule 1 capsule = 20 mg, By Mouth, Daily, # 30 capsule, 6 Refills, Maintenance, 06/18/23 14:28:00 EDT, ECCapsule, [facility], Partial fill upon [...] capsule, 0 Refills,Maintenance, 06/25/23 10:03:00 EDT, Capsule, [facility]-, Partial fill upon patient request if the prescription is for a schedule I... Start Date: 06/25/23 Stop Date: 07/05/23 Status: Ordered topiramate 50 mg oral tablet 1 tablet = 50 mg, By Mouth, Daily, # 30 tablet, 6 Refills, Maintenance, 06/18/23 14:28:00 EDT, [facility]-, Partial fill [...] in obese Confirmed Active 1Dr. Chela 2017 [address] [facility] 2022 4Outside Source Comment: Overview: Per BS Social History Social History Type Response Smoking Status Former smoker, quit more than 30 days ago entered on: 11/08/20 Sex Patient Care team information Care Team Personnel Name: Praveena Jordan RN Position: [facility] AMB Nurse Member Role: Primary Care Nurse Name: Smita Cantrell RN Position: [facility] SN RN Member Role: Primary Care Nurse Name: Zain Ramos RN Position: [facility] ED RN W/OE and Tasks Member Role: Primary Care Nurse Name: Gerard Erickson RN Position: [facility] RN Member Role: Primary Care Nurse Name: Jeevan Kumar MD Position: [facility] Physician - Primary Care Member Role: PCP Address: Address: [address] [place] [id number]- [place] Name: Amy Campos NP Position: [facility] Associate Professional Member Role: Primary Care Nurse Address: Address: [address] [place] [address] Trauma [place] [address]- [place] Name: Gita Becerril RN Position: [facility] RN Member Role: Primary Care Nurse Name: Selena Dias RN Position: [facility] AMB Nurse Member Role: Primary Care Nurse Name: Ryan Romero RN Position: [facility] SN RN Member Role: Primary Care Nurse Name: Florentino Torres RN Position: [facility] RN Member Role: Primary Care Nurse Name: Pretty Rosen RN Position: [facility] RN Member Role: Primary Care Nurse Name: Basilio Chase MD Position: [facility] Physician - Behavioral Health Member Role: Lifetime Consulting Physician Address: Address: [address] [place] [phone]- [place] Care Team Related Persons Name: EMEKA MACK Address: home [address] [place] [address] Name: CARMEN COELLO Address: [place] [address] Name: TRACY PALMER Address: home [address] [place] [address]
--- OUTSIDE RECORDS SUMMARY | 2024-02-23 16:19 | XMS_ITS | Continuity of Care Document ---
Author Organization [facility] Address [address] [place] [address]- Care Team Providers Care Field Contact Technician Name Role Phone Stacy JACOBSEN, Jeevan Smith Primary Care Physician Encounter [facility] Date(s): 11/12/22 - 12/12/22 [facility] [address] [place] [id number]- Allergies, Adverse Reactions, Alerts Substance Reaction Severity [...] 08/17/22 15:29:00 EST, Route to Pharmacy Electronically, [facility]-, 160, cm, 08/17/22 15:09:00 EST, Height, 68.5, kg, 03/16/22 6:52:... Start Date: 08/17/22 Status: Ordered Actos 15 mg oral tablet 1 tablet = 15 mg, By Mouth, Daily, # 30 tablet, 6 Refills, Maintenance, 08/17/22 15:29:00 EST, Tablet, [facility], Partial fill upon patient [...] 1 Refills, Maintenance, 10/31/22 17:38:00 EST, Tablet, [facility], Partial fill upon patient [...] 08/17/22 15:29:00 EST, Route to Pharmacy Electronically, [facility], Partial fill upon patient request if th... Start Date: 08/17/22 Status: Ordered Crestor 5 mg oral tablet 1 tablet = 5 mg, By Mouth, Daily, REPLACES SIMVASTATIN, # 30 tablet, 6 Refills, Maintenance, 08/17/22 15:29:00 EST, Tablet, [facility], Partial fill upon patient request if the prescription is for a schedule II opioid drug., 160,... Start Date: 08/17/22 Status: Ordered diclofenac 1% topical gel See Instructions, APPLY TO AFFECTED AREA(S) TWICE A DAY NEEDED PAIN, # 100 Gm, 0 Refills, Maintenance, 07/30/22 13:16:00 EDT, [facility], 14, APPLY TO AFFECTED AREA(S) TWICE A DAY NEEDED PAIN, 160, cm, 06/29/22 12:54:00 EDT, Height,... Start Date: 07/30/22 Status: Ordered dilTIAZem 360 mg/24 hours oral capsule, extended release 1 capsule = 360 mg, By Mouth, Daily, # 30 capsule, 6 Refills, Maintenance, 08/17/22 15:29:00 EST, CR Capsule, [facility], Partial fill upon patient request if the prescription isfor a schedule II opioid drug., 160, cm, 08/17/22 1... Start Date: 08/17/22 Status: Ordered Estrace Vaginal Cream 0.1 mg/g = 1 Gm, Vaginally, Every Wednesday and Wednesday, # 42.5 Gm, 6 Refills, Maintenance, 08/19/22 14:20:00 EST, [facility], Partial fill upon patient request if the prescription is for a schedule II opioid drug., 160.5, cm, 08/19/22 14:08:... Start Date: 08/19/22 Status: Ordered ferrous sulfate 325 mg oral tablet 1 tablet, By Mouth, Daily, # 30 tablet, 11 Refills, Maintenance, 10/29/22 11:37:00 EST, [facility], 160.5, cm, 08/27/22 14:26:00 EST, [...] 5 Refills, Maintenance, 08/17/22 15:29:00 EST, Solution, [facility]-, Partial fill upon patient request if the prescription is for a schedule II opioid drug., 160, cm, 08/17/22 15... Start Date: 08/17/22 Status: Ordered methimazole 10 mg oral tablet 10 mg, 1, tablet, By Mouth, Daily, # 90 tablet, Refills 3, Tot. Refills 3, Maintenance, 08/18/22 8:29:00 EST, Route to Pharmacy Electronically, [facility], Partial fill upon patient [...] each, 0 Refills, Maintenance, 10/21/22 13:37:00 EST, [facility], 160.5, cm, 08/27/22 14:26:00 EST, Height, 66, kg, 08/19/22 14:08... Start Date: 10/21/22 Status: Ordered Nutrafol (Hair Growth Supplement) Nutrafol (Hair Growth Supplement), See Instructions, Refills 0, Maintenance, 06/29/22 13:08:00 EDT,Supply Start Date: 06/29/22 Status: Ordered omeprazole 20 mg oral enteric coated capsule 1 capsule = 20 mg, By Mouth, Daily, # 30 capsule, 6 Refills, Maintenance, 08/17/22 15:29:00 EST, ECCapsule, [facility], Partial fill upon patient [...] tablet, 6 Refills, Maintenance, 08/17/22 15:29:00 EST, [facility]-, Partial fill upon patient [...] mellitus type 2 in obese Confirmed Active 95583 Social History Social History Type Response Smoking Status Former smoker, quit more than 30 days ago entered on: 11/08/20 Sex Patient Care team information Care Team Personnel Name: Praveena Jordan RN Position: [facility] PCO RN Member Role: Primary Care Nurse Name: Smita Cantrell RN Position: [facility] SN RN Member Role: Primary Care Nurse Name: Zain Ramos RN Position: [facility] ED RN W/OE and Tasks Member Role: Primary Care Nurse Name: Gerard Erickson RN Position: [facility] RN Member Role: Primary Care Nurse Name: Jeevan Kumar MD Position: [facility] Primary Care Physician Member Role: PCP Address: Address: [address] [place] [id number]- [place] Name: Amy Campos NP Position: [facility] Associate Professional Member Role: Primary Care Nurse Address: Address: [address] [place] [address] Trauma [place] [address]- [place] Name: Gita Becerril RN Position: [facility] RN Member Role: Primary Care Nurse Name: Selena Dias RN Position: [facility] PCO RN Member Role: Primary Care Nurse Name: Ryan Romero RN Position: [facility] SN RN Member Role: Primary Care Nurse Name: Florentino Torres RN Position: [facility] RN Member Role: Primary Care Nurse Name: Pretty Rosen RN Position: [facility] RN Member Role: Primary Care Nurse Name: Basilio Chase MD Position: [facility] Psychiatry MD Member Role: Lifetime Consulting Physician Address: Address: [address] [place] [address]- Care Team Related Persons Name: MACK EMEKA Address: [address] [place] [address] Name: CARMEN COELLO Address: [place] [address] Name: TRACY PALMER Address: home [address] [place] [address]
--- OUTSIDE RECORDS SUMMARY | 2024-02-23 16:19 | XMS_ITS | Continuity of Care Document ---
Author Organization [facility] Saad lt Address [address] [place] [address]- Care Team Providers Care Bumper Straightener Name Role Phone Stacy JACOBSEN, Jeevan Smith Primary Care Physician [facility] Date[facility]s): 12[facility]13/23 - 01/12/24 [facility] Adult [address] [place] [address]- Allergies, Adverse Reactions, Alerts Substance Reaction Severity [...] pneumococcal 23-valent vaccine 06/21/09 Recorded 1Result Comment: [facility]: [id number] 2Result Comment: Pt not sure the exact date. Medications acetaminophen 325 mg oral tablet 1 TO 2 TABLETS, By Mouth, Daily at bedtime, # 60 tablet, Refills 5, Maintenance, 11/21/23 10:19:00 EST, Route to Pharmacy Electronically, [facility]-, 160.5, cm, 10/28/23 10:10:00 EST, Height, 66, kg, 08/19/22 14:08:00 EST, Dry Weight Start Date: 11/21/23 Status: Ordered ARIPiprazole 2 mg oral tablet 2 mg, 1, tablet, By Mouth, Daily, Refills 0, Maintenance, 06/29/22 13:00:00 EDT, Partial fill upon patient request if the prescription is for a schedule II opioid drug. Start Date: 06/29/22 Status: Ordered biotin 1000 mcg oral tablet 1 tablet = 1,000 mcg, By Mouth, Daily, # 90 tablet, 1 Refills, Maintenance, 06/18/23 14:28:00 EDT, Tablet, [facility]-, Partial fill upon patient request if [...] 10/12/23 13:00:00 EST, Route to Pharmacy Electronically, [facility], Partial fill upon patient request if th... Start Date: 10/12/23 Status: Ordered Crestor 5 mg oral tablet 1 tablet = 5 mg, By Mouth, Daily, REPLACES SIMVASTATIN, # 30 tablet, 6 Refills, Maintenance, 06/18/23 14:28:00 EDT, Tablet, [facility], Partial fill upon patient [...] Refills, Maintenance, 06/18/23 14:28:00 EDT, CR Capsule, [facility], Partial fill upon patient request if the prescription isfor a schedule II opioid drug., 160.5, cm, 06/18/23... Start Date: 06/18/23 Status: Ordered donepezil 5 mg oral tablet 1, tablet, By Mouth, Daily at bedtime, # 30 tablet, Refills 5, Maintenance, 12/20/23 16:41:00 EDT, Route to Pharmacy Electronically, [facility], 160.5, cm, 10/28/23 10:10:00 EST, Height, 66, kg, 08/19/22 14:08:00 EST, Dry Weight Start Date: 12/20/23 Status: Ordered ferrous sulfate 325 mg oral tablet 1 tablet, By Mouth, Daily, # 30 tablet, 11 Refills, Maintenance, 06/18/23 14:28:00 EDT, [facility], 160.5, cm, 06/18/23 14:02:00 EDT, Height, [...] 5 Refills, Maintenance, 06/18/23 14:28:00 EDT, Solution, [facility]-, Partial fill upon patient request if [...] each, 6 Refills, Maintenance, 08/03/23 14:18:00 EST, [facility], 160.5, cm, 06/18/23 14:02:00 EDT, Height, 66, kg, 08/19/22 14:08... Start Date: 08/03/23 Status: Ordered Nutrafol (Hair Growth Supplement) Nutrafol (Hair Growth Supplement), See Instructions, Refills 0, Maintenance, 06/29/22 13:08:00 EDT,Supply Start Date: 06/29/22 Status: Ordered omeprazole 20 mg oral enteric coated capsule 1 capsule = 20 mg, By Mouth, Daily, # 30 capsule, 5 Refills, Maintenance, 12/23/23 10:38:00 EDT, ECCapsule, [facility], Partial fill upon patient request if the prescription is for a schedule II opioid drug., 160.5, cm, 10/28/23... Start Date: 12/23/23 Status: Ordered pioglitazone 15 mg oral tablet 1 tablet, By Mouth, Daily, # 30 tablet, 2 Refills, Maintenance, 12/29/23 23:50:00 EDT, [facility]-, 160.5, cm, 10/28/23 10:10:00 EST, Height, 66, kg, 08/19/22 14:08:00 EST, Dry Weight Start Date: 12/29/23 Status: Ordered Propranolol 20 mg, Refills 0, Maintenance, 08/18/21 14:23:00 EST, Partial fill upon patient request if the prescription is for a schedule II opioid drug. Start Date: 08/18/21 Status: Ordered tiZANidine 2 mg oral capsule 1 capsule = 2 mg, By Mouth, Every 8 hours, PRN as needed for muscle spasm, # 30 capsule, 0 Refills,Maintenance, 06/25/23 10:03:00 EDT, Capsule, [facility]-, Partial fill upon patient request if [...] in obese Confirmed Active [facility] [place] 2017 [address] [facility] 2022 4Outside Source Comment: Overview: Per BS Social History Social History Type Response Smoking Status Former smoker, quit more than 30 days ago entered on: 11/08/20 Sex Patient Care team information Care Team Personnel Name: Praveena Jordan RN Position: [facility] AMB Nurse Member Role: Primary Care Nurse Name: Smita Cantrell RN Position: [facility] SN RN Member Role: Primary Care Nurse Name: Zain Ramos RN Position: [facility] ED RN W/OE and Tasks Member Role: Primary Care Nurse Name: Gerard Erickson RN Position: [facility] RN Member Role: Primary Care Nurse Name: Jeevan Kumar MD Position: [facility] Physician - Primary Care Member Role: PCP Address: Address: [address] [place] [address]- Name: Amy Campos NP Position: [facility] Associate Professional Member Role: Primary Care Nurse Address: Address: [address] [place] [address] Trauma and [place] [address]- [place] Name: Gita Becerril RN Position: [facility] RN Member Role: Primary Care Nurse Name: Selena Dias RN Position: [facility] AMB Nurse Member Role: Primary Care Nurse Name: Ryan Romero RN Position: [facility] SN RN Member Role: Primary Care Nurse Name: Florentino Torres RN Position: [facility] RN Member Role: Primary Care Nurse Name: Pretty Rosen RN Position: [facility] RN Member Role: Primary Care Nurse Name: Basilio Chase MD Position: [facility] Physician - Behavioral Health Member Role: Lifetime Consulting Physician Address: Address: [address] [place] [address]- Care Team Related Persons Name: EMEKA MACK Address: home [address] [place] [address] Name: CARMEN COELLO Address: [place] [address] Name: TRACY PALMER Address: home [address] [place] [id number]
--- OUTSIDE RECORDS SUMMARY | 2024-02-23 16:19 | XMS_ITS | Continuity of Care Document ---
Author Organization [facility] Ty Saad lt Address [address] [place] [address]- Care Team Providers Care Deburrer Name Role Phone Jeevan Kumar MD Primary Care Physician [phone] Encounter [facility] [place] Date(s): 11/08/20 - 11/15/20 [facility] Adult [address] [place] [address]- Attending Physician: Not on Staff, Attending MD [...] Refills 0, Tot. Refills 0, Maintenance, 11/08/20 16:41:00 EST, Do Not Route, Partial fill upon patient request if the prescription is for a schedule II opioid drug. Start Date: 11/08/20 Status: Ordered Flonase 50 mcg/inh nasal spray [...] Solostar Pen 100 units/mL subcutaneous solution = 10 units, Subcutaneous Injection, Daily, # 10 mL, 0 Refills, Maintenance, 11/08/20 16:45:00 EST, Solution, Partial fill upon patient request if the prescription is for a schedule II opioid drug. Start Date: 11/08/20 Status: Ordered Multivitamin Daily, 0 Refills, Maintenance, [...] 0, Tot. Refills 0, Maintenance, for constipation, 11/08/20 16:42:00 EST, Do Not Route, Tablet, Partial fill upon patient request if the prescription is for a schedule II opioid... Start Date: 11/08/20 Status: Ordered simvastatin 20 mg oral tablet 20 mg, 1, tablet, By Mouth, Daily at bedtime, # 30 tablet, Refills 0, Tot. Refills 0, Maintenance, 11/08/20 16:42:00 EST, Do Not Route, Partial fill upon patient request if the prescription is for a schedule II opioid drug. Start Date: 11/08/20 Status: Ordered topiramate 50 mg oral tablet [...] Diabetes mellitus type 2 in obese(Confirmed) Active 81352 Vital Signs Most recent to oldest [Reference Range]: 1 Height 163.5 cm (11/08/20 12:43 PM) Weight 82.5 kg (11/08/20 12:43 PM) Oxygen Saturation [94-100 %] 98 % (11/08/20 12:43 PM) Pulse Rate [55-90 bpm] 68 bpm (11/08/20 12:43 PM) Body Mass Index [18.5-24.99] 30.86 *>HHI* (11/08/20 12:43 PM) Blood Pressure [90-138/55-84 mm Hg] 134/ 80mm Hg (11/08/20 12:43 PM) Blood pressure sites Arm, left (11/08/20 12:43 PM) Social History Social History Type Response Smoking Status Former smoker, quit more than 30 days ago entered on: 11/08/20 Sex
--- OUTSIDE RECORDS SUMMARY | 2024-02-23 16:19 | XMS_ITS | Continuity of Care Document ---
Author Organization [facility] Ty Saad lt Address [address] [place] [address]- Care Team Providers Care Finishing Pan Operator Name Role Phone Jeevan Kumar MD Primary Care Physician [phone] Encounter [facility] Date(s): 06/04/22 - 06/11/22 [facility] Adult [address] [place] [address]- Attending Physician: Osorio RALPH, Tisha Asencio Referring [...] EDT, CR Capsule, [facility]-, Partial fill [...] CONSTIPATION, # 30 tablet, 0 Refills, [facility]-, 160, cm, 05/05/22 11:37:00 EDT, Height, 68.5, [...] to Pharmacy Electronically, [facility], Partial fillupon patient request if the prescription is for a s... Start Date: 05/22/22 Status: Ordered MiraLax oral powder for reconstitution = 17 Gm, By Mouth, Daily, dissolve in water before taking, # 527 Gm, 1 Refills, Maintenance, 06/04/22 15:15:00 EDT, REC Powder, [facility], Partial fill [...] 40 each, 0 Refills,Maintenance, 05/26/22 11:16:00 EDT, [facility], 160, cm, 05/19/22 13:49:00 EDT, Height,68.5, kg, 03/16/22 6:52:00 EDT, Dry Weight Start Date: 05/26/22 Status: Ordered omeprazole 20 mg oral enteric coated capsule 1 capsule = 20 mg, By Mouth, Daily, # 30 capsule, 6 Refills, Maintenance, 02/16/22 15:13:00 EDT, ECCapsule, [facility], Partial fill [...] to Pharmacy Electronically, [facility], Partial fill upon patient request if the prescription is for a... Start Date: 02/16/22 Status: Ordered topiramate 50 mg oral tablet 1 tablet = 50 mg, By Mouth, Daily, # 30 tablet, 6 Refills, Maintenance, 08/18/21 14:36:00 EST, [facility]-, Partial fill [...] Diabetes mellitus type 2 in obese(Confirmed) Active 60455 Vital Signs Most recent to oldest [Reference Range]: 1 Height 160 cm (06/04/22 3:02 PM) Weight 61.9 kg (06/04/22 3:02 PM) Oxygen Saturation [94-100 %] 99 % (06/04/22 3:02 PM) Pulse Rate [55-90 bpm] 56 bpm (06/04/22 3:02 PM) Body Mass Index [18.5-24.99] 24.18 (06/04/22 3:02 PM) Blood Pressure [90-138/55-84 mm Hg] 106/ 60mm Hg (06/04/22 3:02 PM) Respiratory Rate [16-30 br/min] 24 br/mi n (06/04/22 3:02 PM) Mode of Delivery (Oxygen) Room air (06/04/22 3:02 PM) Blood pressure sites Arm, left (06/04/22 3:02 PM) Weight Obtained Via Standing scale (06/04/22 3:02 PM) Social History Social History Type Response Smoking Status Former smoker, quit more than 30 days ago entered on: 11/08/20 Sex Care Team Personnel Name: Stacy JACOBSEN, Jeevan Smith Address: [address] [place] [id number]
--- OUTSIDE RECORDS SUMMARY | 2024-02-23 16:19 | XMS_ITS | Continuity of Care Document ---
Author Organization [facility] Address [address] [place] [address]- Care Team Providers Care Genetics Teacher Name Role Phone Stacy JACOBSEN, Jeevan Smith Primary Care Physician [phone] [facility]counter [facility] Date(s): 08/18/22 - 09/17/22 [facility] [address] [place] [address]- Allergies, Adverse Reactions, Alerts Substance Reaction Severity [...] 08/17/22 15:29:00 EST, Route to Pharmacy Electronically, [facility]-, 160, cm, 08/17/22 15:09:00 EST, Height, 68.5, kg, 03/16/22 6:52:... Start Date: 08/17/22 Status: Ordered Actos 15 mg oral tablet 1 tablet = 15 mg, By Mouth, Daily, # 30 tablet, 6 Refills, Maintenance, 08/17/22 15:29:00 EST, Tablet, [facility]-, Partial fill upon patient request [...] 1 Refills, Maintenance, 08/17/22 15:29:00 EST, Tablet, [facility]-, Partial fill upon patient request [...] 08/17/22 15:29:00 EST, Route to Pharmacy Electronically, [facility], Partial fill upon patient request if th... Start Date: 08/17/22 Status: Ordered Crestor 5 mg oral tablet 1 tablet = 5 mg, By Mouth, Daily, REPLACES SIMVASTATIN, # 30 tablet, 6 Refills, Maintenance, 08/17/22 15:29:00 EST, Tablet, [facility], Partial fill upon patient request if the prescription is for a schedule II opioid drug., 160,... Start Date: 08/17/22 Status: Ordered diclofenac 1% topical gel See Instructions, APPLY TO AFFECTED AREA(S) TWICE A DAY NEEDED PAIN, # 100 Gm, 0 Refills, Maintenance, 07/30/22 13:16:00 EDT, [facility], 14, APPLY TO AFFECTED AREA(S) TWICE A DAY NEEDED PAIN, 160, cm, 06/29/22 12:54:00 EDT, Height,... Start Date: 07/30/22 Status: Ordered dilTIAZem 360 mg/24 hours oral capsule, extended release 1 capsule = 360 mg, By Mouth, Daily, # 30 capsule, 6 Refills, Maintenance, 08/17/22 15:29:00 EST, CR Capsule, [facility], Partial fill upon patient request if the prescription isfor a schedule II opioid drug., 160, cm, 08/17/22 1... Start Date: 08/17/22 Status: Ordered Estrace Vaginal Cream 0.1 mg/g = 1 Gm, Vaginally, Every Wednesday and Wednesday, # 42.5 Gm, 6 Refills, Maintenance, 08/19/22 14:20:00 EST, [facility], Partial fill upon patient request [...] 5 Refills, Maintenance, 08/17/22 15:29:00 EST, Solution, [facility]-, Partial fill upon patient request if the prescription is for a schedule II opioid drug., 160, cm, 08/17/22 15... Start Date: 08/17/22 Status: Ordered methimazole 10 mg oral tablet 10 mg, 1, tablet, By Mouth, Daily, # 90 tablet, Refills 3, Tot. Refills 3, Maintenance, 08/18/22 8:29:00 EST, Route to Pharmacy Electronically, [facility]-, Partial fill upon patient request [...] each, 0 Refills, Maintenance, 07/30/22 13:17:00 EDT, [facility]-, 160, cm, 06/29/2212:54:00 EDT, Height, 68.5, kg, 03/16/22 6:52:00 EDT, D... Start Date: 07/30/22 Status: Ordered Nutrafol (Hair Growth Supplement) Nutrafol (Hair Growth Supplement), See Instructions, Refills 0, Maintenance, 06/29/22 13:08:00 EDT,Supply Start Date: 06/29/22 Status: Ordered omeprazole 20 mg oral enteric coated capsule 1 capsule = 20 mg, By Mouth, Daily, # 30 capsule, 6 Refills, Maintenance, 08/17/22 15:29:00 EST, ECCapsule, [facility]-, Partial fill upon patient request [...] tablet, 6 Refills, Maintenance, 08/17/22 15:29:00 EST, [facility]-, Partial fill upon patient request [...] mellitus type 2 in obese Confirmed Active 84504 Social History Social History Type Response Smoking Status Former smoker, quit more than 30 days ago entered on: 11/08/20 Sex Patient Care team information Care Team Personnel Name: Praveena Jordan RN Position: [facility] PCO RN Member Role: Primary Care Nurse Name: Smita Cantrell RN Position: [facility] SN RN Member Role: Primary Care Nurse Name: Zain Ramos RN Position: [facility] ED RN W/OE and Tasks Member Role: Primary Care Nurse Name: Gerard Erickson RN Position: [facility] RN Member Role: Primary Care Nurse Name: Jeevan Kumar MD Position: [facility] Primary Care Physician Member Role: PCP Address: Address: [address] [place] [address]- [place] Name: Amy Campos NP Position: [facility] Associate Professional Member Role: Primary Care Nurse Address: Address: [address] [place] [address] Trauma [place] [address]- [place] Name: Gita Becerril RN Position: [facility] RN Member Role: Primary Care Nurse Name: Selena Dias RN Position: [facility] PCO RN Member Role: Primary Care Nurse Name: Ryan Romero RN Position: [facility] SN RN Member Role: Primary Care Nurse Name: Florentino Torres RN Position: [facility] RN Member Role: Primary Care Nurse Name: Pretty Rosen RN Position: [facility] RN Member Role: Primary Care Nurse Name: Basilio Chase MD Position: [facility] Psychiatry MD Member Role: Lifetime Consulting Physician Address: Address: [address] [place] [address]- Care Team Related Persons Name: EMEKA MACK Address: home [address] [place] [address] Name: CARMEN COELLO Address: [place] [address] Name: TRACY PALMER Address: home [address] [place] [address]
--- OUTSIDE RECORDS SUMMARY | 2024-02-23 16:19 | XMS_ITS | Continuity of Care Document ---
Author Organization [facility] Address [address] [place] [address]- Care Team Providers Care Contracting Support Specialist Name Role Phone Stacy JACOBSEN, Jeevan Smith Primary Care Physician [facility] Date(s): 06/03/22 - 07/03/22 [facility] [address] [place] [address]- Allergies, Adverse Reactions, Alerts Substance Reaction Severity [...] 02/16/22 15:13:00 EDT, Route to Pharmacy Electronically, [facility] [place]-, 163.5, cm, 02/16/22 14:40:00 EDT, Height Start Date: 02/16/22 Status: Ordered Actos 15 mg oral tablet 1 tablet = 15 mg, By Mouth, Daily, # 30 tablet, 6 Refills, Maintenance, 02/16/22 15:13:00 EDT, Tablet, [facility] [place] Partial fill upon patient request if the [...] 1 Refills, Maintenance, 06/04/22 15:16:00 EDT, Tablet, [facility] [place]-, Partial fill upon patient request if the [...] 06/29/22 13:14:00 EDT, Route to Pharmacy Electronically, [facility] [place]-, Partial fill upon patient request if th... Start Date: 06/29/22 Status: Ordered Crestor 5 mg oral tablet 1 tablet = 5 mg, By Mouth, Daily, REPLACES SIMVASTATIN, # 30 tablet, 6 Refills, Maintenance, 07/03/22 11:36:00 EDT, Tablet, [facility] [place]-, Partial fill upon patient request if the prescription is for a schedule II opioid drug., 160,... Start Date: 07/03/22 Status: Ordered dilTIAZem 360 mg/24 hours oral capsule, extended release 1 capsule = 360 mg, By Mouth, Daily, # 30 capsule, 6 Refills, Maintenance, 02/16/22 15:13:00 EDT, CR Capsule, [facility] [place], Partial fill upon patient request if the [...] FOR CONSTIPATION, # 30 tablet, 0 Refills, [facility]-, 160, cm, 05/05/22 11:37:00 EDT, Height, [...] 5 Refills, Maintenance, 02/16/22 15:13:00 EDT, Solution, [facility] [place]-, Partial fill upon patient request if the prescription is for a schedule II opioid drug., 163.5, cm, 02/16/22... Start Date: 02/16/22 Status: Ordered methimazole 10 mg oral tablet 30 mg, 3, tablet, By Mouth, 2 times a day, # 540 tablet, Refills 3, Tot. Refills 3, Maintenance, 05/22/22 16:17:00 EDT, Route to Pharmacy Electronically, [facility] [place]-, Partial fillupon patient request if the prescription [...] each, 0 Refills, Maintenance, 06/25/22 11:32:00 EDT, [facility], 160, cm, 06/04/22 15:02:00 EDT, [...] capsule, 6 Refills, Maintenance, 02/16/22 15:13:00 EDT, Marlenule, [facility] [place] Partial fill upon patient request if the [...] tablet, 6 Refills, Maintenance, 08/18/21 14:36:00 EST, [facility] [place], Partial fill upon patient request if the [...] mellitus type 2 in obese Confirmed Active 81169 Social History Social History Type Response Smoking Status Former smoker, quit more than 30 days ago entered on: 11/08/20 Sex Patient Care team information Personnel Name: Jeevan Kumar MD Address: Address: [address] [place] [id number]
--- OUTSIDE RECORDS SUMMARY | 2024-02-23 16:19 | XMS_ITS | Continuity of Care Document ---
Author Organization [facility] Saad Address [address] [place] [address]- Care Team Providers Care Seafood Farmer Name Role Phone Jeevan Kumar MD Primary Care Physician [phone] Encounter [facility] [place] Date(s): 08/18/21 - 08/25/21 [facility] Adult [address] [place] [address]- Attending Physician: Osorio RALPH, Tisha Asencio Referring Physician: eJevan Kumar MD Allergies, Adverse Reactions, Alerts Substance [...] Pt not sure the exact date. Medications Actos 15 mg oral tablet 1 tablet = 15 mg, By Mouth, Daily, # 30 tablet, 6 Refills, Maintenance, 08/18/21 14:36:00 EST, Tablet, [facility]-, Partial fill upon patient request [...] Refills, Maintenance, 08/18/21 14:36:00 EST, CR Capsule, [facility]-, Partial fill upon patient request if the prescription isfor a schedule II opioid drug., 163.5, cm, 08/18/21... Start Date: 08/18/21 Status: Ordered ferrous sulfate 325 mg oral enteric coated tablet 325 mg, 1, tablet, By Mouth, Daily, # 30 tablet, Refills 6, Tot. Refills 6, Maintenance, 08/18/21 14:36:00 EST, Route to Pharmacy Electronically, [facility], Partial fill upon patient request if the prescription is for a schedule... Start Date: 08/18/21 Status: Ordered Flonase 50 mcg/inh nasal spray 1 sprays, Nares, Both, Daily, PRN Congestion, # 16 Gm, 6 Refills, Maintenance, 08/18/21 14:36:00 EST, Nasal [place], [facility]-, Partial fill upon patient request [...] 5 Refills, Maintenance, 08/18/21 14:36:00 EST, Solution, [facility]-, Partial fill upon patient request [...] 12/ DAY., # 220 each, 0 Refills, Maintenance, 08/18/21 14:36:00 EST, [facility], 163.5, cm, 08/18/21 14:06:00 EST, Height, 89.9,... Start Date: 08/18/21 Status: Ordered omeprazole 20 mg oral enteric coated capsule 1 capsule = 20 mg, By Mouth, Daily, # 30 capsule, 6 Refills, Maintenance, 08/18/21 14:36:00 EST, ECCapsule, [facility], Partial fill upon patient request if the prescription is for a schedule II opioid drug., 163.5, cm, 08/18/21... Start Date: 08/18/21 Status: Ordered Propranolol Refills 0, Maintenance, 08/18/21 14:23:00 EST, Partial fill upon patient request if the prescription is for a schedule II opioid drug. Start Date: 08/18/21 Status: Ordered Senna 8.6 mg oral tablet 8.6 mg, 1, tablet, By Mouth, Daily at bedtime, PRN, CONSTPATION., # 30 tablet, Refills 2, Tot. Refills 2, Maintenance, NEEDED, 08/18/21 14:34:00 EST, Route to Pharmacy Electronically, [facility], 163.5, cm, 08/18/21 14:06:00 ES... Start Date: 08/18/21 Status: Ordered simvastatin 20 mg oral tablet 20 mg, 1, tablet, By Mouth, Daily at bedtime, # 30 tablet, Refills 6, Tot. Refills 6, Maintenance, 08/18/21 14:36:00 EST, Route to Pharmacy Electronically, [facility], Partial fill upon patient request if the prescription is for a... Start Date: 08/18/21 Status: Ordered tiZANidine 4 mg oral capsule 1 capsule = 4 mg, By Mouth, 3 times a day, # 42 capsule, 0 Refills, Maintenance, 02/06/21 13:47:00 EDT, [facility], Partial fill upon patient request if the prescription is for aschedule II opioid drug., 163.5, cm, 02/06/21 13:17... Start Date: 02/06/21 Stop Date: 02/20/21 Status: Ordered topiramate 50 mg oral tablet 1 tablet = 50 mg, By Mouth, Daily, # 30 tablet, 6 Refills, Maintenance, 08/18/21 14:36:00 EST, [facility], Partial fill upon patient request if the prescription is for a scheduleII opioid drug., 163.5, cm, 08/18/21 14:06:00 EST,... Start Date: 08/18/21 Status: Ordered Tylenol 325 mg oral capsule See Instructions, 1-2 capsule By Mouth qhs, # 100 each, 1 Refills, Maintenance, 08/18/21 14:36:00 EST, [facility], Partial fill upon patient request if the prescription is for a schedule II opioid drug., 163.5, cm, 08/18/21 14:06... Start Date: 08/18/21 Status: Ordered Problem List [...] Diabetes mellitus type 2 in obese(Confirmed) Active 91890 Vital Signs Most recent to oldest [Reference Range]: 1 Height 163.5 cm (08/18/21 2:06 PM) Weight 67.7 kg (08/18/21 2:06 PM) Oxygen Saturation [94-100 %] 99 % (08/18/21 2:06 PM) Pulse Rate [55-90 bpm] 57 bpm (08/18/21 2:06 PM) Body Mass Index [18.5-24.99] 25.33 *H* (08/18/21 2:06 PM) Blood Pressure [90-138/55-84 mm Hg] 148/ 78mm Hg *H* (08/18/21 2:06 PM) Temperature [96.8-100.4 DegF] 98.6 DegF (08/18/21 2:06 PM) Mode of Delivery (Oxygen) Room air (08/18/21 2:06 PM) Blood pressure sites Arm, left (08/18/21 2:06 PM) Temperature Route Oral (08/18/21 2:06 PM) Weight Obtained Via Standing scale (08/18/21 2:06 PM) Social History Social History Type Response Smoking Status Former smoker, quit more than 30 days ago entered on: 11/08/20 Sex
--- OUTSIDE RECORDS SUMMARY | 2024-02-23 16:19 | XMS_ITS | Continuity of Care Document ---
Author Organization [facility] Ty Saad lt Address [address] [place] [address]- Care Team Providers Care Investigator Operator Name Role Phone Stacy JACOBSEN, Jeevan Smith Primary Care Physician Encounter [facility] Date(s): 10/28/23 - 11/04/23 [facility] Adult [address] [place] [address]- Encounter Diagnosis Mild cognitive impairment(Discharge Diagnosis) - 10/28/23 Attending Physician: Osorio RALPH, Tisha Asencio Allergies, Adverse [...] 23-valent vaccine 06/21/09 Recorded 1Result Comment: [facility]: [id number] 2Result Comment: Pt not sure the exact date. Medications acetaminophen 325 mg oral tablet 1 TO 2 TABLETS, By Mouth, Daily at bedtime, # 60 tablet, Refills 5, Maintenance, 06/09/23 11:30:00 EDT, Route to Pharmacy Electronically, [facility], 160.5, cm, 04/21/23 13:26:00 EDT, Height, 66, kg, 08/19/22 14:08:00 EST, Dry Weight Start Date: 06/09/23 Status: Ordered Actos 15 mg oral tablet 1 tablet = 15 mg, By Mouth, Daily, # 30 tablet, 6 Refills, Maintenance, 06/18/23 14:28:00 EDT, Tablet, [facility], Partial fill upon patient request if the prescription is for a schedule II opioid drug., 160.5, cm, 06/18/23 14:02:... Start Date: 06/18/23 Status: Ordered Aricept 5 mg oral tablet 5 mg, 1, tablet, By Mouth, Daily at bedtime, # 30 tablet, Refills 1, Tot. Refills 1, Maintenance, 10/28/23 10:28:00 EST, Route to Pharmacy Electronically, [facility]-, Partial fill upon patient request if [...] 1 Refills, Maintenance, 06/18/23 14:28:00 EDT, Tablet, [facility], Partial fill upon patient request if [...] 10/12/23 13:00:00 EST, Route to Pharmacy Electronically, [facility]-, Partial fill upon patient request if th... Start Date: 10/12/23 Status: Ordered Crestor 5 mg oral tablet 1 tablet = 5 mg, By Mouth, Daily, REPLACES SIMVASTATIN, # 30 tablet, 6 Refills, Maintenance, 06/18/23 14:28:00 EDT, Tablet, [facility], Partial fill upon patient request if the prescription is for a schedule II opioid drug., 160.5... Start Date: 06/18/23 Status: Ordered diclofenac 1% topical gel See Instructions, APPLY TO AFFECTED AREA(S) TWICE A DAY NEEDED PAIN, # 100 Gm, 0 Refills, Maintenance, 07/30/22 13:16:00 EDT, [facility]-, 14, APPLY TO AFFECTED AREA(S) TWICE A DAY NEEDED PAIN, 160, cm, 06/29/22 12:54:00 EDT, Height,... Start Date: 07/30/22 Status: Ordered dilTIAZem 360 mg/24 hours oral capsule, extended release 1 capsule = 360 mg, By Mouth, Daily, # 30 capsule, 6 Refills, Maintenance, 06/18/23 14:28:00 EDT, CR Capsule, [facility], Partial fill upon patient request if the prescription isfor a schedule II opioid drug., 160.5, cm, 06/18/23... Start Date: 06/18/23 Status: Ordered ferrous sulfate 325 mg oral tablet 1 tablet, By Mouth, Daily, # 30 tablet, 11 Refills, Maintenance, 06/18/23 14:28:00 EDT, [facility]-[id number], 160.5, cm, 06/18/23 14:02:00 EDT, Height, 66, [...] 5 Refills, Maintenance, 06/18/23 14:28:00 EDT, Solution, [facility], Partial fill upon patient request if [...] each, 6 Refills, Maintenance, 08/03/23 14:18:00 EST, [facility], 160.5, cm, 06/18/23 14:02:00 EDT, Height, 66, kg, 08/19/22 14:08... Start Date: 08/03/23 Status: Ordered Nutrafol (Hair Growth Supplement) Nutrafol (Hair Growth Supplement), See Instructions, Refills 0, Maintenance, 06/29/22 13:08:00 EDT,Supply Start Date: 06/29/22 Status: Ordered omeprazole 20 mg oral enteric coated capsule 1 capsule = 20 mg, By Mouth, Daily, # 30 capsule, 6 Refills, Maintenance, 06/18/23 14:28:00 EDT, ECCapsule, [facility], Partial fill upon patient request if [...] capsule, 0 Refills,Maintenance, 06/25/23 10:03:00 EDT, Capsule, [facility]-, Partial fill upon patient request if the prescription is for a schedule I... Start Date: 06/25/23 Stop Date: 07/05/23 Status: Ordered topiramate 50 mg oral tablet 1 tablet = 50 mg, By Mouth, Daily, # 30 tablet, 6 Refills, Maintenance, 06/18/23 14:28:00 EDT, [facility]-, Partial fill upon patient request if [...] in obese Confirmed Active 1Dr. Chela 2017 [address] [facility] 2022 4Outside Source Comment: Overview: Per BS Diagnosis Diagnosis Type Effective Dates Health Status Clinical Service Informant Mild cognitive impairment Discharge Diagnosis 10/28/23 Vital Signs Most recent to oldest [Reference Range]: 1 Height 160.5 cm (10/28/23 10:10 AM) Weight 67.7 kg (10/28/23 10:10 AM) Body Mass Index [18.5-24.99 kg/m2] 26.28 kg/m2 *H* (10/28/23 10:10 AM) Weight Obtained Via Patient/family state d (10/28/23 10:10 AM) Social History Social History Type Response Smoking Status Former smoker, quit more than 30 days ago entered on: 11/08/20 Sex Patient Care team information Care Team Personnel Name: Praveena Jordan RN Position: [facility] AMB Nurse Member Role: Primary [...] Kumar MD Position: [facility] Physician - Primary Care Member Role: PCP Address: Address: [address] [place] [id number]- Name: Amy Campos NP Position: [facility] Associate Professional Member Role: Primary Care Nurse Address: Address: [address] [place] [address] Trauma [place] [address]- Name: Gita Becerril RN Position: [facility] RN Member Role: Primary Care Nurse Name: Selena Dias RN Position: [facility] AMB Nurse Member Role: Primary [...] Chase MD Position: [facility] Physician - Behavioral Health Member Role: Lifetime Consulting Physician Address: Address: [address] [place] [address]- Care Team Related Persons Name: EMEKA MACK Address: home [address] [place] [address] Name: CARMEN COELLO Address: [place] [address] Name: TRACY PALMER Address: home [address] [place] [address]
--- OUTSIDE RECORDS SUMMARY | 2024-02-23 16:19 | XMS_ITS | Continuity of Care Document ---
Author Organization [facility] Ty Saad lt Address [address] [place] [address]- Care Team Providers Care Assembler [employer]iconductor Name Role Phone Stacy JACOBSEN, Jeevan Smith Primary Care Physician [phone] Encounter [facility] Date(s): 12/15/22 - 01/14/23 [facility] Adult [address] [place] [address]- Allergies, Adverse Reactions, Alerts Substance Reaction Severity [...] 12/14/22 14:45:00 EDT, Route to Pharmacy Electronically, [facility]-, 160.5, cm, 12/14/22 14:21:00 EDT, Height, 66, kg, 08/19/22 14:08... Start Date: 12/14/22 Status: Ordered Actos 15 mg oral tablet 1 tablet = 15 mg, By Mouth, Daily, # 30 tablet, 6 Refills, Maintenance, 12/14/22 14:45:00 EDT, Tablet, [facility]-, Partial fill upon patient request [...] 1 Refills, Maintenance, 10/31/22 17:38:00 EST, Tablet, [facility]-, Partial fill upon patient request [...] 12/14/22 14:45:00 EDT, Route to Pharmacy Electronically, [facility], Partial fill upon patient request if th... Start Date: 12/14/22 Status: Ordered Crestor 5 mg oral tablet 1 tablet = 5 mg, By Mouth, Daily, REPLACES SIMVASTATIN, # 30 tablet, 6 Refills, Maintenance, 12/14/22 14:45:00 EDT, Tablet, [facility], Partial fill upon patient request if the prescription is for a schedule II opioid drug., 160.5... Start Date: 12/14/22 Status: Ordered diclofenac 1% topical gel See Instructions, APPLY TO AFFECTED AREA(S) TWICE A DAY NEEDED PAIN, # 100 Gm, 0 Refills, Maintenance, 07/30/22 13:16:00 EDT, [facility], 14, APPLY TO AFFECTED AREA(S) TWICE A DAY NEEDED PAIN, 160, cm, 06/29/22 12:54:00 EDT, Height,... Start Date: 07/30/22 Status: Ordered dilTIAZem 360 mg/24 hours oral capsule, extended release 1 capsule = 360 mg, By Mouth, Daily, # 30 capsule, 6 Refills, Maintenance, 12/14/22 14:45:00 EDT, CR Capsule, [facility], Partial fill upon patient request if the prescription isfor a schedule II opioid drug., 160.5, cm, 12/14/22... Start Date: 12/14/22 Status: Ordered Estrace Vaginal Cream 0.1 mg/g = 1 Gm, Vaginally, Every Wednesday and Wednesday, # 42.5 Gm, 6 Refills, Maintenance, 08/19/22 14:20:00 EST, [facility], Partial fill upon patient request if the prescription is for a schedule II opioid drug., 160.5, cm, 08/19/22 14:08:... Start Date: 08/19/22 Status: Ordered ferrous sulfate 325 mg oral tablet 1 tablet, By Mouth, Daily, # 30 tablet, 11 Refills, Maintenance, 12/14/22 14:45:00 EDT, [facility]-[id number], 160.5, cm, 12/14/22 14:21:00 EDT, Height, 66, [...] 5 Refills, Maintenance, 12/14/22 14:45:00 EDT, Solution, [facility]-, Partial fill upon patient request [...] each, 0 Refills, Maintenance, 12/14/22 14:45:00 EDT, [facility]-, 160.5, cm, 12/14/22 14:21:00 EDT, Height, 66, kg, 08/19/22 14:08... Start Date: 12/14/22 Status: Ordered Nutrafol (Hair Growth Supplement) Nutrafol (Hair Growth Supplement), See Instructions, Refills 0, Maintenance, 06/29/22 13:08:00 EDT,Supply Start Date: 06/29/22 Status: Ordered omeprazole 20 mg oral enteric coated capsule 1 capsule = 20 mg, By Mouth, Daily, # 30 capsule, 6 Refills, Maintenance, 12/14/22 14:45:00 EDT, ECCapsule, [facility], Partial fill upon patient request [...] tablet, 6 Refills, Maintenance, 12/14/22 14:45:00 EDT, [facility], Partial fill upon patient request [...] mellitus type 2 in obese Confirmed Active 70077 Social History Social History Type Response Smoking Status Former smoker, quit more than 30 days ago entered on: 11/08/20 Sex Patient Care team information Care Team Personnel Name: Praveena Jordan RN Position: [facility] PCO RN Member Role: Primary Care Nurse Name: Smita Cantrell RN Position: [facility] SN RN Member Role: Primary Care Nurse Name: Zain Ramos RN Position: [facility] ED RN W/OE and Tasks Member Role: Primary Care Nurse Name: Gerard Erickson RN Position: [facility] RN Member Role: Primary Care Nurse Name: Jeevan Kumar MD Position: [facility] Primary Care Physician Member Role: PCP Address: Address: [address] [place] [phone]- [place] Name: Amy Campos NP Position: [facility] Associate Professional Member Role: Primary Care Nurse Address: Address: [address] [place] [address] Trauma and [place] [address]- [place] Name: Gita Becerril RN Position: [facility] RN Member Role: Primary Care Nurse Name: Selena Dias RN Position: [facility] PCO RN Member Role: Primary Care Nurse Name: Ryan Romero RN Position: [facility] SN RN Member Role: Primary Care Nurse Name: Florentino Torres RN Position: [facility] RN Member Role: Primary Care Nurse Name: Pretty Rosen RN Position: [facility] RN Member Role: Primary Care Nurse Name: Basilio Chase MD Position: [facility] Psychiatry MD Member Role: Lifetime Consulting Physician Address: Address: [address] [place] [phone]- [place] Care Team Related Persons Name: EMEKA MACK Address: home [address] [place] [address] Name: CARMEN COELLO Address: [place] [address] Name: ESTELA TRACY Address: home [address] [place] [address]
--- OUTSIDE RECORDS SUMMARY | 2024-02-23 16:19 | XMS_ITS | Continuity of Care Document ---
Author Organization [facility] Ty Saad lt Address [address] [place] [address]- Care Team Providers Care Business Operations Manager Name Role Phone Stacy JACOBSEN, Jeevan Smith Primary Care Physician Encounter [facility] Date(s): 11/24/22 - 12/24/22 [facility] Adult [address] [place] [address]- Allergies, Adverse Reactions, Alerts Substance Reaction Severity [...] 12/14/22 14:45:00 EDT, Route to Pharmacy Electronically, [facility]-, 160.5, cm, 12/14/22 14:21:00 EDT, Height, 66, kg, 08/19/22 14:08... Start Date: 12/14/22 Status: Ordered Actos 15 mg oral tablet 1 tablet = 15 mg, By Mouth, Daily, # 30 tablet, 6 Refills, Maintenance, 12/14/22 14:45:00 EDT, Tablet, [facility]-, Partial fill upon patient request [...] 1 Refills, Maintenance, 10/31/22 17:38:00 EST, Tablet, [facility]-, Partial fill upon patient request [...] 12/14/22 14:45:00 EDT, Route to Pharmacy Electronically, [facility], Partial fill upon patient request if th... Start Date: 12/14/22 Status: Ordered Crestor 5 mg oral tablet 1 tablet = 5 mg, By Mouth, Daily, REPLACES SIMVASTATIN, # 30 tablet, 6 Refills, Maintenance, 12/14/22 14:45:00 EDT, Tablet, [facility], Partial fill upon patient request if the prescription is for a schedule II opioid drug., 160.5... Start Date: 12/14/22 Status: Ordered diclofenac 1% topical gel See Instructions, APPLY TO AFFECTED AREA(S) TWICE A DAY NEEDED PAIN, # 100 Gm, 0 Refills, Maintenance, 07/30/22 13:16:00 EDT, [facility], 14, APPLY TO AFFECTED AREA(S) TWICE A DAY NEEDED PAIN, 160, cm, 06/29/22 12:54:00 EDT, Height,... Start Date: 07/30/22 Status: Ordered dilTIAZem 360 mg/24 hours oral capsule, extended release 1 capsule = 360 mg, By Mouth, Daily, # 30 capsule, 6 Refills, Maintenance, 12/14/22 14:45:00 EDT, CR Capsule, [facility], Partial fill upon patient request if the prescription isfor a schedule II opioid drug., 160.5, cm, 12/14/22... Start Date: 12/14/22 Status: Ordered Estrace Vaginal Cream 0.1 mg/g = 1 Gm, Vaginally, Every Wednesday and Wednesday, # 42.5 Gm, 6 Refills, Maintenance, 08/19/22 14:20:00 EST, [facility], Partial fill upon patient request if the prescription is for a schedule II opioid drug., 160.5, cm, 08/19/22 14:08:... Start Date: 08/19/22 Status: Ordered ferrous sulfate 325 mg oral tablet 1 tablet, By Mouth, Daily, # 30 tablet, 11 Refills, Maintenance, 12/14/22 14:45:00 EDT, [facility]-[id number], 160.5, cm, 12/14/22 14:21:00 EDT, Height, 66, [...] 5 Refills, Maintenance, 12/14/22 14:45:00 EDT, Solution, [facility]-, Partial fill upon patient request [...] each, 0 Refills, Maintenance, 12/14/22 14:45:00 EDT, [facility]-, 160.5, cm, 12/14/22 14:21:00 EDT, Height, 66, kg, 08/19/22 14:08... Start Date: 12/14/22 Status: Ordered Nutrafol (Hair Growth Supplement) Nutrafol (Hair Growth Supplement), See Instructions, Refills 0, Maintenance, 06/29/22 13:08:00 EDT,Supply Start Date: 06/29/22 Status: Ordered omeprazole 20 mg oral enteric coated capsule 1 capsule = 20 mg, By Mouth, Daily, # 30 capsule, 6 Refills, Maintenance, 12/14/22 14:45:00 EDT, ECCapsule, [facility], Partial fill upon [...] tablet, 6 Refills, Maintenance, 12/14/22 14:45:00 EDT, [facility], Partial fill upon patient request [...] mellitus type 2 in obese Confirmed Active 90642 Social History Social History Type Response Smoking Status Former smoker, quit more than 30 days ago entered on: 11/08/20 Sex Patient Care team information Care Team Personnel Name: Praveena Jordan RN Position: [facility] PCO RN Member Role: Primary Care [...] Kumar MD Position: [facility] Primary Care Physician Member Role: PCP Address: Address: [address] [place] [phone]- [place] Name: Amy Campos NP Position: [facility] Associate Professional Member Role: Primary Care Nurse Address: Address: [address] [place] [address] Trauma and [place] [address]- [place] Name: Gita Becerril RN Position: [facility] RN Member Role: Primary Care Nurse Name: Selena Dias RN Position: [facility] PCO RN Member Role: Primary Care Nurse Name: Ryan Romero RN Position: [facility] SN RN Member Role: Primary Care Nurse Name: Florentino Torres RN Position: [facility] RN Member Role: Primary Care Nurse Name: Pretty Rosen RN Position: [facility] RN Member Role: Primary Care Nurse Name: Basilio Chase MD Position: [facility] Psychiatry MD Member Role: Lifetime Consulting Physician Address: Address: [address] [place] [phone]- [place] Care Team Related Persons Name: EMEKA MACK Address: [address] [place] [address] Name: CARMEN COELLO Address: [place] [address] Name: ESTELA TRACY Address: home [address] [place] [address]
--- OUTSIDE RECORDS SUMMARY | 2024-02-23 16:19 | XMS_ITS | Continuity of Care Document ---
Author Organization [facility] Saad Address [address] [place] [address]- Care Team Providers Care Mold Stripper Name Role Phone Osorio AUDIT PARTNER, Tisha Asencio Primary Care Physician [facility] - 03/18/22 [facility] Adult [address] [place] [address]- Attending Physician: Admashleigh, Aaron Admitting Physician: AdmtrAaron [...] 02/16/22 15:13:00 EDT, Route to Pharmacy Electronically, [facility]-, 163.5, cm, 02/16/22 14:40:00 EDT, Height Start Date: 02/16/22 Status: Ordered acetaminophen 500 mg oral tablet 2 tablet = 1,000 mg, By Mouth, 3 times a day, PRN for pain, for 30 days, # 180 tablet, 0 Refills, Acute 04/15/22 5:59:00 EDT, 03/16/22 5:59:00 EDT, Tablet, [facility], Partial fill upon patient request if the prescription is for a ramses... Start Date: 03/16/22 Stop Date: 04/15/22 Status: Ordered Actos 15 mg oral tablet 1 tablet = 15 mg, By Mouth, Daily, # 30 tablet, 6 Refills, Maintenance, 02/16/22 15:13:00 EDT, Tablet, [facility]-, Partial fill upon patient request if the prescription is for a schedule II opioid drug., 163.5, cm, 02/16/22 14:40:... Start Date: 02/16/22 Status: Ordered aspirin 325 mg oral delayed release tablet 325 mg, 1, tablet, By Mouth, Daily, # 30 tablet, Refills 0, Tot. Refills 0, Maintenance, 03/16/22 6:00:00 EDT, Route to Pharmacy Electronically, [facility], Partial fill upon patientrequest if [...] Refills, Maintenance, 02/16/22 15:13:00 EDT, CR Capsule, [facility]-, Partial fill upon patient request [...] tablet, 0 Refills, Maintenance, 02/16/22 15:13:00 EDT, [facility], 163.5, cm, 02/16/22 14:40:00 EDT, [...] 5 Refills, Maintenance, 02/16/22 15:13:00 EDT, Solution, [facility]-, Partial fill upon patient request [...] 6 Refills, Maintenance, 02/16/22 15:13:00 EDT, ECCapsule, [facility]-, Partial fill upon patient request if the prescription is for a schedule II opioid drug., 163.5, cm, 02/16/22... Start Date: 02/16/22 Status: Ordered ondansetron 4 mg oral tablet 1 tablet = 4 mg, By Mouth, Every 12 hours, for 6 days, # 12 tablet, 0 Refills, Acute 03/22/22 6:00:00 EDT, 03/16/22 6:00:00 EDT, Tablet, [facility] [address], Partial fill upon patient requestif the prescription is for a schedule II opioid adeline... Start Date: 03/16/22 Stop Date: 03/22/22 Status: Ordered oxyCODONE 5 mg oral tablet 5 mg, 1, tablet, By Mouth, Every 4 hours, PRN, for 5 days, # 30 tablet, Refills 0, Tot. Refills 0, Acute 03/21/22 6:00:00 EDT, as needed for pain, 03/16/22 6:00:00 EDT, Route to Pharmacy Electronically, [facility] [employer], Partial fill upon p... Start Date: 03/16/22 Stop Date: 03/21/22 Status: Ordered Propranolol 20 mg, Refills 0, Maintenance, 08/18/21 14:23:00 EST, Partial fill upon patient request if the prescription is for a schedule II opioid drug. Start Date: 08/18/21 Status: Ordered simvastatin 20 mg oral tablet 20 mg, 1, tablet, By Mouth, Daily at bedtime, # 30 tablet, Refills 6, Tot. Refills 6, Maintenance, 02/16/22 15:13:00 EDT, Route to Pharmacy Electronically, [facility]-, Partial fill upon patient request if the prescription is for a... Start Date: 02/16/22 Status: Ordered topiramate 50 mg oral tablet 1 tablet = 50 mg, By Mouth, Daily, # 30 tablet, 6 Refills, Maintenance, 08/18/21 14:36:00 EST, [facility]-, Partial fill upon patient request [...] Diabetes mellitus type 2 in obese(Confirmed) Active 47880 Social History Social History Type Response Smoking Status Former smoker, quit more than 30 days ago entered on: 11/08/20 Sex
--- OUTSIDE RECORDS SUMMARY | 2024-02-23 16:19 | XMS_ITS | Continuity of Care Document ---
Author Organization [facility] Address [address] [place] [address]- Care Team Providers Care Electrical Troubleshooter Name Role Phone Jeevan Kumar MD Primary Care Physician [phone] [facility]counter [facility] Date[facility]s): 05/21/22 - 06/20/22 [facility] [address] [place] [id number]- Allergies, Adverse Reactions, Alerts Substance Reaction Severity [...] 02/16/22 15:13:00 EDT, Route to Pharmacy Electronically, [facility]-, 163.5, cm, 02/16/22 14:40:00 EDT, Height Start Date: 02/16/22 Status: Ordered Actos 15 mg oral tablet 1 tablet = 15 mg, By Mouth, Daily, # 30 tablet, 6 Refills, Maintenance, 02/16/22 15:13:00 EDT, Tablet, [facility], Partial fill upon patient request if the prescription is for a schedule II opioid drug., 163.5, cm, 02/16/22 14:40:... Start Date: 02/16/22 Status: Ordered biotin 1000 mcg oral tablet 1 tablet = 1,000 mcg, By Mouth, Daily, # 90 tablet, 1 Refills, Maintenance, 06/04/22 15:16:00 EDT, Tablet, [facility], Partial fill upon patient [...] Refills, Maintenance, 02/16/22 15:13:00 EDT, CR Capsule, [facility], Partial fill upon patient [...] FOR CONSTIPATION, # 30 tablet, 0 [facility]ills, [facility], cm, 05/05/22 11:37:00 EDT, Height, [...] 5 Refills, Maintenance, 02/16/22 15:13:00 EDT, Solution, [facility]-, Partial fill upon patient request if the prescription is for a schedule II opioid drug., 163.5, cm, 02/16/22... Start Date: 02/16/22 Status: Ordered methimazole 10 mg oral tablet 30 mg, 3, tablet, By Mouth, 2 times a day, # 540 tablet, Refills 3, Tot. Refills 3, Maintenance, 05/22/22 16:17:00 EDT, Route to Pharmacy Electronically, [facility], Partial fillupon patient request if the prescription is for a s... Start Date: 05/22/22 Status: Ordered MiraLax oral powder for reconstitution = 17 Gm, By Mouth, Daily, dissolve in water before taking, # 527 Gm, 1 Refills, Maintenance, 06/04/22 15:15:00 EDT, REC Powder, [facility], Partial fill upon patient [...] 40 each, 0 Refills,Maintenance, 05/26/22 11:16:00 EDT, [facility], 160, cm, 05/19/22 13:49:00 EDT, Height,68.5, kg, 03/16/22 6:52:00 EDT, Dry Weight Start Date: 05/26/22 Status: Ordered omeprazole 20 mg oral enteric coated capsule 1 capsule = 20 mg, By Mouth, Daily, # 30 capsule, 6 Refills, Maintenance, 02/16/22 15:13:00 EDT, ECCapsule, [facility], Partial fill upon [...] 02/16/22 15:13:00 EDT, Route to Pharmacy Electronically, [facility]-, Partial fill upon patient request if the prescription is for a... Start Date: 02/16/22 Status: Ordered topiramate 50 mg oral tablet 1 tablet = 50 mg, By Mouth, Daily, # 30 tablet, 6 Refills, Maintenance, 08/18/21 14:36:00 EST, [facility]-, Partial fill upon patient [...] Diabetes mellitus type 2 in obese(Confirmed) Active 23525 Social History Social History Type Response Smoking Status Former smoker, quit more than 30 days ago entered on: 11/08/20 Sex Care Team Personnel Name: Jeevan Kumar MD Address: [address] [place] [id number]
--- OUTSIDE RECORDS SUMMARY | 2024-02-23 16:19 | XMS_ITS | Continuity of Care Document ---
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 Name Role Phone Jeevan Kumar MD Primary Care Physician [facility]s): 05/20/22 - 06/19/22 [facility] [place] Adult [address] [place] [address]- Allergies, Adverse Reactions, Alerts Substance Reaction Severity [...] 02/16/22 15:13:00 EDT, Route to Pharmacy Electronically, [facility]-, 163.5, cm, 02/16/22 14:40:00 EDT, Height Start Date: 02/16/22 Status: Ordered Actos 15 mg oral tablet 1 tablet = 15 mg, By Mouth, Daily, # 30 tablet, 6 Refills, Maintenance, 02/16/22 15:13:00 EDT, Tablet, [facility], Partial fill upon patient request if the prescription is for a schedule II opioid drug., 163.5, cm, 02/16/22 14:40:... Start Date: 02/16/22 Status: Ordered biotin 1000 mcg oral tablet 1 tablet = 1,000 mcg, By Mouth, Daily, # 90 tablet, 1 Refills, Maintenance, 06/04/22 15:16:00 EDT, Tablet, [facility], Partial fill upon patient request [...] Refills, Maintenance, 02/16/22 15:13:00 EDT, CR Capsule, [facility], Partial fill upon patient request [...] FOR CONSTIPATION, # 30 tablet, 0 Refills, [facility], cm, 05/05/22 11:37:00 EDT, Height, [...] 5 Refills, Maintenance, 02/16/22 15:13:00 EDT, Solution, [facility]-, Partial fill upon patient request if the prescription is for a schedule II opioid drug., 163.5, cm, 02/16/22... Start Date: 02/16/22 Status: Ordered methimazole 10 mg oral tablet 30 mg, 3, tablet, By Mouth, 2 times a day, # 540 tablet, Refills 3, Tot. Refills 3, Maintenance, 05/22/22 16:17:00 EDT, Route to Pharmacy Electronically, [facility]-, Partial fillupon patient request if the prescription is for a s... Start Date: 05/22/22 Status: Ordered MiraLax oral powder for reconstitution = 17 Gm, By Mouth, Daily, dissolve in water before taking, # 527 Gm, 1 Refills, Maintenance, 06/04/22 15:15:00 EDT, REC Powder, [facility], Partial fill upon patient request [...] 40 each, 0 Refills,Maintenance, 05/26/22 11:16:00 EDT, [facility], 160, cm, 05/19/22 13:49:00 EDT, Height,68.5, kg, 03/16/22 6:52:00 EDT, Dry Weight Start Date: 05/26/22 Status: Ordered omeprazole 20 mg oral enteric coated capsule 1 capsule = 20 mg, By Mouth, Daily, # 30 capsule, 6 Refills, Maintenance, 02/16/22 15:13:00 EDT, ECCapsule, [facility], Partial fill upon patient request [...] 02/16/22 15:13:00 EDT, Route to Pharmacy Electronically, [facility]-, Partial fill upon patient request if the prescription is for a... Start Date: 02/16/22 Status: Ordered topiramate 50 mg oral tablet 1 tablet = 50 mg, By Mouth, Daily, # 30 tablet, 6 Refills, Maintenance, 08/18/21 14:36:00 EST, [facility]-, Partial fill upon patient request [...] Diabetes mellitus type 2 in obese(Confirmed) Active 27533 Social History Social History Type Response Smoking Status Former smoker, quit more than 30 days ago entered on: 11/08/20 Sex Care Team Personnel Name: Jeevan Kumar MD Address: [address] [place] [id number]
--- OUTSIDE RECORDS SUMMARY | 2024-02-23 16:19 | XMS_ITS | Continuity of Care Document ---
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 Start Date: 12/14/22 Status: Ordered Actos 15 mg oral tablet 1 tablet = 15 mg, By Mouth, Daily, # 30 tablet, 6 Refills, Maintenance, 12/14/22 14:45:00 EDT, Tablet, [facility]-, Partial fill upon patient request if the [...] 1 Refills, Maintenance, 10/31/22 17:38:00 EST, Tablet, [facility], Partial fill upon patient request if the [...] 12/14/22 14:45:00 EDT, Route to Pharmacy Electronically, [facility], Partial fill upon patient request if th... Start Date: 12/14/22 Status: Ordered Crestor 5 mg oral tablet 1 tablet = 5 mg, By Mouth, Daily, REPLACES SIMVASTATIN, # 30 tablet, 6 Refills, Maintenance, 12/14/22 14:45:00 EDT, Tablet, [facility], Partial fill upon patient request if the prescription is for a schedule II opioid drug., 160.5... Start Date: 12/14/22 Status: Ordered diclofenac 1% topical gel See Instructions, APPLY TO AFFECTED AREA(S) TWICE A DAY NEEDED PAIN, # 100 Gm, 0 Refills, Maintenance, 07/30/22 13:16:00 EDT, [facility], 14, APPLY TO AFFECTED AREA(S) TWICE A DAY NEEDED PAIN, 160, cm, 06/29/22 12:54:00 EDT, Height,... Start Date: 07/30/22 Status: Ordered dilTIAZem 360 mg/24 hours oral capsule, extended release 1 capsule = 360 mg, By Mouth, Daily, # 30 capsule, 6 Refills, Maintenance, 12/14/22 14:45:00 EDT, CR Capsule, [facility], Partial fill upon patient request if the prescription isfor a schedule II opioid drug., 160.5, cm, 12/14/22... Start Date: 12/14/22 Status: Ordered Estrace Vaginal Cream 0.1 mg/g = 1 Gm, Vaginally, Every Wednesday and Wednesday, # 42.5 Gm, 6 Refills, Maintenance, 08/19/22 14:20:00 EST, [facility], Partial fill upon patient request if the prescription is for a schedule II opioid drug., 160.5, cm, 08/19/22 14:08:... Start Date: 08/19/22 Status: Ordered ferrous sulfate 325 mg oral tablet 1 tablet, By Mouth, Daily, # 30 tablet, 11 Refills, Maintenance, 12/14/22 14:45:00 EDT, [id number], 160.5, cm, 12/14/22 14:21:00 EDT, Height, 66, [...] 5 Refills, Maintenance, 12/14/22 14:45:00 EDT, Solution, [facility], Partial fill upon patient request if the [...] each, 0 Refills, Maintenance, 05/19/23 16:57:00 EDT, [facility], 160.5, cm, 04/21/23 13:26:00 EDT, Height, 66, kg, 08/19/22 14:08... Start Date: 05/19/23 Status: Ordered Nutrafol (Hair Growth Supplement) Nutrafol (Hair Growth Supplement), See Instructions, Refills 0, Maintenance, 06/29/22 13:08:00 EDT,Supply Start Date: 06/29/22 Status: Ordered omeprazole 20 mg oral enteric coated capsule 1 capsule = 20 mg, By Mouth, Daily, # 30 capsule, 6 Refills, Maintenance, 12/14/22 14:45:00 EDT, ECCapsule, [facility], Partial fill upon patient request if the [...] tablet, 6 Refills, Maintenance, 12/14/22 14:45:00 EDT, [facility]-, Partial fill upon patient request if the [...] mellitus type 2 in obese Confirmed Active 16746 Social History Social History Type Response Smoking Status Former smoker, quit more than 30 days ago entered on: 11/08/20 Sex Patient Care team information Care Team Personnel Name: Praveena Jordan RN Position: [facility] Nurse Member Role: Primary Care Nurse Name: Smita Cantrell RN Position: [facility] RN Member Role: Primary Care Nurse Name: Zain Ramos RN Position: [facility] ED RN W/OE and Tasks Member Role: Primary Care Nurse Name: Gerard Erickson RN Position: [facility] RN Member Role: Primary Care Nurse Name: Jeevan Kumar MD Position: [facility] Physician - Primary Care Member Role: PCP Address: Address: [address] [place] [address]- [place] Name: Amy Campos NP Position: [facility] Associate Professional Member Role: Primary Care Nurse Address: Address: [address] [place] [address] Trauma and [place] [address]- [place] Name: Gita Becerril RN Position: [facility] RN Member Role: Primary Care Nurse Name: Selena Dias RN Position: [facility] AMB Nurse Member Role: Primary Care Nurse Name: Ryan Romero RN Position: [facility] SN RN Member Role: Primary Care Nurse Name: Florentino Torres RN Position: [facility] RN Member Role: Primary Care Nurse Name: Pretty Rosen RN Position: [facility] RN Member Role: Primary Care Nurse Name: Basilio Chase MD Position: [facility] Physician - Behavioral Health Member Role: Lifetime Consulting Physician Address: Address: [address] [facility] [place] [address]- [place] Care Team Related Persons Name: EMEKA MACK Address: home [address] [place] [address] Name: CARMEN COELLO Address: [place] [address] Name: TRACY PALMER Address: home [address] [place] [address]
--- OUTSIDE RECORDS SUMMARY | 2024-02-23 16:19 | XMS_ITS | Continuity of Care Document ---
Author Organization [facility] Ty Saad lt Address [address] [place] [address]- Care Team Providers Care Spring Former Hand Name Role Phone Stacy JACOBSEN, Jeevan Smith Primary Care Physician Encounter [facility] Date(s): 10/04/23 - 11/03/23 [facility] Adult [address] [place] [address]- Allergies, Adverse Reactions, Alerts Substance Reaction Severity [...] 23-valent vaccine 06/21/09 Recorded 1Result Comment: [facility]: [id number] 2Result Comment: Pt not sure the exact date. Medications acetaminophen 325 mg oral tablet 1 TO 2 TABLETS, By Mouth, Daily at bedtime, # 60 tablet, Refills 5, Maintenance, 06/09/23 11:30:00 EDT, Route to Pharmacy Electronically, [facility], 160.5, cm, 04/21/23 13:26:00 EDT, Height, [...] 10/28/23 10:28:00 EST, Route to Pharmacy Electronically, [facility]-, Partial fill upon [...] 10/12/23 13:00:00 EST, Route to Pharmacy Electronically, [facility]-, Partial fill upon [...] 06/18/23 14:28:00 EDT, Solution, [facility]-, Partial fill upon [...] each, 6 Refills, Maintenance, 08/03/23 14:18:00 EST, [facility], 160.5, cm, 06/18/23 [...] in obese Confirmed Active 1Dr. [place] 2017 [id number] [facility] 2022 4Outside Source Comment: Overview: Per BS Social History Social History Type Response Smoking Status Former smoker, quit more than 30 days ago entered on: 11/08/20 Sex Patient Care team information Care Team Personnel Name: Praveena Jordan RN Position: [facility] AMB Nurse Member Role: Primary Care Nurse Name: Smita Cantrell RN Position: [facility] SN RN Member Role: Primary Care Nurse Name: Zain Ramos RN Position: [facility] ED RN W/OE and Tasks Member Role: Primary Care Nurse Name: Gearrd Erickson RN Position: [facility] RN Member Role: Primary Care Nurse Name: Jeevan Kumar MD Position: [facility] Physician - Primary Care Member Role: PCP Address: Address: [address] [place] [id number]- [place] Name: Amy Campos NP Position: [facility] Associate Professional Member Role: Primary Care Nurse Address: Address: [address] [place] [address] Trauma [place] [address]- [place] Name: Gita Beecrril RN Position: [facility] RN Member Role: Primary Care Nurse Name: Selena Dias RN Position: [facility] AMB Nurse Member Role: Primary Care Nurse Name: Ryan Romero RN Position: [facility] SN RN Member Role: Primary Care Nurse Name: Florentino Torres RN Position: [facility] RN Member Role: Primary Care Nurse Name: Pretty Rosen RN Position: [facility] RN Member Role: Primary Care Nurse Name: Basilio Chase MD Position: [facility] Physician - Behavioral Health Member Role: Lifetime Consulting Physician Address: Address: [address] [place] [phone]- [place] Care Team Related Persons Name: EMEKA MACK Address: home [address] [place] [address] Name: CARMEN COELLO Address: [place] [address] Name: TRACY PALMER Address: home [address] [place] [id number]
--- OUTSIDE RECORDS SUMMARY | 2024-02-23 16:19 | XMS_ITS | Continuity of Care Document ---
Author Organization 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 Adult [address] [place] [address]- Allergies, Adverse Reactions, Alerts Substance Reaction Severity [...] 08/17/22 15:29:00 EST, Route to Pharmacy Electronically, [facility]-, 160, cm, 08/17/22 15:09:00 EST, Height, 68.5, kg, 03/16/22 6:52:... Start Date: 08/17/22 Status: Ordered Actos 15 mg oral tablet 1 tablet = 15 mg, By Mouth, Daily, # 30 tablet, 6 Refills, Maintenance, 08/17/22 15:29:00 EST, Tablet, [facility]-, Partial fill upon patient request if [...] 1 Refills, Maintenance, 08/17/22 15:29:00 EST, Tablet, [facility]-, Partial fill upon patient request if [...] 08/17/22 15:29:00 EST, Route to Pharmacy Electronically, [facility], Partial fill upon patient request if th... Start Date: 08/17/22 Status: Ordered Crestor 5 mg oral tablet 1 tablet = 5 mg, By Mouth, Daily, REPLACES SIMVASTATIN, # 30 tablet, 6 Refills, Maintenance, 08/17/22 15:29:00 EST, Tablet, [facility], Partial fill upon patient request if the prescription is for a schedule II opioid drug., 160,... Start Date: 08/17/22 Status: Ordered diclofenac 1% topical gel See Instructions, APPLY TO AFFECTED AREA(S) TWICE A DAY NEEDED PAIN, # 100 Gm, 0 Refills, Maintenance, 07/30/22 13:16:00 EDT, [facility], 14, APPLY TO AFFECTED AREA(S) TWICE A DAY NEEDED PAIN, 160, cm, 06/29/22 12:54:00 EDT, Height,... Start Date: 07/30/22 Status: Ordered dilTIAZem 360 mg/24 hours oral capsule, extended release 1 capsule = 360 mg, By Mouth, Daily, # 30 capsule, 6 Refills, Maintenance, 08/17/22 15:29:00 EST, CR Capsule, [facility], Partial fill upon patient request if the prescription isfor a schedule II opioid drug., 160, cm, 08/17/22 1... Start Date: 08/17/22 Status: Ordered Estrace Vaginal Cream 0.1 mg/g = 1 Gm, Vaginally, Every Wednesday and Wednesday, # 42.5 Gm, 6 Refills, Maintenance, 08/19/22 14:20:00 EST, [facility], Partial fill upon patient request if [...] 5 Refills, Maintenance, 08/17/22 15:29:00 EST, Solution, [facility]-, Partial fill upon patient request if the prescription is for a schedule II opioid drug., 160, cm, 08/17/22 15... Start Date: 08/17/22 Status: Ordered methimazole 10 mg oral tablet 10 mg, 1, tablet, By Mouth, Daily, # 90 tablet, Refills 3, Tot. Refills 3, Maintenance, 08/18/22 8:29:00 EST, Route to Pharmacy Electronically, [facility]-, Partial fill upon patient request if [...] each, 0 Refills, Maintenance, 07/30/22 13:17:00 EDT, [facility]-, 160, cm, 06/29/2212:54:00 EDT, Height, 68.5, kg, 03/16/22 6:52:00 EDT, D... Start Date: 07/30/22 Status: Ordered Nutrafol (Hair Growth Supplement) Nutrafol (Hair Growth Supplement), See Instructions, Refills 0, Maintenance, 06/29/22 13:08:00 EDT,Supply Start Date: 06/29/22 Status: Ordered omeprazole 20 mg oral enteric coated capsule 1 capsule = 20 mg, By Mouth, Daily, # 30 capsule, 6 Refills, Maintenance, 08/17/22 15:29:00 EST, ECCabdifatahule, [facility]-, Partial fill upon patient request if [...] tablet, 6 Refills, Maintenance, 08/17/22 15:29:00 EST, [facility]-, Partial fill upon patient request if [...] mellitus type 2 in obese Confirmed Active 57858 Social History Social History Type Response Smoking Status Former smoker, quit more than 30 days ago entered on: 11/08/20 Sex Patient Care team information Care Team Personnel Name: Praveena Jordan RN Position: [facility] PCO RN Member Role: Primary Care Nurse Name: Smita Cantrell RN Position: [facility] SN RN Member Role: Primary Care Nurse Name: Zain Ramos RN Position: [facility] ED RN W/OE and Tasks Member Role: Primary Care Nurse Name: Gerard Erickson RN Position: [facility] RN Member Role: Primary Care Nurse Name: Jeevan Kumar MD Position: [facility] Primary Care Physician Member Role: PCP Address: Address: [address] [place] [phone]- [place] Name: Amy Campos NP Position: [facility] Associate Professional Member Role: Primary Care Nurse Address: Address: [address] [place] [address] Trauma and [place] [address]- [place] Name: Gita Becerril RN Position: [facility] RN Member Role: Primary Care Nurse Name: Selena Dias RN Position: [facility] PCO RN Member Role: Primary Care Nurse Name: Ryan Romero RN Position: [facility] SN RN Member Role: Primary Care Nurse Name: Florentino Torres RN Position: [facility] RN Member Role: Primary Care Nurse Name: Pretty Rosen RN Position: [facility] RN Member Role: Primary Care Nurse Name: Basilio Chase MD Position: [facility] Psychiatry MD Member Role: Lifetime Consulting Physician Address: Address: [address] [place] [address]- Care Team Related Persons Name: EMEKA MACK Address: home [address] [place] [address] Name: CARMEN COELLO Address: [place] [address] Name: TRACY PALMER Address: home [address] [place] [address]
--- OUTSIDE RECORDS SUMMARY | 2024-02-23 16:19 | XMS_ITS | Continuity of Care Document ---
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 Start Date: 12/14/22 Status: Ordered Actos 15 mg oral tablet 1 tablet = 15 mg, By Mouth, Daily, # 30 tablet, 6 Refills, Maintenance, 12/14/22 14:45:00 EDT, Tablet, [facility]-, Partial fill upon patient request if [...] 1 Refills, Maintenance, 10/31/22 17:38:00 EST, Tablet, [facility]-, Partial fill upon patient request if [...] 12/14/22 14:45:00 EDT, Route to Pharmacy Electronically, [facility], Partial fill upon patient request if th... Start Date: 12/14/22 Status: Ordered Crestor 5 mg oral tablet 1 tablet = 5 mg, By Mouth, Daily, REPLACES SIMVASTATIN, # 30 tablet, 6 Refills, Maintenance, 12/14/22 14:45:00 EDT, Tablet, [facility], Partial fill upon patient request if the prescription is for a schedule II opioid drug., 160.5... Start Date: 12/14/22 Status: Ordered diclofenac 1% topical gel See Instructions, APPLY TO AFFECTED AREA(S) TWICE A DAY NEEDED PAIN, # 100 Gm, 0 Refills, Maintenance, 07/30/22 13:16:00 EDT, [facility], 14, APPLY TO AFFECTED AREA(S) TWICE A DAY NEEDED PAIN, 160, cm, 06/29/22 12:54:00 EDT, Height,... Start Date: 07/30/22 Status: Ordered dilTIAZem 360 mg/24 hours oral capsule, extended release 1 capsule = 360 mg, By Mouth, Daily, # 30 capsule, 6 Refills, Maintenance, 12/14/22 14:45:00 EDT, CR Capsule, [facility], Partial fill upon patient request if the prescription isfor a schedule II opioid drug., 160.5, cm, 12/14/22... Start Date: 12/14/22 Status: Ordered Estrace Vaginal Cream 0.1 mg/g = 1 Gm, Vaginally, Every Wednesday and Wednesday, # 42.5 Gm, 6 Refills, Maintenance, 08/19/22 14:20:00 EST, [facility], Partial fill upon patient request if the prescription is for a schedule II opioid drug., 160.5, cm, 08/19/22 14:08:... Start Date: 08/19/22 Status: Ordered ferrous sulfate 325 mg oral tablet 1 tablet, By Mouth, Daily, # 30 tablet, 11 Refills, Maintenance, 12/14/22 14:45:00 EDT, [id number], 160.5, cm, 12/14/22 14:21:00 EDT, Height, 66, [...] 5 Refills, Maintenance, 12/14/22 14:45:00 EDT, Solution, [facility]-, Partial fill upon patient request if [...] each, 0 Refills, Maintenance, 12/14/22 14:45:00 EDT, [facility]-, 160.5, cm, 12/14/22 14:21:00 EDT, Height, 66, kg, 08/19/22 14:08... Start Date: 12/14/22 Status: Ordered Nutrafol (Hair Growth Supplement) Nutrafol (Hair Growth Supplement), See Instructions, Refills 0, Maintenance, 06/29/22 13:08:00 EDT,Supply Start Date: 06/29/22 Status: Ordered omeprazole 20 mg oral enteric coated capsule 1 capsule = 20 mg, By Mouth, Daily, # 30 capsule, 6 Refills, Maintenance, 12/14/22 14:45:00 EDT, ECCapsule, [facility], Partial fill upon patient [...] tablet, 6 Refills, Maintenance, 12/14/22 14:45:00 EDT, [facility], Partial fill upon patient [...] mellitus type 2 in obese Confirmed Active 29703 Social History Social History Type Response Smoking Status Former smoker, quit more than 30 days ago entered on: 11/08/20 Sex Patient Care team information Care Team Personnel Name: Praveena Jordan RN Position: [facility] PCO RN Member Role: Primary Care Nurse Name: Smita Cantrell RN Position: [facility] SN RN Member Role: Primary Care Nurse Name: Zain Ramos RN Position: [facility] ED RN W/OE and Tasks Member Role: Primary Care Nurse Name: Gerard Erickson RN Position: [facility] RN Member Role: Primary Care Nurse Name: Jeevan Kumar MD Position: [facility] Primary Care Physician Member Role: PCP Address: Address: [address] [place] [phone]- [place] Name: Amy Campos NP Position: [facility] Associate Professional Member Role: Primary Care Nurse Address: Address: [address] [place] [address] Trauma and [place] [address]- [place] Name: Gita Becerril RN Position: [facility] RN Member Role: Primary Care Nurse Name: Selena Dias RN Position: [facility] PCO RN Member Role: Primary Care Nurse Name: Ryan Romero RN Position: [facility] SN RN Member Role: Primary Care Nurse Name: Florentino Torres RN Position: [facility] RN Member Role: Primary Care Nurse Name: Pretty Rosen RN Position: [facility] RN Member Role: Primary Care Nurse Name: Basilio Chase MD Position: [facility] Psychiatry MD Member Role: Lifetime Consulting Physician Address: Address: [address] [place] [address]- [place] Care Team Related Persons Name: EMEKA MACK Address: home [address] [place] [address] Name: CARMEN COELLO Address: [place] [address] Name: ESTELA TRACY Address: home [address] [place] [address]
--- OUTSIDE RECORDS SUMMARY | 2024-02-23 16:19 | XMS_ITS | Continuity of Care Document ---
Author Organization [facility] Ty Saad lt Address [address] [place] [address]- Care Team Providers Care Manual Tester Name Role Phone Osorio DISPLAY SCREEN FABRICATOR, Tisha Asencio Primary Care Physician [phone] [facility]counter [facility] Date(s): 08/03/23 - 09/02/23 [facility] Adult [address] [place] [address]- Allergies, Adverse Reactions, Alerts Substance Reaction Severity [...] 06/21/09 Recorded 1Result Comment: [facility]: [id number] 2Result Comment: Pt not sure the exact date. Medications acetaminophen 325 mg oral tablet 1 TO 2 TABLETS, By Mouth, Daily at bedtime, # 60 tablet, Refills 5, Maintenance, 06/09/23 11:30:00 EDT, Route to Pharmacy Electronically, [facility]-, 160.5, cm, 04/21/23 13:26:00 EDT, Height, 66, kg, 08/19/22 14:08:00 EST, Dry Weight Start Date: 06/09/23 Status: Ordered Actos 15 mg oral tablet 1 tablet = 15 mg, By Mouth, Daily, # 30 tablet, 6 Refills, Maintenance, 06/18/23 14:28:00 EDT, Tablet, [facility] [place] Partial fill upon [...] 1 Refills, Maintenance, 06/18/23 14:28:00 EDT, Tablet, [facility] [place] Partial fill upon [...] 06/18/23 14:28:00 EDT, Route to Pharmacy Electronically, [facility] [place], Partial fill upon patient request if th... Start Date: 06/18/23 Status: Ordered Crestor 5 mg oral tablet 1 tablet = 5 mg, By Mouth, Daily, REPLACES SIMVASTATIN, # 30 tablet, 6 Refills, Maintenance, 06/18/23 14:28:00 EDT, Tablet, [facility] [place], Partial fill upon patient request if the prescription is for a schedule II opioid drug., 160.5... Start Date: 06/18/23 Status: Ordered diclofenac 1% topical gel See Instructions, APPLY TO AFFECTED AREA(S) TWICE A DAY NEEDED PAIN, # 100 Gm, 0 Refills, Maintenance, 07/30/22 13:16:00 EDT, [facility], 14, APPLY TO AFFECTED AREA(S) TWICE A DAY NEEDED PAIN, 160, cm, 06/29/22 12:54:00 EDT, Height,... Start Date: 07/30/22 Status: Ordered dilTIAZem 360 mg/24 hours oral capsule, extended release 1 capsule = 360 mg, By Mouth, Daily, # 30 capsule, 6 Refills, Maintenance, 06/18/23 14:28:00 EDT, CR Capsule, [facility] [place], Partial fill upon patient request if the prescription isfor a schedule II opioid drug., 160.5, cm, 06/18/23... Start Date: 06/18/23 Status: Ordered ferrous sulfate 325 mg oral tablet 1 tablet, By Mouth, Daily, # 30 tablet, 11 Refills, Maintenance, 06/18/23 14:28:00 EDT, [facility] [place], 160.5, cm, 06/18/23 14:02:00 EDT, Height, 66, [...] 5 Refills, Maintenance, 06/18/23 14:28:00 EDT, Solution, [facility] [place] Partial fill upon [...] each, 6 Refills, Maintenance, 08/03/23 14:18:00 EST, [facility] [place] 160.5, cm, 06/18/23 14:02:00 EDT, Height, 66, kg, 08/19/22 14:08... Start Date: 08/03/23 Status: Ordered Nutrafol (Hair Growth Supplement) Nutrafol (Hair Growth Supplement), See Instructions, Refills 0, Maintenance, 06/29/22 13:08:00 EDT,Supply Start Date: 06/29/22 Status: Ordered omeprazole 20 mg oral enteric coated capsule 1 capsule = 20 mg, By Mouth, Daily, # 30 capsule, 6 Refills, Maintenance, 06/18/23 14:28:00 EDT, ECCapsule, [facility] [place], Partial fill upon [...] capsule, 0 Refills,Maintenance, 06/25/23 10:03:00 EDT, Capsule, [facility] [place], Partial fill upon patient request if the prescription is for a schedule I... Start Date: 06/25/23 Stop Date: 07/05/23 Status: Ordered topiramate 50 mg oral tablet 1 tablet = 50 mg, By Mouth, Daily, # 30 tablet, 6 Refills, Maintenance, 06/18/23 14:28:00 EDT, [facility] [place], Partial fill upon [...] in obese Confirmed Active 1Dr. York 2017 [id number] 3Outside Source Comment: Overview: Per BS Social History Social History Type Response Smoking Status Former smoker, quit more than 30 days ago entered on: 11/08/20 Sex Patient Care team information Care Team Personnel Name: Praveena Jordan RN Position: [facility] AMB Nurse Member Role: Primary Care Nurse Name: Smita Cantrell RN Position: [facility] SN RN Member Role: Primary Care Nurse Name: Zain Ramos RN Position: [facility] ED RN W/OE and Tasks Member Role: Primary Care Nurse Name: Gerard Erickson RN Position: [facility] RN Member Role: Primary Care Nurse Name: Amy Campos NP Position: [facility] Associate Professional Member Role: Primary Care Nurse Address: Address: [address] [place] [address] Trauma [place] [address]- [place] Name: Gita Becerril RN Position: [facility] RN Member Role: Primary Care Nurse Name: Selena Dias RN Position: [facility] AMB Nurse Member Role: Primary Care Nurse Name: Tisha Ac NP Position: [facility] PCO Associate Professional Member Role: PCP Address: Address: [address] [place] [address]- [place] Name: Ryan Romero RN Position: [facility] SN RN Member Role: Primary Care Nurse Name: Florentino Torres RN Position: [facility] RN Member Role: Primary Care Nurse Name: Pretty Rosen RN Position: [facility] RN Member Role: Primary Care Nurse Name: Basilio Chase MD Position: [facility] Physician - Behavioral Health Member Role: Lifetime Consulting Physician Address: Address: [address] [place] [address]- Care Team Related Persons Name: EMEKA MACK Address: home [address] [place] [address] Name: CARMEN COELLO Address: [place] [address] Name: TRACY PALMER Address: home [address] [place] [address]
--- OUTSIDE RECORDS SUMMARY | 2024-02-23 16:20 | XMS_ITS | Continuity of Care Document ---
Author Organization [facility] Address [address] [place] [address]- Care Team Providers Care Cloth Stock Sorter Name Role Phone Jeevan Kumar MD Primary Care Physician [phone] [facility]counter [facility] Date(s): 05/29/22 - 09/26/22 [facility] [address] [place] [id number] Attending Physician: Goldie Ledesma MD Admitting Physician: Goldie Ledesma MD Referring Physician: Jeevan Kumar MD Allergies, [...] 08/17/22 15:29:00 EST, Route to Pharmacy Electronically, [facility] 160, cm, 08/17/22 15:09:00 EST, Height, 68.5, kg, 03/16/22 6:52:... Start Date: 08/17/22 Status: Ordered Actos 15 mg oral tablet 1 tablet = 15 mg, By Mouth, Daily, # 30 tablet, 6 Refills, Maintenance, 08/17/22 15:29:00 EST, Tablet, [facility] Partial fill upon patient request if the [...] 1 Refills, Maintenance, 08/17/22 15:29:00 EST, Tablet, [facility] Partial fill upon patient request if the [...] 08/17/22 15:29:00 EST, Route to Pharmacy Electronically, [facility] Partial fill upon patient request if th... Start Date: 08/17/22 Status: Ordered Crestor 5 mg oral tablet 1 tablet = 5 mg, By Mouth, Daily, REPLACES SIMVASTATIN, # 30 tablet, 6 Refills, Maintenance, 08/17/22 15:29:00 EST, Tablet, [facility] Partial fill upon patient request if the [...] Refills, Maintenance, 08/17/22 15:29:00 EST, CR Capsule, [facility], Partial fill upon patient request if the prescription isfor a schedule II opioid drug., 160, cm, 08/17/22 1... Start Date: 08/17/22 Status: Ordered Estrace Vaginal Cream 0.1 mg/g = 1 Gm, Vaginally, Every Wednesday and Wednesday, # 42.5 Gm, 6 Refills, Maintenance, 08/19/22 14:20:00 EST, [facility] Partial fill upon patient request if the [...] 5 Refills, Maintenance, 08/17/22 15:29:00 EST, Solution, [facility] Partial fill upon patient request if the prescription is for a schedule II opioid drug., 160, cm, 08/17/22 15... Start Date: 08/17/22 Status: Ordered methimazole 10 mg oral tablet 10 mg, 1, tablet, By Mouth, Daily, # 90 tablet, Refills 3, Tot. Refills 3, Maintenance, 08/18/22 8:29:00 EST, Route to Pharmacy Electronically, [facility] Partial fill upon patient request if the [...] each, 0 Refills, Maintenance, 09/23/22 9:50:00 EST, [facility] 160.5, cm, 08/27/22 14:26:00 EST, Height, 66, kg, 08/19/22 14:08:... Start Date: 09/23/22 Status: Ordered Nutrafol (Hair Growth Supplement) Nutrafol (Hair Growth Supplement), See Instructions, Refills 0, Maintenance, 06/29/22 13:08:00 EDT,Supply Start Date: 06/29/22 Status: Ordered omeprazole 20 mg oral enteric coated capsule 1 capsule = 20 mg, By Mouth, Daily, # 30 capsule, 6 Refills, Maintenance, 08/17/22 15:29:00 EST, ECCapsule, [facility] Partial fill upon patient request if the [...] tablet, 6 Refills, Maintenance, 08/17/22 15:29:00 EST, [facility] Partial fill upon patient request if the [...] mellitus type 2 in obese Confirmed Active 12786 Social History Social History Type Response Smoking Status Former smoker, quit more than 30 days ago entered on: 11/08/20 Sex Patient Care team information Care Team Personnel Name: Praveena Jordan RN Position: [facility] PCO RN Member Role: Primary Care Nurse Name: Smita Cantrell RN Position: [facility] SN RN Member Role: Primary Care Nurse Name: Zain Ramos RN Position: [facility] ED RN W/OE and Tasks Member Role: Primary Care Nurse Name: Gerard Erickson RN Position: [facility] RN Member Role: Primary Care Nurse Name: Jeevan Kumar MD Position: [facility] Primary Care Physician Member Role: PCP Address: Address: [address] [place] [address]- [place] Name: Amy Campos NP Position: [facility] Associate Professional Member Role: Primary Care Nurse Address: Address: [address] [place] [address] Trauma and [place] [address]- [place] Name: Gita Becerril RN Position: [facility] RN Member Role: Primary Care Nurse Name: Selena Dias RN Position: [facility] PCO RN Member Role: Primary Care Nurse Name: Ryan Romero RN Position: [facility] RN Member Role: Primary Care Nurse Name: Florentino Torres RN Position: [facility] RN Member Role: Primary Care Nurse Name: Pretty Rosen RN Position: [facility] RN Member Role: Primary Care Nurse Name: Basilio Chase MD Position: [facility] Psychiatry MD Member Role: Lifetime Consulting Physician Address: Address: [address] [place] [address]- [place] Care Team Related Persons Name: MACK EMEKA Address: home [address] [place] [address] Name: CARMEN COELLO Address: [place] [address] Name: TRACY PALMER Address: home [address] [place] [address]
--- OUTSIDE RECORDS SUMMARY | 2024-02-23 16:20 | XMS_ITS | Continuity of Care Document ---
Author Organization [facility] Saad lt Address [address] [place] [address]- Care Team Providers Care Hasher Operator Name Role Phone Stacy JACOBSEN, Jeevan Smith Primary Care Physician En[place] [facility] [place](s): 06/05/21 - 07/05/21 [facility] Adult [address] [place] [address]- Allergies, Adverse Reactions, Alerts Substance Reaction Severity [...] 6 Refills, Maintenance, 02/06/21 13:47:00 EDT, Tablet, [facility]-, Partial fill upon patient request if the prescription is for a schedule II opioid drug., 163.5, cm, 02/06/21 13:17:... Start Date: 02/06/21 Status: Ordered dilTIAZem 360 mg/24 hours oral capsule, extended release 1 capsule = 360 mg, By Mouth, Daily, # 30 capsule, 6 Refills, Maintenance, 02/06/21 13:47:00 EDT, CR Capsule, [facility]-, Partial fill upon patient request if the prescription isfor a schedule II opioid drug., 163.5, cm, 02/06/21... Start Date: 02/06/21 Status: Ordered ferrous sulfate 325 mg oral enteric coated tablet 325 mg, 1, tablet, By Mouth, Daily, # 30 tablet, Refills 6, Tot. Refills 6, Maintenance, 02/06/21 13:47:00 EDT, Route to Pharmacy Electronically, [facility], Partial fill upon patient request if the prescription is for a schedule... Start Date: 02/06/21 Status: Ordered Flonase 50 mcg/inh nasal spray 1 sprays, Nares, Both, Daily, PRN Congestion, # 16 Gm, 6 Refills, Maintenance, 02/06/21 13:48:00 EDT, Nasal [place], [facility], Partial fill upon patient request if [...] 5 Refills, Maintenance, 02/06/21 13:47:00 EDT, Solution, [facility], Partial fill upon patient request if [...] 6 Refills, Maintenance, 02/06/21 13:47:00 EDT, ECCapsule, [facility], Partial fill upon patient request if [...] cm, 02/07/21 8:19:00 EDT, Height, 89.9, kg, 03... Start Date: 05/08/21 Status: Ordered simvastatin 20 mg oral tablet 20 mg, 1, tablet, By Mouth, Daily at bedtime, # 30 tablet, Refills 6, Tot. Refills 6, Maintenance, 02/06/21 13:47:00 EDT, Route to Pharmacy Electronically, [facility], Partial fill upon patient request if the prescription is for a... Start Date: 02/06/21 Status: Ordered tiZANidine 4 mg oral capsule 1 capsule = 4 mg, By Mouth, 3 times a day, # 42 capsule, 0 Refills, Maintenance, 02/06/21 13:47:00 EDT, [facility], Partial fill upon patient request if the prescription is for aschedule II opioid drug., 163.5, cm, 02/06/21 13:17... Start Date: 02/06/21 Stop Date: 02/20/21 Status: Ordered topiramate 50 mg oral tablet 1 tablet = 50 mg, By Mouth, Daily, # 30 tablet, 6 Refills, Maintenance, 02/06/21 13:47:00 EDT, [facility], Partial fill upon [...] Diabetes mellitus type 2 in obese(Confirmed) Active 42795 Social History Social History Type Response Smoking Status Former smoker, quit more than 30 days ago entered on: 11/08/20 Sex
--- OUTSIDE RECORDS SUMMARY | 2024-02-23 16:20 | XMS_ITS | Continuity of Care Document ---
Author Organization [facility] Ty Saad Address [address] [place] [address]- Care Team Providers Care Vice President Underwriting Name Role Phone Jeevan Kumar MD Primary Care Physician Encounter [facility] [place] Date(s): 01/24/24 - 01/31/24 [facility] Adult [address] [place] [address]- Encounter Diagnosis Wellness examination(Discharge Diagnosis) - 01/24/24 Seizure disorder(Discharge Diagnosis) - 01/24/24 Current use of insulin(Discharge Diagnosis) - 01/24/24 CKD (chronic kidney disease)(Discharge Diagnosis) - 01/24/24 Bipolar disorder(Discharge Diagnosis) - 01/24/24 Recurrent major depressive episodes, moderate(Discharge Diagnosis) - 01/24/24 Anxiety(Discharge Diagnosis) - 01/24/24 PTSD (post-traumatic stress disorder)(Discharge Diagnosis) - 01/24/24 Insomnia(Discharge Diagnosis) - 01/24/24 History of cocaine abuse(Discharge Diagnosis) - 01/24/24 History of alcohol abuse(Discharge Diagnosis) - 01/24/24 GERD (gastroesophageal reflux disease)(Discharge Diagnosis) - 01/24/24 HTN (hypertension)(Discharge Diagnosis) - 01/24/24 History of tobacco use(Discharge Diagnosis) - 01/24/24 Hyperthyroidism(Discharge Diagnosis) - 01/24/24 Attending Physician: Tisha Ac NP Referring Physician: [...] pneumococcal 23-valent vaccine 06/21/09 Recorded 1Result Comment: [facility]: [id number] 2Result Comment: Pt not sure the exact [...] tablet, 6 Refills, Maintenance, 06/18/23 14:28:00 EDT, [facility], Partial fill upon patient request [...] in obese Confirmed Active 1Dr. Chela 2017 [id number] [facility] 2022 4Outside Source Comment: Overview: Per BS Diagnosis Diagnosis Type Effective Dates Health Status Clinical Service Informant Wellness examination Discharge Diagnosis 01/24/24 Seizure disorder Discharge Diagnosis 01/24/24 Current use of insulin Discharge Diagnosis 01/24/24 CKD (chronic kidney disease) Discharge Diagnosis 01/24/24 Bipolar disorder Discharge Diagnosis 01/24/24 Recurrent major depressive episodes, moderate Discharge Diagnosis 01/24/24 Anxiety Discharge Diagnosis 01/24/24 PTSD (post-traumatic stress disorder) Discharge Diagnosis 01/24/24 Insomnia Discharge Diagnosis 01/24/24 History of cocaine abuse Discharge Diagnosis 01/24/24 History of alcohol abuse Discharge Diagnosis 01/24/24 GERD (gastroesophageal reflux disease) Discharge Diagnosis 01/24/24 HTN (hypertension) Discharge Diagnosis 01/24/24 History of tobacco use Discharge Diagnosis 01/24/24 Hyperthyroidism Discharge Diagnosis 01/24/24 Vital Signs Most recent to oldest [Reference Range]: 1 2 Height 160.5 cm (01/25/24 10:58 AM) 160.5 cm (01/24/24 2:15 PM) Weight 72.1 kg (01/25/24 10:58 AM) 72.1 kg (01/24/24 2:15 PM) Oxygen Saturation [94-100 %] 99 % (01/24/24 2:15 PM) Pulse Rate [55-90 bpm] 60 bpm (01/24/24 2:15 PM) Body Mass Index [18.5-24.99 kg/m2] 27.99 kg/m2 *H* (01/24/24 2:15 PM) Blood Pressure [90-138/55-84 mm Hg] 126/ 60mm Hg (01/24/24 2:15 PM) Temperature [96.8-100.4 DegF] 97.6 DegF (01/24/24 2:15 PM) Mode of Delivery (Oxygen) Room air (01/24/24 2:15 PM) Blood pressure sites Arm, left (01/24/24 2:15 PM) Temperature Route Oral (01/24/24 2:15 PM) Weight Obtained Via Standing scale (01/24/24 2:15 PM) Social History Social History Type Response Smoking Status Former smoker, quit more than 30 days ago entered on: 11/08/20 Sex Patient Care team information Care Team Personnel Name: Praveena Jordan RN Position: [facility] Nurse Member Role: Primary Care Nurse Name: Smita Cantrell RN Position: [facility] SN RN Member Role: Primary Care Nurse Name: Zain Ramos RN Position: [facility] ED RN W/OE and Tasks Member Role: Primary Care Nurse Name: Gerard Erickson RN Position: [facility] RN Member Role: Primary Care Nurse Name: Jeevan Kumar MD Position: [facility] Physician - Primary Care Member Role: PCP Address: Address: [address] [place] [id number]- [place] Name: Amy Campos NP Position: [facility] Associate Professional Member Role: Primary Care Nurse Address: Address: [address] [place] [address] Trauma [place] [address]- [place] Name: Gita Becerril RN Position: [facility] RN Member Role: Primary Care Nurse Name: Selena Dias RN Position: [facility] AMB Nurse Member Role: Primary Care Nurse Name: Ryan Romero RN Position: [facility] SN RN Member Role: Primary Care Nurse Name: Florentino Torres RN Position: [facility] RN Member Role: Primary Care Nurse Name: Pretty Rosen RN Position: [facility] RN Member Role: Primary Care Nurse Name: Basilio Chase MD Position: [facility] Physician - Behavioral Health Member Role: Lifetime Consulting Physician Address: Address: [address] [place] [address]- [place] Care Team Related Persons Name: EMEKA MACK Address: home [address] [place] [address] Name: CARMEN COELLO Address: [place] [address] Name: TRACY PALMER Address: home [address] [place] [address]
--- OUTSIDE RECORDS SUMMARY | 2024-02-23 16:20 | XMS_ITS | Continuity of Care Document ---
Author Organization [facility] Address [address] [place] [address]- Care Team Providers Care Hand Tennis Ball Coverer Name Role Phone Stacy JACOBSEN, Jeevan Smith Primary Care Physician Encounter [facility] Date(s): 06/09/22 - 07/09/22 [facility] [address] [place] [address]- Allergies, Adverse Reactions, Alerts Substance Reaction Severity [...] 02/16/22 15:13:00 EDT, Route to Pharmacy Electronically, [facility]-, 163.5, cm, 02/16/22 14:40:00 EDT, Height Start Date: 02/16/22 Status: Ordered Actos 15 mg oral tablet 1 tablet = 15 mg, By Mouth, Daily, # 30 tablet, 6 Refills, Maintenance, 02/16/22 15:13:00 EDT, Tablet, [facility]-, Partial fill upon [...] 1 Refills, Maintenance, 06/04/22 15:16:00 EDT, Tablet, [facility]-, Partial fill upon [...] 06/29/22 13:14:00 EDT, Route to Pharmacy Electronically, [facility]-, Partial fill upon patient request if th... Start Date: 06/29/22 Status: Ordered Crestor 5 mg oral tablet 1 tablet = 5 mg, By Mouth, Daily, REPLACES SIMVASTATIN, # 30 tablet, 6 Refills, Maintenance, 07/03/22 11:36:00 EDT, Tablet, [facility]-, Partial fill upon patient request if the prescription is for a schedule II opioid drug., 160,... Start Date: 07/03/22 Status: Ordered dilTIAZem 360 mg/24 hours oral capsule, extended release 1 capsule = 360 mg, By Mouth, Daily, # 30 capsule, 6 Refills, Maintenance, 02/16/22 15:13:00 EDT, CR Capsule, [facility], Partial fill [...] FOR CONSTIPATION, # 30 tablet, 0 Refills, [facility]-, 160, cm, 05/05/22 11:37:00 EDT, Height, [...] 5 Refills, Maintenance, 02/16/22 15:13:00 EDT, Solution, [facility]-, Partial fill upon patient request if the prescription is for a schedule II opioid drug., 163.5, cm, 02/16/22... Start Date: 02/16/22 Status: Ordered methimazole 10 mg oral tablet 30 mg, 3, tablet, By Mouth, 2 times a day, # 540 tablet, Refills 3, Tot. Refills 3, Maintenance, 05/22/22 16:17:00 EDT, Route to Pharmacy Electronically, [facility]-, Partial fillupon patient request if the [...] each, 0 Refills, Maintenance, 06/25/22 11:32:00 EDT, [facility], 160, cm, 06/04/22 15:02:00 [...] 6 Refills, Maintenance, 02/16/22 15:13:00 EDT, [place], [facility]-, Partial fill upon patient request [...] tablet, 6 Refills, Maintenance, 08/18/21 14:36:00 EST, [facility], Partial fill upon patient [...] mellitus type 2 in obese Confirmed Active 15868 Social History Social History Type Response Smoking Status Former smoker, quit more than 30 days ago entered on: 11/08/20 Sex Patient Care team information Personnel Name: Jeevan Kumar MD Address: Address: [address] [place] [id number]
--- OUTSIDE RECORDS SUMMARY | 2024-02-23 16:20 | XMS_ITS | Continuity of Care Document ---
Author Organization [facility] Address [address] [place] [address]- Care Team Providers Care Supply Chain Manager Name Role Phone Stacy JACOBSEN, Jeevan Smith Primary Care Physician [phone] Encounter [facility] Date(s): 02/24/23 - 03/26/23 [facility] [address] [place] [address]- Attending Physician: Aaron Flores Admitting Physician: AdmAaron sotelo Referring Physician: Admtr, ArKyle Allergies, Adverse Reactions, Alerts Substance Reaction Severity [...] 12/14/22 14:45:00 EDT, Route to Pharmacy Electronically, [facility]-, 160.5, cm, 12/14/22 14:21:00 EDT, Height, 66, kg, 08/19/22 14:08... Start Date: 12/14/22 Status: Ordered Actos 15 mg oral tablet 1 tablet = 15 mg, By Mouth, Daily, # 30 tablet, 6 Refills, Maintenance, 12/14/22 14:45:00 EDT, Tablet, [facility], Partial fill [...] 1 Refills, Maintenance, 10/31/22 17:38:00 EST, Tablet, [facility], Partial fill upon [...] 12/14/22 14:45:00 EDT, Route to Pharmacy Electronically, [facility]-, Partial fill upon patient request if th... Start Date: 12/14/22 Status: Ordered Crestor 5 mg oral tablet 1 tablet = 5 mg, By Mouth, Daily, REPLACES SIMVASTATIN, # 30 tablet, 6 Refills, Maintenance, 12/14/22 14:45:00 EDT, Tablet, [facility], Partial fill upon patient request if the prescription is for a schedule II opioid drug., 160.5... Start Date: 12/14/22 Status: Ordered diclofenac 1% topical gel See Instructions, APPLY TO AFFECTED AREA(S) TWICE A DAY NEEDED PAIN, # 100 Gm, 0 Refills, Maintenance, 07/30/22 13:16:00 EDT, [facility], 14, APPLY TO AFFECTED AREA(S) TWICE A DAY NEEDED PAIN, 160, cm, 06/29/22 12:54:00 EDT, Height,... Start Date: 07/30/22 Status: Ordered dilTIAZem 360 mg/24 hours oral capsule, extended release 1 capsule = 360 mg, By Mouth, Daily, # 30 capsule, 6 Refills, Maintenance, 12/14/22 14:45:00 EDT, CR Capsule, [facility], Partial fill upon patient request if the prescription isfor a schedule II opioid drug., 160.5, cm, 12/14/22... Start Date: 12/14/22 Status: Ordered Estrace Vaginal Cream 0.1 mg/g = 1 Gm, Vaginally, Every Wednesday and Wednesday, # 42.5 Gm, 6 Refills, Maintenance, 08/19/22 14:20:00 EST, [facility]-, Partial fill upon patient request if the prescription is for a schedule II opioid drug., 160.5, cm, 08/19/22 14:08:... Start Date: 08/19/22 Status: Ordered ferrous sulfate 325 mg oral tablet 1 tablet, By Mouth, Daily, # 30 tablet, 11 Refills, Maintenance, 12/14/22 14:45:00 EDT, [facility]-, 160.5, cm, 12/14/22 14:21:00 EDT, Height, [...] 5 Refills, Maintenance, 12/14/22 14:45:00 EDT, Solution, [facility]-, Partial fill [...] CESSATION, # 220 each, 0 Refills, Maintenance, 02/11/23 13:15:00 EDT, [facility], 160.5, cm, 12/14/22 14:21:00 EDT, Height, 66, kg, 08/19/22 14:08:00 EST,... Start Date: 02/11/23 Status: Ordered Nutrafol (Hair Growth Supplement) Nutrafol (Hair Growth Supplement), See Instructions, Refills 0, Maintenance, 06/29/22 13:08:00 EDT,Supply Start Date: 06/29/22 Status: Ordered omeprazole 20 mg oral enteric coated capsule 1 capsule = 20 mg, By Mouth, Daily, # 30 capsule, 6 Refills, Maintenance, 12/14/22 14:45:00 EDT, ECCapsule, [facility], Partial fill [...] tablet, 6 Refills, Maintenance, 12/14/22 14:45:00 EDT, [facility] [place] Partial fill upon patient request if the [...] mellitus type 2 in obese Confirmed Active 36809 Social History Social History Type Response Smoking Status Former smoker, quit more than 30 days ago entered on: 11/08/20 Sex Patient Care team information Care Team Personnel Name: Praveena Jordan RN Position: [facility] AMB Nurse Member Role: Primary Care Nurse Name: Smita Cantrell RN Position: [facility] SN RN Member Role: Primary Care Nurse Name: Zain Ramos RN Position: [facility] ED RN W/OE and Tasks Member Role: Primary Care Nurse Name: Gerard Erickson RN Position: [facility] RN Member Role: Primary Care Nurse Name: Jeevan Kumar MD Position: [facility] Physician - Primary Care Member Role: PCP Address: Address: [address] [place] [id number]- Name: Amy Campos NP Position: [facility] Associate Professional Member Role: Primary Care Nurse Address: Address: [address] [place] [address] Trauma and [place] [address]- Name: Gita Becerril RN Position: [facility] RN Member Role: Primary Care Nurse Name: Selena Dias RN Position: [facility] AMB Nurse Member Role: Primary Care Nurse Name: Ryan Romero RN Position: [facility] SN RN Member Role: Primary Care Nurse Name: Florentino Torres RN Position: [facility] RN Member Role: Primary Care Nurse Name: Pretty Rosen RN Position: [facility] RN Member Role: Primary Care Nurse Name: Basilio Chase MD Position: [facility] Physician - Behavioral Health Member Role: Lifetime Consulting Physician Address: Address: [address] [place] [address]- [place] Care Team Related Persons Name: EMEKA MACK Address: home [address] [place] [address] Name: CARMEN COELLO Address: [place] [address] Name: TRACY PALMER Address: home [address] [place] [address]
--- OUTSIDE RECORDS SUMMARY | 2024-02-23 16:20 | XMS_ITS | Continuity of Care Document ---
Author Organization [facility] Ty Saad lt Address [address] [place] [address]- Care Team Providers Care Residence Supervisor Name Role Phone Jeevan Kumar MD Primary Care Physician [phone] Encounter [facility] [place] [place] Date(s): 01/19/24 - 01/26/24 [facility] Adult [address] [place] [address]- Attending Physician: Jeevan Kumar MD Allergies, Adverse [...] pneumococcal 23-valent vaccine 06/21/09 Recorded 1Result Comment: [facility]: [id number] 2Result Comment: Pt not sure the exact date. Medications acetaminophen 325 mg oral tablet 1 TO 2 TABLETS, By Mouth, Daily at bedtime, # 60 tablet, Refills 5, Tot. Refills 5, Maintenance, 01/24/24 14:34:00 EDT, Route to Pharmacy Electronically, [facility]-, 160.5, cm, 01/24/24 14:15:00 EDT, Height, 66, kg, 08/19/22 14:08... Start Date: 01/24/24 Status: Ordered biotin 1000 mcg oral tablet 1 tablet = 1,000 mcg, By Mouth, Daily, # 90 tablet, 1 Refills, Maintenance, 01/24/24 14:34:00 EDT, Tablet, [facility], Partial fill upon patient request [...] 01/24/24 14:36:00 EDT, Route to Pharmacy Electronically, [facility], Partial fill upon patient request if th... Start Date: 01/24/24 Status: Ordered Crestor 5 mg oral tablet 1 tablet = 5 mg, By Mouth, Daily, REPLACES SIMVASTATIN, # 30 tablet, 6 Refills, Maintenance, 01/24/24 14:36:00 EDT, Tablet, [facility], Partial fill upon patient request if the prescription is for a schedule II opioid drug., 160.5... Start Date: 01/24/24 Status: Ordered dilTIAZem 360 mg/24 hours oral capsule, extended release 1 capsule = 360 mg, By Mouth, Daily, # 30 capsule, 6 Refills, Maintenance, 01/24/24 14:34:00 EDT, CR Capsule, [facility]-, Partial fill upon patient request if the prescription isfor a schedule II opioid drug., 160.5, cm, 01/24/24... Start Date: 01/24/24 Status: Ordered donepezil 5 mg oral tablet 1, tablet, By Mouth, Daily at bedtime, # 30 tablet, Refills 5, Tot. Refills 5, Maintenance, 01/24/24 14:34:00 EDT, Route to Pharmacy Electronically, [facility], 160.5, cm, 01/24/24 14:15:00 EDT, Height, 66, kg, 08/19/22 14:08:00 E... Start Date: 01/24/24 Status: Ordered ferrous sulfate 325 mg oral tablet 1 tablet, By Mouth, Daily, # 30 tablet, 11 Refills, Maintenance, 01/24/24 14:34:00 EDT, [facility], 160.5, cm, 01/24/24 14:15:00 EDT, [...] 5 Refills, Maintenance, 01/24/24 14:34:00 EDT, Solution, [facility]-, Partial fill upon patient request [...] each, 6 Refills, Maintenance, 01/24/24 14:36:00 EDT, [facility], 160.5, cm, 01/24/24 14:15:00 EDT, Height, 66, kg, 08/19/22 14:08... Start Date: 01/24/24 Status: Ordered Nutrafol (Hair Growth Supplement) Nutrafol (Hair Growth Supplement), See Instructions, Refills 0, Maintenance, 06/29/22 13:08:00 EDT,Supply Start Date: 06/29/22 Status: Ordered omeprazole 20 mg oral enteric coated capsule 1 capsule = 20 mg, By Mouth, Daily, # 30 capsule, 5 Refills, Maintenance, 01/24/24 14:36:00 EDT, ECCapsule, [facility], Partial fill upon patient request if the prescription is for a schedule II opioid drug., 160.5, cm, 01/24/24... Start Date: 01/24/24 Status: Ordered pioglitazone 15 mg oral tablet 1 tablet, By Mouth, Daily, # 30 tablet, 2 Refills, Maintenance, 01/24/24 14:36:00 EDT, [facility], 160.5, cm, 01/24/24 14:15:00 EDT, [...] tablet, 6 Refills, Maintenance, 06/18/23 14:28:00 EDT, [facility], Partial fill upon patient request [...] in obese Confirmed Active [facility] [place] 2017 [id number] [facility] 2022 4Outside Source Comment: Overview: Per BS Vital Signs Most recent to oldest [Reference Range]: 1 Height 160.5 cm (01/19/24 9:59 AM) Weight 71.9 kg (01/19/24 9:59 AM) Oxygen Saturation [94-100 %] 100 % (01/19/24 9:59 AM) Pulse Rate [55-90 bpm] 68 bpm (01/19/24 9:59 AM) Body Mass Index [18.5-24.99 kg/m2] 27.91 kg/m2 *H* (01/19/24 9:59 AM) Blood Pressure [90-138/55-84 mm Hg] 120/ 79mm Hg (01/19/24 9:59 AM) Respiratory Rate [16-30 br/min] 20 br/mi n (01/19/24 9:59 AM) Temperature [96.8-100.4 DegF] 97.3 DegF (01/19/24 9:59 AM) Mode of Delivery (Oxygen) Room air (01/19/24 9:59 AM) Blood pressure sites Arm, right (01/19/24 9:59 AM) Temperature Route Oral (01/19/24 9:59 AM) Weight Obtained Via Standing scale (01/19/24 9:59 AM) Social History Social History Type Response Smoking Status Former smoker, quit more than 30 days ago entered on: 11/08/20 Sex EKG study * Event Display: ECG 12-Lead Authored Date: Please click on pdf link to open report * Event Display: ECG 12-Lead Authored Date: Ventricular Rate: 61 BPM Atrial Rate: 61 BPM P-R Interval: 200 ms QRS Duration: 76 ms Q-T Interval: 400 ms QTC Calculation(Bazett): 402 ms P Cameron: 58 degrees R Cameron: 21 degrees T Cameron: 42 degrees Normal sinus rhythm with sinus arrhythmia Normal ECG When compared with ECG of 05-MAY-2022 12:04, No significant change was found Confirmed by MAGGY WEISS MD ([id number]) on 01/19/2024 11:57:55 AM [place]: MAGGY WEISS MD Patient Care team information Care Team Personnel Name: Praveena Jordan RN Position: [facility] AMB Nurse Member Role: Primary Care Nurse Name: Smita Cantrell RN Position: [facility] SN RN Member Role: Primary Care Nurse Name: Zain Ramos RN Position: [facility] ED RN W/OE and Tasks Member Role: Primary Care Nurse Name: Gerard Erickson RN Position: [facility] RN Member Role: Primary Care Nurse Name: Jeevan Kumar MD Position: [facility] Physician - Primary Care Member Role: PCP Address: Address: [address] [place] [id number]- Name: Amy Campos NP Position: [facility] Associate Professional Member Role: Primary Care Nurse Address: Address: [address] [place] [address] Trauma [place] [address]- Name: Gita Becerril RN Position: [facility] RN Member Role: Primary Care Nurse Name: Selena Dias RN Position: [facility] AMB Nurse Member Role: Primary Care Nurse Name: Ryan Romero RN Position: [facility] SN RN Member Role: Primary Care Nurse Name: Florentino Torres RN Position: [facility] RN Member Role: Primary Care Nurse Name: Pretty Rosen RN Position: [facility] RN Member Role: Primary Care Nurse Name: Basilio Chase MD Position: [facility] Physician - Behavioral Health Member Role: Lifetime Consulting Physician Address: Address: [address] [place] [address]- [place] Care Team Related Persons Name: EMEKA MACK Address: home [address] [place] [address] Name: CARMEN COELLO Address: [place] [address] Name: TRACY PALMER Address: home [address] [place] [address]
--- OUTSIDE RECORDS SUMMARY | 2024-02-23 16:20 | XMS_ITS | Continuity of Care Document ---
Author Organization [facility] Roscoe Crawford Saad lt Address [address] [place] [address]- Care Team Providers Care Sanforizer Name Role Phone Jeevan Kumar MD Primary Care Physician [phone] Encounter [facility] Date(s): 04/21/23 - 05/21/23 [facility] Roscoe Crawford Adult [address] [place] [address]- Attending Physician: Admtr, Ar8 Admitting Physician: Admtr, [...] 12/14/22 14:45:00 EDT, Route to Pharmacy Electronically, [facility], [place]-, 160.5, cm, 12/14/22 14:21:00 EDT, Height, 66, kg, 08/19/22 14:08... Start Date: 12/14/22 Status: Ordered Actos 15 mg oral tablet 1 tablet = 15 mg, By Mouth, Daily, # 30 tablet, 6 Refills, Maintenance, 12/14/22 14:45:00 EDT, Tablet, [facility], [place], Partial fill upon patient request if the [...] 1 Refills, Maintenance, 10/31/22 17:38:00 EST, Tablet, [facility], [place], Partial fill upon patient request if the [...] 12/14/22 14:45:00 EDT, Route to Pharmacy Electronically, [facility], [place], Partial fill upon patient request if th... Start Date: 12/14/22 Status: Ordered Crestor 5 mg oral tablet 1 tablet = 5 mg, By Mouth, Daily, REPLACES SIMVASTATIN, # 30 tablet, 6 Refills, Maintenance, 12/14/22 14:45:00 EDT, Tablet, [facility], [place], Partial fill upon patient request if the [...] Refills, Maintenance, 12/14/22 14:45:00 EDT, CR Capsule, [facility], [place], Partial fill upon patient request if the prescription isfor a schedule II opioid drug., 160.5, cm, 12/14/22... Start Date: 12/14/22 Status: Ordered Estrace Vaginal Cream 0.1 mg/g = 1 Gm, Vaginally, Every Wednesday and Wednesday, # 42.5 Gm, 6 Refills, Maintenance, 08/19/22 14:20:00 EST, [facility], [place]-, Partial fill upon patient request if the prescription is for a schedule II opioid drug., 160.5, cm, 08/19/22 14:08:... Start Date: 08/19/22 Status: Ordered ferrous sulfate 325 mg oral tablet 1 tablet, By Mouth, Daily, # 30 tablet, 11 Refills, Maintenance, 12/14/22 14:45:00 EDT, [facility], [place]-, 160.5, cm, 12/14/22 14:21:00 EDT, Height, 66, [...] a schedule II opioid drug. Start Date: 2/12/21 Status: Ordered Lantus Solostar Pen 100 units/mL subcutaneous solution = 16 units, Subcutaneous Injection, Daily, # 15 mL, 5 Refills, Maintenance, 12/14/22 14:45:00 EDT, Solution, [facility], [place], Partial fill upon patient request if the [...] each, 0 Refills, Maintenance, 05/19/23 16:57:00 EDT, [facility], [place], 160.5, cm, 04/21/23 13:26:00 EDT, Height, 66, kg, 08/19/22 14:08... Start Date: 05/19/23 Status: Ordered Nutrafol (Hair Growth Supplement) Nutrafol (Hair Growth Supplement), See Instructions, Refills 0, Maintenance, 06/29/22 13:08:00 EDT,Supply Start Date: 06/29/22 Status: Ordered omeprazole 20 mg oral enteric coated capsule 1 capsule = 20 mg, By Mouth, Daily, # 30 capsule, 6 Refills, Maintenance, 12/14/22 14:45:00 EDT, ECCapsule, [facility], [place], Partial fill upon patient request if the [...] tablet, 6 Refills, Maintenance, 12/14/22 14:45:00 EDT, [facility], Partial fill upon patient request [...] mellitus type 2 in obese Confirmed Active 41562 Social History Social History Type Response Smoking Status Former smoker, quit more than 30 days ago entered on: 11/08/20 Sex Patient Care team information Care Team Personnel Name: Praveena Jordan RN Position: [facility] AMB Nurse Member Role: Primary Care Nurse Name: Smita Cantrell RN Position: [facility] RN Member Role: Primary Care Nurse Name: Zain Ramos RN Position: [facility] ED RN W/OE and Tasks Member Role: Primary Care Nurse Name: Gerard Erickson RN Position: [facility] RN Member Role: Primary Care Nurse Name: Jeevan Kumar MD Position: [facility] Physician - Primary Care Member Role: PCP Address: Address: [address] [place] [address]- [place] Name: Amy Campos NP Position: [facility] Associate Professional Member Role: Primary Care Nurse Address: Address: [address] [place] [address] Trauma [place] [address]- [place] Name: Gita Becerril RN Position: [facility] RN Member Role: Primary Care Nurse Name: Selena Dias RN Position: [facility] AMB Nurse Member Role: Primary Care Nurse Name: Ryan Romero RN Position: [facility] SN RN Member Role: Primary Care Nurse Name: Florentino Torres RN Position: [facility] RN Member Role: Primary Care Nurse Name: Pretty Rosen RN Position: [facility] RN Member Role: Primary Care Nurse Name: Basilio Chase MD Position: [facility] Physician - Behavioral Health Member Role: Lifetime Consulting Physician Address: Address: [address] [facility] [place] [address]- [place] Care Team Related Persons Name: EMEKA MACK Address: home [address] [place] [address] Name: CARMEN COELLO Address: [place] [address] Name: TRACY PALMER Address: home [address] [place] [address]
--- OUTSIDE RECORDS SUMMARY | 2024-02-23 16:20 | XMS_ITS | Continuity of Care Document ---
Author Organization [facility] Saad lt Address [address] [place] [address]- Care Team Providers Care Canoe Inspector Final Name Role Phone Stacy JACOBSEN, Jeevan Smith Primary Care Physician [place] [facility] [place]): 12/22/21 - 01/21/22 [facility] Adult [address] [place] [address]- Allergies, Adverse Reactions, Alerts Substance Reaction Severity [...] tablet, Refills 5, Route to Pharmacy Electronically, [facility]-, 163.5, cm, 08/18/21 14:06:00 EST, Height, 89.9, kg, 12/13/19 18:25:00 EDT, Dry Weight Start Date: 10/29/21 Status: Ordered Actos 15 mg oral tablet 1 tablet = 15 mg, By Mouth, Daily, # 30 tablet, 6 Refills, Maintenance, 08/18/21 14:36:00 EST, Tablet, [facility], Partial fill upon patient request if [...] Refills, Maintenance, 08/18/21 14:36:00 EST, CR Capsule, [facility], Partial fill upon patient request if the prescription isfor a schedule II opioid drug., 163.5, cm, 08/18/21... Start Date: 08/18/21 Status: Ordered ferrous sulfate 325 mg oral enteric coated tablet 325 mg, 1, tablet, By Mouth, Daily, # 30 tablet, Refills 6, Tot. Refills 6, Maintenance, 08/18/21 14:36:00 EST, Route to Pharmacy Electronically, [facility], Partial fill upon patient request if the prescription is for a schedule... Start Date: 08/18/21 Status: Ordered Flonase 50 mcg/inh nasal spray 1 sprays, Nares, Both, Daily, PRN Congestion, # 16 Gm, 6 Refills, Maintenance, 08/18/21 14:36:00 EST, Nasal [place], [facility], Partial fill upon patient request if [...] FOR CONSTIPATION, # 30 tablet, 0 Refills, [facility], 163.5, cm, 08/18/21 14:06:00 EST, Height, 89.9, [...] 5 Refills, Maintenance, 08/18/21 14:36:00 EST, Solution, [facility]-, Partial fill upon patient request if [...] FOR CRAVINGS, # 200 each, 0 Refills, [employer], 163.5, cm, 08/18/21 14:06:00 EST, Height Start Date: 01/21/22 Status: Ordered omeprazole 20 mg oral enteric coated capsule 1 capsule = 20 mg, By Mouth, Daily, # 30 capsule, 6 Refills, Maintenance, 08/18/21 14:36:00 EST, ECCapsule, [facility], Partial fill upon patient request if [...] 08/18/21 14:36:00 EST, Route to Pharmacy Electronically, [facility], Partial fill upon patient request if the prescription is for a... Start Date: 08/18/21 Status: Ordered tiZANidine 4 mg oral capsule 1 capsule = 4 mg, By Mouth, 3 times a day, # 42 capsule, 0 Refills, Maintenance, 02/06/21 13:47:00 EDT, [facility], Partial fill upon patient request if the prescription is for aschedule II opioid drug., 163.5, cm, 02/06/21 13:17... Start Date: 02/06/21 Stop Date: 02/20/21 Status: Ordered topiramate 50 mg oral tablet 1 tablet = 50 mg, By Mouth, Daily, # 30 tablet, 6 Refills, Maintenance, 08/18/21 14:36:00 EST, [facility], Partial fill upon patient request if [...] Diabetes mellitus type 2 in obese(Confirmed) Active 60308 Social History Social History Type Response Smoking Status Former smoker, quit more than 30 days ago entered on: 11/08/20 Sex
--- OUTSIDE RECORDS SUMMARY | 2024-02-23 16:20 | XMS_ITS | Continuity of Care Document ---
Author Organization [facility] Saad Address [address] [place] [address]- Care Team Providers Care In Flight Technician Name Role Phone Stacy JACOBSEN, Jeevan Smith Primary Care Physician [facility]counter [facility] Date(s): 11/02/22 - 12/02/22 [facility] Adult [address] [place] [address]- Attending Physician: AdmAaron sotelo Admitting Physician: AdmtrAaron Referring Physician: Admtr, Ar8 [...] 08/17/22 15:29:00 EST, Route to Pharmacy Electronically, [facility]-, 160, cm, 08/17/22 15:09:00 EST, Height, 68.5, kg, 03/16/22 6:52:... Start Date: 08/17/22 Status: Ordered Actos 15 mg oral tablet 1 tablet = 15 mg, By Mouth, Daily, # 30 tablet, 6 Refills, Maintenance, 08/17/22 15:29:00 EST, Tablet, [facility], Partial fill upon patient request if the [...] 1 Refills, Maintenance, 10/31/22 17:38:00 EST, Tablet, [facility], Partial fill upon patient request if the [...] 08/17/22 15:29:00 EST, Route to Pharmacy Electronically, [facility], Partial fill upon patient request if th... Start Date: 08/17/22 Status: Ordered Crestor 5 mg oral tablet 1 tablet = 5 mg, By Mouth, Daily, REPLACES SIMVASTATIN, # 30 tablet, 6 Refills, Maintenance, 08/17/22 15:29:00 EST, Tablet, [facility], Partial fill upon patient request if the [...] Refills, Maintenance, 08/17/22 15:29:00 EST, CR Capsule, [facility], Partial fill upon patient request if the prescription isfor a schedule II opioid drug., 160, cm, 08/17/22 1... Start Date: 08/17/22 Status: Ordered Estrace Vaginal Cream 0.1 mg/g = 1 Gm, Vaginally, Every Wednesday and Wednesday, # 42.5 Gm, 6 Refills, Maintenance, 08/19/22 14:20:00 EST, [facility], Partial fill upon patient request if the prescription is for a schedule II opioid drug., 160.5, cm, 08/19/22 14:08:... Start Date: 08/19/22 Status: Ordered ferrous sulfate 325 mg oral tablet 1 tablet, By Mouth, Daily, # 30 tablet, 11 Refills, Maintenance, 10/29/22 11:37:00 EST, [facility], 160.5, cm, 08/27/22 14:26:00 EST, Height, [...] 5 Refills, Maintenance, 08/17/22 15:29:00 EST, Solution, [facility]-, Partial fill upon patient request if the prescription is for a schedule II opioid drug., 160, cm, 08/17/22 15... Start Date: 08/17/22 Status: Ordered methimazole 10 mg oral tablet 10 mg, 1, tablet, By Mouth, Daily, # 90 tablet, Refills 3, Tot. Refills 3, Maintenance, 08/18/22 8:29:00 EST, Route to Pharmacy Electronically, [facility], Partial fill upon patient request if the [...] each, 0 Refills, Maintenance, 10/21/22 13:37:00 EST, [facility], 160.5, cm, 08/27/22 14:26:00 EST, Height, 66, kg, 08/19/22 14:08... Start Date: 10/21/22 Status: Ordered Nutrafol (Hair Growth Supplement) Nutrafol (Hair Growth Supplement), See Instructions, Refills 0, Maintenance, 06/29/22 13:08:00 EDT,Supply Start Date: 06/29/22 Status: Ordered omeprazole 20 mg oral enteric coated capsule 1 capsule = 20 mg, By Mouth, Daily, # 30 capsule, 6 Refills, Maintenance, 08/17/22 15:29:00 EST, ECCapsule, [facility], Partial fill upon patient request if the [...] Refills, Maintenance, 08/17/22 15:29:00 EST, [facility], Partial fill upon patient request if [...] mellitus type 2 in obese Confirmed Active [id number] Social History Social History Type Response Smoking Status Former smoker, quit more than 30 days ago entered on: 11/08/20 Sex Patient Care team information Care Team Personnel Name: Praveena Jordan RN Position: [facility] PCO RN Member Role: Primary Care Nurse Name: Smita Cantrell RN Position: [facility] SN RN Member Role: Primary Care Nurse Name: Zain Ramos RN Position: [facility] ED RN W/OE and Tasks Member Role: Primary Care Nurse Name: Gerard Erickson RN Position: [facility] RN Member Role: Primary Care Nurse Name: Jeevan Kumar MD Position: [facility] Primary Care Physician Member Role: PCP Address: Address: [address] [place] [address]- [place] Name: Amy Campos NP Position: [facility] Associate Professional Member Role: Primary Care Nurse Address: Address: [address] [place] [address] Trauma [place] [address]- [place] Name: Gita Becerril RN Position: [facility] RN Member Role: Primary Care Nurse Name: Selena Dias RN Position: [facility] PCO RN Member Role: Primary Care Nurse Name: Ryan Romero RN Position: [facility] SN RN Member Role: Primary Care Nurse Name: Florentino Torres RN Position: [facility] RN Member Role: Primary Care Nurse Name: Pretty Rosen RN Position: [facility] RN Member Role: Primary Care Nurse Name: Basilio Chase MD Position: [facility] Psychiatry MD Member Role: Lifetime Consulting Physician Address: Address: [address] [place] [address]- [place] Care Team Related Persons Name: EMEKA MACK Address: home [address] [place] [address] Name: CARMEN COELLO Address: [place] [address] Name: TRACY PALMER Address: home [address] [place] [address]
--- OUTSIDE RECORDS SUMMARY | 2024-02-23 16:20 | XMS_ITS | Continuity of Care Document ---
Author Organization [facility] Saad Address [address] [place] [address]- Care Team Providers Care Otolaryngology Physician Name Role Phone Osorio TOP AND SEAT COVER FITTER, Tisha Asencio Primary Care Physician [phone] [facility]counter [facility] Date(s): 02/18/22 - 03/20/22 [facility] Adult [address] [place] [address]- Allergies, Adverse Reactions, Alerts Substance Reaction Severity [...] 04/15/22 5:59:00 EDT, 03/16/22 5:59:00 EDT, Tablet, [facility], Partial fill upon patient request if the prescription is for a ramses... Start Date: 03/16/22 Stop Date: 04/15/22 Status: Ordered Actos 15 mg oral tablet 1 tablet = 15 mg, By Mouth, Daily, # 30 tablet, 6 Refills, Maintenance, 02/16/22 15:13:00 EDT, Tablet, [facility] Partial fill upon patient request if the prescription is for a schedule II opioid drug., 163.5, cm, 02/16/22 14:40:... Start Date: 02/16/22 Status: Ordered aspirin 325 mg oral delayed release tablet 325 mg, 1, tablet, By Mouth, Daily, # 30 tablet, Refills 0, Tot. Refills 0, Maintenance, 03/16/22 6:00:00 EDT, Route to Pharmacy Electronically, [facility], Partial fill upon patientrequest if the [...] 02/16/22 15:13:00 EDT, CR Capsule, [facility]-, Partial fill upon patient [...] 0 Refills, Maintenance, 02/16/22 15:13:00 EDT, [facility], 163.5, cm, 02/16/22 14:40:00 EDT, Height Start [...] Refills, Maintenance, 02/16/22 15:13:00 EDT, Solution, [facility]-, Partial fill upon patient [...] Maintenance, 02/16/22 15:13:00 EDT, ECCapsule, [facility]-, Partial fill upon patient request if the prescription is for a schedule II opioid drug., 163.5, cm, 02/16/22... Start Date: 02/16/22 Status: Ordered ondansetron 4 mg oral tablet 1 tablet = 4 mg, By Mouth, Every 12 hours, for 6 days, # 12 tablet, 0 Refills, Acute 03/22/22 6:00:00 EDT, 03/16/22 6:00:00 EDT, Tablet, [facility] [place], Partial fill upon patient requestif the prescription is for a schedule II opioid adeline... Start Date: 03/16/22 Stop Date: 03/22/22 Status: Ordered oxyCODONE 5 mg oral tablet 5 mg, 1, tablet, By Mouth, Every 4 hours, PRN, for 5 days, # 30 tablet, Refills 0, Tot. Refills 0, Acute 03/21/22 6:00:00 EDT, as needed for pain, 03/16/22 6:00:00 EDT, Route to Pharmacy Electronically, [facility], Partial fill upon p... Start Date: 03/16/22 [...] Diabetes mellitus type 2 in obese(Confirmed) Active 29359 Social History Social History Type Response Smoking Status Former smoker, quit more than 30 days ago entered on: 11/08/20 Sex
--- OUTSIDE RECORDS SUMMARY | 2024-02-23 16:20 | XMS_ITS | Continuity of Care Document ---
Author Organization [facility] Saad lt Address [address] [place] [address]- Care Team Providers Care Admission Specialist Name Role Phone Jeevan Kumar MD Primary Care Physician [phone] [facility]counter [facility] Date(s): 02/10/21 - 03/12/21 [facility] Adult [address] [place] [address]- Allergies, Adverse Reactions, Alerts Substance Reaction Severity [...] 6 Refills, Maintenance, 02/06/21 13:47:00 EDT, Tablet, [facility]-, Partial fill upon patient request if the prescription is for a schedule II opioid drug., 163.5, cm, 02/06/21 13:17:... Start Date: 02/06/21 Status: Ordered dilTIAZem 360 mg/24 hours oral capsule, extended release 1 capsule = 360 mg, By Mouth, Daily, # 30 capsule, 6 Refills, Maintenance, 02/06/21 13:47:00 EDT, CR Capsule, [facility]-, Partial fill upon patient request if the prescription isfor a schedule II opioid drug., 163.5, cm, 02/06/21... Start Date: 02/06/21 Status: Ordered ferrous sulfate 325 mg oral enteric coated tablet 325 mg, 1, tablet, By Mouth, Daily, # 30 tablet, Refills 6, Tot. Refills 6, Maintenance, 02/06/21 13:47:00 EDT, Route to Pharmacy Electronically, [facility], Partial fill upon patient request if the prescription is for a schedule... Start Date: 02/06/21 Status: Ordered Flonase 50 mcg/inh nasal spray 1 sprays, Nares, Both, Daily, PRN Congestion, # 16 Gm, 6 Refills, Maintenance, 02/06/21 13:48:00 EDT, Nasal [place], [facility], Partial fill upon patient [...] 5 Refills, Maintenance, 02/06/21 13:47:00 EDT, Solution, [facility], Partial fill upon patient [...] 02/06/22 0:00:00 EDT, 02/06/21 13:49:00 EDT, Gum, [facility]-, Partial fill upon patient request if the prescription is for a ramses... Start Date: 02/06/21 Stop Date: 02/06/22 Status: Ordered omeprazole 20 mg oral enteric coated capsule 1 capsule = 20 mg, By Mouth, Daily, # 30 capsule, 6 Refills, Maintenance, 02/06/21 13:47:00 EDT, ECCapsule, [facility], Partial fill upon patient request if the prescription is for a schedule II opioid drug., 163.5, cm, 02/06/21... Start Date: 02/06/21 Status: Ordered Senna 8.6 mg oral tablet 17.2 mg, 2, tablet, By Mouth, Daily at bedtime, PRN, # 100 tablet, Refills 1, Tot. Refills 1, Maintenance, for constipation, 02/06/21 13:47:00 EDT, Route to Pharmacy Electronically, [facility] [facility]t, Partial fill upon patient req... Start Date: 02/06/21 Status: Ordered simvastatin 20 mg oral tablet 20 mg, 1, tablet, By Mouth, Daily at bedtime, # 30 tablet, Refills 6, Tot. Refills 6, Maintenance, 02/06/21 13:47:00 EDT, Route to Pharmacy Electronically, [facility], Partial fill upon patient request if the prescription is for a... Start Date: 02/06/21 Status: Ordered tiZANidine 4 mg oral capsule 1 capsule = 4 mg, By Mouth, 3 times a day, # 42 capsule, 0 Refills, Maintenance, 02/06/21 13:47:00 EDT, [facility], Partial fill upon patient request if the prescription is for aschedule II opioid drug., 163.5, cm, 02/06/21 13:17... Start Date: 02/06/21 Stop Date: 02/20/21 Status: Ordered topiramate 50 mg oral tablet 1 tablet = 50 mg, By Mouth, Daily, # 30 tablet, 6 Refills, Maintenance, 02/06/21 13:47:00 EDT, [facility], Partial fill upon [...] Diabetes mellitus type 2 in obese(Confirmed) Active 89018 Social History Social History Type Response Smoking Status Former smoker, quit more than 30 days ago entered on: 11/08/20 Sex
--- OUTSIDE RECORDS SUMMARY | 2024-02-23 16:20 | XMS_ITS | Continuity of Care Document ---
Author Organization [facility] Ty Saad lt Address [address] [place] [address]- Care Team Providers Care Patient Ambassador Name Role Phone Stacy JACOBSEN, Jeevan Smith Primary Care Physician [phone] [place] [facility] [place] 12/04/20 - 01/03/21 [facility] Adult [address] [place] [address]- Allergies, Adverse Reactions, Alerts Substance Reaction Severity [...] 12/04/20 15:09:00 EST, Route to Pharmacy Electronically, [facility]-, Partial fill upon [...] 1 Refills, Maintenance, 12/26/20 12:20:00 EDT, Solution, [facility]-, Partial fill upon [...] 12/04/20 15:09:00 EST, Route to Pharmacy Electronically, [facility] [id number] Tablet, Partial fill upon patient req... Start [...] capsule, 0 Refills, Maintenance, 01/02/21 11:00:00 EDT, [facility]-, Partial fill [...] Diabetes mellitus type 2 in obese(Confirmed) Active 67753 Social History Social History Type Response Smoking Status Former smoker, quit more than 30 days ago entered on: 11/08/20 Sex
--- OUTSIDE RECORDS SUMMARY | 2024-02-23 16:20 | XMS_ITS | Continuity of Care Document ---
Author Organization [facility] ter Address [address] [place] [address]- Care Team Providers Care Blending Plant Operator Name Role Phone Vidhi Lindsay Primary Care Physician Encounter [facility] Date(s): 10/28/19 - 10/28/[address] [address]- [facility] Encounter Diagnosis Chest pain(Final) - 10/28/19 Discharge Disposition: A-D/C Home Attending Physician: Esther Malin MD Admitting Physician: Esther Malin MD Referring Physician: Not on Staff, Referring MD Allergies, Adverse Reactions, Alerts Substance Reaction [...] patch, 0 Refills, Maintenance, 10/28/19 18:54:00 EST, [id number], 1 patch Topically Daily,x7 days, 163.5, cm, [...] Recurrent major depressive e pisodes, moderate(Confirmed) Active Results Radiology Reports * Exam Date Time Procedure Performing Provider Status 10/28/19 4:58 PM Chest 2 Views Frontal and Lat Meliton Vaughn; Auth (Verified) Notes: (Chest 2 Views Frontal and Lat) Reason For Exam: Traumatic Chest Pain;Other: RESULT: Chest 2 Views Frontal and Lat Chest 2 Views Frontal and Lat Refer to EMR; Reason: Other:; Traumatic Chest Pain; Clinical Question(s): Other:; Pneumothorax, Fracture; Hx of Present Illness: Pt states she leaned over chair arm and developed pain in R lower ribsone week ago. pain worsening since. pt states difficulty breathing due to pain.; Other Objective Findings: pt alert, oriented, well appearing. skin pink warm and dry. resps even and unlabored with aureliano COMPARISON: 12/31/2016 FINDINGS: There is artifact overlying the neck and left shoulder. LINES AND TUBES: Epidural device is present. LUNGS AND PLEURA: Clear lungs. Normal pulmonary vascularity. No pleural effusion. No pneumothorax. HEART, MEDIASTINUM AND PIERRE: Heart is normal in size. Normal mediastinal and hilar contour. BONES AND SOFT TISSUES: No acute abnormality. IMPRESSION: No acute abnormality. WSN: [id number] Dictated By: Mayela Haji MD Dictated Date/Time: 10/28/19 5:04 pm Reviewed By: Mayela Haji MD Signed By: Mayela Haji MD Signed Date/Time: 10/28/19 5:04 pm Transcribed By: LOUIE Transcribed Date/Time: 10/28/19 4:59 pm Vital Signs Most recent to oldest [Reference Range]: 1 2 Oxygen Saturation [94-100 %] 99 % (10/28/19 5:46 PM) 100 % (10/28/19 2:31 PM) Pulse Rate [55-90 bpm] 87 bpm (10/28/19 5:46 PM) 90 bpm (10/28/19 2:31 PM) Blood Pressure [90-138/55-84 mm Hg] 147/ 78mm Hg *H* (10/28/19 5:46 PM) 152/77mm Hg *H* (10/28/19 2:31 PM) Respiratory Rate [16-30 br/min] 18 br/mi n (10/28/19 5:46 PM) 18 br/min (10/28/19 2:31 PM) Temperature [96.8-100.4 DegF] 98.8 DegF (10/28/19 5:46 PM) 98.7 DegF (10/28/19 2:31 PM) Mode of Delivery (Oxygen) Room air (10/28/19 5:46 PM) Room air (10/28/19 2:31 PM) Blood pressure sites Arm, right (10/28/19 5:46 PM) Arm, left (10/28/19 2:31 PM) Temperature Route Oral (10/28/19 5:46 PM) Oral (10/28/19 2:31 PM) Social History Social History Type Response Smoking Status Current every day demond brown entered on: 05/18/16 Sex
--- OUTSIDE RECORDS SUMMARY | 2024-02-23 16:20 | XMS_ITS | Continuity of Care Document ---
Author Organization [facility] Ty Saad lt Address [address] [place] [address]- Care Team Providers Care Bath House Attendant Name Role Phone Stacy JACOBSEN, Jeevan Smith Primary Care Physician Encounter [facility] Date(s): 12/11/23 - 01/10/24 [facility] [address] [place] [address]- Allergies, Adverse Reactions, Alerts Substance Reaction Severity [...] vaccine 06/21/09 Recorded 1Result Comment: [facility]: 60762-801-20 2Result Comment: Pt not sure the exact date. Medications acetaminophen 325 mg oral tablet 1 TO 2 TABLETS, By Mouth, Daily at bedtime, # 60 tablet, Refills 5, Maintenance, 11/21/23 10:19:00 EST, Route to Pharmacy Electronically, [facility]-, 160.5, cm, 10/28/23 10:10:00 EST, [...] 1 Refills, Maintenance, 06/18/23 14:28:00 EDT, Tablet, [facility]-, Partial fill upon patient request if [...] 10/12/23 13:00:00 EST, Route to Pharmacy Electronically, [facility], Partial fill upon patient request if th... Start Date: 10/12/23 Status: Ordered Crestor 5 mg oral tablet 1 tablet = 5 mg, By Mouth, Daily, REPLACES SIMVASTATIN, # 30 tablet, 6 Refills, Maintenance, 06/18/23 14:28:00 EDT, Tablet, [facility], Partial fill upon patient request if the prescription is for a schedule II opioid drug., 160.5... Start Date: 06/18/23 Status: Ordered diclofenac 1% topical gel See Instructions, APPLY TO AFFECTED AREA(S) TWICE A DAY NEEDED PAIN, # 100 Gm, 0 Refills, Maintenance, 07/30/22 13:16:00 EDT, [facility] 14, APPLY TO AFFECTED AREA(S) TWICE A DAY NEEDED PAIN, 160, cm, 06/29/22 12:54:00 EDT, Height,... Start Date: 07/30/22 Status: Ordered dilTIAZem 360 mg/24 hours oral capsule, extended release 1 capsule = 360 mg, By Mouth, Daily, # 30 capsule, 6 Refills, Maintenance, 06/18/23 14:28:00 EDT, CR Capsule, [facility], Partial fill upon patient request if the prescription isfor a schedule II opioid drug., 160.5, cm, 06/18/23... Start Date: 06/18/23 Status: Ordered donepezil 5 mg oral tablet 1, tablet, By Mouth, Daily at bedtime, # 30 tablet, Refills 5, Maintenance, 12/20/23 16:41:00 EDT, [facility] 160.5, cm, 10/28/23 10:10:00 EST, Height, 66, kg, 08/19/22 14:08:00 EST, Dry Weight Start Date: 12/20/23 Status: Ordered ferrous sulfate 325 mg oral tablet 1 tablet, By Mouth, Daily, # 30 tablet, 11 Refills, Maintenance, 06/18/23 14:28:00 EDT, [facility], 160.5, cm, 06/18/23 14:02:00 EDT, Height, 66, [...] 5 Refills, Maintenance, 06/18/23 14:28:00 EDT, Solution, [facility]-, Partial fill upon patient request if [...] each, 6 Refills, Maintenance, 08/03/23 14:18:00 EST, [facility], 160.5, cm, 06/18/23 14:02:00 EDT, Height, 66, kg, 08/19/22 14:08... Start Date: 08/03/23 Status: Ordered Nutrafol (Hair Growth Supplement) Nutrafol (Hair Growth Supplement), See Instructions, Refills 0, Maintenance, 06/29/22 13:08:00 EDT,Supply Start Date: 06/29/22 Status: Ordered omeprazole 20 mg oral enteric coated capsule 1 capsule = 20 mg, By Mouth, Daily, # 30 capsule, 5 Refills, Maintenance, 12/23/23 10:38:00 EDT, ECCapsule, [facility], Partial fill upon patient request if the prescription is for a schedule II opioid drug., 160.5, cm, 10/28/23... Start Date: 12/23/23 Status: Ordered pioglitazone 15 mg oral tablet 1 tablet, By Mouth, Daily, # 30 tablet, 2 Refills, Maintenance, 12/29/23 23:50:00 EDT, [facility]-, 160.5, cm, 10/28/23 10:10:00 EST, Height, 66, [...] capsule, 0 Refills,Maintenance, 06/25/23 10:03:00 EDT, Capsule, [facility]-, Partial fill upon patient request if the prescription is for a schedule I... Start Date: 06/25/23 Stop Date: 07/05/23 Status: Ordered topiramate 50 mg oral tablet 1 tablet = 50 mg, By Mouth, Daily, # 30 tablet, 6 Refills, Maintenance, 06/18/23 14:28:00 EDT, [facility]-, Partial fill upon patient request if [...] in obese Confirmed Active [facility] 2017 [address] [facility] 2022 4Outside Source Comment: Overview: Per BS Social History Social History Type Response Smoking Status Former smoker, quit more than 30 days ago entered on: 11/08/20 Sex Patient Care team information Care Team Personnel Name: Praveena Jordan RN Position: [facility] AMB Nurse Member Role: Primary Care Nurse Name: Smita Cantrell RN Position: [facility] SN RN Member Role: Primary Care Nurse Name: Zain Ramos RN Position: [facility] ED RN W/OE and Tasks Member Role: Primary Care Nurse Name: Gerard Erickson RN Position: [facility] RN Member Role: Primary Care Nurse Name: Jeevan Kumar MD Position: [facility] Physician - Primary Care Member Role: PCP Address: Address: [address] [place] [address]- Name: Amy Campos NP Position: [facility] Associate Professional Member Role: Primary Care Nurse Address: Address: [address] [place] [address] Trauma [place] [address]- [place] Name: Gita Becerril RN Position: [facility] RN Member Role: Primary Care Nurse Name: Selena Dias RN Position: [facility] AMB Nurse Member Role: Primary Care Nurse Name: Ryan Romero RN Position: [facility] SN RN Member Role: Primary Care Nurse Name: Florentino Torres RN Position: [facility] RN Member Role: Primary Care Nurse Name: Pretty Rosen RN Position: [facility] RN Member Role: Primary Care Nurse Name: Basilio Chase MD Position: [facility] Physician - Behavioral Health Member Role: Lifetime Consulting Physician Address: Address: [address] [place] [address]- Care Team Related Persons Name: EMEKA MACK Address: home [address] [place] [address] Name: CARMEN COELLO Address: [place] [address] Name: TRACY PALMER Address: home [address] [place] [address]
--- OUTSIDE RECORDS SUMMARY | 2024-02-23 16:20 | XMS_ITS | Continuity of Care Document ---
Author Organization [facility] Address [address] [place] [address]- Care Team Providers Care Offal Roller Name Role Phone Jeevan Kumar MD Primary Care Physician [phone] Encounter [facility] Date(s): 11/26/22 - 03/26/23 [facility] [address] [place] [address]- Encounter Diagnosis Hyperthyroidism(Discharge Diagnosis) - 02/22/23 Attending Physician: Goldie Ledesma MD Admitting Physician: [...] 12/14/22 14:45:00 EDT, Route to Pharmacy Electronically, [facility]-, 160.5, cm, 12/14/22 14:21:00 EDT, Height, 66, kg, 08/19/22 14:08... Start Date: 12/14/22 Status: Ordered Actos 15 mg oral tablet 1 tablet = 15 mg, By Mouth, Daily, # 30 tablet, 6 Refills, Maintenance, 12/14/22 14:45:00 EDT, Tablet, [facility], Partial fill upon patient request if [...] 1 Refills, Maintenance, 10/31/22 17:38:00 EST, Tablet, [facility], Partial fill upon patient request if [...] 12/14/22 14:45:00 EDT, Route to Pharmacy Electronically, [facility]-, Partial fill upon patient request if th... Start Date: 12/14/22 Status: Ordered Crestor 5 mg oral tablet 1 tablet = 5 mg, By Mouth, Daily, REPLACES SIMVASTATIN, # 30 tablet, 6 Refills, Maintenance, 12/14/22 14:45:00 EDT, Tablet, [facility], Partial fill upon patient request if the prescription is for a schedule II opioid drug., 160.5... Start Date: 12/14/22 Status: Ordered diclofenac 1% topical gel See Instructions, APPLY TO AFFECTED AREA(S) TWICE A DAY NEEDED PAIN, # 100 Gm, 0 Refills, Maintenance, 07/30/22 13:16:00 EDT, [facility]-, 14, APPLY TO AFFECTED AREA(S) TWICE A DAY NEEDED PAIN, 160, cm, 06/29/22 12:54:00 EDT, Height,... Start Date: 07/30/22 Status: Ordered dilTIAZem 360 mg/24 hours oral capsule, extended release 1 capsule = 360 mg, By Mouth, Daily, # 30 capsule, 6 Refills, Maintenance, 12/14/22 14:45:00 EDT, CR Capsule, [facility], Partial fill upon patient request if the prescription isfor a schedule II opioid drug., 160.5, cm, 12/14/22... Start Date: 12/14/22 Status: Ordered Estrace Vaginal Cream 0.1 mg/g = 1 Gm, Vaginally, Every Wednesday and Wednesday, # 42.5 Gm, 6 Refills, Maintenance, 08/19/22 14:20:00 EST, [facility]-, Partial fill upon patient request if the prescription is for a schedule II opioid drug., 160.5, cm, 08/19/22 14:08:... Start Date: 08/19/22 Status: Ordered ferrous sulfate 325 mg oral tablet 1 tablet, By Mouth, Daily, # 30 tablet, 11 Refills, Maintenance, 12/14/22 14:45:00 EDT, [facility]-, 160.5, cm, 12/14/22 14:21:00 EDT, Height, [...] 5 Refills, Maintenance, 12/14/22 14:45:00 EDT, Solution, [facility]-, Partial fill upon patient request if [...] each, 0 Refills, Maintenance, 02/11/23 13:15:00 EDT, [facility], 160.5, cm, 12/14/22 14:21:00 EDT, Height, 66, kg, 08/19/22 14:08:00 EST,... Start Date: 02/11/23 Status: Ordered Nutrafol (Hair Growth Supplement) Nutrafol (Hair Growth Supplement), See Instructions, Refills 0, Maintenance, 06/29/22 13:08:00 EDT,Supply Start Date: 06/29/22 Status: Ordered omeprazole 20 mg oral enteric coated capsule 1 capsule = 20 mg, By Mouth, Daily, # 30 capsule, 6 Refills, Maintenance, 12/14/22 14:45:00 EDT, ECCapsule, [facility], Partial fill upon patient request if [...] tablet, 6 Refills, Maintenance, 12/14/22 14:45:00 EDT, [facility]-, Partial fill upon patient request if [...] mellitus type 2 in obese Confirmed Active 43238 Diagnosis Diagnosis Type Effective Dates Health Status Cl inical Service Informant Hyperthyroidism Discharge Diagnosis 02/22/23 Social History Social History Type Response Smoking Status Former smoker, quit more than 30 days ago entered on: 11/08/20 Sex Patient Care team information Care Team Personnel Name: Praveena Jordan RN Position: [facility] AMB Nurse Member Role: Primary Care Nurse Name: Smita Cantrell RN Position: [facility] SN RN Member Role: Primary Care Nurse Name: Zain Ramos RN Position: [facility] ED RN W/OE and Tasks Member Role: Primary Care Nurse Name: Gerard Erickson RN Position: [facility] RN Member Role: Primary Care Nurse Name: Jeevan Kumar MD Position: [facility] Physician - Primary Care Member Role: PCP Address: Address: [address] [place] [address]- [place] Name: Amy Campos NP Position: [facility] Associate Professional Member Role: Primary Care Nurse Address: Address: [address] [place] [address] Trauma and [place] [address]- [place] Name: Gita Becerril RN Position: [facility] RN Member Role: Primary Care Nurse Name: Selena Dias RN Position: [facility] AMB Nurse Member Role: Primary Care Nurse Name: Ryan Romero RN Position: [facility] SN RN Member Role: Primary Care Nurse Name: Florentino Torres RN Position: [facility] RN Member Role: Primary Care Nurse Name: Pretty Rosen RN Position: [facility] RN Member Role: Primary Care Nurse Name: Basilio Chase MD Position: [facility] Physician - Behavioral Health Member Role: Lifetime Consulting Physician Address: Address: [address] [place] [address]- [place] Care Team Related Persons Name: EMEKA MACK Address: home [address] [place] [address] Name: CARMEN COELLO Address: [place] [address] Name: TRACY PALMER Address: home [address] [place] [address]
--- OUTSIDE RECORDS SUMMARY | 2024-02-23 16:20 | XMS_ITS | Continuity of Care Document ---
Author Organization [facility] ter Address [address] [place] [address]- Care Team Providers Care Career Development Consultant Name Role Phone Vidhi Lindsay Primary Care Physician [phone] Encounter [facility] Date(s): 09/26/19 - 09/26/[address] [address]- [facility] Attending Physician: Reinier Carolina MD Allergies, Adverse Reactions, Alerts Substance Reaction [...]
--- OUTSIDE RECORDS SUMMARY | 2024-02-23 16:20 | XMS_ITS | Continuity of Care Document ---
Author Organization [facility] Ty Saad lt Address [address] [place] [address]- Care Team Providers Care Teamcenter Solution Architect Name Role Phone Stacy JACOBSEN, Jeevan Smith Primary Care Physician [phone] Encounter [facility] Date(s): 12/20/23 - 01/19/24 [facility] [place] Adult [address] [place] [address]- Allergies, Adverse Reactions, Alerts Substance Reaction Severity [...] pneumococcal 23-valent vaccine 06/21/09 Recorded 1Result Comment: [facility]: [id number] 2Result Comment: Pt not sure the exact date. Medications acetaminophen 325 mg oral tablet 1 TO 2 TABLETS, By Mouth, Daily at bedtime, # 60 tablet, Refills 5, Maintenance, 11/21/23 10:19:00 EST, Route to Pharmacy Electronically, [facility]-, 160.5, cm, 10/28/23 10:10:00 EST, Height, 66, [...] 1 Refills, Maintenance, 06/18/23 14:28:00 EDT, Tablet, [facility] [place] Partial fill upon patient request if the [...] 10/12/23 13:00:00 EST, Route to Pharmacy Electronically, [facility], Partial fill upon patient request if th... Start Date: 10/12/23 Status: Ordered Crestor 5 mg oral tablet 1 tablet = 5 mg, By Mouth, Daily, REPLACES SIMVASTATIN, # 30 tablet, 6 Refills, Maintenance, 06/18/23 14:28:00 EDT, Tablet, [facility] [place], Partial fill upon patient request if the prescription is for a schedule II opioid drug., 160.5... Start Date: 06/18/23 Status: Ordered diclofenac 1% topical gel See Instructions, APPLY TO AFFECTED AREA(S) TWICE A DAY NEEDED PAIN, # 100 Gm, 0 Refills, Maintenance, 07/30/22 13:16:00 EDT, [facility], 14, APPLY TO AFFECTED AREA(S) TWICE A DAY NEEDED PAIN, 160, cm, 06/29/22 12:54:00 EDT, Height,... Start Date: 07/30/22 Status: Ordered dilTIAZem 360 mg/24 hours oral capsule, extended release 1 capsule = 360 mg, By Mouth, Daily, # 30 capsule, 6 Refills, Maintenance, 06/18/23 14:28:00 EDT, CR Capsule, [facility] [place], Partial fill upon patient request if the prescription isfor a schedule II opioid drug., 160.5, cm, 06/18/23... Start Date: 06/18/23 Status: Ordered donepezil 5 mg oral tablet 1, tablet, By Mouth, Daily at bedtime, # 30 tablet, Refills 5, Maintenance, 12/20/23 16:41:00 EDT, Route to Pharmacy Electronically, [facility], 160.5, cm, 10/28/23 10:10:00 EST, Height, 66, kg, 08/19/22 14:08:00 EST, Dry Weight Start Date: 12/20/23 Status: Ordered ferrous sulfate 325 mg oral tablet 1 tablet, By Mouth, Daily, # 30 tablet, 11 Refills, Maintenance, 06/18/23 14:28:00 EDT, [facility] [place], 160.5, cm, 06/18/23 14:02:00 EDT, Height, 66, [...] 5 Refills, Maintenance, 06/18/23 14:28:00 EDT, Solution, [facility] [place], Partial fill upon patient request if the prescription is for a schedule II opioid drug., 160.5, cm, 06/18/23... Start Date: 06/18/23 Status: Ordered levETIRAcetam 500 mg oral tablet 1 tablet = 500 mg, By Mouth, 2 times a day, 0 Refills, Maintenance, 01/19/24 9:57:00 EDT, Partial fill upon patient request if the prescription is for a schedule II opioid drug. Start Date: 01/19/24 Status: Ordered lidocaine 4% topical film 1 [...] each, 6 Refills, Maintenance, 08/03/23 14:18:00 EST, [facility] [place], 160.5, cm, 06/18/23 14:02:00 EDT, Height, 66, kg, 08/19/22 14:08... Start Date: 08/03/23 Status: Ordered Nutrafol (Hair Growth Supplement) Nutrafol (Hair Growth Supplement), See Instructions, Refills 0, Maintenance, 06/29/22 13:08:00 EDT,Supply Start Date: 06/29/22 Status: Ordered omeprazole 20 mg oral enteric coated capsule 1 capsule = 20 mg, By Mouth, Daily, # 30 capsule, 5 Refills, Maintenance, 12/23/23 10:38:00 EDT, ECCapsule, [facility] [place], Partial fill upon patient request if the prescription is for a schedule II opioid drug., 160.5, cm, 10/28/23... Start Date: 12/23/23 Status: Ordered pioglitazone 15 mg oral tablet 1 tablet, By Mouth, Daily, # 30 tablet, 2 Refills, Maintenance, 12/29/23 23:50:00 EDT, [facility] [place], 160.5, cm, 10/28/23 10:10:00 EST, Height, 66, [...] opioid drug. Start Date: 01/19/24 Status: Ordered tiZANidine 2 mg oral capsule 1 capsule = 2 mg, By Mouth, Every 8 hours, PRN as needed for muscle spasm, # 30 capsule, 0 Refills,Maintenance, 06/25/23 10:03:00 EDT, Capsule, [facility] [place], Partial fill upon patient request if the prescription is for a schedule I... Start Date: 06/25/23 Stop Date: 07/05/23 Status: Ordered topiramate 50 mg oral tablet 1 tablet = 50 mg, By Mouth, Daily, # 30 tablet, 6 Refills, Maintenance, 06/18/23 14:28:00 EDT, [facility] [place], Partial fill upon patient request if the [...] in obese Confirmed Active [facility] [place] 2017 [address] [facility] 2022 4Outside Source Comment: Overview: Per BS Social History Social History Type Response Smoking Status Former smoker, quit more than 30 days ago entered on: 11/08/20 Sex Patient Care team information Care Team Personnel Name: Praveena Jordan RN Position: [facility] AMB Nurse Member Role: Primary Care Nurse Name: Smita Cantrell RN Position: [facility] SN RN Member Role: Primary Care Nurse Name: Zain Ramos RN Position: [facility] ED RN W/OE and Tasks Member Role: Primary Care Nurse Name: Gerard Erickson RN Position: [facility] RN Member Role: Primary Care Nurse Name: Jeevan Kumar MD Position: [facility] Physician - Primary Care Member Role: PCP Address: Address: [address] [place] [address]- Name: Amy Campos NP Position: [facility] Associate Professional Member Role: Primary Care Nurse Address: Address: [address] [place] [address] Trauma [place] [address]- [place] Name: Gita Becerril RN Position: [facility] RN Member Role: Primary Care Nurse Name: Selena Dias RN Position: [facility] AMB Nurse Member Role: Primary Care Nurse Name: Ryan Romero RN Position: [facility] SN RN Member Role: Primary Care Nurse Name: Florentino Torres RN Position: [facility] RN Member Role: Primary Care Nurse Name: Pretty Rosen RN Position: [facility] RN Member Role: Primary Care Nurse Name: Basilio Chase MD Position: [facility] Physician - Behavioral Health Member Role: Lifetime Consulting Physician Address: Address: [address] [place] [address]- Care Team Related Persons Name: EMEKA MACK Address: home [address] [place] [address] Name: CARMEN COELLO Address: [place] [address] Name: TRACY PALMER Address: home [address] [place], [place] [id number]
--- OUTSIDE RECORDS SUMMARY | 2024-02-23 16:20 | XMS_ITS | Continuity of Care Document ---
Author Organization [facility] [place] Saad lt Address [address] [place] [address]- Care Team Providers Care Electrical Tester Name Role Phone Jeevan Kumar MD Primary Care Physician [phone] [facility]counter [facility] Date[facility]s): 05/05/23 - 06/04/23 [facility] [place] Adult [address] [place] [address]- Allergies, Adverse Reactions, Alerts Substance Reaction Severity [...] 12/14/22 14:45:00 EDT, [place] to Pharmacy Electronically, [place] [...] 0 Refills, Maintenance, 07/30/22 13:16:00 EDT, [facility], 14, APPLY TO AFFECTED AREA(S) TWICE [...] 11 Refills, Maintenance, 12/14/22 14:45:00 EDT, [id number], 160.5, cm, 12/14/22 14:21:00 EDT, Height, 66, [...] Refills, Maintenance, 12/14/22 14:45:00 EDT, Solution, [facility], Partial fill upon [...] each, 0 Refills, Maintenance, 05/19/23 16:57:00 EDT, [facility], 160.5, cm, 04/21/23 13:26:00 EDT, Height, [...] 6 Refills, Maintenance, 12/14/22 14:45:00 EDT, [facility]-, Partial fill upon patient [...] mellitus type 2 in obese Confirmed Active 32392 Social History Social History Type Response Smoking Status Former smoker, quit more than 30 days ago entered on: 11/08/20 Sex Patient Care team information Care Team Personnel Name: Praveena Jordan RN Position: [facility] Nurse Member Role: Primary Care Nurse Name: Smita Cantrell RN Position: [facility] RN [...] Care Member Role: PCP Address: Address: [address] [place] [address]- [place] Name: Amy Campos NP Position: [facility] Associate Professional Member Role: Primary Care Nurse Address: Address: [address] [place] [address] Trauma and [place] [address]- [place] Name: Gita Becerril RN [facility]: [facility] [...] Role: Lifetime Consulting Physician Address: Address: [address] [facility] [place] [address]- [place] Care Team Related Persons Name: EMEKA MACK Address: home [address] [place] [address] Name: CARMEN COELLO Address: [place] [address] Name: TRACY PALMER Address: home [address] [place] [address]
--- OUTSIDE RECORDS SUMMARY | 2024-02-23 16:20 | XMS_ITS | Continuity of Care Document ---
Author Organization [facility] [place] Saad Address [address] [place] [address]- Care Team Providers Care Public Service Representative Name Role Phone Stacy JACOBSEN, Jeevan Smith Primary Care Physician [facility] Date[facility]s): 06/29/22 - 07/06/22 [facility] Adult [address] [place] [address]- Attending Physician: Not on Staff, Attending MD [...] 02/16/22 15:13:00 EDT, Route to Pharmacy Electronically, [facility]-, 163.5, cm, 02/16/22 14:40:00 EDT, Height Start Date: 02/16/22 Status: Ordered Actos 15 mg oral tablet 1 tablet = 15 mg, By Mouth, Daily, # 30 tablet, 6 Refills, Maintenance, 02/16/22 15:13:00 EDT, Tablet, [facility]-, Partial fill upon patient request if [...] 1 Refills, Maintenance, 06/04/22 15:16:00 EDT, Tablet, [facility]-, Partial fill upon patient request if [...] 06/29/22 13:14:00 EDT, Route to Pharmacy Electronically, [facility]-, Partial fill upon patient request if th... Start Date: 06/29/22 Status: Ordered Crestor 5 mg oral tablet 1 tablet = 5 mg, By Mouth, Daily, REPLACES SIMVASTATIN, # 30 tablet, 6 Refills, Maintenance, 07/03/22 11:36:00 EDT, Tablet, [facility]-, Partial fill upon patient request if the prescription is for a schedule II opioid drug., 160,... Start Date: 07/03/22 Status: Ordered dilTIAZem 360 mg/24 hours oral capsule, extended release 1 capsule = 360 mg, By Mouth, Daily, # 30 capsule, 6 Refills, Maintenance, 02/16/22 15:13:00 EDT, CR Capsule, [facility], Partial fill upon patient request if [...] [facility]-, 160, cm, 05/05/22 [...] 5 Refills, Maintenance, 02/16/22 15:13:00 EDT, Solution, [facility]-, Partial fill upon patient request if [...] each, 0 Refills, Maintenance, 06/25/22 11:32:00 EDT, [facility], 160, cm, 06/04/22 15:02:00 EDT, Height, 68.5, kg, 03/16/22 6:52:00 EDT, Dry Weight Start Date: 06/25/22 Status: Ordered Nutrafol (Hair Growth Supplement) Nutrafol (Hair Growth Supplement), See Instructions, Refills 0, Maintenance, 06/29/22 13:08:00 EDT,Supply Start Date: 06/29/22 Status: Ordered omeprazole 20 mg oral enteric coated capsule 1 capsule = 20 mg, By Mouth, Daily, # 30 capsule, 6 Refills, Maintenance, 02/16/22 15:13:00 EDT, Omega, [facility]-, Partial fill upon patient request if [...] tablet, 6 Refills, Maintenance, 08/18/21 14:36:00 EST, [facility], Partial fill upon patient request if [...] mellitus type 2 in obese Confirmed Active 39365 Vital Signs Most recent to oldest [Reference Range]: 1 Height 160 cm (06/29/22 12:54 PM) Weight 64.7 kg (06/29/22 12:54 PM) Oxygen Saturation [94-100 %] 99 % (06/29/22 12:54 PM) Pulse Rate [55-90 bpm] 70 bpm (06/29/22 12:54 PM) Body Mass Index [18.5-24.99 kg/m2] 25.27 kg/m2 *H* (06/29/22 12:54 PM) Blood Pressure [90-138/55-84 mm Hg] 140/ 74mm Hg *H* (06/29/22 12:54 PM) Respiratory Rate [16-30 br/min] 20 br/mi n (06/29/22 12:54 PM) Mode of Delivery (Oxygen) Room air (06/29/22 12:54 PM) Blood pressure sites Arm, left (06/29/22 12:54 PM) Weight Obtained Via Standing scale (06/29/22 12:54 PM) Social History Social History Type Response Smoking Status Former smoker, quit more than 30 days ago entered on: 11/08/20 Sex Patient Care team information Personnel Name: Stacy JACOBSEN, Jeevan Smith Address: Address: [address] [place] [address]- [place]
--- OUTSIDE RECORDS SUMMARY | 2024-02-23 16:20 | XMS_ITS | Continuity of Care Document ---
Author Organization [facility] Saad lt Address [address] [place] [address]- Care Team Providers Care Shipyard Supervisor Name Role Phone Jeevan Kumar MD Primary Care Physician Encounter [facility] Date(s): 12/16/20 - 01/15/21 [facility] Adult [address] [place] [address]- Attending Physician: Aaron Flores Admitting Physician: AdmAaron [...] 12/04/20 15:09:00 EST, Route to Pharmacy Electronically, [facility]-, Partial fill upon patient request if [...] 1 Refills, Maintenance, 12/26/20 12:20:00 EDT, Solution, [facility]-, Partial fill upon patient request if [...] 12/04/20 15:09:00 EST, Route to Pharmacy Electronically, [id number], Partial fill upon patient req... Start [...] capsule, 0 Refills, Maintenance, 01/02/21 11:00:00 EDT, [facility]-, Partial fill upon patient request if [...] Diabetes mellitus type 2 in obese(Confirmed) Active 52256 Social History Social History Type Response Smoking Status Former smoker, quit more than 30 days ago entered on: 11/08/20 Sex
--- OUTSIDE RECORDS SUMMARY | 2024-02-23 16:20 | XMS_ITS | Continuity of Care Document ---
Author Organization [facility] Address [address] [place] [address]- Care Team Providers Care Bar Catcher Name Role Phone Jeevan Kumar MD Primary Care Physician Encounter [facility] Date(s): 12/24/20 - 03/11/[address] [address]- Discharge Disposition: A-D/C Home Attending Physician: Jeevan Kumar MD Admitting Physician: Jeevan Kumar MD Referring Physician: Jeevan Kumar MD Allergies, [...] 6 Refills, Maintenance, 02/06/21 13:47:00 EDT, [facility]t, [facility] Partial fill upon patient request if the prescription is for a schedule II opioid drug., 163.5, cm, 02/06/21 13:17:... Start Date: 02/06/21 Status: Ordered dilTIAZem 360 mg/24 hours oral capsule, extended release 1 capsule = 360 mg, By Mouth, Daily, # 30 capsule, 6 Refills, Maintenance, 02/06/21 13:47:00 EDT, CR Capsule, [facility]-, Partial fill upon patient request if the prescription isfor a schedule II opioid drug., 163.5, cm, 02/06/21... Start Date: 02/06/21 Status: Ordered ferrous sulfate 325 mg oral enteric coated tablet 325 mg, 1, tablet, By Mouth, Daily, # 30 tablet, Refills 6, Tot. Refills 6, Maintenance, 02/06/21 13:47:00 EDT, Route to Pharmacy Electronically, [facility], Partial fill upon patient request if the prescription is for a schedule... Start Date: 02/06/21 Status: Ordered Flonase 50 mcg/inh nasal spray 1 sprays, Nares, Both, Daily, PRN Congestion, # 16 Gm, 6 Refills, Maintenance, 02/06/21 13:48:00 EDT, Nasal [place], [facility], Partial fill upon patient request if [...] 5 Refills, Maintenance, 02/06/21 13:47:00 EDT, Solution, [facility], Partial fill upon patient request if [...] 02/06/22 0:00:00 EDT, 02/06/21 13:49:00 EDT, Gum, [facility], Partial fill upon patient request if the prescription is for a ramses... Start Date: 02/06/21 Stop Date: 02/06/22 Status: Ordered omeprazole 20 mg oral enteric coated capsule 1 capsule = 20 mg, By Mouth, Daily, # 30 capsule, 6 Refills, Maintenance, 02/06/21 13:47:00 EDT, ECCapsule, [facility], Partial fill upon patient request if the prescription is for a schedule II opioid drug., 163.5, cm, 02/06/21... Start Date: 02/06/21 Status: Ordered Senna 8.6 mg oral tablet 17.2 mg, 2, tablet, By Mouth, Daily at bedtime, PRN, # 100 tablet, Refills 1, Tot. Refills 1, Maintenance, for constipation, 02/06/21 13:47:00 EDT, Route to Pharmacy Electronically, [id number] Tablet, Partial fill upon patient req... Start Date: 02/06/21 Status: Ordered simvastatin 20 mg oral tablet 20 mg, 1, tablet, By Mouth, Daily at bedtime, # 30 tablet, Refills 6, Tot. Refills 6, Maintenance, 02/06/21 13:47:00 EDT, Route to Pharmacy Electronically, [facility], Partial fill upon patient request if the prescription is for a... Start Date: 02/06/21 Status: Ordered tiZANidine 4 mg oral capsule 1 capsule = 4 mg, By Mouth, 3 times a day, # 42 capsule, 0 Refills, Maintenance, 02/06/21 13:47:00 EDT, [facility], Partial fill upon patient request if the prescription is for aschedule II opioid drug., 163.5, cm, 02/06/21 13:17... Start Date: 02/06/21 Stop Date: 02/20/21 Status: Ordered topiramate 50 mg oral tablet 1 tablet = 50 mg, By Mouth, Daily, # 30 tablet, 6 Refills, Maintenance, 02/06/21 13:47:00 EDT, [facility]-, Partial fill upon patient request if [...] Diabetes mellitus type 2 in obese(Confirmed) Active 76441 Social History Social History Type Response Smoking Status Former smoker, quit more than 30 days ago entered on: 11/08/20 Sex
--- OUTSIDE RECORDS SUMMARY | 2024-02-23 16:21 | XMS_ITS | Continuity of Care Document ---
Author Organization [facility] Ty Saad lt Address [address] [place] [address]- Care Team Providers Care Chin Strap Cutter Name Role Phone Stacy JACOBSEN, Jeevan Smith Primary Care Physician [phone] [place]counter [facility] Date(s): 01/18/24 - 02/17/24 [facility] Adult [address] [place] [address]- Allergies, Adverse Reactions, Alerts Substance Reaction Severity [...] Recorded 1Result Comment: [facility]: 66994-502-66 2Result Comment: Pt not sure the exact date. Medications acetaminophen 325 mg oral tablet 1 TO 2 TABLETS, By Mouth, Daily at bedtime, # 60 tablet, Refills 5, Tot. Refills 5, Maintenance, 01/24/24 14:34:00 EDT, Route to Pharmacy Electronically, [facility]-, 160.5, cm, 01/24/24 14:15:00 EDT, Height, 66, kg, 08/19/22 14:08... Start Date: 01/24/24 Status: Ordered biotin 1000 mcg oral tablet 1 tablet = 1,000 mcg, By Mouth, Daily, # 90 tablet, 1 Refills, Maintenance, 01/24/24 14:34:00 EDT, Tablet, [facility], Partial [...] 01/24/24 14:36:00 EDT, Route to Pharmacy Electronically, [facility], Partial fill upon patient request if th... Start Date: 01/24/24 Status: Ordered Crestor 5 mg oral tablet 1 tablet = 5 mg, By Mouth, Daily, REPLACES SIMVASTATIN, # 30 tablet, 6 Refills, Maintenance, 01/24/24 14:36:00 EDT, Tablet, [facility], Partial fill upon patient request if the prescription is for a schedule II opioid drug., 160.5... Start Date: 01/24/24 Status: Ordered dilTIAZem 360 mg/24 hours oral capsule, extended release 1 capsule = 360 mg, By Mouth, Daily, # 30 capsule, 6 Refills, Maintenance, 01/24/24 14:34:00 EDT, CR Capsule, [facility]-, Partial fill upon patient request if the prescription isfor a schedule II opioid drug., 160.5, cm, 01/24/24... Start Date: 01/24/24 Status: Ordered donepezil 5 mg oral tablet 1, tablet, By Mouth, Daily at bedtime, # 30 tablet, Refills 5, Tot. Refills 5, Maintenance, 01/24/24 14:34:00 EDT, Route to Pharmacy Electronically, [facility]-, 160.5, cm, 01/24/24 14:15:00 EDT, Height, 66, kg, 08/19/22 14:08:00 E... Start Date: 01/24/24 Status: Ordered ferrous sulfate 325 mg oral tablet 1 tablet, By Mouth, Daily, # 30 tablet, 11 Refills, Maintenance, 01/24/24 14:34:00 EDT, [facility], 160.5, cm, 01/24/24 14:15:00 EDT, Height, 66, [...] Refills, Maintenance, 02/15/24 12:20:00 EDT, REC Powder, [facility]-, Partial fill upon [...] 5 Refills, Maintenance, 01/24/24 14:34:00 EDT, Solution, [facility]-, Partial [...] each, 6 Refills, Maintenance, 01/24/24 14:36:00 EDT, [facility]-, 160.5, cm, 01/24/24 14:15:00 EDT, Height, 66, kg, 08/19/22 14:08... Start Date: 01/24/24 Status: Ordered Nutrafol (Hair Growth Supplement) Nutrafol (Hair Growth Supplement), See Instructions, Refills 0, Maintenance, 06/29/22 13:08:00 EDT,Supply Start Date: 06/29/22 Status: Ordered omeprazole 20 mg oral enteric coated capsule 1 capsule = 20 mg, By Mouth, Daily, # 30 capsule, 5 Refills, Maintenance, 01/24/24 14:36:00 EDT, ECCapsule, [facility]-, Partial fill upon patient request if the prescription is for a schedule II opioid drug., 160.5, cm, 01/24/24... Start Date: 01/24/24 Status: Ordered pioglitazone 15 mg oral tablet 1 tablet, By Mouth, Daily, # 30 tablet, 2 Refills, Maintenance, 01/24/24 14:36:00 EDT, [facility], 160.5, cm, 01/24/24 14:15:00 EDT, Height, 66, [...] Maintenance, 06/18/23 14:28:00 EDT, [facility], Partial fill upon [...] pain Confirmed Active Lumbar radiculitis Confirmed Active Obese class I Confirmed Active Ocular migraine Confirmed Active Osteopenia Confirmed Active Left shoulder pain Confirmed Active PTSD (post-traumatic stress disorder) Confirmed Active Posttraumatic stress disorder 4 Confirmed 10/05/16 Active Recurrent major depressive episodes, moderate Confirmed 08/22/13 Active Seizure disorder Confirmed Active History of tobacco use Confirmed Active Diabetes mellitus type 2 in obese Confirmed Active 1Dr. Chela 2017 [address] [facility] 2022 4Outside Source Comment: Overview: Per BS Social History Social History Type Response Smoking Status Former smoker, quit more than 30 days ago entered on: 11/08/20 Sex Patient Care team information Care Team Personnel Name: Praveena Jordan RN Position: [facility] AMB Nurse Member Role: Primary Care Nurse Name: Smita Cantrell RN Position: [facility] RN Member Role: Primary Care Nurse Name: Zain Ramos RN Position: [facility] ED RN W/OE and Tasks Member Role: Primary Care Nurse Name: Gerard Erickson RN Position: [facility] RN Member Role: Primary Care Nurse Name: Jeevan Kumar MD Position: [facility] Physician - Primary Care Member Role: PCP Address: Address: [address] [place] [address]- [place] Name: Amy Campos NP Position: [facility] Associate Professional Member Role: Primary Care Nurse Address: Address: [address] [place] [address] Trauma [place] [address]- [place] Name: Jone ERNST, Gita Position: [facility] RN Member Role: Primary Care Nurse Name: Selena Dias RN Position: [facility] AMB Nurse Member Role: Primary Care Nurse Name: Ryan Romero RN Position: [facility] SN RN Member Role: Primary Care Nurse Name: Florentino Torres RN Position: [facility] RN Member Role: Primary Care Nurse Name: Pretty Rosen RN Position: [facility] RN Member Role: Primary Care Nurse Name: Basilio Chase MD Position: [facility] Physician - Behavioral Health Member Role: Lifetime Consulting Physician Address: Address: [address] [place] [address] [place] [address]- [place] Care Team Related Persons Name: EMEKA MACK Address: [address] [place] [address] Name: CARMEN COELLO Address: [place] [address] Name: TRACY PALMER Address: home [address] [place] [address]
--- OUTSIDE RECORDS SUMMARY | 2024-02-23 16:21 | XMS_ITS | Continuity of Care Document ---
Author Organization [facility] [place] Saad lt Address [address] [place] [address]- Care Team Providers Care Air Cargo Specialist Supervisor Name Role Phone Jeevan Kumar MD Primary Care Physician Encounter [facility] Date(s): 02/16/22 - 02/23/22 [facility] Adult [address] [place] [address]- Attending Physician: Osorio RALPH, Tisha Asencio Referring [...] Maintenance, 02/16/22 15:13:00 EDT, Tablet, [facility], Partial fill upon [...] 0 Refills, Maintenance, 02/19/22 14:33:00 EDT, Gel, [facility], Partial fill upon patient [...] 6 Refills, Maintenance, 08/18/21 14:36:00 EST, Nasal [place], [facility], Partial fill upon patient [...] tablet, 0 Refills, Maintenance, 02/16/22 15:13:00 EDT, [facility], 163.5, cm, 02/16/22 14:40:00 EDT, Height [...] Maintenance, 02/16/22 15:13:00 EDT, Solution, [facility], Partial fill upon [...] each, 0 Refills, Maintenance, 02/16/22 15:13:00 EDT, [facility]-, 163.5, cm, 02/16/22 14:40:00 [...] capsule, 0 Refills, Maintenance, 02/06/21 13:47:00 EDT, [facility], Partial fill upon patient request if the prescription is for aschedule II opioid drug., 163.5, cm, 02/06/21 13:17... Start Date: 02/06/21 Stop Date: 02/20/21 Status: Ordered topiramate 50 mg oral tablet 1 tablet = 50 mg, By Mouth, Daily, # 30 tablet, 6 Refills, Maintenance, 08/18/21 14:36:00 [facility], [facility]-, Partial fill upon patient [...] Diabetes mellitus type 2 in obese(Confirmed) Active 51105 Vital Signs Most recent to oldest [Reference Range]: 1 Height 163.5 cm (02/16/22 2:40 PM) Weight 68.4 kg (02/16/22 2:40 PM) Oxygen Saturation [94-100 %] 99 % (02/16/22 2:40 PM) Pulse Rate [55-90 bpm] 60 bpm (02/16/22 2:40 PM) Body Mass Index [18.5-24.99] 25.59 *H* (02/16/22 2:40 PM) Blood Pressure [90-138/55-84 mm Hg] 126/ 70mm Hg (02/16/22 2:40 PM) Respiratory Rate [16-30 br/min] 22 br/mi n (02/16/22 2:40 PM) Mode of Delivery (Oxygen) Room air (02/16/22 2:40 PM) Blood pressure sites Arm, right (02/16/22 2:40 PM) Weight Obtained Via Standing scale (02/16/22 2:40 PM) Social History Social History Type Response Smoking Status Former smoker, quit more than 30 days ago entered on: 11/08/20 Sex
--- OUTSIDE RECORDS SUMMARY | 2024-02-23 16:21 | XMS_ITS | Continuity of Care Document ---
Author Organization [facility] Saad lt Address [address] [place] [address]- Care Team Providers Care Print Shop Stenographer Name Role Phone Stacy JACOBSEN, Jeevan Smith Primary Care Physician [facility]counter [facility] Date(s): 06/17/21 - 07/17/21 [facility] Adult [address] [place] [address]- Allergies, Adverse Reactions, Alerts Substance Reaction Severity [...] 6 Refills, Maintenance, 02/06/21 13:47:00 EDT, Tablet, [facility]-, Partial fill upon patient request if the prescription is for a schedule II opioid drug., 163.5, cm, 02/06/21 13:17:... Start Date: 02/06/21 Status: Ordered dilTIAZem 360 mg/24 hours oral capsule, extended release 1 capsule = 360 mg, By Mouth, Daily, # 30 capsule, 6 Refills, Maintenance, 02/06/21 13:47:00 EDT, CR Capsule, [facility]-, Partial fill upon patient request if the prescription isfor a schedule II opioid drug., 163.5, cm, 02/06/21... Start Date: 02/06/21 Status: Ordered ferrous sulfate 325 mg oral enteric coated tablet 325 mg, 1, tablet, By Mouth, Daily, # 30 tablet, Refills 6, Tot. Refills 6, Maintenance, 02/06/21 13:47:00 EDT, Route to Pharmacy Electronically, [facility], Partial fill upon patient request if the prescription is for a schedule... Start Date: 02/06/21 Status: Ordered Flonase 50 mcg/inh nasal spray 1 sprays, Nares, Both, Daily, PRN Congestion, # 16 Gm, 6 Refills, Maintenance, 02/06/21 13:48:00 EDT, Nasal [place], [facility], Partial fill upon patient request if [...] 5 Refills, Maintenance, 02/06/21 13:47:00 EDT, Solution, [facility], Partial fill upon patient request if [...] 6 Refills, Maintenance, 02/06/21 13:47:00 EDT, ECCapsule, [facility], Partial fill upon patient request if [...] 02/06/21 13:47:00 EDT, Route to Pharmacy Electronically, [facility], Partial fill upon patient request if the prescription is for a... Start Date: 02/06/21 Status: Ordered tiZANidine 4 mg oral capsule 1 capsule = 4 mg, By Mouth, 3 times a day, # 42 capsule, 0 Refills, Maintenance, 02/06/21 13:47:00 EDT, [facility]-, Partial fill upon patient request if the prescription is for aschedule II opioid drug., 163.5, cm, 02/06/21 13:17... Start Date: 02/06/21 Stop Date: 02/20/21 Status: Ordered topiramate 50 mg oral tablet 1 tablet = 50 mg, By Mouth, Daily, # 30 tablet, 6 Refills, Maintenance, 02/06/21 13:47:00 EDT, [facility], Partial fill [...] Diabetes mellitus type 2 in obese(Confirmed) Active 30003 Social History Social History Type Response Smoking Status Former smoker, quit more than 30 days ago entered on: 11/08/20 Sex
--- OUTSIDE RECORDS SUMMARY | 2024-02-23 16:21 | XMS_ITS | Continuity of Care Document ---
Author Organization [facility] Ty Saad lt Address [address] [place] [address]- Care Team Providers Care Java Technical Manager Name Role Phone Stacy JACOBSEN, Jeevan Smith Primary Care Physician [facility]23 - 01/22/24 [facility] Adult [address] [place] [address]- Allergies, Adverse Reactions, Alerts Substance Reaction Severity [...] pneumococcal 23-valent vaccine 06/21/09 Recorded 1Result Comment: [facility]: 00419-559-02 2Result Comment: Pt not sure the exact date. Medications acetaminophen 325 mg oral tablet 1 TO 2 TABLETS, By Mouth, Daily at bedtime, # 60 tablet, Refills 5, Maintenance, 11/21/23 10:19:00 EST, Route to Pharmacy Electronically, [facility]-, 160.5, cm, 10/28/23 10:10:00 EST, [...] 1 Refills, Maintenance, 06/18/23 14:28:00 EDT, Tablet, [facility]-, Partial [...] 10/12/23 13:00:00 EST, Route to Pharmacy Electronically, [facility], Partial fill upon patient request if th... Start Date: 10/12/23 Status: Ordered Crestor 5 mg oral tablet 1 tablet = 5 mg, By Mouth, Daily, REPLACES SIMVASTATIN, # 30 tablet, 6 Refills, Maintenance, 06/18/23 14:28:00 EDT, Tablet, [facility], Partial fill upon patient request if the prescription is for a schedule II opioid drug., 160.5... Start Date: 06/18/23 Status: Ordered diclofenac 1% topical gel See Instructions, APPLY TO AFFECTED AREA(S) TWICE A DAY NEEDED PAIN, # 100 Gm, 0 Refills, Maintenance, 07/30/22 13:16:00 EDT, [facility], 14, APPLY TO AFFECTED AREA(S) TWICE A DAY NEEDED PAIN, 160, cm, 06/29/22 12:54:00 EDT, Height,... Start Date: 07/30/22 Status: Ordered dilTIAZem 360 mg/24 hours oral capsule, extended release 1 capsule = 360 mg, By Mouth, Daily, # 30 capsule, 6 Refills, Maintenance, 06/18/23 14:28:00 EDT, CR Capsule, [facility], Partial fill upon patient request if the prescription isfor a schedule II opioid drug., 160.5, cm, 06/18/23... Start Date: 06/18/23 Status: Ordered donepezil 5 mg oral tablet 1, tablet, By Mouth, Daily at bedtime, # 30 tablet, Refills 5, Maintenance, 12/20/23 16:41:00 EDT, Route to Pharmacy Electronically, [facility], 160.5, cm, 10/28/23 10:10:00 EST, Height, 66, kg, 08/19/22 14:08:00 EST, Dry Weight Start Date: 12/20/23 Status: Ordered ferrous sulfate 325 mg oral tablet 1 tablet, By Mouth, Daily, # 30 tablet, 11 Refills, Maintenance, 06/18/23 14:28:00 EDT, [id number], 160.5, cm, 06/18/23 14:02:00 EDT, Height, 66, [...] 5 Refills, Maintenance, 06/18/23 14:28:00 EDT, Solution, [facility], Partial fill upon [...] each, 6 Refills, Maintenance, 08/03/23 14:18:00 EST, [facility], 160.5, cm, 06/18/23 14:02:00 EDT, Height, 66, kg, 08/19/22 14:08... Start Date: 08/03/23 Status: Ordered Nutrafol (Hair Growth Supplement) Nutrafol (Hair Growth Supplement), See Instructions, Refills 0, Maintenance, 06/29/22 13:08:00 EDT,Supply Start Date: 06/29/22 Status: Ordered omeprazole 20 mg oral enteric coated capsule 1 capsule = 20 mg, By Mouth, Daily, # 30 capsule, 5 Refills, Maintenance, 12/23/23 10:38:00 EDT, ECCapsule, [facility], Partial fill upon patient request if the prescription is for a schedule II opioid drug., 160.5, cm, 10/28/23... Start Date: 12/23/23 Status: Ordered pioglitazone 15 mg oral tablet 1 tablet, By Mouth, Daily, # 30 tablet, 2 Refills, Maintenance, 12/29/23 23:50:00 EDT, [facility], 160.5, cm, 10/28/23 10:10:00 EST, Height, 66, [...] capsule, 0 Refills,Maintenance, 06/25/23 10:03:00 EDT, Capsule, [facility], Partial fill upon patient request if the prescription is for a schedule I... Start Date: 06/25/23 Stop Date: 07/05/23 Status: Ordered topiramate 50 mg oral tablet 1 tablet = 50 mg, By Mouth, Daily, # 30 tablet, 6 Refills, Maintenance, 06/18/23 14:28:00 EDT, [facility], Partial fill upon [...] in obese Confirmed Active 1Dr. York 2017 [address] [facility] 2022 4Outside Source Comment: Overview: Per BS Social History Social History Type Response Smoking Status Former smoker, quit more than 30 days ago entered on: 11/08/20 Sex Patient Care team information Care Team Personnel Name: Praveena Jordan RN Position: [facility] AMB Nurse Member Role: Primary Care Nurse Name: Smita Cantrell RN Position: [facility] SN RN Member Role: Primary Care Nurse Name: aZin Ramos RN Position: [facility] ED RN W/OE and Tasks Member Role: Primary Care Nurse Name: Gerard Erickson RN Position: [facility] RN Member Role: Primary Care Nurse Name: Jeevan Kumar MD Position: [facility] Physician - Primary Care Member Role: PCP Address: Address: [address] [place] [address]- Name: Amy Campos NP Position: [facility] Associate Professional Member Role: Primary Care Nurse Address: Address: [address] [place] [address] Trauma [place] [address]- [place] Name: Gita Becerril RN Position: [facility] RN Member Role: Primary Care Nurse Name: Selena Dias RN Position: [facility] AMB Nurse Member Role: Primary Care Nurse Name: Ryan Romero RN Position: [facility] SN RN Member Role: Primary Care Nurse Name: Florentino Torres RN Position: [facility] RN Member Role: Primary Care Nurse Name: Pretty Rosen RN Position: [facility] RN Member Role: Primary Care Nurse Name: Basilio Chase MD Position: [facility] Physician - Behavioral Health Member Role: Lifetime Consulting Physician Address: Address: [address] [place] [address]- Care Team Related Persons Name: EMEKA MACK Address: home [address] [place] [address] Name: CARMEN COELLO Address: [place] [address] Name: TRACY PALMER Address: home [address] [place], [place] [id number]
--- OUTSIDE RECORDS SUMMARY | 2024-02-23 16:21 | XMS_ITS | Continuity of Care Document ---
Author Organization [facility] Ty Saad lt Address [address] [place] [address]- Care Team Providers Care Publishing Systems Analyst Name Role Phone Jeevan Kumar MD Primary Care Physician [phone] [facility] 08[facility]17[facility]22 - 08/24/22 [facility] Adult [address] [place] [address]- Attending Physician: Tisha Ac NP Referring Physician: [...] 08/17/22 15:29:00 EST, Route to Pharmacy Electronically, [facility]-, 160, cm, 08/17/22 15:09:00 EST, Height, 68.5, kg, 03/16/22 6:52:... Start Date: 08/17/22 Status: Ordered Actos 15 mg oral tablet 1 tablet = 15 mg, By Mouth, Daily, # 30 tablet, 6 Refills, Maintenance, 08/17/22 15:29:00 EST, Tablet, [facility]-, Partial fill upon patient request [...] 1 Refills, Maintenance, 08/17/22 15:29:00 EST, Tablet, [facility], Partial fill upon patient request [...] 08/17/22 15:29:00 EST, Route to Pharmacy Electronically, [facility], Partial fill upon patient request if th... Start Date: 08/17/22 Status: Ordered Crestor 5 mg oral tablet 1 tablet = 5 mg, By Mouth, Daily, REPLACES SIMVASTATIN, # 30 tablet, 6 Refills, Maintenance, 08/17/22 15:29:00 EST, Tablet, [facility], Partial fill upon patient request if the prescription is for a schedule II opioid drug., 160,... Start Date: 08/17/22 Status: Ordered diclofenac 1% topical gel See Instructions, APPLY TO AFFECTED AREA(S) TWICE A DAY NEEDED PAIN, # 100 Gm, 0 Refills, Maintenance, 07/30/22 13:16:00 EDT, [facility], 14, APPLY TO AFFECTED AREA(S) TWICE A DAY NEEDED PAIN, 160, cm, 06/29/22 12:54:00 EDT, Height,... Start Date: 07/30/22 Status: Ordered dilTIAZem 360 mg/24 hours oral capsule, extended release 1 capsule = 360 mg, By Mouth, Daily, # 30 capsule, 6 Refills, Maintenance, 08/17/22 15:29:00 EST, CR Capsule, [facility], Partial fill upon patient request if the prescription isfor a schedule II opioid drug., 160, cm, 08/17/22 1... Start Date: 08/17/22 Status: Ordered Estrace Vaginal Cream 0.1 mg/g = 1 Gm, Vaginally, Every Wednesday and Wednesday, # 42.5 Gm, 6 Refills, Maintenance, 08/19/22 14:20:00 EST, [facility], Partial fill upon patient request [...] 5 Refills, Maintenance, 08/17/22 15:29:00 EST, Solution, [facility]-, Partial fill upon patient request if the prescription is for a schedule II opioid drug., 160, cm, 08/17/22 15... Start Date: 08/17/22 Status: Ordered methimazole 10 mg oral tablet 10 mg, 1, tablet, By Mouth, Daily, # 90 tablet, Refills 3, Tot. Refills 3, Maintenance, 08/18/22 8:29:00 EST, Route to Pharmacy Electronically, [facility]-, Partial fill upon patient request [...] each, 0 Refills, Maintenance, 07/30/22 13:17:00 EDT, [facility]-, 160, cm, 06/29/2212:54:00 EDT, Height, 68.5, kg, 03/16/22 6:52:00 EDT, D... Start Date: 07/30/22 Status: Ordered Nutrafol (Hair Growth Supplement) Nutrafol (Hair Growth Supplement), See Instructions, Refills 0, Maintenance, 06/29/22 13:08:00 EDT,Supply Start Date: 06/29/22 Status: Ordered omeprazole 20 mg oral enteric coated capsule 1 capsule = 20 mg, By Mouth, Daily, # 30 capsule, 6 Refills, Maintenance, 08/17/22 15:29:00 EST, ECCapsule, [facility], Partial fill upon patient request [...] tablet, 6 Refills, Maintenance, 08/17/22 15:29:00 EST, [facility], Partial fill upon patient request [...] mellitus type 2 in obese Confirmed Active 45611 Vital Signs Most recent to oldest [Reference Range]: 1 Height 160 cm (08/17/22 3:09 PM) Weight 68.7 kg (08/17/22 3:09 PM) Oxygen Saturation [94-100 %] 98 % (08/17/22 3:09 PM) Pulse Rate [55-90 bpm] 68 bpm (08/17/22 3:09 PM) Body Mass Index [18.5-24.99 kg/m2] 26.84 kg/m2 *H* (08/17/22 3:09 PM) Blood Pressure [90-138/55-84 mm Hg] 140/ 72mm Hg *H* (08/17/22 3:09 PM) Respiratory Rate [16-30 br/min] 12 br/mi n *L* (08/17/22 3:09 PM) Temperature [96.8-100.4 DegF] 98.9 DegF (08/17/22 3:09 PM) Mode of Delivery (Oxygen) Room air (08/17/22 3:09 PM) Blood pressure sites Arm, left (08/17/22 3:09 PM) Temperature Route Oral (08/17/22 3:09 PM) Weight Obtained Via Standing scale (08/17/22 3:09 PM) Social History Social History Type Response Smoking Status Former smoker, quit more than 30 days ago entered on: 11/08/20 Sex Note * Cyndy Davis: PERFORM, SIGN, VERIFY Event Display: Patient Education/Instruction Authored Date: [id number] [facility] *BMP So Ty Mendoza Clinical Summary Name MINOR RUSH Age 67 Years 1955 PCP Stacy JACOBSEN, Jeevan Smith PCP Visit Date 08/17/2022 14:58:00 Additional Instructions: Scheduled Appointments?? Future Appointments ?*[facility] ?[address] ?[place],??[place],??[address] ?Phone:??--?Fax:??-- ?Appt. Date:??08/19/2022?2:00 PM ?Scheduled Provider:??Zachary JACOBSEN, Alcira Eli ?*[facility] ?[address]??[place],??[place],??[address] ?Phone:??--?Fax:??-- ?Appt. Date:??08/27/2022?2:30 PM ?Scheduled Provider:??Bisi Leach MD Follow-Up Instructions ?? With: Address: When: Osorio RALPH, Tisha Asencio [address] [place], [place] [id number] Business (1) In 3 months Comments: 40 min Diagnosis Medications: Please continue your medications until treatment is completed or stopped by your provider. Discuss any questions related to medications with your provider. Medications to Continue Taking That Have Changed These medications were not printed or sent to your pharmacy - Miscellaneous Rx (Nutrafol (Hair Growth Supplement)) Next Dose: Medications to Continue with No Changes [facility]-, [address] [place] [phone], [phone] Acetaminophen (acetaminophen 325 mg oral tablet) 1 TO 2 TABLETS Oral Daily at Bedtime. Refills: 5. Next Dose: Biotin (biotin 1000 mcg oral tablet) 1 tab(s) Oral Daily. Refills: 1. Next Dose: Diltiazem (dilTIAZem 360 mg/24 hours oral capsule, extended release) 1 capsule Oral Daily. Refills:6. Next Dose: Docusate (Colace sodium 100 mg oral capsule) 1 capsule Oral twice a day as needed for constipation.Refills: 1. Next Dose: Insulin Glargine (Lantus Solostar Pen 100 units/mL subcutaneous solution) 16 unit(s) Subcutaneous Injection Daily. Refills: 5. Next Dose: Omeprazole (omeprazole 20 mg oral [...] tab(s) Oral Daily. Next Dose: Biotin (biotin 5000 mcg oral capsule) 600 Milligram. 2 tabs by mouth daily. Next Dose: Clonidine (cloNIDine 0.1 mg oral tablet) 1 tab(s) Oral Daily. hs. Next Dose: Diclofenac Topical (diclofenac 1% topical gel) APPLY TO AFFECTED AREA(S) TWICE A DAY NEEDED PAIN. Refills: 0. Next Dose: Durable Medical Equipment (Freestyle Lancets) use as directed for Type 2 Diabetes Mellitus. Refills: 2. Next Dose: Durable Medical Equipment (Freestyle Test Strips) check blood sugars twice a day. ICD10 (E11.9). Refills: 1. Next Dose: Lamotrigine (LaMICtal 100 mg oral tablet) 1 tab(s) Oral Daily. Refills: 0. Next Dose: Methimazole (methimazole 10 mg oral tablet) 3 tab(s) Oral twice a day. Refills: 3. Next Dose: Multivitamin Daily. Next Dose: Nicotine (nicotine 4 mg oral transmucosal gum) CHEW & PARK. 1 PIECE BY MOUTH EVERY 2 HOURS NEEDED FOR SMOKING CESSATION. Refills: 0. Next Dose: Propranolol 20 Milligram. Next Dose: Allergy Info:?? Bactrim; Wellbutrin; Neurontin; Soma Medications Given This Visit Future Orders ?Comprehensive Metabolic Panel? Order Date:08/17/22?- Complete on or after?08/17/22 ?Thyroid Panel? Order Date:08/17/22?- Complete on or after?08/17/22 ?Hemoglobin A1C (Monitoring)? Order Date:08/17/22?- Complete on or after?08/17/22 ?CBC w/ Differential? Order Date:08/17/22?- Complete on or after?08/17/22 ?Cholesterol Total? Order Date:08/17/22?- Complete on or after?08/17/22 ?Direct LDL? Order Date:08/17/22?- Complete on or after?08/17/22 ?Microalbumin Urine? Order Date:08/17/22?- Complete on or after?08/17/22 ?HDL Cholesterol? Order Date:08/17/22?- Complete on or after?08/17/22 ?Potassium Plasma? Order Date:08/17/22?- Complete on or after?08/17/22 Vital Signs Height 160 cm Weight 68.7 kg BMI 26.84 kg/m2 Blood Pressure 140 mm Hg/72 mm Hg Temperature 98.9 DegF Pulse Rate 68 bpm Respiratory Rate 12 br/min 02 Sat Mode of Delivery 98 %/Room air You can now view a summary of your hospital visit from the comfort of your home through a free online portal called kontoblick. kontoblick is a website that allows you to securely view your medical information including discharge summary, medications and follow-up visits. ??You can alsosend a secure electronic message to your doctor???s office to request appointments, renew medications or just ask a question. You can enroll at [email or web address] or register during your next office visit. [...] primary care provider, you may find a [facility] provider by calling [facility] at [phone]. For information about the plan of care [...] Name: Praveena Jordan RN Position: [facility]O RN Member Role: Primary Care Nurse Name: Smita Canterll RN Position: [facility] RN Member Role: Primary Care Nurse Name: Zain Ramos RN Position: [facility] ED RN W/OE and Tasks Member Role: Primary Care Nurse Name: Gerard Erickson RN Position: [facility] RN Member Role: Primary Care Nurse Name: Jeevan Kumar MD Position: [facility] Primary Care Physician Member Role: PCP Address: Address: [address] [place] [address]- [place] Name: Pallavi Watkins RN Position: [facility] RN Member Role: Primary Care Nurse Name: Amy Campos NP Position: [facility] Associate Professional Member Role: Primary Care Nurse Address: Address: [address] [place] [address] Trauma and [place] [address]- [place] Name: Gita Becerril RN Position: [facility] RN Member Role: Primary Care Nurse Name: Selena Dias RN Position: [facility] RN Member Role: Primary Care Nurse Name: Ryan Romero RN Position: [facility] SN RN Member Role: Primary Care Nurse Name: Florentino Torres RN Position: [facility] RN Member Role: Primary Care Nurse Name: Pretty Rosen RN Position: [facility] RN Member Role: Primary Care Nurse Name: Basilio Chase MD Position: [facility] Psychiatry MD Member Role: Lifetime Consulting Physician Address: Address: [address] [place] [address]- [place] Care Team Related Persons Name: EMEKA MACK Address: home [address] [place] [address] Name: CARMEN COELLO Address: [place] [address] Name: TRACY PALMER Address: home [address] [place] [address]
--- OUTSIDE RECORDS SUMMARY | 2024-02-23 16:21 | XMS_ITS | Continuity of Care Document ---
Author Organization [facility] [place] Sada Address [address] [place] [address]- Care Team Providers Care Equity Research Associate Name Role Phone Osorio SOFTWARE PROJECT MANAGER, Tisha Asencio Primary Care Physician [phone] [facility] 02[facility]19[facility]22 - 03/21/22 [facility] Adult [address] [place] [address]- Allergies, Adverse Reactions, Alerts Substance Reaction Severity [...] 02/16/22 15:13:00 EDT, Route to Pharmacy Electronically, [facility]-, 163.5, cm, 02/16/22 14:40:00 EDT, Height Start Date: 02/16/22 Status: Ordered acetaminophen 500 mg oral tablet 2 tablet = 1,000 mg, By Mouth, 3 times a day, PRN for pain, for 30 days, # 180 tablet, 0 Refills, Acute 04/15/22 5:59:00 EDT, 03/16/22 5:59:00 EDT, Tablet, [facility], Partial fill upon patient request if the prescription is for a ramses... Start Date: 03/16/22 Stop Date: 04/15/22 Status: Ordered Actos 15 mg oral tablet 1 tablet = 15 mg, By Mouth, Daily, # 30 tablet, 6 Refills, Maintenance, 02/16/22 15:13:00 EDT, Tablet, [facility]-, Partial fill upon patient request if the prescription is for a schedule II opioid drug., 163.5, cm, 02/16/22 14:40:... Start Date: 02/16/22 Status: Ordered aspirin 325 mg oral delayed release tablet 325 mg, 1, tablet, By Mouth, Daily, # 30 tablet, Refills 0, Tot. Refills 0, Maintenance, 03/16/22 6:00:00 EDT, Route to Pharmacy Electronically, [facility], Partial fill upon patientrequest if the [...] Refills, Maintenance, 02/16/22 15:13:00 EDT, CR Capsule, [facility]-, Partial fill upon patient request [...] tablet, 0 Refills, Maintenance, 02/16/22 15:13:00 EDT, [facility], 163.5, cm, 02/16/22 14:40:00 EDT, [...] 5 Refills, Maintenance, 02/16/22 15:13:00 EDT, Solution, [facility]-, Partial fill upon patient request [...] 6 Refills, Maintenance, 02/16/22 15:13:00 EDT, ECCapsule, [facility], Partial fill upon patient request if the prescription is for a schedule II opioid drug., 163.5, cm, 02/16/22... Start Date: 02/16/22 Status: Ordered ondansetron 4 mg oral tablet 1 tablet = 4 mg, By Mouth, Every 12 hours, for 6 days, # 12 tablet, 0 Refills, Acute 03/22/22 6:00:00 EDT, 03/16/22 6:00:00 EDT, Tablet, [facility], Partial fill upon patient [...] 02/16/22 15:13:00 EDT, Route to Pharmacy Electronically, [facility], Partial fill upon patient request if the prescription is for a... Start Date: 02/16/22 Status: Ordered topiramate 50 mg oral tablet 1 tablet = 50 mg, By Mouth, Daily, # 30 tablet, 6 Refills, Maintenance, 08/18/21 14:36:00 EST, [facility]-, Partial fill upon patient request [...] Diabetes mellitus type 2 in obese(Confirmed) Active 47[address] Social History Social History Type Response Smoking Status Former smoker, quit more than 30 days ago entered on: 11/08/20 Sex
--- OUTSIDE RECORDS SUMMARY | 2024-02-23 16:21 | XMS_ITS | Continuity of Care Document ---
Author Organization [facility] Roscoe Crawford Saad lt Address [address] [place] [address]- Care Team Providers Care Strategic Alliances Manager Name Role Phone Jeevan Kumar MD Primary Care Physician Encounter [facility] Date(s): 11/09/22 - 12/09/22 [facility] Roscoe Matthewsley Adult [address] [place] [address]- Allergies, Adverse Reactions, Alerts Substance Reaction Severity [...] 15:29:00 EST, Route to Pharmacy Electronically, [facility], 160, cm, 08/17/22 15:09:00 EST, Height, 68.5, kg, 03/16/22 6:52:... Start Date: 08/17/22 Status: Ordered Actos 15 mg oral tablet 1 tablet = 15 mg, By Mouth, Daily, # 30 tablet, 6 Refills, Maintenance, 08/17/22 15:29:00 EST, Tablet, [facility] 1 Refills, Maintenance, 10/31/22 17:38:00 EST, Tablet, [facility] [...] 15:29:00 EST, Route to Pharmacy Electronically, [facility], Partial fill upon patient request if th... Start Date: 08/17/22 Status: Ordered Crestor 5 mg oral tablet 1 tablet = 5 mg, By Mouth, Daily, REPLACES SIMVASTATIN, # 30 tablet, 6 Refills, Maintenance, 08/17/22 15:29:00 EST, Tablet, [facility], Partial fill upon patient request if the prescription is for a schedule II opioid drug., 160,... Start Date: 08/17/22 Status: Ordered diclofenac 1% topical gel See Instructions, APPLY TO AFFECTED AREA(S) TWICE A DAY NEEDED PAIN, # 100 Gm, 0 Refills, Maintenance, 07/30/22 13:16:00 EDT, [facility], 14, APPLY TO AFFECTED AREA(S) TWICE A DAY NEEDED PAIN, 160, cm, 06/29/22 12:54:00 EDT, Height,... Start Date: 07/30/22 Status: Ordered dilTIAZem 360 mg/24 hours oral capsule, extended release 1 capsule = 360 mg, By Mouth, Daily, # 30 capsule, 6 Refills, Maintenance, 08/17/22 15:29:00 EST, CR Capsule, [facility], Partial fill upon patient request if the prescription isfor a schedule II opioid drug., 160, cm, 08/17/22 1... Start Date: 08/17/22 Status: Ordered Estrace Vaginal Cream 0.1 mg/g = 1 Gm, Vaginally, Every Wednesday and Wednesday, # 42.5 Gm, 6 Refills, Maintenance, 08/19/22 14:20:00 EST, [facility], Partial fill upon patient request if the prescription is for a schedule II opioid drug., 160.5, cm, 08/19/22 14:08:... Start Date: 08/19/22 Status: Ordered ferrous sulfate 325 mg oral tablet 1 tablet, By Mouth, Daily, # 30 tablet, 11 Refills, Maintenance, 10/29/22 11:37:00 EST, [facility], 160.5, cm, 08/27/22 14:26:00 EST, Height, [...] Refills, Maintenance, 08/17/22 15:29:00 EST, Solution, [facility]-, Partial fill upon patient request if the prescription is for a schedule II opioid drug., 160, cm, 08/17/22 15... Start Date: 08/17/22 Status: Ordered methimazole 10 mg oral tablet 10 mg, 1, tablet, By Mouth, Daily, # 90 tablet, Refills 3, Tot. Refills 3, Maintenance, 08/18/22 8:29:00 EST, [facility] each, 0 Refills, Maintenance, 10/21/22 13:37:00 EST, [facility], 160.5, cm, 08/27/22 14:26:00 EST, Height, 66, kg, 08/19/22 14:08... Start Date: 10/21/22 Status: Ordered Nutrafol (Hair Growth Supplement) Nutrafol (Hair Growth Supplement), See Instructions, Refills 0, Maintenance, 06/29/22 13:08:00 EDT,Supply Start Date: 06/29/22 Status: Ordered omeprazole 20 mg oral enteric coated capsule 1 capsule = 20 mg, By Mouth, Daily, # 30 capsule, 6 Refills, Maintenance, 08/17/22 15:29:00 EST, ECCapsule, [facility]-, [...] 6 Refills, Maintenance, 08/17/22 15:29:00 EST, [facility]-, [...] mellitus type 2 in obese Confirmed Active 71285 Social History Social History Type Response Smoking Status Former smoker, quit more than 30 days ago entered on: 11/08/20 Sex Patient Care team information Care Team Personnel Name: Praveena Jordan RN Position: [facility] PCO RN Member Role: Primary Care Nurse Name: Smita Cantrell RN Position: [facility] SN RN Member Role: Primary Care Nurse Name: Zain Ramos RN Position: [facility] ED RN W/OE and Tasks Member Role: Primary Care Nurse Name: Gerard Erickson RN Position: [facility] RN Member Role: Primary Care Nurse Name: Jeevan Kumar MD Position: [facility] Primary Care Physician Member Role: PCP Address: Address: [address] [place] [id number]- [place] Name: Amy Campos NP Position: [facility] Associate Professional Member Role: Primary Care Nurse Address: Address: [address] [place] [address] Trauma [place] [address]- [place] Name: Gita Becerril RN Position: [facility] RN Member Role: Primary Care Nurse Name: Selena Dias RN Position: [facility] PCO RN Member Role: Primary Care Nurse Name: Ryan Romero RN Position: [facility] SN RN Member Role: Primary Care Nurse Name: Florention Torres RN Position: [facility] RN Member Role: Primary Care Nurse Name: Pretty Rosen RN Position: [facility] RN Member Role: Primary Care Nurse Name: Basilio Chase MD Position: [facility] Psychiatry MD Member Role: Lifetime Consulting Physician Address: Address: [address] [place] [phone]- Care Team Related Persons Name: EMEKA MACK Address: home [address] [place] [address] Name: CARMEN COELLO Address: [place] [address] Name: TRACY PALMER Address: home [address] [place] [address]
[2024-02-23] MEDS: oxyCODONE HCl Immed Release 5 MG TABLET PO (16:41)
[2024-02-23 17:20] VITALS: BP 143/75; PULSE 65; RESP 16; TEMP 37; O2SAT 97
[2024-02-23 19:04] VITALS: BP 143/75; PULSE 65; RESP 16; TEMP 37; O2SAT 97
== END 2024-02-23 19:04 | disposition home or self-care (01) ==
PROVIDERS: Emergency Provider Emergency Medicine Emergency Medical Services; PCP Nurse Practitioner Adult Health
DX: S42.031A Displaced fracture of lateral end of right clavicle, initial encounter for closed fracture (principal); W18.39XA Other fall on same level, initial encounter; Y93.89 Activity, other specified; Y92.9 Unspecified place or not applicable; Y99.9 Unspecified external cause status
CPT/HCPCS: 70450; 72125; 73030; 99283; 99284

== ENCOUNTER 2024-05-14 18:39 | Emergency (ER) | payer OTHER, SELFPAY ==
--- NOTE | ~2024-05-14 | XR_ITS ---
EXAMINATION: XR HIP, LEFT CLINICAL INFORMATION: Pain COMPARISON: None available. TECHNIQUE: Two views of the left hip. FINDINGS: No fracture. Alignment is anatomic. Hip joint space is maintained. Soft tissues are unremarkable. XR/XR hip LT w PEL1V IMPRESSION: Normal left hip.
--- NOTE | 2024-05-14 18:46 | ED_ITS ---
HPI - Back Pain/Injury General Chief Complaint: Extremity Injury, Lower Stated Complaint: Sciatic nerve pain Time Seen by Provider: 05/14/24 20:21 Source: patient, RN notes reviewed and old records reviewed Mode of arrival: ambulatory History of Present Illness ED Provider: Nevaeh Gabriel PA-C HPI Narrative: 69-year-old female a past medical history HTN, HLD, diabetes, anxiety, depression, PTSD, presenting to the ED complaining left hip pain radiating down LLE x 1 week s/p doing physical therapy exercises. Denies direct injury, trauma or fall. Denies numbness, tingling, weakness, incontinence/retention, fever, abdominal pain, flank pain. Related Data Home Medications ?Medication ?Instructions ?Recorded ?Confirmed clonidine HCl 0.1 mg tablet PO 08/02/20 diltiazem HCl 360 mg capsule,24 1 cap PO DAILY 08/02/20 08/02/20 hr,extended release ferrous sulfate 325 mg (65 mg 1 tab PO DAILY 08/02/20 08/02/20 iron) tablet insulin aspart U-100 100 unit/mL unit subcut TID 08/02/20 (3 mL) subcutaneous pen (Novolog FlexPen U-100 Insulin aspart) insulin glargine 100 unit/mL (3 subcut 08/02/20 mL) subcutaneous pen (Lantus Solostar U-100 Insulin) lamotrigine 100 mg tablet 1 tab PO DAILY 08/02/20 08/02/20 omeprazole 20 mg capsule,delayed 1 cap PO DAILY 08/02/20 08/02/20 release simvastatin 20 mg tablet 1 tab PO BEDTIME 08/02/20 08/02/20 topiramate 50 mg tablet 1 tab PO BID 08/02/20 08/02/20 Previous Rx's ?Medication ?Instructions ?Recorded cyclobenzaprine 5 mg tablet 5 mg PO TID PRN muscle spasm #14 02/14/22 tabs hydrocodone 5 mg-acetaminophen 325 1 tab PO Q8H PRN severe pain 02/14/22 mg tablet (scale score 7-10) #6 tabs mjvhcthrww-jadjcbawxindn-aqtkyrdt 1 cap PO Q6H PRN headache #20 caps 06/24/22 50 mg-300 mg-40 mg capsule (Fioricet) levetiracetam 500 mg tablet 500 mg PO BID #60 tabs 01/12/24 (Keppra) acetaminophen 500 mg tablet 500 mg PO Q6H PRN fever or pain 05/14/24 (Tylenol Extra Strength) #14 tabs cyclobenzaprine 5 mg tablet 5 mg PO Q8H PRN pain (scale score 05/14/24 7-10) 5 days #14 tabs lidocaine 5 % topical patch 1 patch topical DAILY PRN pain #30 05/14/24 (Lidoderm) ea morphine 15 mg immediate release 15 mg PO Q6H PRN pain #14 tabs 05/14/24 tablet oxycodone 5 mg tablet 5 mg PO Q6H PRN pain #12 tabs 05/14/24 Allergies Allergy/AdvReac Type Severity Reaction Status Date / Time bupropion [From WELLBUTRIN] Allergy Severe SEIZURES Verified 05/14/24 18:49 sulfamethoxazole Allergy Severe GIB Verified 05/14/24 18:49 [From BACTRIM] trimethoprim [From BACTRIM] Allergy Severe GIB Verified 05/14/24 18:49 carisoprodol [From SOMA] Allergy Intermediate HALLUCINATI Verified 05/14/24 18:49 ONS gabapentin [From NEURONTIN] Allergy Intermediate HALLUCINATI Verified 05/14/24 18:49 ONS/PARANOI D Sulfa (Sulfonamide Allergy Unknown Unknown Verified 05/14/24 18:49 Antibiotics) aspirin AdvReac Gastrointestinal Verified 05/14/24 18:49 Upset Review of Systems Review of Systems: Constitutional: No Fever, No Chills ENT/Mouth: No Ear Pain, No Nasal Congestion, No sore throat, No Rhinorrhea, No Swallowing Difficulty Cardiovascular: No Chest Pain, No SOB Respiratory: No Cough, No Sputum, No Wheezing Gastrointestinal: No Nausea, No Vomiting, No Abdominal pain Genitourinary: No Dysuria, No Urinary Frequency, No Hematuria, No Urinary Incontinence/retention, No Flank Pain Musculoskeletal: + joint pain, No Myalgias, No Joint Swelling Skin: No Skin Lesions, No rash Neuro: No Weakness, No Numbness, No Paresthesias Yes all other systems are reviewed and are negative Constitutional: Constitutional: Reports as per HPI Neurologic: Denies Sensory deficit (Neuro) [facility] Past Medical History Attestation statement: The following information was validated with the patient. Source: old records reviewed Medical History PTSD (post-traumatic stress disorder) Depression Anxiety Diabetes mellitus, type 2 Hypercholesteremia Hypertension Social History Social History Smoked in Last 30 Days: No Use of substances other than those prescribed or required for medical reasons: No Advance Directives: No Advance Directives Information Provided: No Physical Exam Vital Signs: Vital Signs: Last Vital Signs Temp 98.3 F 05/14/24 22:32 Pulse 68 05/14/24 22:32 Resp 20 05/14/24 22:32 BP 148/66 H 05/14/24 22:32 Pulse Ox 97 05/14/24 22:32 O2 Del Method Room Air 05/14/24 22:32 BMI result Body Mass Index 29.5 Const: General: cooperative, healthy appearing and no acute distress Orientation/consciousness: patient oriented x3 Limitations: no limitations HEENT: Head: Yes normal to inspection and Yes atraumatic Ears: hearing grossly normal bilaterally General nose exam: Normal external nose present Face and sinus: Yes normal facial exam Eyes: General: appearance normal, both eyes and all related structures EOM: EOMs intact bilaterally Neck: Neck: Yes normal visual inspection and Yes no meningeal signs Resp: Effort & Inspection: normal respiratory effort and no respiratory distress Auscultation: clear to auscultation bilaterally Cardio: Rate: regular rate Heart sounds: S1 normal heart sound present and S2 normal heart sound present GI: Inspection: Yes normal to inspection Palpation (GI): Soft to palpation, nontender, no guarding and not rigid : General: Yes no CVA tenderness Back/Spine/Pelvis: Other: No midline cervical/thoracic/lumbar spinous tenderness/step-off or deformity Back: no CVA tenderness Skin: Rashes: no rashes Wounds: no wounds Neuro: Other: Strength intact throughout. No saddle anesthesia. Sensation intact to light touch. Neurovascular intact distally. Antalgic gait General: patient oriented x3, tone normal, moves all extremities and no meningeal signs Cranial nerves: Yes CN's II-XII intact bilaterally Gait exam (Neuro): Antalgic gait present Motor exam (neuro): 5/5 motor strength present throughout Sensory Exam: No Sensory deficit (Neuro) Extrem: Other: Hips without appreciable deformity. Pelvis stable. Left hip with reproducible tenderness. ROM intact with some discomfort. General: Yes normal to inspection Course Course Course Narrative: This is a Rapid Medical Exam performed in triage by Nevaeh Gabriel PA-C. Full HPI, ROS and PE to be performed by primary ED provider. 69 yo F w/PMHx DM, HTN, HLD, PTSD, Depression, anxiety presenting to the ED c/o left sided hip/low back pain radiating to ankle s/p starting physical therapy. taking OTC meds w/o relief. denies urinary sx including incontinence/retention PE: ambulating w/steady gait Plan: Pain control -2099-- ED care transferred to Dr. Pina pending XR and dispo Reevaluation(s) Reevaluation #1: The patient signed out to me by the physician showroom sales assistant pending the results of an x-ray. A left hip and pelvis x-ray shows no acute findings. The patient indicated that she was having a great deal of trouble sleeping. I have sent a prescription for oxycodone to the [facility] on . Time: 22:38 Medications Administered Discontinued Medications Generic Name Dose Route Start Last Admin Trade Name Mora PRN Reason Stop Dose Admin Acetaminophen 650 mg 05/14/24 20:27 05/14/24 20:35 Acetaminophen 325 Mg Tablet PO 05/14/24 20:28 650 mg ONCE ONE Administration Ketorolac Tromethamine 30 mg 05/14/24 20:27 05/14/24 20:35 Ketorolac Tromethamine 30 Mg/Ml Vial IM 05/14/24 20:28 30 mg ONCE ONE Administration Lidocaine 1 patch 05/14/24 20:27 05/14/24 20:35 Lidocaine 4 % Patch Adh..Patch TRANSDERMA 05/14/24 20:28 1 patch ONCE ONE Administration Protocol Medical Decision Making Medical Decision Making MDM Narrative: 69-year-old female a past medical history HTN, HLD, diabetes, anxiety, depression, PTSD, presenting to the ED complaining left hip pain radiating down LLE x 1 week s/p doing physical therapy exercises. On exam signs stable, NAD, nontoxic appearing, physical exam as noted above. Concern for MSK pain/strain vs muscle spasm vs sciatica. Low suspicion for fracture, cauda equina/cord compression, appendicitis, renal stone or pyelo Plan: X-ray, pain control, PCP follow-up Please refer to course for remaining clinical decision making, interpretation of labs/imaging results, and discussions with consultants and/or family members. Differential Diagnosis Differential Diagnoses: The differential diagnosis associated with the presentation includes As above Independent Interpretation I performed an independent interpretation of an: Plain X-Ray Radiology Impression Discussion of test interpretation with radiology: I have reviewed the radiologist's reading. External Record Review External record reviewed: Inpatient record, Office record, Outpatient record, Prior outpatient labs, Prior outpatient radiology, Primary care record and Outside ED record Tests considered The following testing was considered but not selected: As above Prescription Management I considered prescription management with: Pain Medication Discharge Plan Discharge Clinical Impression: Sciatic leg pain Patient Disposition: Home, Self-Care Instructions: Sciatica (ED) Additional Instructions: Your pain is likely musculoskeletal Flexeril is a muscle relaxer, take at night as it makes you drowsy, do not drive, drink alcohol, or operate machinery while taking it Lidoderm patches are numbing patches, apply to painful area In addition take Tylenol at home If symptoms persist or worsen, pain becomes unbearable, you developed urinary retention or incontinence, or weakness return to the ED Prescriptions: New acetaminophen [Tylenol Extra Strength] 500 mg tablet 500 mg PO Q6H PRN (Reason: fever or pain) Qty: 14 0RF lidocaine [Lidoderm] 5 % adhesive patch,medicated 1 patch topical DAILY MDD remove after 12 hours PRN (Reason: pain) Qty: 30 0RF Rx Instructions: leave on most painful area for up to 12 hrs cyclobenzaprine 5 mg tablet 5 mg PO Q8H PRN (Reason: pain (scale score 7-10)) 5 Days Qty: 14 0RF morphine 15 mg tablet 15 mg PO Q6H PRN (Reason: pain) Qty: 14 0RF Rx Instructions: Partial Fill upon patient request. oxycodone 5 mg tablet 5 mg PO Q6H PRN (Reason: pain) Qty: 12 0RF Rx Instructions: Partial Fill upon patient request. No Action clonidine HCl 0.1 mg tablet PO diltiazem HCl 360 mg capsule,extended release 24 hr 1 cap PO DAILY simvastatin 20 mg tablet 1 tab PO BEDTIME ferrous sulfate 325 mg (65 mg iron) tablet 1 tab PO DAILY omeprazole 20 mg capsule,delayed release(DR/EC) 1 cap PO DAILY lamotrigine 100 mg tablet 1 tab PO DAILY insulin aspart U-100 [Novolog FlexPen U-100 Insulin] 100 unit/mL (3 mL) insulin pen subcut TID topiramate 50 mg tablet 1 tab PO BID Lantus Solostar U-100 Insulin 100 unit/mL (3 mL) insulin pen subcut [id number]-[id number] [Fioricet] 50-300-40 mg capsule 1 cap PO Q6H PRN (Reason: headache) Qty: 20 0RF cyclobenzaprine 5 mg tablet 5 mg PO TID PRN (Reason: muscle spasm) Qty: 14 0RF hydrocodone-acetaminophen 5-325 mg tablet 1 tab PO Q8H PRN (Reason: severe pain (scale score 7-10)) Qty: 6 0RF levetiracetam [Keppra] 500 mg tablet 500 mg PO BID Qty: 60 1RF Referrals: Tisha Ac, SCHOOL CHILD CARE ATTENDANT [Primary Care Provider] - 3 days Interventions: ED Discharge Assessment Last Done: 05/14/24 22:32 Discharge Date/Time: 05/14/24 22:33 Print Language: Belarusian
[2024-05-14 18:47] VITALS: BP 153/63; PULSE 66; RESP 18; TEMP 37; O2SAT 96; BMI 29.5
[2024-05-14] MEDS: Acetaminophen 325 MG TABLET 650 MG PO (20:35)
[2024-05-14] MEDS: Lidocaine 4 % Patch ADH..PATCH 1 PATCH TRANSDERMA (20:35)
[2024-05-14] MEDS: Ketorolac Tromethamine 30 MG/ML VIAL IM (20:35)
[2024-05-14 21:04] VITALS: BP 148/66; PULSE 68; RESP 20; TEMP 36.8; O2SAT 97
[2024-05-14 22:32] VITALS: BP 148/66; PULSE 68; RESP 20; TEMP 36.8; O2SAT 97
== END 2024-05-14 22:33 | disposition home or self-care (01) ==
PROVIDERS: Emergency Provider Emergency Medicine; PCP Nurse Practitioner Adult Health
DX: M54.42 Lumbago with sciatica, left side (principal); M25.552 Pain in left hip
CPT/HCPCS: 73502; 96372; 99284; J1885

== ENCOUNTER 2025-03-28 16:26 | Emergency (ER) | payer OTHER, SELFPAY ==
--- NOTE | ~2025-03-28 | CT_ITS ---
CLINICAL HISTORY: T4 fracture? In outpatient x-ray CT thoracic spine without contrast Comparison: None provided Findings: Age-indeterminate superior L1 compression fracture with 20% height loss anteriorly. No additional fracture demonstrated. Moderate degenerative changes. Regional soft tissues normal. IMPRESSION: Age-indeterminate superior L1 endplate compression fracture. No acute fracture in the thoracic spine. This document has been electronically signed by: Cholo Zacarias MD on 03/28/2025 20:50:30
[2025-03-28 16:51] VITALS: BP 153/64; PULSE 72; RESP 18; TEMP 36.7; O2SAT 99; BMI 25.8
[2025-03-28 18:25] VITALS: BP 169/65; PULSE 7; RESP 16; TEMP 36.8; O2SAT 99
[2025-03-28 18:34] VITALS: BP 169/65; PULSE 7; RESP 16; TEMP 36.8; O2SAT 99
--- NOTE | 2025-03-28 18:42 | PC.NURSE ---
70 F presents to ED with back pain x 1 month after a follow when tripping. Pt c/o 07/06 upper back pain that radiates to Left arm. Pt sts some SOB x 1 week as well, RR even and unlabored. Denies CP. A+Ox4, calm, cooperative. Pt walks with a walker but sts she has not been walking as well with her cane recently.
--- NOTE | 2025-03-28 18:46 | ED.BACK ---
HPI - Back Pain/Injury General Chief Complaint: Back Pain/Injury Stated Complaint: upper back pain Time Seen by Provider: 03/28/25 18:41 Source: patient Mode of arrival: ambulatory Limitations: no limitations History of Present Illness ED Provider: HPI Narrative: Patient's ex alcoholic history of hypertension diabetes anxiety depression PTSD came here as her PCP told her that she has upper thoracic spine fracture after she fell about 4 days ago and she had x-ray done at that time patient denied any weakness in the upper or lower extremity as such after the fall no direct trauma to the spine patient has just fell backwards patient denied any significant hands or legs weakness acutely after the fall patient does have balance problems use the cane Related Data Home Medications ?Medication ?Instructions ?Recorded ?Confirmed clonidine HCl 0.1 mg tablet PO 08/02/20 diltiazem HCl 360 mg capsule,24 1 cap PO DAILY 08/02/20 08/02/20 hr,extended release ferrous sulfate 325 mg (65 mg 1 tab PO DAILY 08/02/20 08/02/20 iron) tablet insulin aspart U-100 100 unit/mL unit subcut TID 08/02/20 (3 mL) subcutaneous pen (Novolog FlexPen U-100 Insulin aspart) insulin glargine 100 unit/mL (3 subcut 08/02/20 mL) subcutaneous pen (Lantus Solostar U-100 Insulin) lamotrigine 100 mg tablet 1 tab PO DAILY 08/02/20 08/02/20 omeprazole 20 mg capsule,delayed 1 cap PO DAILY 08/02/20 08/02/20 release simvastatin 20 mg tablet 1 tab PO BEDTIME 08/02/20 08/02/20 topiramate 50 mg tablet 1 tab PO BID 08/02/20 08/02/20 Previous Rx's ?Medication ?Instructions ?Recorded cyclobenzaprine 5 mg tablet 5 mg PO TID PRN muscle spasm #14 02/14/22 tabs hydrocodone 5 mg-acetaminophen 325 1 tab PO Q8H PRN severe pain 02/14/22 mg tablet (scale score 7-10) #6 tabs ipxesivciy-xbwppiydeqqgv-lspdgazf 1 cap PO Q6H PRN headache #20 caps 06/24/22 50 mg-300 mg-40 mg capsule (Fioricet) levetiracetam 500 mg tablet 500 mg PO BID #60 tabs 01/12/24 (Keppra) acetaminophen 500 mg tablet 500 mg PO Q6H PRN fever or pain 05/14/24 (Tylenol Extra Strength) #14 tabs cyclobenzaprine 5 mg tablet 5 mg PO Q8H PRN pain (scale score 05/14/24 7-10) 5 days #14 tabs lidocaine 5 % topical patch 1 patch topical DAILY PRN pain #30 05/14/24 (Lidoderm) ea morphine 15 mg immediate release 15 mg PO Q6H PRN pain #14 tabs 05/14/24 tablet oxycodone 5 mg tablet 5 mg PO Q6H PRN pain #12 tabs 05/14/24 lidocaine 4 % topical patch 1 patch topical DAILY PRN pain #15 03/28/25 ea tramadol 50 mg tablet 50 mg PO Q6H PRN pain #20 tabs 03/28/25 Allergies Allergy/AdvReac Type Severity Reaction Status Date / Time bupropion (From WELLBUTRIN) Allergy Severe SEIZURES Verified 03/28/25 16:54 sulfamethoxazole (From Allergy Severe GIB Verified 03/28/25 16:54 BACTRIM) trimethoprim (From BACTRIM) Allergy Severe GIB Verified 03/28/25 16:54 carisoprodol (From SOMA) Allergy Intermediate HALLUCINATI Verified 03/28/25 16:54 ONS gabapentin (From NEURONTIN) Allergy Intermediate HALLUCINATI Verified 03/28/25 16:54 ONS/PARANOI D Sulfa (Sulfonamide Allergy Unknown Unknown Verified 03/28/25 16:54 Antibiotics) aspirin AdvReac Gastrointestinal Verified 03/28/25 16:54 Upset Review of Systems Review of Systems: Yes all other systems are reviewed and are negative [facility] Past Medical History Medical History PTSD (post-traumatic stress disorder) Depression Anxiety Diabetes mellitus, type 2 Hypercholesteremia Hypertension Physical Exam Vital Signs: Vital Signs: Last Vital Signs Temp 98.0 F 03/28/25 22:37 Pulse 74 03/28/25 22:37 Resp 15 03/28/25 22:37 BP 134/52 L 03/28/25 22:37 Pulse Ox 99 03/28/25 22:37 O2 Del Method Room Air 03/28/25 22:37 BMI result Body Mass Index 25.8 Appearance: Alert. Oriented X3. No acute distress. Eyes: PERRLA, No Nystagmus ENT: Pharynx normal. Oral Mucosa moist Neck: Normal inspection. Neck supple. upper back; diffuse tenderness upper thoracic spine CVS: Normal heart rate and rhythm. Pulses normal. Respiratory: No respiratory distress. Equal air entry bilateral, no wheezing/rales/rhonchi Abdomen: Soft and nontender. Bowel sounds are present, no mass palpable, no CVA tenderness Skin: Skin warm and dry. Normal skin color. Normal skin turgor. Extremities: No lower extremity edema. No calf tenderness Neuro: Oriented X 3. No motor deficit. No sensory deficit.No cerebellar signs , cranial nerves II-XII intact Medications Administered Discontinued Medications Generic Name Dose Route Start Last Admin Trade Name Sammq PRN Reason Stop Dose Admin Lidocaine 1 patch 03/28/25 21:40 03/28/25 21:53 Lidocaine 4 % Patch Adh..Patch TRANSDERMA 03/28/25 21:41 1 patch ONCE ONE Administration Protocol Morphine Sulfate 15 mg 03/28/25 19:05 03/28/25 20:03 Morphine Sulfate Immed Release 15 Mg Tablet PO 03/28/25 19:06 15 mg ONCE ONE Administration Tramadol HCl 50 mg 03/28/25 21:40 03/28/25 21:52 Tramadol Hcl 50 Mg Tablet PO 03/28/25 21:41 50 mg ONCE ONE Administration Medical Decision Making Medical Decision Making [facility] Narrative: CT scan of the thoracic spine negative for thoracic spine fracture showed age indeterminate L1 compression fracture with no spinal cord involvement will discharge patient home patient ambulatory in steady gait with cane Lab Data [facility] Lab Attestation statement: I reviewed the patient's lab results. 03/28/25 19:21 03/28/25 19:21 Labs: Lab Results 03/28/25 Range/Units 19:21 WBC 5.3 (4.8-10.8) X10*3/uL RBC 3.32 L (4.20-5.50) X10*6/uL Hgb 10.9 L (12.0-16.0) g/dl Hct 33.3 L (37.0-47.0) % MCV 100.3 H (80.0-98.0) fL MCH 32.8 (27.0-33.0) pg MCHC 32.7 (31.0-35.0) g/dl RDW 14.5 (11.0-16.0) % Plt Count 224 (160-400) X10*3/uL MPV 9.6 (9.4-12.3) fL Immature Gran % (Auto) 0.2 (0.0-0.4) % Neut % (Auto) 63.5 (45-73) % Lymph % (Auto) 24.7 (20-40) % [place] % (Auto) 9.1 (2-11) % Eos % (Auto) 2.3 (0-4) % Baso % (Auto) 0.2 (0-2) % Lymph # (Auto) 1.3 (1.2-4.9) X10*3/uL [place] # (Auto) 0.5 (0.1-1.2) X10*3/uL Eos # (Auto) 0.1 (0.0-0.4) X10*3/uL Baso # (Auto) 0.0 (0.0-0.2) X10*3/uL Abs Immat Gran (auto) 0.01 (0.00-0.03) X10*3/uL Absolute Neuts (auto) 3.3 (2.0-8.3) x10*3/uL Absolute Nucleated RBC 0.000 (0.0-0.012) X10*3/uL Nucleated RBC % (auto) 0.0 (0.0-0.2) /100WBC Sodium 141 (135-145) mmol/L Potassium 5.4 H (3.3-5.1) mmol/L Chloride 107 (96-108) mmol/L Carbon Dioxide 25 (22-29) mmol/L Anion Gap 14 (12-20) BUN 25 H (9-16) mg/dL Creatinine 1.59 H (0.5-1.4) mg/dL Estim Creat Clear Calc 30.4 Estimated GFR 32 Random Glucose 104 (60-115) mg/dL Calcium 9.8 (8.4-10.2) mg/dL Magnesium 2.3 (1.6-2.6) mg/dL Total Bilirubin 0.2 (0.0-1.0) mg/dL AST 23 (5-31) U/L ALT 18 (0-31) U/L Alkaline Phosphatase 81 (39-117) U/L Total Protein 6.9 (6.5-8.0) g/dL Albumin 4.4 (3.5-5.0) g/dL Vitamin B12 > 2000 H (200-900) pg/mL Folate > 20.0 (> or = 4.0) ng/mL Radiology Impression Discussion of test interpretation with radiology: I have reviewed the radiologist's reading. Discharge Plan Discharge Clinical Impression: Thoracic back pain Patient Disposition: Home, Self-Care Instructions: Thoracic Pain (ED) Additional Instructions: Your CT scan is negative for thoracic spine fracture showed old L1 compression fracture Take pain medication as prescribed and use lidocaine patch daily at the painful area Prescriptions: New tramadol 50 mg tablet 50 mg PO Q6H PRN (Reason: pain) Qty: 20 0RF lidocaine 4 % adhesive patch,medicated 1 patch topical DAILY PRN (Reason: pain) Qty: 15 0RF No Action clonidine HCl 0.1 mg tablet PO diltiazem HCl 360 mg capsule,extended release 24 hr 1 cap PO DAILY simvastatin 20 mg tablet 1 tab PO BEDTIME ferrous sulfate 325 mg (65 mg iron) tablet 1 tab PO DAILY omeprazole 20 mg capsule,delayed release(DR/EC) 1 cap PO DAILY lamotrigine 100 mg tablet 1 tab PO DAILY insulin aspart U-100 [Novolog FlexPen U-100 Insulin] 100 unit/mL (3 mL) insulin pen subcut TID topiramate 50 mg tablet 1 tab PO BID Lantus Solostar U-100 Insulin 100 unit/mL (3 mL) insulin pen subcut [id number] [Fioricet] 50-300-40 mg capsule 1 cap PO Q6H PRN (Reason: headache) Qty: 20 0RF cyclobenzaprine 5 mg tablet 5 mg PO TID PRN (Reason: muscle spasm) Qty: 14 0RF hydrocodone-acetaminophen 5-325 mg tablet 1 tab PO Q8H PRN (Reason: severe pain (scale score 7-10)) Qty: 6 0RF levetiracetam [Keppra] 500 mg tablet 500 mg PO BID Qty: 60 1RF acetaminophen [Tylenol Extra Strength] 500 mg tablet 500 mg PO Q6H PRN (Reason: fever or pain) Qty: 14 0RF lidocaine [Lidoderm] 5 % adhesive patch,medicated 1 patch topical DAILY MDD remove after 12 hours PRN (Reason: pain) Qty: 30 0RF Rx Instructions: leave on most painful area for up to 12 hrs cyclobenzaprine 5 mg tablet 5 mg PO Q8H PRN (Reason: pain (scale score 7-10)) 5 Days Qty: 14 0RF morphine 15 mg tablet 15 mg PO Q6H PRN (Reason: pain) Qty: 14 0RF Rx Instructions: Partial Fill upon patient request. oxycodone 5 mg tablet 5 mg PO Q6H PRN (Reason: pain) Qty: 12 0RF Rx Instructions: Partial Fill upon patient request. Interventions: ED Discharge Assessment Last Done: 03/28/25 22:37 Discharge Date/Time: 03/28/25 22:15 Print Language: Ukrainian
[2025-03-28 19:24] LABS: MANUAL DIFF FLAG NO
[2025-03-28 19:29] LABS: Hematocrit 33.3 % (37.0-47.0); Hemoglobin 10.9 g/dl (12.0-16.0); Imm Gran Abs Auto 0.01 X10*3/uL (0.00-0.03); Imm Gran Pct Auto 0.2 % (0.0-0.4); Lymphocytes Absolute Auto 1.3 X10*3/uL (1.2-4.9); Mean Corpuscular HGB Conc 32.7 g/dl (31.0-35.0); Mean Corpuscular Hemoglobin 32.8 pg (27.0-33.0); Mean Corpuscular Volume 100.3 fL (80.0-98.0); NRBC Abs Auto 0.000 X10*3/uL (0.0-0.012); NRBC Pct Auto 0.0 /100WBC (0.0-0.2); Platelet Count 224 X10*3/uL (160-400); Red Blood Count 3.32 X10*6/uL (4.20-5.50); White Blood Count 5.3 X10*3/uL (4.8-10.8)
[2025-03-28 19:39] LABS: Alanine Aminotransferase 18 U/L (0-31); Albumin Level 4.4 g/dL (3.5-5.0); Alkaline Phosphatase 81 U/L (39-117); Anion Gap 14 (12-20); Aspartate Amino Transferase 23 U/L (5-31); Blood Urea Nitrogen 25 mg/dL (9-16); Calcium 9.8 mg/dL (8.4-10.2); Carbon Dioxide 25 mmol/L (22-29); Chloride 107 mmol/L (96-108); Creatinine Clr Calc Pharmacy 30.4; Estimated Glomerular Filt Rate 32; Magnesium 2.3 mg/dL (1.6-2.6); Potassium 5.4 mmol/L (3.3-5.1); Sodium 141 mmol/L (135-145); Total Protein 6.9 g/dL (6.5-8.0)
[2025-03-28] MEDS: Morphine Sulfate Immed Release 15 MG TABLET PO (20:03)
[2025-03-28 20:07] VITALS: BP 169/71; PULSE 76; RESP 16; TEMP 36.6; O2SAT 98
[2025-03-28 20:16] LABS: Folate > 20.0 ng/mL (> or = 4.0); Vitamin B12 > 2000 pg/mL (200-900)
[2025-03-28 21:51] VITALS: BP 134/52; PULSE 74; RESP 15; TEMP 36.7; O2SAT 99
[2025-03-28] MEDS: Lidocaine 4 % Patch ADH..PATCH 1 PATCH TRANSDERMA (21:53)
[2025-03-28 22:37] VITALS: BP 134/52; PULSE 74; RESP 15; TEMP 36.7; O2SAT 99
== END 2025-03-28 22:15 | disposition home or self-care (01) ==
PROVIDERS: Emergency Provider Internal Medicine; PCP Nurse Practitioner Adult Health
DX: M54.6 Pain in thoracic spine (principal); I10 Essential (primary) hypertension; E11.8 Type 2 diabetes mellitus with unspecified complications; Z79.899 Other long term (current) drug therapy
CPT/HCPCS: 36415; 72128; 80053; 82607; 82746; 83735; 85025; 99284

== ENCOUNTER → 2025-03-28 19:04 | Outpatient (BNV) | payer OTHER, SELFPAY | PROVIDERS: Emergency Provider Internal Medicine; PCP Nurse Practitioner Adult Health; Visit Provider Radiology Diagnostic Radiology | DX: S32.010A Wedge compression fracture of first lumbar vertebra, initial encounter for closed fracture (principal) | CPT/HCPCS: 72128 ==